=== PATIENT | male | born 1970 | race African-American/Black ===

== ENCOUNTER 2016-09-27 01:00 | Inpatient (IN) ==
[2016-09-27] MEDS ORDERED: MORPHINE 2 MG/1 ML SYRINGE IV STA (01:27)
[2016-09-27] MEDS ORDERED: ENOXAPARIN 100 MG/ML SYRINGE SUBCUT STA (01:27)
[2016-09-27] MEDS ORDERED: FUROSEMIDE 100 MG/10 ML VIAL IV STA (01:27)
[2016-09-27] MEDS ORDERED: FUROSEMIDE 40 MG/4 ML VIAL ONE (01:27)
[2016-09-27] MEDS ORDERED: SUCCINYLCHOLINE 200 MG/10 ML VIAL IV STA (01:30)
[2016-09-27] MEDS ORDERED: ETOMIDATE 20 MG/10 ML VIAL IV ONE ×2 (01:30→02:16)
--- NOTE | 2016-09-27 01:34 | Emergency Department Note ---
Jose L Devi Manpreet, am scribing for, and in the presence of, Ángel Graf MD 01:33. Homar Devi Robert M, MD, personally performed the services described in this documentation, ascribed by Antwan Domingo in my presence, and it is both accurate and complete . Arrival - Arrival Chief Complaint: Shortness of Breath Stated Complaint: SOB ED Nursing Triage Note: patient to triage via wc with c/o shortness of breath for 3 weeks. saw a telephone betting clerk and was given tramadol which he said has made him even more sob. Mode of Arrival: Stretcher Source: Patient - History of Present Illness HPI Narrative: Patient presents complaining of being short of breath. He states symptoms started approximately 3 weeks ago. Acutely tonight he got worse. The patient has been given Ultram which he says subjectively made him worse but he has had no itching, swelling, or other complaints. The patient was also given Lasix at the time he was given Ultram from a physician in [place] that is a "[facility]". The patient denies any chest pain. He has had no fever. He does have productive cough. He is very dyspneic and further history is difficult to obtain. Allergies/Adverse Reactions: Allergies Allergy/AdvReac Type Severity Reaction Status Date / Time tramadol AdvReac SHORTNESS Verified 09/27/16 01:07 OF BREATH Home Medications: Home Medications Medication Instructions Recorded Confirmed Type FLUoxetine [PROzac] 40 mg PO DAILY 09/27/16 09/27/16 History OLANZapine [Olanzapine] 20 mg PO DAILY 09/27/16 09/27/16 History amLODIPine [Norvasc] 10 mg PO DAILY 09/27/16 09/27/16 History Review of System - Review of System 12 point system: reviewed and no additional remarkable complaints except as stated - Review of System Constitutional: Absent: diaphoresis, fever Respiratory: Present: respiratory distress. Absent: cough Cardiovascular: Absent: chest pain, dyspnea on exertion Gastrointestinal: Absent: abdominal pain, nausea, vomiting, diarrhea Neurological: Absent: headache, weakness Medical,Surgical,& Family Hx - Medical History Medical History: noncontributory Cardio: History of: CHF Psychological: History of: Anxiety Disorders - Social History Smoking Status: Smoker, status unknown Frequency of Alcohol Use: Occasionally Type of Drug Use: Marijuana Exam Physical Examination: General: Patient is well-developed and well-nourished with severe distress noted. The patient is too dyspneic to speak and other than 1 or 2 word sentences. HEENT: The extraocular muscles are intact. Oropharynx is moist. There is no erythema or exudate. The tympanic membranes are shiny bilaterally. Neck: There is no adenopathy. Full range of motion is noted without pain. The trachea is midline. No JVD is present. Lungs: There is normal excursion of the chest with the lungs demonstrating rales and rhonchi bilaterally. Subcostal retractions are present. There is no point tenderness present. Heart: The heart has a regular rate and rhythm with no gallops or murmurs. The patient is tachycardic. Abdomen: The abdomen is nontender and nondistended with no rebound, guarding, or masses. Bowel sounds are normal. Back: The back demonstrates a normal appearance with no evidence of trauma. Genitourinary: Not examined. Extremities: The extremities demonstrate no clubbing, cyanosis, or edema. The visualized range of motion is normal. They appear atraumatic. Neuro: Cranial nerves II through XII are checked and intact. There is no focal motor or sensory deficit seen in the extremities. Skin: Skin is warm and slightly diaphoretic with no evidence of rash. Vital Signs: Vital Signs Temperature 98.3 F 09/27/16 01:01 Pulse Rate 120 H 09/27/16 01:59 Respiratory Rate 24 09/27/16 01:59 Blood Pressure 161/111 09/27/16 01:59 O2 Sat by Pulse Oximetry 72 L 09/27/16 01:01 Course - Reevaluation(s) Reevaluation #1: Note is made that the tube was too superficial and ET tube had to be repositioned with the use of a bougie. Postprocedural chest x-ray demonstrates satisfactory positioning of the tube. Bilateral parenchymal opacities are present which favored to represent pneumonia but could represent pulmonary edema. Time: 02:00 - Consultations Consultation #1: Dr. Filippo Vivas will evaluate and admit the patient. Time: 02:43 Procedures - Intubation Time out performed: Yes sedative: Etomidate Mg Given: 20 paralytic: Succinylcholine Mg Given: 100 Laryngoscope: fiber optic video scope ET Tube Size: 8 Tube Secured Depth (cm): 21 Tube Secured Location: teeth Tube Placement Confirmation: visualized tube passing through cords, equal breath sounds bilaterally, no breath sounds over epigastrium, confirmation by capnometry, confirmation detector color change Patient Tolerated Procedure: well Intubation Complications: none Results - Labs CBC & BMP: 09/27/16 01:22 09/27/16 01:22 Lab Results: I have reviewed the patients labs Labs: Lab Results WBC 25.4 T/CUMM (4-12) H 09/27/16 01:22 RBC 4.57 MC/CUMM (3.8-5.5) 09/27/16 01:22 Hgb 9.8 GM/DL (14.0-18.0) L 09/27/16 01:22 Hct 28.3 VOL% (42.0-52.0) L 09/27/16 01:22 MCV 61.9 FL (87-102) L 09/27/16 01:22 MCH 21 PG (27-34) L 09/27/16 01:22 MCHC 34.6 GM/DL (32-36) 09/27/16 01:22 RDW 19.1 % (9.3-17.3) H 09/27/16 01:22 Plt Count 153 T/CUMM (130-400) 09/27/16 01:22 Neut % (Auto) 77.1 % (38.7-73.9) H 09/27/16 01:22 Lymph % (Auto) 11.8 % (21.2-54.2) L 09/27/16 01:22 [place] % (Auto) 8.2 % (1.7-12.7) 09/27/16 01:22 Eos % (Auto) 0.6 % (0.00-10.9) 09/27/16 01:22 Baso % (Auto) 0.4 % (0.0-0.8) 09/27/16 01:22 Neut # (Auto) 19.6 10*3/uL (1.4-7.4) H 09/27/16 01:22 Lymph # (Auto) 3.0 10*3/uL (1.4-4.0) 09/27/16 01:22 Gaston # (Auto) 2.1 10*3/uL (0.11-0.8) H 09/27/16 01:22 Eos # (Auto) 0.1 10*3/uL (0.0-0.87) 09/27/16 01:22 Baso # (Auto) 0.1 10*3/uL (0.0-0.2) 09/27/16 01:22 Immature Gran % 1.9 % 09/27/16 01:22 Nucleated RBC % 1.4 /100WBC 09/27/16 01:22 Immature Gran # 0.48 # 09/27/16 01:22 Nucleated RBCs # 0.35 10*3/uL 09/27/16 01:22 INR 1.1 09/27/16 01:22 PT Patient/Control Mix 11.2 SECS 09/27/16 01:22 Sodium 132 MMOL/L (136-145) L 09/27/16 01:22 Potassium 3.4 MMOL/L (3.5-5.1) L 09/27/16 01:22 Chloride 97 MMOL/L (98-107) L 09/27/16 01:22 Carbon Dioxide 21 MMOL/L (21-32) 09/27/16 01:22 Anion Gap 17.4 MMOL/L (5.0-15.0) H 09/27/16 01:22 BUN 16 MG/DL (7-18) 09/27/16 01:22 Creatinine 1.30 MG/DL (0.70-1.30) 09/27/16 01:22 GFR Calculation 77 ML/MIN 09/27/16 01:22 BUN/Creatinine Ratio 12.00 RATIO (6.00-20.00) 09/27/16 01:22 Glucose 200 MG/DL (74-106) H 09/27/16 01:22 Calculated Osmolality 270.5 MOS/KG (273-304) L 09/27/16 01:22 Lactic Acid 3.4 MMOL/L (0.4-2.0) H 09/27/16 01:22 Calcium 8.0 MG/DL (8.5-10.1) L 09/27/16 01:22 Magnesium 1.7 MG/DL (1.8-2.4) L 09/27/16 01:22 Total Bilirubin 2.10 MG/DL (0.2-1.0) H 09/27/16 01:22 AST 29 U/L (0-37) 09/27/16 01:22 ALT 31 U/L (16-61) 09/27/16 01:22 Alkaline Phosphatase 108 U/L (45-117) 09/27/16 01:22 Troponin I 0.078 NG/ML (0.00-0.045) H 09/27/16 01:22 Total Protein 6.5 G/DL (6.4-8.3) 09/27/16 01:22 Albumin 3.3 G/DL (3.4-5.0) L 09/27/16 01:22 Globulin 3.2 G/DL (2.3-3.5) 09/27/16 01:22 Albumin/Globulin Ratio 1.0 RATIO (1.1-2.2) L 09/27/16 01:22 Urine Color Yellow (Yellow) 09/27/16 01:51 Urine Appearance Clear (Clear) 09/27/16 01:51 Urine pH 5.0 (4.5-8.0) 09/27/16 01:51 Ur Specific [place] 1.009 (1.001-1.035) 09/27/16 01:51 Urine Protein 100 MG/DL 09/27/16 01:51 Urine Glucose (UA) Negative mg/dL (Negative) 09/27/16 01:51 Urine Ketones Negative mg/dL (Negative) 09/27/16 01:51 Urine Blood Small mg/dL (Negative) 09/27/16 01:51 Urine Nitrate Negative (Negative) 09/27/16 01:51 Urine Bilirubin Negative mg/dL (Negative) 09/27/16 01:51 Urine Urobilinogen 2.0 EU/DL (0.2-1.0) H 09/27/16 01:51 Urine Leukocytes Negative Tulio/ul (Negative) 09/27/16 01:51 Urine RBC 1 /HPF (0-4) 09/27/16 01:51 Urine WBC <1 /HPF (0-6) 09/27/16 01:51 Ur Squamous Epith Cells Occasional /HPF (0-10) 09/27/16 01:51 Hyaline Casts 2 /LPF (0-3) 09/27/16 01:51 Urine Mucus Occasional /LPF (Occasional) 09/27/16 01:51 Ur Culture Indicated? Not indicated 09/27/16 01:51 ABG pH 7.159 (7.35-7.45) L* 09/27/16 02:03 ABG pCO2 61.0 MM HG (35-48) H 09/27/16 02:03 ABG pO2 53.9 MM HG (80-95) L 09/27/16 02:03 ABG HCO3 21.2 MMOL/L (20-26) 09/27/16 02:03 ABG Total CO2 23.1 MMOL/L (23-27) 09/27/16 02:03 ABG O2 Saturation 75.7 % (95-100) L 09/27/16 02:03 ABG Base Excess -7.7 MMOL/L (-2.5-2.5) L 09/27/16 02:03 FiO2 100.00 PERCENT (0-100) 09/27/16 02:03 Urine Opiates Screen Negative (Negative) 09/27/16 01:51 Ur Barbiturates Screen Negative (Negative) 09/27/16 01:51 Ur Phencyclidine Scrn Negative (Negative) 09/27/16 01:51 U Amphetamine/Methamph Negative (Negative) 09/27/16 01:51 U Benzodiazepines Scrn Negative (Negative) 09/27/16 01:51 U Cocaine Metab Screen Negative (Negative) 09/27/16 01:51 U Cannabinoids Screen Positive (Negative) H 09/27/16 01:51 - EKG EKG results: interpreted by SINDY, sinus rhythm (Tachycardic), normal ST/T Critical Care Time Critical Care Time: Yes Total Critical Care Time: 43 Disposition Clinical Impression: Community acquired pneumonia, Congestive heart failure Case discussed with: patient, patient's family Disposition: Still a Patient Condition: Critical Time of Disposition: 02:42
[2016-09-27] MEDS ORDERED: VECURONIUM 10 MG VIAL IV ONE ×2 (01:39→03:19)
[2016-09-27] MEDS ORDERED: PROPOFOL 1,000 MG/100 ML BOTTLE IV ONE (01:41)
[2016-09-27] MEDS ORDERED: ENOXAPARIN 100 MG/ML SYRINGE SUBCUT ONE (01:52)
[2016-09-27 01:55] LABS: Basophils # 0.1 10*3/uL (0.0-0.2); Basophils % 0.4 % (0.0-0.8); Eosinophils # 0.1 10*3/uL (0.0-0.87); Eosinophils % 0.6 % (0.00-10.9); Hematocrit 28.3 VOL% (42.0-52.0); Hemoglobin 9.8 GM/DL (14.0-18.0); Immature Granulocytes % 1.9 %; Immature Granulocytes Absolute 0.48 #; Lymphocytes % 11.8 % (21.2-54.2); Mean Corpuscular HGB Conc 34.6 GM/DL (32-36); Mean Corpuscular Hemoglobin 21 PG (27-34); Mean Corpuscular Volume 61.9 FL (87-102); Monocytes # 2.1 10*3/uL (0.11-0.8); Monocytes % 8.2 % (1.7-12.7); NRBC # 0.35 10*3/uL; Neutrophils # 19.6 10*3/uL (1.4-7.4); Neutrophils % 77.1 % (38.7-73.9); Platelet Count 153 T/CUMM (130-400); Red Blood Count 4.57 MC/CUMM (3.8-5.5); Red Cell Distribution Width 19.1 % (9.3-17.3); White Blood Count 25.4 T/CUMM (4-12)
[2016-09-27] MEDS: PROPOFOL 1,000 MG/100 ML BOTTLE IV SCH ×5 (01:56→19:27)
[2016-09-27 01:59] LABS: Albumin 3.3 G/DL (3.4-5.0); Bilirubin,Total 2.1 MG/DL (0.2-1.0); Magnesium 1.7 MG/DL (1.8-2.4); Osmolality,Calculated 270.5 MOS/KG (273-304); Potassium 3.4 MMOL/L (3.5-5.1); Total Protein 6.5 G/DL (6.4-8.3)
[2016-09-27 02:02] LABS: Troponin I Only 0.078 NG/ML (0.00-0.045)
[2016-09-27 02:05] LABS: INR 1.1; PT Patient Result 11.2 SECS
[2016-09-27 02:07] LABS: Apearance,Urine CLEAR (Clear); Bilirubin,Urine Negative (Negative); Blood, Urine Small mg/dL (Negative); Glucose,Urine (UA) Negative (Negative); Hyaline Casts,Urine 2 /LPF (0-3); Ketones,Urine Negative (Negative); Mucus,Urine Occasional /LPF (Occasional); Nitrite,Urine Negative (Negative); Protein,Urine 100 MG/DL; RBC,Urine 1 /HPF (0-4); Squamous Epithelial Cell,Urine Occasional /HPF (0-10); Urine Color Yellow (Yellow); Urine Specific Gravity 1.009 (1.001-1.035); WBC,Urine <1 /HPF (0-6)
[2016-09-27 02:09] LABS: Allen Test Positive; Pt O2 Delivery Device Ventilator
[2016-09-27 02:10] LABS: Barbiturates Screen,Urine Negative (Negative); Benzodiazepines Screen,Urine Negative (Negative); Cannabinoid Screen,Urine Positive (Negative); Opiate Screen,Urine Negative (Negative); Phencyclidine Screen,Urine Negative (Negative)
[2016-09-27 02:10] LABS: ABG Base Excess -7.7 MMOL/L (-2.5-2.5); ABG HCO3 21.2 MMOL/L (20-26); ABG Oxygen Saturation 75.7 % (95-100); ABG PO2 53.9 MM HG (80-95); ABG TCO2 23.1 MMOL/L (23-27)
[2016-09-27 02:13] LABS: ABG PH 7.159 (7.35-7.45)
[2016-09-27] MEDS ORDERED: SUCCINYLCHOLINE 200 MG/10 ML VIAL ONE (02:16)
[2016-09-27] MEDS ORDERED: cefTRIAXone 1,000 MG in SODIUM CHLORIDE 0.9% 100 ML IV STA (02:37)
[2016-09-27] MEDS ORDERED: SODIUM CHLORIDE 0.9% 100 ML IV ONE (02:38)
[2016-09-27] MEDS ORDERED: cefTRIAXone 1,000 MG VIAL ONE (02:38)
--- NOTE | 2016-09-27 02:40 | Hospitalist History & Physical ---
Assessment and Plan (1) Respiratory failure Status: Acute Current Visit: Yes (2) Pneumonia Status: Acute Current Visit: Yes (3) Leukocytosis Status: Acute Current Visit: Yes (4) Hemoglobin SC disease Status: Acute Current Visit: Yes (5) History of congestive heart failure Status: Acute Assessment and plan: Patient is normally a [facility] patient. Have limited records available in our system. Will obtain records from [facility]. BNP is pending. Patient received IV Lasix in the emergency room prior to him being intubated. Patient looks like a combination of pneumonia and congestive heart failure. BNP is ordered and we have already started IV antibiotics while in the emergency room. Blood pressure stable. Patient meets the criteria for severe sepsis. Repeat lactate in 6 hours. Current Visit: Yes (6) Severe sepsis Status: Acute Current Visit: Yes History of Present Illness Chief complaint: Shortness of breath History of present illness: Mr. 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 Patient reported the ER physician that his shortness of breath started approximately 3 weeks ago. Tonight it got acutely worse. He had been given Ultram by an outside physician and that made him feel worse according to the patient. He was also given some Lasix at the same time from a physician in [place] that he referred to as a mayer Dr. He denied any chest pain he had no fever but he been having a productive cough he. He was very dyspneic and there was no other further history to be obtained. He subsequently required intubation by the ER physician I was consulted to admit the patient after he was intubated. Home Medications Medication Instructions Recorded Confirmed Type FLUoxetine [PROzac] 40 mg PO DAILY 09/27/16 09/27/16 History OLANZapine [Olanzapine] 20 mg PO DAILY 09/27/16 09/27/16 History amLODIPine [Norvasc] 10 mg PO DAILY 09/27/16 09/27/16 History Allergies Allergy/AdvReac Type Severity Reaction Status Date / Time tramadol AdvReac SHORTNESS Verified 09/27/16 01:07 OF BREATH Medical,Surgical,& Family Hx - Medical History Cardio: History of: CHF Psychological: History of: Anxiety Disorders Hematology: History of: Sickle Cell Disease (Hemoglobin SC) - Surgical History Surgical History: noncontributory (Unable to obtain) - Family History Family History: noncontributory (Unable to obtain) - Social History Smoking Status: Smoker, status unknown Frequency of Alcohol Use: Occasionally Type of Drug Use: Marijuana ROS unobtainable: due to mental status Exam - Constitutional Vitals: Period Temp Pulse Resp BP Sys/Ramirez Pulse Ox Last 24 Hr 98.3 F-98.3 F 120-122 12-24 133-161/92-111 72 General appearance: normal weight - Head Head exam: Present: normal inspection - Eye Pupils: Present: AUGIE (Sluggish) - ENT ENT exam: Present: other (ET tube in place) - Neck Neck exam: Present: normal inspection - Respiratory Respiratory exam: Present: rales, rhonchi - Cardiovascular Cardiovascular exam: Present: tachycardia - GI/Abdominal GI/Abdominal exam: Present: normal bowel sounds - Extremities Exam Extremities exam: Present: normal inspection - Back Exam Back exam: Present: normal inspection Results - Labs CBC & BMP: 09/27/16 01:22 09/27/16 01:22
[2016-09-27] MEDS ORDERED: MORPHINE 2 MG/1 ML SYRINGE IV PRN (02:50)
[2016-09-27] MEDS ORDERED: ALBUTEROL 2.5 MG/3 ML NEB RESP TX PRN (02:50)
[2016-09-27] MEDS ORDERED: ONDANSETRON 4 MG/2 ML VIAL IV PRN (02:50)
[2016-09-27] MEDS ORDERED: GLUCAGON 1 MG VIAL IM PRN (02:50)
[2016-09-27] MEDS ORDERED: DEXTROSE 50% 25 GM/50 ML VIAL IV PRN (02:50)
[2016-09-27] MEDS ORDERED: MAGNESIUM SULF RIDER 4 GM in PREMIX 1 EACH IV PRN (03:04)
[2016-09-27 03:22] LABS: Lymphocytes 16 % (20-55); Nucleated Red Blood Cells 5 (0-5); Segmented Neutrophils 81 % (50-85); Total Cells Counted 100
[2016-09-27] MEDS ORDERED: VECURONIUM 10 MG VIAL IV STA (03:22)
[2016-09-27 03:23] LABS: Anisocytosis 1+; Hypochromasia 2+; Microcytosis 1+; Ovalocytes 1+; Platelet Estimate Adequate; Target Cells 2+
[2016-09-27] MEDS ORDERED: LABETALOL 20 MG/4 ML SYRINGE IV PRN (04:22)
--- NOTE | 2016-09-27 04:25 | EKG Report ---
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
[2016-09-27] MEDS: PANTOPRAZOLE 40 MG VIAL IV SCH (04:41)
[2016-09-27] MEDS ORDERED: SODIUM CHLOR 0.45% KCL 20 MEQ 20 MEQ/1,000 ML BAG IV SCH (05:00)
[2016-09-27] MEDS: AZITHROMYCIN INJ 500 MG in SODIUM CHLORIDE 0.9% 250 ML IV SCH (05:13)
[2016-09-27] MEDS: INSULIN REGULAR 100 UNIT/ML SUBCUT SCH ×3 (05:58→19:05)
[2016-09-27 07:12] LABS: Allen Test Positive; Pt O2 Delivery Device Ventilator
[2016-09-27 07:13] LABS: ABG Base Excess -8.3 MMOL/L (-2.5-2.5); ABG HCO3 17.7 MMOL/L (20-26); ABG Oxygen Saturation 97.2 % (95-100); ABG PCO2 36.4 MM HG (35-48); ABG PH 7.292 (7.35-7.45); ABG TCO2 16.4 MMOL/L (23-27)
--- NOTE | 2016-09-27 07:24 | XRay Report ---
History: Shortness of breath. History of CHF. Hemoglobin SC disease Date: 09/27/2016 Study: Chest x-ray AP portable Comparison exam: No previous chest x-ray available The endotracheal tube is well-positioned superior to the iwona. There is cardiomegaly. There is no obvious mediastinal mass. There is some scattered patchy and hazy pulmonary edema/infiltrate in both lungs bilaterally, more so in the perihilar regions. There is trace pleural effusion in the right minor fissure. There is some increased sclerosis of either humeral head suggesting potential underlying avascular necrosis. Impression: Satisfactory positioning of endotracheal tube. Bilateral airspace disease which may represent pneumonia or pulmonary edema from cardiac decompensation Cardiomegaly PROCEDURE INTERPRETED AT [facility] DEPARTMENT OF RADIOLOGY Final Report Signed by: Dr. Daylin Francis
--- NOTE | 2016-09-27 08:21 | Pulmonology Consult Note ---
Assessment and Plan (1) Congestive heart failure Status: Acute Assessment and plan: The patient presents with acute shortness of breath and his x-ray is consistent with heart failure. He is getting an echocardiogram at present. Current Visit: Yes (2) Hemoglobin SC disease Status: Acute Assessment and plan: Patient has a history of sickle cell disease and his hematocrit is 28. Current Visit: Yes (3) Pneumonia Status: Acute Assessment and plan: The patient is being covered for pneumonia although this may all be related to congestive heart failure. Current Visit: Yes (4) Respiratory failure Status: Acute Assessment and plan: The patient still has a significant A-a O2 gradient did come in with CO2 retention. Hopefully this will clear fairly quickly. We will continue ventilatory support. Current Visit: Yes History of Present Illness Chief complaint: Ventilator management History of present illness: Mr. Rodriguez is a 45 year old black male that apparently has a history of sickle cell disease (SC) and apparently has some component of heart failure in the past. It is unclear if he has ever had a high blood pressure. He apparently has an anxiety disorder and takes major tranquilizers. He came in with acute shortness of breath and his x-ray looks like pulmonary edema. He had to be intubated fairly quickly. He is comfortable on the ventilator at present. It is unclear if he is ever had any lung problems. He has stable vital signs at present. His drug screen was positive for marijuana. Home Medications Medication Instructions Recorded Confirmed Type FLUoxetine [PROzac] 40 mg PO DAILY 09/27/16 09/27/16 History OLANZapine [Olanzapine] 20 mg PO DAILY 09/27/16 09/27/16 History amLODIPine [Norvasc] 10 mg PO DAILY 09/27/16 09/27/16 History Allergies Allergy/AdvReac Type Severity Reaction Status Date / Time tramadol AdvReac SHORTNESS Verified 09/27/16 01:07 OF BREATH ROS unobtainable: due to endotracheal tube (He is unable to give any history at present.) Exam (Pulmonay) H&P - Constitutional Vitals: Period Temp Pulse Resp BP Sys/Ramirez Pulse Ox Last 24 Hr 96.3 F-98.3 F 87-125 12-24 93-161/66-111 72-99 General appearance: normal weight, no acute distress (Patient is sedated on the ventilator.) - Head Head exam: Present: normal inspection, normocephalic - Eye Eye exam: Present: EOMI. Absent: scleral icterus Pupils: Present: AUGIE - ENT ENT exam: Present: other (ET tube is in good position) - Neck Neck exam: Present: normal inspection. Absent: lymphadenopathy, thyromegaly - Respiratory Respiratory exam: Present: rhonchi, other (He has good breath sounds bilaterally with fair air movement. He has some minimal rhonchi now.) - Cardiovascular Cardiovascular exam: Present: regular rate and rhythm, systolic murmur (He does have a soft systolic murmur), tachycardia. Absent: gallop - GI/Abdominal GI/Abdominal exam: Present: normal bowel sounds, soft. Absent: distended, organomegaly, tenderness - Extremities Exam Extremities exam: Absent: calf tenderness, edema - Neurological Exam Neurological exam: Present: other (Patient is sedated on the ventilator at present.) - Skin Skin exam: Present: warm, dry Medical,Surgical,& Family Hx - Medical History Cardio: History of: CHF Psychological: History of: Anxiety Disorders Hematology: History of: Sickle Cell Disease (Hemoglobin SC) - Social History Smoking Status: Smoker, status unknown Frequency of Alcohol Use: Occasionally Type of Drug Use: Marijuana Results - Labs CBC & BMP: 09/27/16 01:22 09/27/16 01:22 Labs: His PO2 is 108 with a PCO2 of 36 and a pH of 7.29 on 100% oxygen. - Diagnostic Findings Procedure: Chest x-ray: image reviewed by me, report reviewed by me (Chest x- ray shows cardiomegaly and mild pulmonary edema)
[2016-09-27 08:24] LABS: Albumin 2.9 G/DL (3.4-5.0); Bilirubin,Total 1.4 MG/DL (0.2-1.0); Calcium 7.2 MG/DL (8.5-10.1); Osmolality,Calculated 270.7 MOS/KG (273-304); Potassium 4.8 MMOL/L (3.5-5.1); Total Protein 5.7 G/DL (6.4-8.3)
[2016-09-27] MEDS: ENOXAPARIN 40 MG/0.4 ML SYRINGE SUBCUT SCH (08:53)
[2016-09-27] MEDS: FUROSEMIDE 40 MG/4 ML VIAL IV SCH ×2 (08:53→16:04)
[2016-09-27 09:49] LABS: Basophils # 0.1 10*3/uL (0.0-0.2); Basophils % 0.3 % (0.0-0.8); Eosinophils # 0.1 10*3/uL (0.0-0.87); Eosinophils % 0.3 % (0.00-10.9); Hematocrit 25.2 VOL% (42.0-52.0); Immature Granulocytes % 4.5 %; Lymphocytes # 3.8 10*3/uL (1.4-4.0); Lymphocytes % 13.1 % (21.2-54.2); Mean Corpuscular HGB Conc 35.7 GM/DL (32-36); Mean Corpuscular Hemoglobin 22 PG (27-34); Mean Corpuscular Volume 61.8 FL (87-102); Monocytes # 2.7 10*3/uL (0.11-0.8); Monocytes % 9.3 % (1.7-12.7); NRBC # 0.61 10*3/uL; Neutrophils # 21.2 10*3/uL (1.4-7.4); Neutrophils % 72.5 % (38.7-73.9); Platelet Count 167 T/CUMM (130-400); Red Blood Count 4.08 MC/CUMM (3.8-5.5); Red Cell Distribution Width 19.1 % (9.3-17.3); White Blood Count 29.2 T/CUMM (4-12)
[2016-09-27 10:18] LABS: Band Neutrophils 1 % (0-10); Hypochromasia 1+; Lymphocytes 16 % (20-55); Microcytosis 2+; Nucleated Red Blood Cells 1 (0-5); Segmented Neutrophils 78 % (50-85); Target Cells Few; Total Cells Counted 100
[2016-09-27 10:19] LABS: Platelet Estimate Adequate; Polychromasia Slight; Tear Drop Cells Slight
--- NOTE | 2016-09-27 11:46 | ECHO Report ---
Gregory Rodriguez Exam Date: 09/27/2016 08:09 Referring Physician: Technologist: Johana Philip Age: 45 Ht (in): 64 Wt (lb): 150 Gender: M Exam Location: [facility] Echo Indications: Resp. failure, pneumonia, leukocytosis, Hx. CHF, severe sepsis, sob, cardiomyopathy BP: 100 / 73 HR: 92 Rhythm: Sinus Technical Quality: average IMPRESSIONS Left ventricular ejection fraction is estimated at 15%. Diastolic parameters are most consistent with grade 3 diasThere is flattening of the interventricular septum with both systole and diastole suggesting both pressure and volume overload of the right ventricle Tricuspid regurgitation velocities suggest a RVSP of 39 mmHg plus the right atrial pressure. tolic dysfunction or restrictive physiology. The right ventricular systolic pressures estimated to be 39/16+ the right atrial pressure added to both systolic and diastolic component Four-chamber cardiac enlargement MEASUREMENTS (Male / Female) Normal Values 2D ECHO LV Diastolic Diameter PLAX 6.3 cm 4.2 - 5.9 / 3.9 - 5.3 cm LV Systolic Diameter PLAX 5.2 cm LV Fractional Shortening PLAX 16.6 % IVS Diastolic Thickness 1.1 cm 0.6 - 1.0 / 0.6 - 0.9 cm LVPW Diastolic Thickness 1.1 cm 0.6 - 1.0 / 0.6 - 0.9 cm RV Internal Dim ED PLAX 4.7 cm Aortic Root Diameter 2.9 cm LA Systolic Diameter LX 5.5 cm 3.0 - 4.0 / 2.7 - 3.8 cm DOPPLER TR Peak Velocity 315.0 cm/s TR Peak Gradient 39.7 mmHg FINDINGS Left Ventricle Mildly increased left ventricular diastolic diameter. Mild concentric left ventricular hypertrophy. Left ventricular ejection fraction is estimated at 15%. Diastolic parameters are most consistent with grade 3 diastolic dysfunction or restrictive physiology. There is flattening of the interventricular septum with both systole and diastole suggesting both pressure and volume overload of the right ventricle Right Ventricle Moderately increased right ventricular size. Right Atrium Moderately increased right atrial size. Left Atrium Severely increased left atrial diameter. Mitral Valve The anterior leaflet of the mitral valve is thickened and demonstrates decreased excursion. There appears to be moderate to severe posterior jet of mitral regurgitation. There is no demonstrable mitral stenosis Aortic Valve Mild aortic valve sclerosis without stenosis. Tricuspid Valve Morphologically normal tricuspid valve. Moderate tricuspid valve regurgitation. Tricuspid regurgitation velocities suggest a RVSP of 39 mmHg plus the right atrial pressure. Pulmonic Valve Morphologically normal pulmonic valve. Mild pulmonary valve regurgitation with a end-diastolic velocity of 2 m/s corresponds with a PA diastolic pressure of 16 mmHg plus right atrial pressure. Pericardium No pericardial effusion. Aorta Normal size aortic root and proximal ascending aorta. Eugenie Oneill (Electronically Signed) Final Date: 27 September 2016 11:45
[2016-09-27] MEDS ORDERED: HYDROmorphone 2 MG/1 ML VIAL IV PRN (12:29)
--- NOTE | 2016-09-27 12:34 | Hospitalist Progress Note ---
Assessment and Plan (1) Acute combined systolic and diastolic congestive heart failure Status: Acute Assessment and plan: echo shows an ejection fraction of only 15%, with grade 3 diastolic dysfunction , needs AICD, cont lasix IV q 12 hours Current Visit: Yes (2) Respiratory failure Status: Acute Assessment and plan: intubated and sedated. Dr. Yost managing the vent Current Visit: Yes (3) Pneumonia Status: Acute Assessment and plan: cont azithromycin and rocephin to cover for pneumonia, blood cx pending, Hx of Sickle cell dont know WBC baseline, usually goes to [facility] Current Visit: Yes (4) Hemoglobin SC disease Status: Acute Assessment and plan: could be sickle cell crisis need to interview family Current Visit: Yes (5) Acute on chronic renal failure Status: Acute Assessment and plan: renal us. monitor bmp Current Visit: Yes Hospitalist: Subjective Interval history: No family around at this time. Patient intubated and sedated. Patient usually goes to [facility] and we do not have those records. We will obtain those. Dr. Yost is seen him today and will be managing the vent. Echocardiogram showed a EF of only 15%. Exam - Constitutional Vitals: Period Temp Pulse Resp BP Sys/Ramirez Pulse Ox Last 24 Hr 96.3 F-98.3 F 87-125 12-24 93-161/66-111 72-99 Exam: Heart Rate-[tachy] Lungs-[CTAB but diminished] GI-[+bs soft, NT] Ext-[no edema] Neuro intubated and sedated psych cannot assess due to sedation General [no acute distress] Results - Labs CBC & BMP: 09/27/16 07:22 09/27/16 07:22 Lab Results: I have reviewed the past 24 hour labs - Diagnostic Findings Procedure: Chest x-ray: report reviewed by me (chf ), Ultrasound: report reviewed by me (echo ef 15% with grade 3 diastolic dysfunction )
--- NOTE | 2016-09-27 12:41 | EKG Report ---
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
[2016-09-27] MEDS ORDERED: CARVEDILOL 3.125 MG TABLET PO SCH (13:00)
[2016-09-27] MEDS ORDERED: LORazepam 2 MG/1 ML VIAL IV PRN (13:52)
[2016-09-27] MEDS: cefTRIAXone 2,000 MG in SODIUM CHLORIDE 0.9% 100 ML IV SCH (14:00)
[2016-09-27] MEDS ORDERED: FOLIC ACID 5 MG/1 ML VIAL IV SCH (14:00)
--- NOTE | 2016-09-27 14:58 | Ultrasound Report ---
US renal Bilateral Indication: Acute renal failure. RENAL ULTRASOUND: Grayscale and color Doppler imaging the kidneys performed. Right kidney measures 103 x 38 x 49 mm. Left kidney measures 104 x 42 x 54 mm. No hydronephrosis, mass, cyst or calcification identified on either side. Color Doppler flow at both renal denise documented. Impression: Negative ultrasound of the kidneys. No change from 05/17/2013. PROCEDURE INTERPRETED AT [facility] DEPARTMENT OF RADIOLOGY Final Report Signed by: Filippo Juan M.D.
--- NOTE | 2016-09-27 14:59 | Cardiology Consult Note ---
<Rebekah Canales - Last Filed: 09/27/16 15:01> Assessment and Plan - Time spent with patient Time spent with patient: Greater than 30 minutes (1) Acute combined systolic and diastolic congestive heart failure Status: Acute Assessment and plan: SEE PLAN OF CARE LISTED BELOW. Current Visit: Yes (2) Acute on chronic renal failure Status: Acute Assessment and plan: SEE PLAN OF CARE LISTED BELOW. Current Visit: Yes (3) Hemoglobin SC disease Status: Chronic Assessment and plan: SEE PLAN OF CARE LISTED BELOW. Current Visit: Yes (4) Leukocytosis Status: Acute Assessment and plan: SEE PLAN OF CARE LISTED BELOW. Current Visit: Yes (5) Pneumonia Status: Acute Assessment and plan: SEE PLAN OF CARE LISTED BELOW. Current Visit: Yes (6) Respiratory failure Status: Acute Assessment and plan: SEE PLAN OF CARE LISTED BELOW. Current Visit: Yes (7) Elevated troponin Status: Acute Assessment and plan: SEE PLAN OF CARE LISTED BELOW. Current Visit: Yes (8) Abnormal EKG Status: Acute Assessment and plan: SEE PLAN OF CARE LISTED BELOW. Current Visit: Yes (9) Hypertension Status: Chronic Assessment and plan: SEE PLAN OF CARE LISTED BELOW. Current Visit: No (10) Drug abuse Status: Chronic Assessment and plan: SEE PLAN OF CARE LISTED BELOW. Current Visit: Yes (11) Alcoholism Status: Chronic Assessment and plan: SEE PLAN OF CARE LISTED BELOW. Current Visit: Yes (12) Elevated liver enzymes Status: Acute Assessment and plan: SEE PLAN OF CARE LISTED BELOW. Current Visit: Yes (13) Tobacco abuse Status: Chronic Assessment and plan: SEE PLAN OF CARE LISTED BELOW. Current Visit: Yes History of Present Illness - Data of Consult Patient: new to practice Consult date: 09/27/16 Requesting Physician: Shanta Martinez Primary care physician: Ector Figueroa - Consult Narrative Reason for consult: Ejection fraction of 15% History of present illness: Home Care Consultant: New to cardiology, has been seen at [facility] in the past. PCP: Dr. Ector Figueroa Patient is intubated and sedated in the CCU. Majority of information from this consult note has been obtained from nursing staff and patient's electronic medical record. No family is available. Unable to obtain review of systems. Mr. Rodriguez is a 45 year old male -[place] male patient who has not been seen by local cardiology in the past. Patient has cardiac risk factors significant for hypertension, current everyday smoker (tobacco and cannabis) and family history of premature coronary artery disease. Patient has a past medical history of congestive heart failure (most recent ejection fraction noted to be 15%), sickle cell anemia, anxiety and hypertension. According to patient's EMR, patient has been seen at [facility] recently with similar complaints. These records have been requested. Per nursing staff, family members have reported that he has never undergone heart catheterization. However, no family is available at this present time. These records will be reviewed when available. Apparently, patient is a current every day smoker. Drinks alcohol regularly. His family has admitted that he smokes marijuana regularly and has also done other drugs in his past. Patient presented to [facility] last night with complaints of shortness of breath. According to medical personnel, he was not complaining of any chest pain, heaviness or tightness. His x-ray revealed cardiomegaly and pulmonary edema versus pneumonia. Subsequently, he was intubated in the emergency department and transported to the CCU. BNP was mildly elevated at 450. Echocardiogram was also done this admission which revealed grade 3 diastolic dysfunction as well as an ejection fraction of 15%. Four-chamber cardiac enlargement was also noted. Drug screen was performed which was positive for cannabis. Patient was admitted under hospitalist's service and housed in the CCU. Cardiology has been consulted to further evaluate patient's cardiomyopathy. Patient was seen and examined in the CCU. He is currently sedated and ventilated. Unable to obtain review of systems. According to nursing staff, patient does have a history of congestive heart failure and has been seen at [facility] recently for similar complaints. Echocardiogram revealed an ejection fraction of 15% as well as grade 3 diastolic dysfunction. Troponin is mildly elevated and patient's EKG reveals ST and T-wave abnormality inferiorly and anteriolaterally. No prior EKG tracings available for comparison. This could possibly be related to patient's hypoxia as he was hypoxic when he arrived in the emergency department, requiring intubation. However, this could also very well be secondary to underlying coronary artery disease. At this point, it is uncertain whether patient has had prior heart catheterization in order to diagnose his cardiomyopathy ischemic versus nonischemic. Records have been requested from [facility]. However, these are currently not in the electronic medical record a. At this point, I will add baby aspirin and continue to cycle patient's troponin and EKGs. I will keep patient n.p.o. and await [facility] medical records. If has not recently undergone cardiac catheterization, he will certainly need cardiac catheterization once his comorbidities improve. ASSESSMENT/PLAN: 1. ACUTE CONGESTIVE HEART FAILURE, COMBINED SYSTOLIC AND DIASTOLIC DYSFUNCTION - According to nursing staff, patient does have a history of congestive heart failure and has been seen at [facility] recently for similar complaints. Echocardiogram revealed an ejection fraction of 15% as well as grade 3 diastolic dysfunction. Troponin is mildly elevated and patient's EKG reveals ST and T-wave abnormality inferiorly and anteriolaterally. No prior EKG tracings available for comparison. This could possibly be related to patient's hypoxia as he was hypoxic when he arrived in the emergency department , requiring intubation. However, this could also very well be secondary to underlying coronary artery disease. At this point, it is uncertain whether patient has had prior heart catheterization in order to diagnose his cardiomyopathy ischemic versus nonischemic. Records have been requested from [facility]. However, these are currently not in the electronic medical record a. At this point, I will add baby aspirin and continue to cycle patient's troponin and EKGs. I will keep patient n.p.o. and await [facility] medical records. If has not recently undergone cardiac catheterization, he will certainly need cardiac catheterization once his comorbidities improve. 2. ELEVATED TROPONIN - Patient's troponin is mildly elevated at 0.078 and 0.100. We will continue to cycle cardiac biomarkers and await patient's medical records from [facility]. Certainly, patient will need cardiac catheterization is he has not previously undergone this procedure at [facility]. Will keep patient n.p.o. and further discuss with Dr. Oneill. 3. ABNORMAL EKG - Patient's EKG reveals sinus tachycardia with ST and T-wave abnormality inferiorly and anteriolaterally. No prior EKG tracings available for comparison. This could be related to patient's hypoxia. It also could certainly be due to underlying coronary artery disease. At this time, we will continue to cycle cardiac biomarkers as well as EKGs until records from [facility] are available. If patient has not undergone heart catheterization at [facility], he will need invasive cardiac workup in order to define his coronary anatomy as he has an ejection fraction of 15%. 4. HYPERTENSION - Continue current plan of care. 5. SICKLE CELL ANEMIA - This could be a sickle cell crisis. H&H is noted to be 9 and 25. Defer management of this to attending. 6. ACUTE ON CHRONIC RENAL FAILURE - Renal US has been ordered, results pending. Monitor with daily BMP. 7. DRUG ABUSE - Patient's drug screen was positive for marijuana. This is most likely contributing to patient's cardiomyopathy. Will discuss with the patient the importance of cessation once he is extubated. 8. TOBACCO ABUSE - Will discuss the importance of smoking cessation when patient is expanded from the ventilator. 9. PNEUMONIA - Management per pulmonary. Continue IV antibiotics. 10. RESPIRATORY FAILURE - Management per pulmonary. 11. ELEVATED LIVER ENZYMES - Suspect this could be secondary to patient's underlying sickle cell. Will order hepatitis panel. 12. LEUKOCYTOSIS - Continue IV antibiotics. Defer management to attending. 13. ALCOHOLISM - Per nursing staff, patient drinks a daily. This could very well be contributing to patient's cardiomyopathy. Ativan has been ordered as needed per hospital medicine in order to prevent DTs. CC: Shanta Martinez MD - Home Medications and Allergies Home Medications: Home Medications Medication Instructions Recorded Confirmed Type FLUoxetine [PROzac] 40 mg PO DAILY 09/27/16 09/27/16 History OLANZapine [Olanzapine] 20 mg PO DAILY 09/27/16 09/27/16 History amLODIPine [Norvasc] 10 mg PO DAILY 09/27/16 09/27/16 History Allergies/Adverse Reactions: Allergies Allergy/AdvReac Type Severity Reaction Status Date / Time tramadol AdvReac SHORTNESS Verified 09/27/16 01:07 OF BREATH ROS unobtainable: due to endotracheal tube Medical,Surgical,& Family Hx - Medical History Cardio: History of: CHF, Hypertension Psychological: History of: Anxiety Disorders Hematology: History of: Sickle Cell Disease (Hemoglobin SC) - Family History Family History: Reports;: Family Heart Disease (Father at 46 yrs of age) - Social History Smoking Status: Current every day smoker Frequency of Alcohol Use: Occasionally Type of Drug Use: Marijuana Physical Examination Vital Signs Temp Pulse Resp BP Pulse Ox 98.3 F 122 H 20 133/92 72 L 09/27/16 01:01 09/27/16 01:01 09/27/16 01:01 09/27/16 01:01 09/27/16 01:01 Other: General: Sedated and ventilated. HEENT: PERRL, normocephalic, atraumatic. Neck: No JVD/HJR, no thyromegaly or lymphadenopathy noted. No carotid bruit appreciated Cardiac: Regular rate and rhythm. Tachycardia. No murmur rub or gallop. Lungs: Coarse ventilator lung sounds. Ventilated. Abdomen: Soft. Hypoactive bowel sounds. Nondistended. Extremities: No clubbing, cyanosis noted. No edema noted. Skin: No unusual lesions or rashes. No skin breakdown appreciated. Neuro: Unable to assess as patient is sedated and ventilated. Result/EKG - Labs CBC & BMP: 09/27/16 07:22 09/27/16 07:22 Lab Results: I have reviewed the past 24 hour labs Labs: Laboratory Results - last 24 hr 09/27/16 09/27/16 09/27/16 01:22 01:22 01:22 WBC 25.4 H RBC 4.57 Hgb 9.8 L Hct 28.3 L MCV 61.9 L MCH 21 L MCHC 34.6 RDW 19.1 H Plt Count 153 Neut % (Auto) 77.1 H Lymph % (Auto) 11.8 L Piatt % (Auto) 8.2 Eos % (Auto) 0.6 Baso % (Auto) 0.4 Neut # (Auto) 19.6 H Lymph # (Auto) 3.0 Piatt # (Auto) 2.1 H Eos # (Auto) 0.1 Baso # (Auto) 0.1 Total Counted 100 Immature Gran % 1.9 Nucleated RBC % 1.4 Immature Gran # 0.48 Segmented Neutrophils 81 Band Neutrophils Lymphocytes 16 L Monocytes 3 Nucleated RBCs 5 Nucleated RBCs # 0.35 Platelet Estimate Adequate Polychromasia Hypochromasia 2+ Anisocytosis 1+ Microcytosis 1+ Target Cells 2+ Tear Drop Cells Ovalocytes 1+ Morphology Comment INR 1.1 PT Patient/Control Mix 11.2 ABG pH ABG pCO2 ABG pO2 ABG HCO3 ABG Total CO2 ABG O2 Saturation ABG Base Excess FiO2 Sodium 132 L Potassium 3.4 L Chloride 97 L Carbon Dioxide 21 Anion Gap 17.4 H BUN 16 Creatinine 1.30 GFR Calculation 77 BUN/Creatinine Ratio 12.00 Glucose 200 H POC Glucose Calculated Osmolality 270.5 L Lactic Acid Calcium 8.0 L Magnesium 1.7 L Total Bilirubin 2.10 H AST 29 ALT 31 Alkaline Phosphatase 108 Troponin I 0.078 H B-Natriuretic Peptide Total Protein 6.5 Albumin 3.3 L Globulin 3.2 Albumin/Globulin Ratio 1.0 L Urine Color Urine Appearance Urine pH Ur Specific Holton Urine Protein Urine Glucose (UA) Urine Ketones Urine Blood Urine Nitrate Urine Bilirubin Urine Urobilinogen Urine Leukocytes Urine RBC Urine WBC Ur Squamous Epith Cells Hyaline Casts Urine Mucus Ur Culture Indicated? Urine Opiates Screen Ur Barbiturates Screen Ur Phencyclidine Scrn U Amphetamine/Methamph U Benzodiazepines Scrn U Cocaine Metab Screen U Cannabinoids Screen 09/27/16 09/27/16 09/27/16 01:22 01:22 01:51 WBC RBC Hgb Hct MCV MCH MCHC RDW Plt Count Neut % (Auto) Lymph % (Auto) Piatt % (Auto) Eos % (Auto) Baso % (Auto) Neut # (Auto) Lymph # (Auto) Piatt # (Auto) Eos # (Auto) Baso # (Auto) Total Counted Immature Gran % Nucleated RBC % Immature Gran # Segmented Neutrophils Band Neutrophils Lymphocytes Monocytes Nucleated RBCs Nucleated RBCs # Platelet Estimate Polychromasia Hypochromasia Anisocytosis Microcytosis Target Cells Tear Drop Cells Ovalocytes Morphology Comment INR PT Patient/Control Mix ABG pH ABG pCO2 ABG pO2 ABG HCO3 ABG Total CO2 ABG O2 Saturation ABG Base Excess FiO2 Sodium Potassium Chloride Carbon Dioxide Anion Gap BUN Creatinine GFR Calculation BUN/Creatinine Ratio Glucose POC Glucose Calculated Osmolality Lactic Acid 3.4 H Calcium Magnesium Total Bilirubin AST ALT Alkaline Phosphatase Troponin I B-Natriuretic Peptide 450 H Total Protein Albumin Globulin Albumin/Globulin Ratio Urine Color Yellow Urine Appearance Clear Urine pH 5.0 Ur Specific Holton 1.009 Urine Protein 100 Urine Glucose (UA) Negative Urine Ketones Negative Urine Blood Small Urine Nitrate Negative Urine Bilirubin Negative Urine Urobilinogen 2.0 H Urine Leukocytes Negative Urine RBC 1 Urine WBC <1 Ur Squamous Epith Cells Occasional Hyaline Casts 2 Urine Mucus Occasional Ur Culture Indicated? Not indicated Urine Opiates Screen Ur Barbiturates Screen Ur Phencyclidine Scrn U Amphetamine/Methamph U Benzodiazepines Scrn U Cocaine Metab Screen U Cannabinoids Screen 09/27/16 09/27/16 09/27/16 01:51 02:03 03:42 WBC RBC Hgb Hct MCV MCH MCHC RDW Plt Count Neut % (Auto) Lymph % (Auto) Piatt % (Auto) Eos % (Auto) Baso % (Auto) Neut # (Auto) Lymph # (Auto) Piatt # (Auto) Eos # (Auto) Baso # (Auto) Total Counted Immature Gran % Nucleated RBC % Immature Gran # Segmented Neutrophils Band Neutrophils Lymphocytes Monocytes Nucleated RBCs Nucleated RBCs # Platelet Estimate Polychromasia Hypochromasia Anisocytosis Microcytosis Target Cells Tear Drop Cells Ovalocytes Morphology Comment INR PT Patient/Control Mix ABG pH 7.159 L* ABG pCO2 61.0 H ABG pO2 53.9 L ABG HCO3 21.2 ABG Total CO2 23.1 ABG O2 Saturation 75.7 L ABG Base Excess -7.7 L FiO2 100.00 Sodium Potassium Chloride Carbon Dioxide Anion Gap BUN Creatinine GFR Calculation BUN/Creatinine Ratio Glucose POC Glucose 257 H Calculated Osmolality Lactic Acid Calcium Magnesium Total Bilirubin AST ALT Alkaline Phosphatase Troponin I B-Natriuretic Peptide Total Protein Albumin Globulin Albumin/Globulin Ratio Urine Color Urine Appearance Urine pH Ur Specific Hol[place] Urine Protein Urine Glucose (UA) Urine Ketones Urine Blood Urine Nitrate Urine Bilirubin Urine Urobilinogen Urine Leukocytes Urine RBC Urine WBC Ur Squamous Epith Cells Hyaline Casts Urine Mucus Ur Culture Indicated? Urine Opiates Screen Negative Ur Barbiturates Screen Negative Ur Phencyclidine Scrn Negative U Amphetamine/Methamph Negative U Benzodiazepines Scrn Negative U Cocaine Metab Screen Negative U Cannabinoids Screen Positive H 09/27/16 09/27/16 09/27/16 05:25 07:05 07:22 WBC 29.2 H RBC 4.08 Hgb 9.0 L Hct 25.2 L MCV 61.8 L MCH 22 L MCHC 35.7 RDW 19.1 H Plt Count 167 Neut % (Auto) 72.5 Lymph % (Auto) 13.1 L Piatt % (Auto) 9.3 Eos % (Auto) 0.3 Baso % (Auto) 0.3 Neut # (Auto) 21.2 H Lymph # (Auto) 3.8 Piatt # (Auto) 2.7 H Eos # (Auto) 0.1 Baso # (Auto) 0.1 Total Counted 100 Immature Gran % 4.5 Nucleated RBC % 2.1 Immature Gran # 1.30 Segmented Neutrophils 78 Band Neutrophils 1 Lymphocytes 16 L Monocytes 5 Nucleated RBCs 1 Nucleated RBCs # 0.61 Platelet Estimate Adequate Polychromasia Slight Hypochromasia 1+ Anisocytosis Microcytosis 2+ Target Cells Few Tear Drop Cells Slight Ovalocytes Morphology Comment INR PT Patient/Control Mix ABG pH 7.292 L ABG pCO2 36.4 ABG pO2 108.0 H ABG HCO3 17.7 L ABG Total CO2 16.4 L ABG O2 Saturation 97.2 ABG Base Excess -8.3 L FiO2 100.00 Sodium Potassium Chloride Carbon Dioxide Anion Gap BUN Creatinine GFR Calculation BUN/Creatinine Ratio Glucose POC Glucose Calculated Osmolality Lactic Acid 4.4 H Calcium Magnesium Total Bilirubin AST ALT Alkaline Phosphatase Troponin I B-Natriuretic Peptide Total Protein Albumin Globulin Albumin/Globulin Ratio Urine Color Urine Appearance Urine pH Ur Specific Holton Urine Protein Urine Glucose (UA) Urine Ketones Urine Blood Urine Nitrate Urine Bilirubin Urine Urobilinogen Urine Leukocytes Urine RBC Urine WBC Ur Squamous Epith Cells Hyaline Casts Urine Mucus Ur Culture Indicated? Urine Opiates Screen Ur Barbiturates Screen Ur Phencyclidine Scrn U Amphetamine/Methamph U Benzodiazepines Scrn U Cocaine Metab Screen U Cannabinoids Screen 09/27/16 09/27/16 09/27/16 07:22 07:22 11:23 WBC RBC Hgb Hct MCV MCH MCHC RDW Plt Count Neut % (Auto) Lymph % (Auto) Piatt % (Auto) Eos % (Auto) Baso % (Auto) Neut # (Auto) Lymph # (Auto) Piatt # (Auto) Eos # (Auto) Baso # (Auto) Total Counted Immature Gran % Nucleated RBC % Immature Gran # Segmented Neutrophils Band Neutrophils Lymphocytes Monocytes Nucleated RBCs Nucleated RBCs # Platelet Estimate Polychromasia Hypochromasia Anisocytosis Microcytosis Target Cells Tear Drop Cells Ovalocytes Morphology Comment INR PT Patient/Control Mix ABG pH ABG pCO2 ABG pO2 ABG HCO3 ABG Total CO2 ABG O2 Saturation ABG Base Excess FiO2 Sodium 131 L Potassium 4.8 Chloride 98 Carbon Dioxide 20 L Anion Gap 17.8 H BUN 20 H Creatinine 1.50 H GFR Calculation 70 BUN/Creatinine Ratio 13.00 Glucose 203 H POC Glucose 160 H Calculated Osmolality 270.7 L Lactic Acid Calcium 7.2 L Magnesium Total Bilirubin 1.40 H AST 500 H ALT 305 H Alkaline Phosphatase 110 Troponin I B-Natriuretic Peptide 357 H Total Protein 5.7 L Albumin 2.9 L Globulin 2.8 Albumin/Globulin Ratio 1.0 L Urine Color Urine Appearance Urine pH Ur Specific Hol[place] Urine Protein Urine Glucose (UA) Urine Ketones Urine Blood Urine Nitrate Urine Bilirubin Urine Urobilinogen Urine Leukocytes Urine RBC Urine WBC Ur Squamous Epith Cells Hyaline Casts Urine Mucus Ur Culture Indicated? Urine Opiates Screen Ur Barbiturates Screen Ur Phencyclidine Scrn U Amphetamine/Methamph U Benzodiazepines Scrn U Cocaine Metab Screen U Cannabinoids Screen 09/27/16 12:36 WBC RBC Hgb Hct MCV MCH MCHC RDW Plt Count Neut % (Auto) Lymph % (Auto) Piatt % (Auto) Eos % (Auto) Baso % (Auto) Neut # (Auto) Lymph # (Auto) Piatt # (Auto) Eos # (Auto) Baso # (Auto) Total Counted Immature Gran % Nucleated RBC % Immature Gran # Segmented Neutrophils Band Neutrophils Lymphocytes Monocytes Nucleated RBCs Nucleated RBCs # Platelet Estimate Polychromasia Hypochromasia Anisocytosis Microcytosis Target Cells Tear Drop Cells Ovalocytes Morphology Comment INR PT Patient/Control Mix ABG pH ABG pCO2 ABG pO2 ABG HCO3 ABG Total CO2 ABG O2 Saturation ABG Base Excess FiO2 Sodium Potassium Chloride Carbon Dioxide Anion Gap BUN Creatinine GFR Calculation BUN/Creatinine Ratio Glucose POC Glucose Calculated Osmolality Lactic Acid Calcium Magnesium Total Bilirubin AST ALT Alkaline Phosphatase Troponin I 0.100 H D B-Natriuretic Peptide Total Protein Albumin Globulin Albumin/Globulin Ratio Urine Color Urine Appearance Urine pH Ur Specific Hol[place] Urine Protein Urine Glucose (UA) Urine Ketones Urine Blood Urine Nitrate Urine Bilirubin Urine Urobilinogen Urine Leukocytes Urine RBC Urine WBC Ur Squamous Epith Cells Hyaline Casts Urine Mucus Ur Culture Indicated? Urine Opiates Screen Ur Barbiturates Screen Ur Phencyclidine Scrn U Amphetamine/Methamph U Benzodiazepines Scrn U Cocaine Metab Screen U Cannabinoids Screen <Eugenie Oneill - Last Filed: 09/27/16 16:04> Assessment and Plan - Time spent with patient Time spent with patient: Greater than 30 minutes (Examination interview discussion with consultants) (1) Respiratory failure Status: Acute Current Visit: Yes (2) Hemoglobin SC disease Status: Chronic Current Visit: Yes (3) Acute combined systolic and diastolic congestive heart failure Status: Acute Assessment and plan: The patient has combined systolic and diastolic heart failure. This most likely represents viral etiology or drug induced cardiomyopathy. It is unlikely to be coronary artery disease related although he has an extensive history of cocaine use and he also smokes. There is a lot unknown because of inability to get history I think he needs left and right heart catheterization. Better define his anatomy his hemodynamic status to direct therapy. Current Visit: Yes (4) Acute on chronic renal failure Status: Acute Current Visit: Yes (5) Drug abuse Status: Chronic Current Visit: Yes (6) Alcoholism Status: Chronic Current Visit: Yes (7) Elevated liver enzymes Status: Acute Current Visit: Yes (8) Tobacco abuse Status: Chronic Current Visit: Yes (9) Shock Status: Acute Assessment and plan: He is currently on pressors and is improved. Better define physiology in the lab. Current Visit: Yes History of Present Illness - Consult Narrative History of present illness: Mr. Rodriguez is a 45 year old male I saw and discussed with Ms. Canales. I asked discussed in detail at the bedside very quickly with Dr. Martinez. This gentleman just had a cardiac arrest and I responded shortly thereafter reviewed his EKG that shows deep flat ST depression in the lateral leads. He has a very severely depressed EF and presumptively newly diagnosed cardiomyopathy of uncertain etiology. He has a history of sickle cell disease he has renal insufficiency he has anemia he also has respiratory failure abnormal liver associated enzymes alcoholism and has a history of substance abuse. This is likely non-ischemic cardiomyopathy however given his severe hypotension in the setting I think we must know if there is anything that we can maximally benefit from left heart catheterization to define his hemodynamics he likely would also benefit from right heart cath I discussed with Dr. Baig and he is agreeable to proceed. I during the emergency situation placed an arterial line in the left femoral artery due to a nonpalpable radial pulses when he was in shock also placed a central venous line in the left femoral vein at the same time please see those notes. CC: Shanta Martinez MD Physical Examination Vital Signs Temp Pulse Resp BP Pulse Ox 98.3 F 122 H 20 133/92 72 L 09/27/16 01:01 09/27/16 01:01 09/27/16 01:01 09/27/16 01:01 09/27/16 01:01 Other: The thin weight age-appropriate appearing 45-year-old -[place] gentleman he has an S3 gallop his heart rates about 100 summation gallop PMI is laterally displaced. His central venous pressure is not elevated by exam or by access to his left femoral vein. He has coarse bilateral breath sounds are symmetric I do not hear rales he is on the ventilator and his upper airway noise he has no lower extremity edema. No auscultated murmur his abdominal exam is soft. He is cool and slightly clammy. Result/EKG - Labs CBC & BMP: 09/27/16 07:22 09/27/16 07:22 Labs: Laboratory Results - last 24 hr 09/27/16 09/27/16 09/27/16 01:22 01:22 01:22 WBC 25.4 H RBC 4.57 Hgb 9.8 L Hct 28.3 L MCV 61.9 L MCH 21 L MCHC 34.6 RDW 19.1 H Plt Count 153 Neut % (Auto) 77.1 H Lymph % (Auto) 11.8 L Piatt % (Auto) 8.2 Eos % (Auto) 0.6 Baso % (Auto) 0.4 Neut # (Auto) 19.6 H Lymph # (Auto) 3.0 Piatt # (Auto) 2.1 H Eos # (Auto) 0.1 Baso # (Auto) 0.1 Total Counted 100 Immature Gran % 1.9 Nucleated RBC % 1.4 Immature Gran # 0.48 Segmented Neutrophils 81 Band Neutrophils Lymphocytes 16 L Monocytes 3 Nucleated RBCs 5 Nucleated RBCs # 0.35 Platelet Estimate Adequate Polychromasia Hypochromasia 2+ Anisocytosis 1+ Microcytosis 1+ Target Cells 2+ Tear Drop Cells Ovalocytes 1+ Morphology Comment INR 1.1 PT Patient/Control Mix 11.2 ABG pH ABG pCO2 ABG pO2 ABG HCO3 ABG Total CO2 ABG O2 Saturation ABG Base Excess FiO2 Sodium 132 L Potassium 3.4 L Chloride 97 L Carbon Dioxide 21 Anion Gap 17.4 H BUN 16 Creatinine 1.30 GFR Calculation 77 BUN/Creatinine Ratio 12.00 Glucose 200 H POC Glucose Calculated Osmolality 270.5 L Lactic Acid Calcium 8.0 L Magnesium 1.7 L Total Bilirubin 2.10 H AST 29 ALT 31 Alkaline Phosphatase 108 Troponin I 0.078 H B-Natriuretic Peptide Total Protein 6.5 Albumin 3.3 L Globulin 3.2 Albumin/Globulin Ratio 1.0 L Urine Color Urine Appearance Urine pH Ur Specific Hol[place] Urine Protein Urine Glucose (UA) Urine Ketones Urine Blood Urine Nitrate Urine Bilirubin Urine Urobilinogen Urine Leukocytes Urine RBC Urine WBC Ur Squamous Epith Cells Hyaline Casts Urine Mucus Ur Culture Indicated? Urine Opiates Screen Ur Barbiturates Screen Ur Phencyclidine Scrn U Amphetamine/Methamph U Benzodiazepines Scrn U Cocaine Metab Screen U Cannabinoids Screen 09/27/16 09/27/16 09/27/16 01:22 01:22 01:51 WBC RBC Hgb Hct MCV MCH MCHC RDW Plt Count Neut % (Auto) Lymph % (Auto) Piatt % (Auto) Eos % (Auto) Baso % (Auto) Neut # (Auto) Lymph # (Auto) Piatt # (Auto) Eos # (Auto) Baso # (Auto) Total Counted Immature Gran % Nucleated RBC % Immature Gran # Segmented Neutrophils Band Neutrophils Lymphocytes Monocytes Nucleated RBCs Nucleated RBCs # Platelet Estimate Polychromasia Hypochromasia Anisocytosis Microcytosis Target Cells Tear Drop Cells Ovalocytes Morphology Comment INR PT Patient/Control Mix ABG pH ABG pCO2 ABG pO2 ABG HCO3 ABG Total CO2 ABG O2 Saturation ABG Base Excess FiO2 Sodium Potassium Chloride Carbon Dioxide Anion Gap BUN Creatinine GFR Calculation BUN/Creatinine Ratio Glucose POC Glucose Calculated Osmolality Lactic Acid 3.4 H Calcium Magnesium Total Bilirubin AST ALT Alkaline Phosphatase Troponin I B-Natriuretic Peptide 450 H Total Protein Albumin Globulin Albumin/Globulin Ratio Urine Color Yellow Urine Appearance Clear Urine pH 5.0 Ur Specific Holton 1.009 Urine Protein 100 Urine Glucose (UA) Negative Urine Ketones Negative Urine Blood Small Urine Nitrate Negative Urine Bilirubin Negative Urine Urobilinogen 2.0 H Urine Leukocytes Negative Urine RBC 1 Urine WBC <1 Ur Squamous Epith Cells Occasional Hyaline Casts 2 Urine Mucus Occasional Ur Culture Indicated? Not indicated Urine Opiates Screen Ur Barbiturates Screen Ur Phencyclidine Scrn U Amphetamine/Methamph U Benzodiazepines Scrn U Cocaine Metab Screen U Cannabinoids Screen 09/27/16 09/27/16 09/27/16 01:51 02:03 03:42 WBC RBC Hgb Hct MCV MCH MCHC RDW Plt Count Neut % (Auto) Lymph % (Auto) Piatt % (Auto) Eos % (Auto) Baso % (Auto) Neut # (Auto) Lymph # (Auto) Piatt # (Auto) Eos # (Auto) Baso # (Auto) Total Counted Immature Gran % Nucleated RBC % Immature Gran # Segmented Neutrophils Band Neutrophils Lymphocytes Monocytes Nucleated RBCs Nucleated RBCs # Platelet Estimate Polychromasia Hypochromasia Anisocytosis Microcytosis Target Cells Tear Drop Cells Ovalocytes Morphology Comment INR PT Patient/Control Mix ABG pH 7.159 L* ABG pCO2 61.0 H ABG pO2 53.9 L ABG HCO3 21.2 ABG Total CO2 23.1 ABG O2 Saturation 75.7 L ABG Base Excess -7.7 L FiO2 100.00 Sodium Potassium Chloride Carbon Dioxide Anion Gap BUN Creatinine GFR Calculation BUN/Creatinine Ratio Glucose POC Glucose 257 H Calculated Osmolality Lactic Acid Calcium Magnesium Total Bilirubin AST ALT Alkaline Phosphatase Troponin I B-Natriuretic Peptide Total Protein Albumin Globulin Albumin/Globulin Ratio Urine Color Urine Appearance Urine pH Ur Specific [place] Urine Protein Urine Glucose (UA) Urine Ketones Urine Blood Urine Nitrate Urine Bilirubin Urine Urobilinogen Urine Leukocytes Urine RBC Urine WBC Ur Squamous Epith Cells Hyaline Casts Urine Mucus Ur Culture Indicated? Urine Opiates Screen Negative Ur Barbiturates Screen Negative Ur Phencyclidine Scrn Negative U Amphetamine/Methamph Negative U Benzodiazepines Scrn Negative U Cocaine Metab Screen Negative U Cannabinoids Screen Positive H 09/27/16 09/27/16 09/27/16 05:25 07:05 07:22 WBC 29.2 H RBC 4.08 Hgb 9.0 L Hct 25.2 L MCV 61.8 L MCH 22 L MCHC 35.7 RDW 19.1 H Plt Count 167 Neut % (Auto) 72.5 Lymph % (Auto) 13.1 L Piatt % (Auto) 9.3 Eos % (Auto) 0.3 Baso % (Auto) 0.3 Neut # (Auto) 21.2 H Lymph # (Auto) 3.8 Piatt # (Auto) 2.7 H Eos # (Auto) 0.1 Baso # (Auto) 0.1 Total Counted 100 Immature Gran % 4.5 Nucleated RBC % 2.1 Immature Gran # 1.30 Segmented Neutrophils 78 Band Neutrophils 1 Lymphocytes 16 L Monocytes 5 Nucleated RBCs 1 Nucleated RBCs # 0.61 Platelet Estimate Adequate Polychromasia Slight Hypochromasia 1+ Anisocytosis Microcytosis 2+ Target Cells Few Tear Drop Cells Slight Ovalocytes Morphology Comment INR PT Patient/Control Mix ABG pH 7.292 L ABG pCO2 36.4 ABG pO2 108.0 H ABG HCO3 17.7 L ABG Total CO2 16.4 L ABG O2 Saturation 97.2 ABG Base Excess -8.3 L FiO2 100.00 Sodium Potassium Chloride Carbon Dioxide Anion Gap BUN Creatinine GFR Calculation BUN/Creatinine Ratio Glucose POC Glucose Calculated Osmolality Lactic Acid 4.4 H Calcium Magnesium Total Bilirubin AST ALT Alkaline Phosphatase Troponin I B-Natriuretic Peptide Total Protein Albumin Globulin Albumin/Globulin Ratio Urine Color Urine Appearance Urine pH Ur Specific [place] Urine Protein Urine Glucose (UA) Urine Ketones Urine Blood Urine Nitrate Urine Bilirubin Urine Urobilinogen Urine Leukocytes Urine RBC Urine WBC Ur Squamous Epith Cells Hyaline Casts Urine Mucus Ur Culture Indicated? Urine Opiates Screen Ur Barbiturates Screen Ur Phencyclidine Scrn U Amphetamine/Methamph U Benzodiazepines Scrn U Cocaine Metab Screen U Cannabinoids Screen 09/27/16 09/27/16 09/27/16 07:22 07:22 11:23 WBC RBC Hgb Hct MCV MCH MCHC RDW Plt Count Neut % (Auto) Lymph % (Auto) Piatt % (Auto) Eos % (Auto) Baso % (Auto) Neut # (Auto) Lymph # (Auto) Piatt # (Auto) Eos # (Auto) Baso # (Auto) Total Counted Immature Gran % Nucleated RBC % Immature Gran # Segmented Neutrophils Band Neutrophils Lymphocytes Monocytes Nucleated RBCs Nucleated RBCs # Platelet Estimate Polychromasia Hypochromasia Anisocytosis Microcytosis Target Cells Tear Drop Cells Ovalocytes Morphology Comment INR PT Patient/Control Mix ABG pH ABG pCO2 ABG pO2 ABG HCO3 ABG Total CO2 ABG O2 Saturation ABG Base Excess FiO2 Sodium 131 L Potassium 4.8 Chloride 98 Carbon Dioxide 20 L Anion Gap 17.8 H BUN 20 H Creatinine 1.50 H GFR Calculation 70 BUN/Creatinine Ratio 13.00 Glucose 203 H POC Glucose 160 H Calculated Osmolality 270.7 L Lactic Acid Calcium 7.2 L Magnesium Total Bilirubin 1.40 H AST 500 H ALT 305 H Alkaline Phosphatase 110 Troponin I B-Natriuretic Peptide 357 H Total Protein 5.7 L Albumin 2.9 L Globulin 2.8 Albumin/Globulin Ratio 1.0 L Urine Color Urine Appearance Urine pH Ur Specific [place] Urine Protein Urine Glucose (UA) Urine Ketones Urine Blood Urine Nitrate Urine Bilirubin Urine Urobilinogen Urine Leukocytes Urine RBC Urine WBC Ur Squamous Epith Cells Hyaline Casts Urine Mucus Ur Culture Indicated? Urine Opiates Screen Ur Barbiturates Screen Ur Phencyclidine Scrn U Amphetamine/Methamph U Benzodiazepines Scrn U Cocaine Metab Screen U Cannabinoids Screen 09/27/16 09/27/16 12:36 14:51 WBC RBC Hgb Hct MCV MCH MCHC RDW Plt Count Neut % (Auto) Lymph % (Auto) Piatt % (Auto) Eos % (Auto) Baso % (Auto) Neut # (Auto) Lymph # (Auto) Piatt # (Auto) Eos # (Auto) Baso # (Auto) Total Counted Immature Gran % Nucleated RBC % Immature Gran # Segmented Neutrophils Band Neutrophils Lymphocytes Monocytes Nucleated RBCs Nucleated RBCs # Platelet Estimate Polychromasia Hypochromasia Anisocytosis Microcytosis Target Cells Tear Drop Cells Ovalocytes Morphology Comment INR PT Patient/Control Mix ABG pH ABG pCO2 ABG pO2 ABG HCO3 ABG Total CO2 ABG O2 Saturation ABG Base Excess FiO2 Sodium Potassium Chloride Carbon Dioxide Anion Gap BUN Creatinine GFR Calculation BUN/Creatinine Ratio Glucose POC Glucose 201 H Calculated Osmolality Lactic Acid Calcium Magnesium Total Bilirubin AST ALT Alkaline Phosphatase Troponin I 0.100 H D B-Natriuretic Peptide Total Protein Albumin Globulin Albumin/Globulin Ratio Urine Color Urine Appearance Urine pH Ur Specific [place] Urine Protein Urine Glucose (UA) Urine Ketones Urine Blood Urine Nitrate Urine Bilirubin Urine Urobilinogen Urine Leukocytes Urine RBC Urine WBC Ur Squamous Epith Cells Hyaline Casts Urine Mucus Ur Culture Indicated? Urine Opiates Screen Ur Barbiturates Screen Ur Phencyclidine Scrn U Amphetamine/Methamph U Benzodiazepines Scrn U Cocaine Metab Screen U Cannabinoids Screen - EKG EKG results: interpreted by me (Normal sinus rhythm with LVH and deep flat ST depression V3 through V6)
[2016-09-27] MEDS ORDERED: SODIUM CHLORIDE 0.9% 500 ML IV ONE (15:00)
[2016-09-27] MEDS ORDERED: NOREPINEPHRINE 4 MG/4 ML VIAL IV ONE (15:01)
[2016-09-27] MEDS: NOREPINEPHRINE 8 MG in SODIUM CHLORIDE 0.9% 242 ML IV SCH (15:07)
--- NOTE | 2016-09-27 15:15 | EKG Report ---
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
[2016-09-27] MEDS ORDERED: HEPARIN/NACL 0.9% 2 UNITS/ML 500 ML IV ONE (15:26)
--- NOTE | 2016-09-27 15:35 | XRay Report ---
XR chest 1V portable Indication: Intubated. Chest one view: Comparison 1354 hours shows stable endotracheal tube. NG tube is now present extending off lower edge of the image. The fibular pads are now present. Cardiomegaly and patchy areas of alveolar consolidation in both lungs appear relatively stable. However, right lung base is obscured at this point. Impression: Lines and tubes as described. Increasing obscuration right lung base. PROCEDURE INTERPRETED AT [facility] DEPARTMENT OF RADIOLOGY Final Report Signed by: Filippo Juan M.D.
[2016-09-27] MEDS ORDERED: LIDOCAINE 1% 20 ML VIAL ONE (15:46)
[2016-09-27] MEDS ORDERED: HEPARIN/NACL 0.9% 2 UNITS/ML 1,000 ML IV ONE (15:46)
[2016-09-27 16:00] LABS: Troponin I Only 0.105 NG/ML (0.00-0.045)
[2016-09-27] MEDS: THIAMINE 200 MG/2 ML VIAL IV SCH (16:03)
[2016-09-27] MEDS: FOLIC ACID INJ 1 MG in SYRINGE 1 EACH IV SCH (16:03)
[2016-09-27] MEDS ORDERED: MAGNESIUM SULF RIDER 2 GM in PREMIX 1 EACH IV PRN (16:05)
[2016-09-27] MEDS ORDERED: POTASSIUM CHLORIDE RIDER 10 MEQ in PREMIX 1 EACH IV PRN (16:05)
--- NOTE | 2016-09-27 16:05 | History and Physical Update ---
Sedation H&P Update - History and Physical H&P was reviewed, the patient examined and there: are no changes in the patients condition since last H&P was completed. - Dictation Physical: refer to scanned H&P - Physical Exam Mental Status: alert and oriented Heart: regular rate and rhythm (summation gallop) Lung: clear to auscultation Abdomen: within normal limits Vitals: within normal limits - Sedation Plan for Sedation: moderate Patient Consent: Procedure disscussed with patient and patinet has consented., Risks and benefits were discussed with patient,including infection,, bleeding, injury to surrounding structures, seizure, temporary nerve, Patient understands and accepts potential risks/benefits and agrees to, proceed. ASA Class: IV Airway Assessment: Class I: Soft palate, uvula, fauces, pillars visible (unknown , patient is intubated.)
[2016-09-27 16:06] LABS: Calcium 7.1 MG/DL (8.5-10.1); Magnesium 2.1 MG/DL (1.8-2.4); Osmolality,Calculated 275.2 MOS/KG (273-304)
[2016-09-27 16:12] LABS: Potassium 6.7 MMOL/L (3.5-5.1)
--- NOTE | 2016-09-27 16:45 | Event Note ---
Post code in the shock situation with limited IV access Dr. Martinez asked for an arterial line and central venous line. The patient's left femoral area was prepped. Utilizing modified Seldinger technique access was obtained to the left femoral artery and 035 J-wire was advanced through the left central aorta small skin incision was made in arterial line was placed. Is connected to pressure. This time we move more medially and utilizing Seldinger technique obtained access to the left femoral vein 035 J-wire was advanced through the needle small skin incision was made and a triple-lumen catheter was advanced over the wire and the wire was removed all 3 ports aspirated and flushed. There is no apparent complication the patient was unresponsive and no local sedation was used at the time. Both catheters were sewn in place there was beautiful waveform in the arterial line and all of the triple lumen was flushed and aspirated cleanly.
[2016-09-27 16:50] LABS: Hepatitis A Ab IgM Quant 0.06 Index; Hepatitis A Ab IgM Result Negative (Negative); Hepatitis B Core IgM Quant 0.09 Index; Hepatitis B Core IgM Result Negative (Negative); Hepatitis B Surface Ag Quant < 0.10 Index; Hepatitis B Surface Ag Result Negative (Negative); Hepatitis C Virus Ab Quant < 0.02 Index; Hepatitis C Virus Ab Result Negative (Negative)
[2016-09-27 16:51] LABS: HIV Antigen/Antibody Result Nonreactive (Nonreactive)
[2016-09-27] MEDS ORDERED: DEXTROSE 50% 25 GM/50 ML VIAL IV ONE (17:08)
[2016-09-27] MEDS ORDERED: INSULIN REGULAR 100 UNIT/ML IV ONE (17:08)
[2016-09-27] MEDS ORDERED: SODIUM POLYSTYRENE SULFATE 15 GM/60 ML BOTTLE PO ONE (17:10)
[2016-09-27] MEDS ORDERED: CALCIUM GLUCONATE 1,000 MG/10 ML VIAL IV ONE (17:18)
[2016-09-27] MEDS ORDERED: INSULIN REGULAR 100 UNIT/ML ONE (17:20)
[2016-09-27] MEDS ORDERED: DILTIAZEM 50 MG/10 ML VIAL IV ONE (17:23)
[2016-09-27] MEDS ORDERED: CALCIUM GLUCONATE 2,000 MG in SODIUM CHLORIDE 0.9% 100 ML IV ONE (17:30)
--- NOTE | 2016-09-27 17:41 | Cardiac Catheterization ---
Date of Procedure:: 09/27/16 Procedure: CLINICAL SUMMARY: PROCEDURES PERFORMED: 1. Right femoral percutaneous arteriotomy 2. Left heart catheterization. 3. Resting hemodynamics. 4. Left ventriculography. 5. Coronary arteriography. 6. Right femoral arteriogram. 7. Angio-Seal closure of the right femoral artery. DESCRIPTION OF PROCEDURE: After obtaining informed consent, the patient was brought to the cardiac catheterization lab where the right groin was prepped and draped in the usual sterile manner. Using IV sedation, local anesthesia, and Modified Seldinger technique, a needle was placed in the right femoral artery and a sheath was positioned without difficulty. A left coronary catheter was advanced over a guidewire under fluoroscopic control to the ascending aorta where angiograms of the left coronary artery were undertaken in multiple views. We attempted to perform angiography of the right coronary artery with a JR4 catheter and subsequently an AR-1 catheter. Ultimately because of a high anterior position we had to use an AL-1 catheter to engage this vessel. After adequate angiograms, this catheter was removed and a pigtail ventriculographic catheter was advanced over a guidewire under fluoroscopic control to the aortic valve and left ventricular pressures were measured. After adequate pressures were measured, this catheter was used to perform left ventriculography in the MATTHEW projection. This catheter was then withdrawn under hemodynamic monitoring and removed from the patient. A right femoral arteriogram was performed showing adequate sheath placement for closure device deployment. The sheath was then removed and an Angio-Seal device was used to obtain hemostasis. The patient was transferred back to the room having suffered no immediate complications. We then performed right heart catheterization with thermodilution and Pat cardiac output. Also of note, during the case, the patient was confirmed to have elevated potassium and was treated with intravenous D50 and insulin. He also received an amp of calcium gluconate. He also had a transient run of a supraventricular tachycardia which may have been an atrial tachycardia or atrial flutter with a ventricular rate of around 140 bpm. This was treated with 20 mg of IV diltiazem with conversion back to sinus rhythm. HEMODYNAMICS: See the accompanying data sheet. PA pressures were approximately 55 mmHg systolic. Mean wedge pressure was approximately 30 mmHg. LVEDP was approximately 31 mmHg. Cardiac output by thermodilution averaged approximately 2.73 L/min. Cardiac output by Pat was approximately 3.14 L/min. Oxygen saturation run showed PA sat 35, RV sat of approximately 34, and RA sat of 32. CORONARY ARTERIOGRAPHY: LEFT MAIN: The left main coronary artery is a large caliber vessel, which bifurcates into the left anterior descending and left circumflex coronary arteries. The left main coronary artery has no significant obstructive disease. LEFT CIRCUMFLEX: The left circumflex coronary artery is a large-caliber vessel which gives off a large obtuse marginal branch. The circumflex coronary artery territories are angiographically free of significant obstructive disease. LEFT ANTERIOR DESCENDING: The left anterior descending artery is large caliber vessel which gives off a moderate-sized diagonal branch. The left anterior descending and its tributaries are angiographically free of significant obstructive disease. 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 This vessel gives off the posterior descending artery and a posterolateral system. This vessel was angiographically free of significant obstructive disease. LEFT VENTRICULOGRAPHY: Severe dilated cardiomyopathy with left ventricular ejection fraction estimated at 15% with severe global hypokinesis. PERIPHERAL ARTERIOGRAPHY: Right femoral arteriogram shows a normal right iliofemoral artery with adequate sheath placement for closure device deployment. IMPRESSIONS: 1. Normal coronary arteries. 2. Dilated nonischemic cardiomyopathy. 3. Elevated LVEDP and pulmonary capillary wedge pressure as described above. 4. Transient PSVT which resolved after IV diltiazem. PLAN: The patient remains critically ill will be transferred back to the CCU for postintervention monitoring and management. He has a severe nonischemic cardiomyopathy as described above. He also had a transient arrhythmia that is now resolved. In addition, he was noted to have hyperkalemia and treatment for this has been initiated as well. Anesthesia: other (Pt came to the cathlab intubated and sedated from previous arrest) Surgeon / Physician: Juanito Baig Estimated blood loss: minimal Condition: critical Disposition: ICU/CCU - Medications / Follow-up
[2016-09-28] MEDS: PROPOFOL 1,000 MG/100 ML BOTTLE IV SCH ×6 (00:10→22:47)
[2016-09-28] MEDS: INSULIN REGULAR 100 UNIT/ML SUBCUT SCH ×4 (00:10→18:44)
[2016-09-28 00:53] LABS: Troponin I Only 0.123 NG/ML (0.00-0.045)
[2016-09-28 00:54] LABS: Calcium 7.1 MG/DL (8.5-10.1); Osmolality,Calculated 275.5 MOS/KG (273-304); Potassium 5.8 MMOL/L (3.5-5.1)
[2016-09-28] MEDS: NOREPINEPHRINE 8 MG in SODIUM CHLORIDE 0.9% 242 ML IV SCH (02:25)
[2016-09-28] MEDS: PANTOPRAZOLE 40 MG VIAL IV SCH (04:35)
[2016-09-28] MEDS: AZITHROMYCIN INJ 500 MG in SODIUM CHLORIDE 0.9% 250 ML IV SCH (04:36)
[2016-09-28 05:08] LABS: Basophils % 0.2 % (0.0-0.8); Eosinophils % 0.1 % (0.00-10.9); Hematocrit 22.1 VOL% (42.0-52.0); Hemoglobin 8.1 GM/DL (14.0-18.0); Immature Granulocytes % 4.8 %; Immature Granulocytes Absolute 0.92 #; Lymphocytes % 10.6 % (21.2-54.2); Mean Corpuscular HGB Conc 36.7 GM/DL (32-36); Mean Corpuscular Hemoglobin 22 PG (27-34); Mean Corpuscular Volume 60.9 FL (87-102); Monocytes # 1.6 10*3/uL (0.11-0.8); Monocytes % 8.3 % (1.7-12.7); NRBC # 2.46 10*3/uL; Neutrophils # 14.5 10*3/uL (1.4-7.4); Red Blood Count 3.63 MC/CUMM (3.8-5.5); Red Cell Distribution Width 19.2 % (9.3-17.3)
[2016-09-28 05:13] LABS: Platelet Count 106 T/CUMM (130-400)
[2016-09-28 05:28] LABS: Band Neutrophils 4 % (0-10); Hypochromasia 2+; Lymphocytes 14 % (20-55); Nucleated Red Blood Cells 9 (0-5); Segmented Neutrophils 79 % (50-85); Total Cells Counted 100
[2016-09-28 05:29] LABS: Anisocytosis 1+; Microcytosis 1+; Polychromasia Few; Target Cells 1+
[2016-09-28 05:30] LABS: Platelet Estimate Decreased
[2016-09-28 05:43] LABS: Magnesium 2.1 MG/DL (1.8-2.4); Potassium 4.2 MMOL/L (3.5-5.1)
[2016-09-28 06:08] LABS: Phosphorous 7.3 MG/DL (2.5-4.9); Prealbumin 9.1 MG/DL (20-40)
[2016-09-28 06:10] LABS: Troponin I Only 0.126 NG/ML (0.00-0.045)
[2016-09-28 06:36] LABS: ABG Base Excess -9.5 MMOL/L (-2.5-2.5); ABG HCO3 14.3 MMOL/L (20-26); ABG Oxygen Saturation 98.6 % (95-100); ABG PCO2 23.9 MM HG (35-48); ABG PH 7.394 (7.35-7.45); ABG PO2 391.2 MM HG (80-95)
--- NOTE | 2016-09-28 07:21 | XRay Report ---
History: Patient on ventilator Date: 09/28/2016 Study: Chest x-ray AP portable Comparison exam: 09/27/2016 The endotracheal and nasogastric tubes remain in satisfactory position. There is stable cardiomegaly. The pulmonary vasculature is upper normal. There is continued patchy and hazy edema/infiltrate in the perihilar regions and lung bases. Overall this is slightly improved. There is probable mild bilateral pleural effusion. Osseous structures are similar. Impression: Continued bilateral pulmonary infiltrate/edema, with minimal interval improvement. No gross worsening PROCEDURE INTERPRETED AT [facility] DEPARTMENT OF RADIOLOGY Final Report Signed by: Dr. Daylin Francis
--- NOTE | 2016-09-28 07:59 | Pulmonology Progress Note ---
Pulmonary - PN: Subj Interval history: The patient is a 45-year-old black man that has SC disease. He came in with respiratory distress and acute pulmonary edema. He had to be intubated and has been on the ventilator. He was taken to the [facility] had a cardiac catheterization. His ejection fraction of 15% but normal coronaries. He is a little more stable on the ventilator now. His blood pressure is better and his oxygenation has improved. He is reasonably comfortable on the ventilator at present. Exam (Progress Note) - Constitutional Vitals: Period Temp Pulse Resp BP Sys/Ramirez Pulse Ox Last 24 Hr 97.0 F-98.6 F 63-108 16-27 77-120/35-93 98-100 Exam: General appearance: normal weight, no acute distress (Patient is sedated on the ventilator. His blood pressure is much more stable.) - Head Head exam: Present: normal inspection, normocephalic - Eye Eye exam: Present: EOMI. Absent: scleral icterus Pupils: Present: AUGIE - ENT ENT exam: Present: other (ET tube is in good position) - Neck Neck exam: Present: normal inspection. Absent: lymphadenopathy, thyromegaly - Respiratory Respiratory exam: Present: He has good breath sounds bilaterally and is moving air fairly well with very minimal rhonchi. - Cardiovascular Cardiovascular exam: Present: regular rate and rhythm, systolic murmur (He does have a soft systolic murmur), tachycardia. Absent: gallop - GI/Abdominal GI/Abdominal exam: Present: normal bowel sounds, soft. Absent: distended, organomegaly, tenderness - Extremities Exam Extremities exam: Absent: calf tenderness, edema - Neurological Exam Neurological exam: Present: other (Patient is sedated on the ventilator at present.) - Skin Skin exam: Present: warm, dry Results - Labs CBC & BMP: 09/28/16 05:04 09/28/16 05:04 Labs: His PO2 is 391 with a PCO2 of 23 and a pH of 7.39 - Diagnostic Findings Procedure: Chest x-ray: image reviewed by me, report reviewed by me (Chest x- ray shows cardiomegaly and mild bilateral infiltrates.) Assessment and Plan (1) Congestive heart failure Status: Acute Assessment and plan: The patient presents with acute shortness of breath and his x-ray is consistent with heart failure. He has a severe cardiomyopathy with ejection fraction of 15 %. His oxygenation has improved and his chest x-ray is a little better. Current Visit: Yes (2) Hemoglobin SC disease Status: Chronic Assessment and plan: Patient has a history of sickle cell disease and his hematocrit is now down to 22. He will probably require transfusions. Current Visit: Yes (3) Pneumonia Status: Acute Assessment and plan: The patient is being covered for pneumonia although this may all be related to congestive heart failure. There is no definite consolidation at present. Current Visit: Yes (4) Respiratory failure Status: Acute Assessment and plan: The patient still has a significant A-a O2 gradient did come in with CO2 retention. His oxygenation has improved and his chest x-ray is better. He will continue ventilatory support. Current Visit: Yes
--- NOTE | 2016-09-28 08:38 | EKG Report ---
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
[2016-09-28] MEDS ORDERED: FUROSEMIDE 40 MG/4 ML VIAL ONE ×2 (09:23→09:45)
[2016-09-28] MEDS: ENOXAPARIN 40 MG/0.4 ML SYRINGE SUBCUT SCH (09:29)
[2016-09-28] MEDS: FOLIC ACID INJ 1 MG in SYRINGE 1 EACH IV SCH (09:32)
[2016-09-28] MEDS: ASPIRIN EC 81 MG TABLET PO SCH (09:41)
[2016-09-28] MEDS: THIAMINE 200 MG/2 ML VIAL IV SCH (09:52)
[2016-09-28] MEDS ORDERED: FUROSEMIDE 40 MG/4 ML VIAL IV SCH (10:00)
--- NOTE | 2016-09-28 10:06 | Cardiology Progress Note ---
<Rebekah Canales - Last Filed: 09/28/16 08:50> Assessment and Plan (1) Acute combined systolic and diastolic congestive heart failure Status: Acute Assessment and plan: SEE PLAN OF CARE LISTED BELOW. Current Visit: Yes (2) Acute on chronic renal failure Status: Acute Assessment and plan: SEE PLAN OF CARE LISTED BELOW. Current Visit: Yes (3) Hemoglobin SC disease Status: Chronic Assessment and plan: SEE PLAN OF CARE LISTED BELOW. Current Visit: Yes (4) Leukocytosis Status: Acute Assessment and plan: SEE PLAN OF CARE LISTED BELOW. Current Visit: Yes (5) Pneumonia Status: Acute Assessment and plan: SEE PLAN OF CARE LISTED BELOW. Current Visit: Yes (6) Respiratory failure Status: Acute Assessment and plan: SEE PLAN OF CARE LISTED BELOW. Current Visit: Yes (7) Elevated troponin Status: Acute Assessment and plan: SEE PLAN OF CARE LISTED BELOW. Current Visit: Yes (8) Abnormal EKG Status: Acute Assessment and plan: SEE PLAN OF CARE LISTED BELOW. Current Visit: Yes (9) Hypertension Status: Chronic Assessment and plan: SEE PLAN OF CARE LISTED BELOW. Current Visit: No (10) Drug abuse Status: Chronic Assessment and plan: SEE PLAN OF CARE LISTED BELOW. Current Visit: Yes (11) Alcoholism Status: Chronic Assessment and plan: SEE PLAN OF CARE LISTED BELOW. Current Visit: Yes (12) Elevated liver enzymes Status: Acute Assessment and plan: SEE PLAN OF CARE LISTED BELOW. Current Visit: Yes (13) Tobacco abuse Status: Chronic Assessment and plan: SEE PLAN OF CARE LISTED BELOW. 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 PCP: Dr. Ector Figueroa SUMMARY - Mr. Rodriguez is a 45 year old male -[place] male patient who has not been seen by local cardiology in the past. Patient has cardiac risk factors significant for hypertension, current everyday smoker (tobacco and marijuana) and family history of premature coronary artery disease. Patient has a past medical history of congestive heart failure (most recent ejection fraction noted to be 15%), sickle cell anemia, anxiety and hypertension. September 27 patient had a cardiac arrest. EKG revealed deep flat ST depression in the lateral leads and subsequently, patient underwent cardiac catheterization in order to definitively define his coronary anatomy and to rule out underlying obstructive coronary artery disease. This was performed per Dr. Juanito Baig with the following impressions noted: IMPRESSIONS: 1. Normal coronary arteries. 2. Dilated nonischemic cardiomyopathy. 3. Elevated LVEDP and pulmonary capillary wedge pressure as described above. 4. Transient PSVT which resolved after IV diltiazem. September UPDATE - Post cardiac catheterization patient was transferred back to the CCU in stable condition. This morning, he remains sedated and ventilated. Right groin is soft without bleeding, hematoma and bruit. Distal pulses present. Per nursing staff, he has been titrated off of Levophed early this morning. Blood pressures are stable this morning per arterial line. Hyperkalemia has now resolved, potassium this morning is noted to be 4.2. H&H is trending down at 8.1 and 22.1. Patient does have a history of sickle cell anemia. Defer management of this to attending. ekg monitor tech has been reviewed and patient has had no further arrhythmias overnight. We will continue to follow along. I will discuss further with Dr. Oneill and await his additional recommendations. ASSESSMENT/PLAN: 1. ACUTE CONGESTIVE HEART FAILURE, COMBINED SYSTOLIC AND DIASTOLIC DYSFUNCTION - Echocardiogram this admission revealed ejection fraction of 15% and grade 3 diastolic dysfunction. After negative heart catheterization yesterday this was deemed drug-induced cardiomyopathy. At this point, I will avoid ANGEL inhibitor and ARB due to fear of worsening renal function. Continue IV Lasix. Once blood pressure will allow, recommend initiation of beta-shekhar. Hesitant to add Aldactone as patient did have significant hyperkalemia yesterday. Will further discuss with Dr. Oneill and await his additional recommendations. 2. ELEVATED TROPONIN - ACS was definitively ruled out yesterday per heart catheterization. 3. HYPERTENSION - Continue current plan of care. Recommend initiation of beta shekhar when his blood pressure will allow. Avoiding ANGEL inhibitor and ARB due to fear of worsening renal function. 4. SICKLE CELL ANEMIA - This could be a sickle cell crisis. H&H is noted to be 8 and 22. Defer management of this to attending. 5. ACUTE ON CHRONIC RENAL FAILURE - Monitor with daily BMP. Management per attending. Consider renal consult. 6. DRUG ABUSE - Patient's drug screen was positive for marijuana. This is most likely contributing to patient's cardiomyopathy. Will discuss with the patient the importance of cessation once he is extubated. 7. TOBACCO ABUSE - Will discuss the importance of smoking cessation when patient is expanded from the ventilator. 8. PNEUMONIA - Management per pulmonary. Continue IV antibiotics. 9. RESPIRATORY FAILURE - Management per pulmonary. 10. ELEVATED LIVER ENZYMES - Most likely secondary to hypoperfusion as patient was severely hypertensive yesterday. Hepatitis panel yesterday was negative. Defer further management of this to attending. 11. LEUKOCYTOSIS - Continue IV antibiotics. Defer management to attending. 12. ALCOHOLISM - Per nursing staff, patient drinks a daily. This could very well be contributing to patient's cardiomyopathy. Ativan has been ordered as needed per hospital medicine in order to prevent DTs. Exam (Progress Note) - Constitutional Vitals: Period Temp Pulse Resp BP Sys/Ramirez Pulse Ox Last 24 Hr 97.0 F-98.6 F 63-108 16-27 77-120/35-93 99-100 Exam: General: Sedated and ventilated. HEENT: PERRL, normocephalic, atraumatic. NG tube noted. Neck: No JVD/HJR, no thyromegaly or lymphadenopathy noted. No carotid bruit appreciated Cardiac: Regular rate and rhythm. No murmur rub or gallop. Lungs: Lungs are clear throughout. Ventilated. Abdomen: Soft. Hypoactive bowel sounds. Nondistended. Extremities: No clubbing, cyanosis noted. No edema noted. Skin: No unusual lesions or rashes. No skin breakdown appreciated. Neuro: Unable to assess as patient is sedated and ventilated. Result/EKG - Labs CBC & BMP: 09/28/16 05:04 09/28/16 05:04 Labs: Laboratory Results - last 24 hr 09/27/16 09/27/16 09/27/16 07:22 11:23 12:36 WBC 29.2 H RBC 4.08 Hgb 9.0 L Hct 25.2 L MCV 61.8 L MCH 22 L MCHC 35.7 RDW 19.1 H Plt Count 167 Neut % (Auto) 72.5 Lymph % (Auto) 13.1 L [place] % (Auto) 9.3 Eos % (Auto) 0.3 Baso % (Auto) 0.3 Neut # (Auto) 21.2 H Lymph # (Auto) 3.8 [place] # (Auto) 2.7 H Eos # (Auto) 0.1 Baso # (Auto) 0.1 Total Counted 100 Immature Gran % 4.5 Nucleated RBC % 2.1 Immature Gran # 1.30 Segmented Neutrophils 78 Band Neutrophils 1 Lymphocytes 16 L Monocytes 5 Nucleated RBCs 1 Nucleated RBCs # 0.61 Platelet Estimate Adequate Polychromasia Slight Hypochromasia 1+ Anisocytosis Microcytosis 2+ Target Cells Few Tear Drop Cells Slight Morphology Comment ABG pH ABG pCO2 ABG pO2 ABG HCO3 ABG Total CO2 ABG O2 Saturation ABG Base Excess Sodium Potassium Chloride Carbon Dioxide Anion Gap BUN Creatinine GFR Calculation BUN/Creatinine Ratio Glucose POC Glucose 160 H Calculated Osmolality Calcium Phosphorus Magnesium Total Creatine Kinase CK-MB (CK-2) Troponin I 0.100 H D Prealbumin Hepatitis A IgM Ab Hep Bs Antigen Hep B Core IgM Ab Hepatitis C Antibody HIV 1&2 Antigen & Ab 09/27/16 09/27/16 09/27/16 14:51 15:26 15:26 WBC RBC Hgb Hct MCV MCH MCHC RDW Plt Count Neut % (Auto) Lymph % (Auto) [place] % (Auto) Eos % (Auto) Baso % (Auto) Neut # (Auto) Lymph # (Auto) [place] # (Auto) Eos # (Auto) Baso # (Auto) Total Counted Immature Gran % Nucleated RBC % Immature Gran # Segmented Neutrophils Band Neutrophils Lymphocytes Monocytes Nucleated RBCs Nucleated RBCs # Platelet Estimate Polychromasia Hypochromasia Anisocytosis Microcytosis Target Cells Tear Drop Cells Morphology Comment ABG pH ABG pCO2 ABG pO2 ABG HCO3 ABG Total CO2 ABG O2 Saturation ABG Base Excess Sodium Potassium Chloride Carbon Dioxide Anion Gap BUN Creatinine GFR Calculation BUN/Creatinine Ratio Glucose POC Glucose 201 H Calculated Osmolality Calcium Phosphorus Magnesium Total Creatine Kinase 122 CK-MB (CK-2) 1.5 Troponin I 0.105 H Prealbumin Hepatitis A IgM Ab Negative Hep Bs Antigen Negative Hep B Core IgM Ab Negative Hepatitis C Antibody Negative HIV 1&2 Antigen & Ab 09/27/16 09/27/16 09/27/16 15:26 15:36 16:21 WBC RBC Hgb Hct MCV MCH MCHC RDW Plt Count Neut % (Auto) Lymph % (Auto) [place] % (Auto) Eos % (Auto) Baso % (Auto) Neut # (Auto) Lymph # (Auto) [place] # (Auto) Eos # (Auto) Baso # (Auto) Total Counted Immature Gran % Nucleated RBC % Immature Gran # Segmented Neutrophils Band Neutrophils Lymphocytes Monocytes Nucleated RBCs Nucleated RBCs # Platelet Estimate Polychromasia Hypochromasia Anisocytosis Microcytosis Target Cells Tear Drop Cells Morphology Comment ABG pH ABG pCO2 ABG pO2 ABG HCO3 ABG Total CO2 ABG O2 Saturation ABG Base Excess Sodium 134 L Potassium 6.7 H* D 6.9 H* Chloride 103 Carbon Dioxide 12 L Anion Gap 25.7 H BUN 26 H Creatinine 2.10 H GFR Calculation 47 BUN/Creatinine Ratio 12.00 Glucose 160 H POC Glucose Calculated Osmolality 275.2 Calcium 7.1 L Phosphorus Magnesium 2.1 Total Creatine Kinase CK-MB (CK-2) Troponin I Prealbumin Hepatitis A IgM Ab Hep Bs Antigen Hep B Core IgM Ab Hepatitis C Antibody HIV 1&2 Antigen & Ab Nonreactive 09/27/16 09/27/16 09/27/16 18:31 19:30 20:15 WBC RBC Hgb Hct MCV MCH MCHC RDW Plt Count Neut % (Auto) Lymph % (Auto) [place] % (Auto) Eos % (Auto) Baso % (Auto) Neut # (Auto) Lymph # (Auto) [place] # (Auto) Eos # (Auto) Baso # (Auto) Total Counted Immature Gran % Nucleated RBC % Immature Gran # Segmented Neutrophils Band Neutrophils Lymphocytes Monocytes Nucleated RBCs Nucleated RBCs # Platelet Estimate Polychromasia Hypochromasia Anisocytosis Microcytosis Target Cells Tear Drop Cells Morphology Comment ABG pH ABG pCO2 ABG pO2 ABG HCO3 ABG Total CO2 ABG O2 Saturation ABG Base Excess Sodium Potassium Chloride Carbon Dioxide Anion Gap BUN Creatinine GFR Calculation BUN/Creatinine Ratio Glucose POC Glucose 213 H 139 H Calculated Osmolality Calcium Phosphorus Magnesium Total Creatine Kinase CK-MB (CK-2) Troponin I 0.116 H Prealbumin Hepatitis A IgM Ab Hep Bs Antigen Hep B Core IgM Ab Hepatitis C Antibody HIV 1&2 Antigen & Ab 09/27/16 09/27/16 09/28/16 23:55 23:55 00:02 WBC RBC Hgb Hct MCV MCH MCHC RDW Plt Count Neut % (Auto) Lymph % (Auto) [place] % (Auto) Eos % (Auto) Baso % (Auto) Neut # (Auto) Lymph # (Auto) [place] # (Auto) Eos # (Auto) Baso # (Auto) Total Counted Immature Gran % Nucleated RBC % Immature Gran # Segmented Neutrophils Band Neutrophils Lymphocytes Monocytes Nucleated RBCs Nucleated RBCs # Platelet Estimate Polychromasia Hypochromasia Anisocytosis Microcytosis Target Cells Tear Drop Cells Morphology Comment ABG pH ABG pCO2 ABG pO2 ABG HCO3 ABG Total CO2 ABG O2 Saturation ABG Base Excess Sodium 132 L Potassium 5.8 H Chloride 99 Carbon Dioxide 18 L Anion Gap 20.8 H BUN 36 H D Creatinine 2.70 H GFR Calculation 34 BUN/Creatinine Ratio 13.00 Glucose 174 H POC Glucose 107 H Calculated Osmolality 275.5 Calcium 7.1 L Phosphorus Magnesium Total Creatine Kinase 184 D CK-MB (CK-2) 1.2 Troponin I 0.123 H Prealbumin Hepatitis A IgM Ab Hep Bs Antigen Hep B Core IgM Ab Hepatitis C Antibody HIV 1&2 Antigen & Ab 09/28/16 09/28/16 09/28/16 05:04 05:04 05:04 WBC 19.0 H D RBC 3.63 L Hgb 8.1 L Hct 22.1 L MCV 60.9 L MCH 22 L MCHC 36.7 H RDW 19.2 H Plt Count 106 L D Neut % (Auto) 76.0 H Lymph % (Auto) 10.6 L [place] % (Auto) 8.3 Eos % (Auto) 0.1 Baso % (Auto) 0.2 Neut # (Auto) 14.5 H Lymph # (Auto) 2.0 [place] # (Auto) 1.6 H Eos # (Auto) 0.0 Baso # (Auto) 0.0 Total Counted 100 Immature Gran % 4.8 Nucleated RBC % 12.9 Immature Gran # 0.92 Segmented Neutrophils 79 Band Neutrophils 4 Lymphocytes 14 L Monocytes 3 Nucleated RBCs 9 H Nucleated RBCs # 2.46 Platelet Estimate Decreased Polychromasia Few Hypochromasia 2+ Anisocytosis 1+ Microcytosis 1+ Target Cells 1+ Tear Drop Cells Morphology Comment ABG pH ABG pCO2 ABG pO2 ABG HCO3 ABG Total CO2 ABG O2 Saturation ABG Base Excess Sodium 136 Potassium 4.2 Chloride 101 Carbon Dioxide 18 L Anion Gap 21.2 H BUN 38 H Creatinine 2.60 H GFR Calculation 36 BUN/Creatinine Ratio 14.00 Glucose 241 H POC Glucose Calculated Osmolality 288.0 Calcium 7.0 L Phosphorus 7.3 H Magnesium 2.1 Total Creatine Kinase CK-MB (CK-2) Troponin I Prealbumin 9.1 L Hepatitis A IgM Ab Hep Bs Antigen Hep B Core IgM Ab Hepatitis C Antibody HIV 1&2 Antigen & Ab 09/28/16 09/28/16 09/28/16 05:04 06:02 06:36 WBC RBC Hgb Hct MCV MCH MCHC RDW Plt Count Neut % (Auto) Lymph % (Auto) [place] % (Auto) Eos % (Auto) Baso % (Auto) Neut # (Auto) Lymph # (Auto) [place] # (Auto) Eos # (Auto) Baso # (Auto) Total Counted Immature Gran % Nucleated RBC % Immature Gran # Segmented Neutrophils Band Neutrophils Lymphocytes Monocytes Nucleated RBCs Nucleated RBCs # Platelet Estimate Polychromasia Hypochromasia Anisocytosis Microcytosis Target Cells Tear Drop Cells Morphology Comment ABG pH 7.394 ABG pCO2 23.9 L ABG pO2 391.2 H ABG HCO3 14.3 L ABG Total CO2 15.0 L ABG O2 Saturation 98.6 ABG Base Excess -9.5 L Sodium Potassium Chloride Carbon Dioxide Anion Gap BUN Creatinine GFR Calculation BUN/Creatinine Ratio Glucose POC Glucose 241 H Calculated Osmolality Calcium Phosphorus Magnesium Total Creatine Kinase 184 CK-MB (CK-2) 1.6 Troponin I 0.126 H Prealbumin Hepatitis A IgM Ab Hep Bs Antigen Hep B Core IgM Ab Hepatitis C Antibody HIV 1&2 Antigen & Ab <Eugenie Oneill - Last Filed: 09/28/16 10:51> Assessment and Plan - Time spent with patient Time spent with patient: Less than 30 minutes (1) Respiratory failure Status: Acute Current Visit: Yes (2) Hemoglobin SC disease Status: Chronic Current Visit: Yes (3) Acute combined systolic and diastolic congestive heart failure Status: Acute Assessment and plan: as above in HPI Current Visit: Yes (4) Acute on chronic renal failure Status: Acute Current Visit: Yes (5) Drug abuse Status: Chronic Current Visit: Yes (6) Alcoholism Status: Chronic Current Visit: Yes (7) Elevated liver enzymes Status: Acute Assessment and plan: some component of passive congestion Current Visit: Yes (8) Tobacco abuse Status: Chronic Current Visit: Yes (9) Shock Status: Resolved Current Visit: Yes Cardiology - PN: Subj Interval history: Hypotension has resolved. No coronary artery disease. NICM. Add Imdur, beta shekhar and hydralazine in the place of ANGEL/ARB. Continue diruesis and monitor renal failure. All other as above. Exam (Progress Note) - Constitutional Vitals: Period Temp Pulse Resp BP Sys/Ramirez Pulse Ox Last 24 Hr 97.0 F-98.6 F 63-108 16-27 77-120/35-93 99-100 Exam: S3 with laterally displaced. Lungs clear on the vent. Result/EKG - Labs CBC & BMP: 09/28/16 05:04 09/28/16 05:04 Labs: Laboratory Results - last 24 hr 09/27/16 09/27/16 09/27/16 11:23 12:36 14:51 WBC RBC Hgb Hct MCV MCH MCHC RDW Plt Count Neut % (Auto) Lymph % (Auto) [place] % (Auto) Eos % (Auto) Baso % (Auto) Neut # (Auto) Lymph # (Auto) [place] # (Auto) Eos # (Auto) Baso # (Auto) Total Counted Immature Gran % Nucleated RBC % Immature Gran # Segmented Neutrophils Band Neutrophils Lymphocytes Monocytes Nucleated RBCs Nucleated RBCs # Platelet Estimate Polychromasia Hypochromasia Anisocytosis Microcytosis Target Cells Morphology Comment ABG pH ABG pCO2 ABG pO2 ABG HCO3 ABG Total CO2 ABG O2 Saturation ABG Base Excess Sodium Potassium Chloride Carbon Dioxide Anion Gap BUN Creatinine GFR Calculation BUN/Creatinine Ratio Glucose POC Glucose 160 H 201 H Calculated Osmolality Calcium Phosphorus Magnesium Total Creatine Kinase CK-MB (CK-2) Troponin I 0.100 H D Prealbumin Hepatitis A IgM Ab Hep Bs Antigen Hep B Core IgM Ab Hepatitis C Antibody HIV 1&2 Antigen & Ab 09/27/16 09/27/16 09/27/16 15:26 15:26 15:26 WBC RBC Hgb Hct MCV MCH MCHC RDW Plt Count Neut % (Auto) Lymph % (Auto) [place] % (Auto) Eos % (Auto) Baso % (Auto) Neut # (Auto) Lymph # (Auto) [place] # (Auto) Eos # (Auto) Baso # (Auto) Total Counted Immature Gran % Nucleated RBC % Immature Gran # Segmented Neutrophils Band Neutrophils Lymphocytes Monocytes Nucleated RBCs Nucleated RBCs # Platelet Estimate Polychromasia Hypochromasia Anisocytosis Microcytosis Target Cells Morphology Comment ABG pH ABG pCO2 ABG pO2 ABG HCO3 ABG Total CO2 ABG O2 Saturation ABG Base Excess Sodium 134 L Potassium 6.7 H* D Chloride 103 Carbon Dioxide 12 L Anion Gap 25.7 H BUN 26 H Creatinine 2.10 H GFR Calculation 47 BUN/Creatinine Ratio 12.00 Glucose 160 H POC Glucose Calculated Osmolality 275.2 Calcium 7.1 L Phosphorus Magnesium 2.1 Total Creatine Kinase 122 CK-MB (CK-2) 1.5 Troponin I 0.105 H Prealbumin Hepatitis A IgM Ab Negative Hep Bs Antigen Negative Hep B Core IgM Ab Negative Hepatitis C Antibody Negative HIV 1&2 Antigen & Ab 09/27/16 09/27/16 09/27/16 15:36 16:21 18:31 WBC RBC Hgb Hct MCV MCH MCHC RDW Plt Count Neut % (Auto) Lymph % (Auto) [place] % (Auto) Eos % (Auto) Baso % (Auto) Neut # (Auto) Lymph # (Auto) [place] # (Auto) Eos # (Auto) Baso # (Auto) Total Counted Immature Gran % Nucleated RBC % Immature Gran # Segmented Neutrophils Band Neutrophils Lymphocytes Monocytes Nucleated RBCs Nucleated RBCs # Platelet Estimate Polychromasia Hypochromasia Anisocytosis Microcytosis Target Cells Morphology Comment ABG pH ABG pCO2 ABG pO2 ABG HCO3 ABG Total CO2 ABG O2 Saturation ABG Base Excess Sodium Potassium 6.9 H* Chloride Carbon Dioxide Anion Gap BUN Creatinine GFR Calculation BUN/Creatinine Ratio Glucose POC Glucose 213 H Calculated Osmolality Calcium Phosphorus Magnesium Total Creatine Kinase CK-MB (CK-2) Troponin I Prealbumin Hepatitis A IgM Ab Hep Bs Antigen Hep B Core IgM Ab Hepatitis C Antibody HIV 1&2 Antigen & Ab Nonreactive 09/27/16 09/27/16 09/27/16 19:30 20:15 23:55 WBC RBC Hgb Hct MCV MCH MCHC RDW Plt Count Neut % (Auto) Lymph % (Auto) [place] % (Auto) Eos % (Auto) Baso % (Auto) Neut # (Auto) Lymph # (Auto) [place] # (Auto) Eos # (Auto) Baso # (Auto) Total Counted Immature Gran % Nucleated RBC % Immature Gran # Segmented Neutrophils Band Neutrophils Lymphocytes Monocytes Nucleated RBCs Nucleated RBCs # Platelet Estimate Polychromasia Hypochromasia Anisocytosis Microcytosis Target Cells Morphology Comment ABG pH ABG pCO2 ABG pO2 ABG HCO3 ABG Total CO2 ABG O2 Saturation ABG Base Excess Sodium Potassium Chloride Carbon Dioxide Anion Gap BUN Creatinine GFR Calculation BUN/Creatinine Ratio Glucose POC Glucose 139 H Calculated Osmolality Calcium Phosphorus Magnesium Total Creatine Kinase 184 D CK-MB (CK-2) 1.2 Troponin I 0.116 H 0.123 H Prealbumin Hepatitis A IgM Ab Hep Bs Antigen Hep B Core IgM Ab Hepatitis C Antibody HIV 1&2 Antigen & Ab 09/27/16 09/28/16 09/28/16 23:55 00:02 05:04 WBC 19.0 H D RBC 3.63 L Hgb 8.1 L Hct 22.1 L MCV 60.9 L MCH 22 L MCHC 36.7 H RDW 19.2 H Plt Count 106 L D Neut % (Auto) 76.0 H Lymph % (Auto) 10.6 L [place] % (Auto) 8.3 Eos % (Auto) 0.1 Baso % (Auto) 0.2 Neut # (Auto) 14.5 H Lymph # (Auto) 2.0 [place] # (Auto) 1.6 H Eos # (Auto) 0.0 Baso # (Auto) 0.0 Total Counted 100 Immature Gran % 4.8 Nucleated RBC % 12.9 Immature Gran # 0.92 Segmented Neutrophils 79 Band Neutrophils 4 Lymphocytes 14 L Monocytes 3 Nucleated RBCs 9 H Nucleated RBCs # 2.46 Platelet Estimate Decreased Polychromasia Few Hypochromasia 2+ Anisocytosis 1+ Microcytosis 1+ Target Cells 1+ Morphology Comment ABG pH ABG pCO2 ABG pO2 ABG HCO3 ABG Total CO2 ABG O2 Saturation ABG Base Excess Sodium 132 L Potassium 5.8 H Chloride 99 Carbon Dioxide 18 L Anion Gap 20.8 H BUN 36 H D Creatinine 2.70 H GFR Calculation 34 BUN/Creatinine Ratio 13.00 Glucose 174 H POC Glucose 107 H Calculated Osmolality 275.5 Calcium 7.1 L Phosphorus Magnesium Total Creatine Kinase CK-MB (CK-2) Troponin I Prealbumin Hepatitis A IgM Ab Hep Bs Antigen Hep B Core IgM Ab Hepatitis C Antibody HIV 1&2 Antigen & Ab 09/28/16 09/28/16 09/28/16 05:04 05:04 05:04 WBC RBC Hgb Hct MCV MCH MCHC RDW Plt Count Neut % (Auto) Lymph % (Auto) [place] % (Auto) Eos % (Auto) Baso % (Auto) Neut # (Auto) Lymph # (Auto) [place] # (Auto) Eos # (Auto) Baso # (Auto) Total Counted Immature Gran % Nucleated RBC % Immature Gran # Segmented Neutrophils Band Neutrophils Lymphocytes Monocytes Nucleated RBCs Nucleated RBCs # Platelet Estimate Polychromasia Hypochromasia Anisocytosis Microcytosis Target Cells Morphology Comment ABG pH ABG pCO2 ABG pO2 ABG HCO3 ABG Total CO2 ABG O2 Saturation ABG Base Excess Sodium 136 Potassium 4.2 Chloride 101 Carbon Dioxide 18 L Anion Gap 21.2 H BUN 38 H Creatinine 2.60 H GFR Calculation 36 BUN/Creatinine Ratio 14.00 Glucose 241 H POC Glucose Calculated Osmolality 288.0 Calcium 7.0 L Phosphorus 7.3 H Magnesium 2.1 Total Creatine Kinase 184 CK-MB (CK-2) 1.6 Troponin I 0.126 H Prealbumin 9.1 L Hepatitis A IgM Ab Hep Bs Antigen Hep B Core IgM Ab Hepatitis C Antibody HIV 1&2 Antigen & Ab 09/28/16 09/28/16 06:02 06:36 WBC RBC Hgb Hct MCV MCH MCHC RDW Plt Count Neut % (Auto) Lymph % (Auto) [place] % (Auto) Eos % (Auto) Baso % (Auto) Neut # (Auto) Lymph # (Auto) [place] # (Auto) Eos # (Auto) Baso # (Auto) Total Counted Immature Gran % Nucleated RBC % Immature Gran # Segmented Neutrophils Band Neutrophils Lymphocytes Monocytes Nucleated RBCs Nucleated RBCs # Platelet Estimate Polychromasia Hypochromasia Anisocytosis Microcytosis Target Cells Morphology Comment ABG pH 7.394 ABG pCO2 23.9 L ABG pO2 391.2 H ABG HCO3 14.3 L ABG Total CO2 15.0 L ABG O2 Saturation 98.6 ABG Base Excess -9.5 L Sodium Potassium Chloride Carbon Dioxide Anion Gap BUN Creatinine GFR Calculation BUN/Creatinine Ratio Glucose POC Glucose 241 H Calculated Osmolality Calcium Phosphorus Magnesium Total Creatine Kinase CK-MB (CK-2) Troponin I Prealbumin Hepatitis A IgM Ab Hep Bs Antigen Hep B Core IgM Ab Hepatitis C Antibody HIV 1&2 Antigen & Ab
[2016-09-28 10:28] LABS: ABG Base Excess -7.7 MMOL/L (-2.5-2.5); ABG HCO3 18.1 MMOL/L (20-26); ABG Oxygen Saturation 98.6 % (95-100); ABG PCO2 26.9 MM HG (35-48); ABG TCO2 15.2 MMOL/L (23-27)
[2016-09-28] MEDS: ISOSORBIDE MONONITRATE 30 MG TABLET PO SCH (11:13)
[2016-09-28] MEDS: hydrALAZINE 25 MG TABLET PO SCH ×2 (11:13→21:32)
--- NOTE | 2016-09-28 13:48 | Hospitalist Progress Note ---
Assessment and Plan (1) Acute combined systolic and diastolic congestive heart failure Status: Acute Assessment and plan: Continue IV Lasix 40 mg IV every 12 Current Visit: Yes (2) Respiratory failure Status: Acute Assessment and plan: intubated and sedated. Dr. Yost managing the vent Current Visit: Yes (3) Pneumonia Status: Acute Assessment and plan: cont azithromycin and rocephin to cover for pneumonia, blood cx 1/2 gram positive cocci, Hx of Sickle cell dont know WBC improving. Current Visit: Yes (4) Hemoglobin SC disease Status: Chronic Assessment and plan: Dilaudid as needed for sickle cell crisis. prn dilaudid Current Visit: Yes (5) Acute on chronic renal failure Status: Acute Assessment and plan: Creatinine is rising but urine output is better today. His potassium is returned to normal at 4.2 Current Visit: Yes (6) Hypertension Status: Acute Assessment and plan: Hypotension has resolved, off pressors, Coreg started, hydralazine started Current Visit: Yes (7) Cardiogenic shock Status: Acute Assessment and plan: Resolved. Status post cardiac cath showed dilated cardiomyopathy with normal coronaries. EF confirmed a 15% Current Visit: Yes (8) Dilated cardiomyopathy Status: Acute Assessment and plan: Confirmed by cardiac cath. Current Visit: Yes Hospitalist: Subjective Interval history: Patient remains on pressors today. His potassium is improved with intervention. Patient's FiO2 requirement has gone up overnight. I have discussed his case with Dr. Yost. Patient has worsening heart failure due to fluids given during code yesterday. Urine output has decreased overnight. Patient on tube feedings. White count better today on current antibiotic regimen. Blood sugars are high and will be started on Lantus today. Exam - Constitutional Vitals: Period Temp Pulse Resp BP Sys/Ramirez Pulse Ox Last 24 Hr 97.0 F-99.9 F 63-113 16-38 77-158/35-96 98-100 Exam: Heart Rate-[tachy] Lungs-[CTAB but diminished] GI-[+bs soft, NT] Ext-[no edema] Neuro not following commands, continued agitation psych cannot assess due to sedation General [no acute distress] Results - Labs CBC & BMP: 09/28/16 05:04 09/28/16 05:04 Lab Results: I have reviewed the past 24 hour labs Labs: 1 of 2 blood cultures gram-positive cocci - Diagnostic Findings Procedure: Chest x-ray: report reviewed by me (Pulmonary edema, )
[2016-09-28] MEDS ORDERED: HYDROmorphone 2 MG/1 ML VIAL IV PRN (13:56)
[2016-09-28] MEDS: cefTRIAXone 2,000 MG in SODIUM CHLORIDE 0.9% 100 ML IV SCH (14:15)
[2016-09-28] MEDS: INSULIN GLARGINE 100 UNIT/ML SUBCUT SCH (14:46)
[2016-09-28] MEDS: FUROSEMIDE 40 MG/4 ML VIAL IV SCH (14:52)
[2016-09-28] MEDS: CARVEDILOL 3.125 MG TABLET PO SCH ×2 (14:55→21:31)
--- NOTE | 2016-09-28 15:23 | XRay Report ---
XR KUB Indication: "Missing tooth" Abdomen one view: NG tube and left groin central line are present. Surgical clips are present in the right upper quadrant and left lateral upper quadrant. No radiopaque tube is identified. No small bowel dilatation. Stool and gas is shown in the rectum. Impression: No tooth identified. PROCEDURE INTERPRETED AT [facility] DEPARTMENT OF RADIOLOGY Final Report Signed by: Filippo Juan M.D.
--- NOTE | 2016-09-28 15:24 | XRay Report ---
XR chest 1V portable Indication: "Missing tooth" Chest one view: Endotracheal tube and NG tube are in the field of view. Heart size is enlarged. Focal infiltrate medial right base is similar to the earlier study. No radiopaque or calcified structures are present as suggested tubes in the soft tissues. Impression: Unable to locate the missing tooth. PROCEDURE INTERPRETED AT [facility] DEPARTMENT OF RADIOLOGY Final Report Signed by: Filippo Juan M.D.
[2016-09-28] MEDS ORDERED: CARVEDILOL 3.125 MG TABLET PO SCH (21:00)
[2016-09-29] MEDS: INSULIN REGULAR 100 UNIT/ML SUBCUT SCH ×4 (00:17→18:00)
[2016-09-29] MEDS: FUROSEMIDE 40 MG/4 ML VIAL IV SCH (01:29)
[2016-09-29] MEDS: PROPOFOL 1,000 MG/100 ML BOTTLE IV SCH ×4 (02:57→20:29)
[2016-09-29] MEDS: PANTOPRAZOLE 40 MG VIAL IV SCH (04:12)
[2016-09-29] MEDS: AZITHROMYCIN INJ 500 MG in SODIUM CHLORIDE 0.9% 250 ML IV SCH (04:12)
[2016-09-29 06:46] LABS: Hematocrit 22.8 VOL% (42.0-52.0); Hemoglobin 8.5 GM/DL (14.0-18.0); Red Blood Count 3.81 MC/CUMM (3.8-5.5); White Blood Count 21.8 T/CUMM (4-12)
[2016-09-29 06:47] LABS: Basophils # 0.1 10*3/uL (0.0-0.2); Basophils % 0.3 % (0.0-0.8); Eosinophils % 0.2 % (0.00-10.9); Immature Granulocytes % 7.9 %; Immature Granulocytes Absolute 1.73 #; Lymphocytes # 1.6 10*3/uL (1.4-4.0); Lymphocytes % 7.2 % (21.2-54.2); Mean Corpuscular HGB Conc 37.3 GM/DL (32-36); Mean Corpuscular Hemoglobin 22 PG (27-34); Mean Corpuscular Volume 59.8 FL (87-102); Monocytes % 4.7 % (1.7-12.7); NRBC # 6.68 10*3/uL; Neutrophils # 17.4 10*3/uL (1.4-7.4); Neutrophils % 79.7 % (38.7-73.9); Platelet Count 118 T/CUMM (130-400)
[2016-09-29 07:05] LABS: Band Neutrophils 3 % (0-10); Lymphocytes 4 % (20-55); Nucleated Red Blood Cells 78 (0-5); Segmented Neutrophils 92 % (50-85); Total Cells Counted 100
[2016-09-29 07:06] LABS: Hypochromasia 1+; Ovalocytes Slight; Platelet Estimate Decreased; Polychromasia Slight; Target Cells 1+
[2016-09-29 07:07] LABS: Microcytosis 1+
[2016-09-29 07:22] LABS: Calcium 6.6 MG/DL (8.5-10.1); Magnesium 2.4 MG/DL (1.8-2.4); Osmolality,Calculated 304.4 MOS/KG (273-304); Potassium 3.3 MMOL/L (3.5-5.1)
--- NOTE | 2016-09-29 07:59 | Cardiology Progress Note ---
<Rebekah Canales - Last Filed: 09/29/16 07:53> Assessment and Plan (1) Acute combined systolic and diastolic congestive heart failure Status: Acute Assessment and plan: SEE PLAN OF CARE LISTED BELOW. Current Visit: Yes (2) Acute on chronic renal failure Status: Acute Assessment and plan: SEE PLAN OF CARE LISTED BELOW. Current Visit: Yes (3) Hemoglobin SC disease Status: Chronic Assessment and plan: SEE PLAN OF CARE LISTED BELOW. Current Visit: Yes (4) Leukocytosis Status: Acute Assessment and plan: SEE PLAN OF CARE LISTED BELOW. Current Visit: Yes (5) Pneumonia Status: Acute Assessment and plan: SEE PLAN OF CARE LISTED BELOW. Current Visit: Yes (6) Respiratory failure Status: Acute Assessment and plan: SEE PLAN OF CARE LISTED BELOW. Current Visit: Yes (7) Elevated troponin Status: Acute Assessment and plan: SEE PLAN OF CARE LISTED BELOW. Current Visit: Yes (8) Abnormal EKG Status: Acute Assessment and plan: SEE PLAN OF CARE LISTED BELOW. Current Visit: Yes (9) Hypertension Status: Chronic Assessment and plan: SEE PLAN OF CARE LISTED BELOW. Current Visit: No (10) Drug abuse Status: Chronic Assessment and plan: SEE PLAN OF CARE LISTED BELOW. Current Visit: Yes (11) Alcoholism Status: Chronic Assessment and plan: SEE PLAN OF CARE LISTED BELOW. Current Visit: Yes (12) Elevated liver enzymes Status: Acute Assessment and plan: SEE PLAN OF CARE LISTED BELOW. Current Visit: Yes (13) Tobacco abuse Status: Chronic Assessment and plan: SEE PLAN OF CARE LISTED BELOW. Current Visit: Yes (14) Shock Status: Acute Current Visit: Yes Cardiology - PN: Subj Interval history: [place]: New to cardiology, has been seen at [facility] in the past. PCP: Dr. Ector Figueroa SUMMARY - Mr. Rodriguez is a 45 year old male -[place] male patient who has not been seen by local cardiology in the past. Patient has cardiac risk factors significant for hypertension, current everyday smoker (tobacco and marijuana) and family history of premature coronary artery disease. Patient has a past medical history of congestive heart failure (most recent ejection fraction noted to be 15%), sickle cell anemia, anxiety and hypertension. September 27 patient had a cardiac arrest. EKG revealed deep flat ST depression in the lateral leads and subsequently, patient underwent cardiac catheterization in order to definitively define his coronary anatomy and to rule out underlying obstructive coronary artery disease. This was performed per Dr. Juantio Baig with the following impressions noted: IMPRESSIONS: 1. Normal coronary arteries. 2. Dilated nonischemic cardiomyopathy. 3. Elevated LVEDP and pulmonary capillary wedge pressure as described above. 4. Transient PSVT which resolved after IV diltiazem. SEPTEMBER 29 - Patient remains sedated and ventilated in the CCU. He has done reasonably well overnight and is without any new complications. He remains hemodynamically stable, no longer requiring vasopressors. Right groin is soft without bleeding, hematoma and bruit. Distal pulses present. Per nursing staff, he awakens appropriately and follows commands when sedation is held. H&H this morning remains low at 8.5 and 22.8.. Patient does have a history of sickle cell anemia. Defer management of this to attending. environmental monitoring technician has been reviewed and patient has had no further arrhythmias overnight. We will continue to follow along. I will discuss further with Dr. Oneill and await his additional recommendations. ASSESSMENT/PLAN: 1. ACUTE CONGESTIVE HEART FAILURE, COMBINED SYSTOLIC AND DIASTOLIC DYSFUNCTION - Echocardiogram this admission revealed ejection fraction of 15% and grade 3 diastolic dysfunction. After negative heart catheterization yesterday this was deemed drug-induced cardiomyopathy. At this point, I will avoid ANGEL inhibitor and ARB due to fear of worsening renal function. Creatinine is today 4.2. Continue IV Lasix. Monitor creatinine closely with daily BMP. Once blood pressure will allow, recommend initiation of beta-shekhar. Hesitant to add Aldactone as patient did have significant hyperkalemia upon admission. Will further discuss with Dr. Oneill and await his additional recommendations. 2. ELEVATED TROPONIN - ACS was definitively ruled out per heart catheterization. 3. HYPERTENSION - Continue current plan of care. Recommend initiation of beta shekhar when his blood pressure will allow. Avoiding ANGEL inhibitor and ARB due to fear of worsening renal function. 4. SICKLE CELL ANEMIA - This could be a sickle cell crisis. H&H is noted to be 8 and 22. Defer management of this to attending. 5. ACUTE ON CHRONIC RENAL FAILURE - Monitor with daily BMP. Management per attending. Consider renal consult. 6. DRUG ABUSE - Patient's drug screen was positive for marijuana. This is most likely contributing to patient's cardiomyopathy. Will discuss with the patient the importance of cessation once he is extubated. 7. TOBACCO ABUSE - Will discuss the importance of smoking cessation when patient is extubated from the ventilator. 8. PNEUMONIA - Management per pulmonary. Continue IV antibiotics. 9. RESPIRATORY FAILURE - Management per pulmonary. 10. ELEVATED LIVER ENZYMES - Most likely secondary to hypoperfusion as patient was severely hypertensive earlier this week. Hepatitis panel was negative. Defer further management of this to attending. 11. LEUKOCYTOSIS - Continue IV antibiotics. Defer management to attending. 12. ALCOHOLISM - Per nursing staff, patient drinks a daily. This most likely is contributing to patient's cardiomyopathy. Ativan has been ordered as needed per hospital medicine in order to prevent DTs. Exam (Progress Note) - Constitutional Vitals: Period Temp Pulse Resp BP Sys/Ramirez Pulse Ox Last 24 Hr 97.5 F-99.2 F 92-113 18-38 99-158/41-96 98-100 Exam: General: Sedated and ventilated. HEENT: PERRL, normocephalic, atraumatic. NG tube noted. Neck: No JVD/HJR, no thyromegaly or lymphadenopathy noted. No carotid bruit appreciated Cardiac: Regular rate and rhythm. No murmur rub or gallop. Lungs: Lungs are clear throughout. Ventilated. Abdomen: Soft. Hypoactive bowel sounds. Nondistended. Extremities: No clubbing, cyanosis noted. No edema noted. Skin: No unusual lesions or rashes. No skin breakdown appreciated. Neuro: Unable to assess as patient is sedated and ventilated. Result/EKG - Labs CBC & BMP: 09/29/16 06:25 09/29/16 06:25 Lab Results: I have reviewed the past 24 hour labs Labs: Laboratory Results - last 24 hr 09/28/16 09/28/16 09/28/16 10:10 11:13 14:50 WBC RBC Hgb Hct MCV MCH MCHC RDW Plt Count Neut % (Auto) Lymph % (Auto) [place] % (Auto) Eos % (Auto) Baso % (Auto) Neut # (Auto) Lymph # (Auto) [place] # (Auto) Eos # (Auto) Baso # (Auto) Total Counted Immature Gran % Nucleated RBC % Immature Gran # Segmented Neutrophils Band Neutrophils Lymphocytes Monocytes Nucleated RBCs Nucleated RBCs # Platelet Estimate Polychromasia Hypochromasia Microcytosis Target Cells Ovalocytes Morphology Comment ABG pH 7.390 ABG pCO2 26.9 L ABG pO2 126.0 H ABG HCO3 18.1 L ABG Total CO2 15.2 L ABG O2 Saturation 98.6 ABG Base Excess -7.7 L Sodium Potassium Chloride Carbon Dioxide Anion Gap BUN Creatinine GFR Calculation BUN/Creatinine Ratio Glucose POC Glucose 235 H 235 H Calculated Osmolality Calcium Magnesium 09/28/16 09/28/16 09/29/16 17:46 23:57 05:13 WBC RBC Hgb Hct MCV MCH MCHC RDW Plt Count Neut % (Auto) Lymph % (Auto) [place] % (Auto) Eos % (Auto) Baso % (Auto) Neut # (Auto) Lymph # (Auto) [place] # (Auto) Eos # (Auto) Baso # (Auto) Total Counted Immature Gran % Nucleated RBC % Immature Gran # Segmented Neutrophils Band Neutrophils Lymphocytes Monocytes Nucleated RBCs Nucleated RBCs # Platelet Estimate Polychromasia Hypochromasia Microcytosis Target Cells Ovalocytes Morphology Comment ABG pH ABG pCO2 ABG pO2 ABG HCO3 ABG Total CO2 ABG O2 Saturation ABG Base Excess Sodium Potassium Chloride Carbon Dioxide Anion Gap BUN Creatinine GFR Calculation BUN/Creatinine Ratio Glucose POC Glucose 224 H 212 H 207 H Calculated Osmolality Calcium Magnesium 09/29/16 09/29/16 06:25 06:25 WBC 21.8 H RBC 3.81 Hgb 8.5 L Hct 22.8 L MCV 59.8 L MCH 22 L MCHC 37.3 H RDW 20.0 H Plt Count 118 L Neut % (Auto) 79.7 H Lymph % (Auto) 7.2 L [place] % (Auto) 4.7 Eos % (Auto) 0.2 Baso % (Auto) 0.3 Neut # (Auto) 17.4 H Lymph # (Auto) 1.6 [place] # (Auto) 1.0 H Eos # (Auto) 0.0 Baso # (Auto) 0.1 Total Counted 100 Immature Gran % 7.9 Nucleated RBC % 30.6 Immature Gran # 1.73 Segmented Neutrophils 92 H Band Neutrophils 3 Lymphocytes 4 L Monocytes 1 L Nucleated RBCs 78 H Nucleated RBCs # 6.68 Platelet Estimate Decreased Polychromasia Slight Hypochromasia 1+ Microcytosis 1+ Target Cells 1+ Ovalocytes Slight Morphology Comment ABG pH ABG pCO2 ABG pO2 ABG HCO3 ABG Total CO2 ABG O2 Saturation ABG Base Excess Sodium 140 Potassium 3.3 L Chloride 102 Carbon Dioxide 23 Anion Gap 18.3 H BUN 68 H Creatinine 4.20 H GFR Calculation 20 BUN/Creatinine Ratio 16.00 Glucose 200 H POC Glucose Calculated Osmolality 304.4 H Calcium 6.6 L Magnesium 2.4 <Eugenie Oneill - Last Filed: 09/29/16 09:09> Assessment and Plan (1) Respiratory failure Status: Acute Current Visit: Yes (2) Hemoglobin SC disease Status: Chronic Current Visit: Yes (3) Acute combined systolic and diastolic congestive heart failure Status: Acute Assessment and plan: As per HPI continue hydralazine nitrates and beta-shekhar. His volume status appears to be dramatically improved. Current Visit: Yes (4) Acute on chronic renal failure Status: Acute Current Visit: Yes (5) Drug abuse Status: Chronic Current Visit: Yes (6) Alcoholism Status: Chronic Current Visit: Yes (7) Elevated liver enzymes Status: Acute Current Visit: Yes (8) Tobacco abuse Status: Chronic Current Visit: Yes (9) Shock Status: Resolved Current Visit: Yes Cardiology - PN: Subj Interval history: The patient looks better from a standpoint of hemodynamics. His chest x-ray is also improved. He has a significant increase in his BUN and creatinine and also his BUN and creatinine ratio. I think this is a combination of his period of hypotension confounded by contrast and diuresis. I feel that we should hold his diuresis for now. He is diuresed significantly his chest x-ray has improved. I will recommend that we hold the Lasix for now. His potassium is slightly low but I think given his renal insufficiency would not be too aggressive at replating and especially in the face of stopping his Lasix. Exam (Progress Note) - Constitutional Vitals: Period Temp Pulse Resp BP Sys/Ramirez Pulse Ox Last 24 Hr 97.5 F-99.2 F 92-113 18-27 99-158/41-96 98-100 Exam: He has an S3 gallop. His PMI is laterally displaced. His lungs are clear on the ventilator. Has no lower extremity edema. Result/EKG - Labs CBC & BMP: 09/29/16 06:25 09/29/16 06:25 Labs: Laboratory Results - last 24 hr 09/28/16 09/28/16 09/28/16 10:10 11:13 14:50 WBC RBC Hgb Hct MCV MCH MCHC RDW Plt Count Neut % (Auto) Lymph % (Auto) [place] % (Auto) Eos % (Auto) Baso % (Auto) Neut # (Auto) Lymph # (Auto) [place] # (Auto) Eos # (Auto) Baso # (Auto) Total Counted Immature Gran % Nucleated RBC % Immature Gran # Segmented Neutrophils Band Neutrophils Lymphocytes Monocytes Nucleated RBCs Nucleated RBCs # Platelet Estimate Polychromasia Hypochromasia Microcytosis Target Cells Ovalocytes Morphology Comment ABG pH 7.390 ABG pCO2 26.9 L ABG pO2 126.0 H ABG HCO3 18.1 L ABG Total CO2 15.2 L ABG O2 Saturation 98.6 ABG Base Excess -7.7 L Sodium Potassium Chloride Carbon Dioxide Anion Gap BUN Creatinine GFR Calculation BUN/Creatinine Ratio Glucose POC Glucose 235 H 235 H Calculated Osmolality Calcium Magnesium 09/28/16 09/28/16 09/29/16 17:46 23:57 05:13 WBC RBC Hgb Hct MCV MCH MCHC RDW Plt Count Neut % (Auto) Lymph % (Auto) [place] % (Auto) Eos % (Auto) Baso % (Auto) Neut # (Auto) Lymph # (Auto) [place] # (Auto) Eos # (Auto) Baso # (Auto) Total Counted Immature Gran % Nucleated RBC % Immature Gran # Segmented Neutrophils Band Neutrophils Lymphocytes Monocytes Nucleated RBCs Nucleated RBCs # Platelet Estimate Polychromasia Hypochromasia Microcytosis Target Cells Ovalocytes Morphology Comment ABG pH ABG pCO2 ABG pO2 ABG HCO3 ABG Total CO2 ABG O2 Saturation ABG Base Excess Sodium Potassium Chloride Carbon Dioxide Anion Gap BUN Creatinine GFR Calculation BUN/Creatinine Ratio Glucose POC Glucose 224 H 212 H 207 H Calculated Osmolality Calcium Magnesium 09/29/16 09/29/16 06:25 06:25 WBC 21.8 H RBC 3.81 Hgb 8.5 L Hct 22.8 L MCV 59.8 L MCH 22 L MCHC 37.3 H RDW 20.0 H Plt Count 118 L Neut % (Auto) 79.7 H Lymph % (Auto) 7.2 L [place] % (Auto) 4.7 Eos % (Auto) 0.2 Baso % (Auto) 0.3 Neut # (Auto) 17.4 H Lymph # (Auto) 1.6 [place] # (Auto) 1.0 H Eos # (Auto) 0.0 Baso # (Auto) 0.1 Total Counted 100 Immature Gran % 7.9 Nucleated RBC % 30.6 Immature Gran # 1.73 Segmented Neutrophils 92 H Band Neutrophils 3 Lymphocytes 4 L Monocytes 1 L Nucleated RBCs 78 H Nucleated RBCs # 6.68 Platelet Estimate Decreased Polychromasia Slight Hypochromasia 1+ Microcytosis 1+ Target Cells 1+ Ovalocytes Slight Morphology Comment ABG pH ABG pCO2 ABG pO2 ABG HCO3 ABG Total CO2 ABG O2 Saturation ABG Base Excess Sodium 140 Potassium 3.3 L Chloride 102 Carbon Dioxide 23 Anion Gap 18.3 H BUN 68 H Creatinine 4.20 H GFR Calculation 20 BUN/Creatinine Ratio 16.00 Glucose 200 H POC Glucose Calculated Osmolality 304.4 H Calcium 6.6 L Magnesium 2.4
--- NOTE | 2016-09-29 08:08 | Pulmonology Progress Note ---
Pulmonary - PN: Subj Interval history: The patient is a 45-year-old black man that has SC disease. He came in with respiratory distress and acute pulmonary edema. He had to be intubated and has been on the ventilator. He was taken to the [facility] had a cardiac catheterization. His ejection fraction of 15% but normal coronaries. He is a little more stable on the ventilator now. His blood pressure is better and his oxygenation has improved. He has been responding some when off sedation. He has had a fairly stable night. He has diuresed fairly well. His O2 saturations are 100%. Exam (Progress Note) - Constitutional Vitals: Period Temp Pulse Resp BP Sys/Ramirez Pulse Ox Last 24 Hr 97.5 F-99.2 F 92-113 18-38 99-158/41-96 98-100 Exam: General appearance: normal weight, no acute distress (Patient is sedated on the ventilator. His blood pressure is much more stable.) - Head Head exam: Present: normal inspection, normocephalic - Eye Eye exam: Present: EOMI. Absent: scleral icterus Pupils: Present: AUGIE - ENT ENT exam: Present: other (ET tube is in good position) - Neck Neck exam: Present: normal inspection. Absent: lymphadenopathy, thyromegaly - Respiratory Respiratory exam: Present: He has good breath sounds bilaterally and his lungs sound much clearer. - Cardiovascular Cardiovascular exam: Present: regular rate and rhythm, systolic murmur (He does have a soft systolic murmur), tachycardia. Absent: gallop - GI/Abdominal GI/Abdominal exam: Present: normal bowel sounds, soft. Absent: distended, organomegaly, tenderness - Extremities Exam Extremities exam: Absent: calf tenderness, edema - Neurological Exam Neurological exam: Present: other (Patient is sedated on the ventilator at present.) - Skin Skin exam: Present: warm, dry Results - Labs CBC & BMP: 09/29/16 06:25 09/29/16 06:25 - Diagnostic Findings Procedure: Chest x-ray: image reviewed by me, report reviewed by me (Chest x- ray shows cardiomegaly but his lung singh are clearer.) Assessment and Plan (1) Congestive heart failure Status: Acute Assessment and plan: The patient presents with acute shortness of breath and his x-ray is consistent with heart failure. He has a severe cardiomyopathy with ejection fraction of 15 %. His oxygenation has improved and his chest x-ray is a little better. He does seem to be diuresing fairly well. Current Visit: Yes (2) Hemoglobin SC disease Status: Chronic Assessment and plan: Patient has a history of sickle cell disease and his hematocrit is now down to 22. His hematocrit is stable today. Current Visit: Yes (3) Pneumonia Status: Acute Assessment and plan: The patient is being covered for pneumonia although this may all be related to congestive heart failure. There is no definite consolidation at present. His chest x-ray is improving. Current Visit: Yes (4) Respiratory failure Status: Acute Assessment and plan: The patient is stable and his chest x-ray is better. Will lower his FiO2 and start weaning. Current Visit: Yes
[2016-09-29] MEDS: ISOSORBIDE MONONITRATE 30 MG TABLET PO SCH (08:58)
[2016-09-29] MEDS: ASPIRIN EC 81 MG TABLET PO SCH (08:58)
[2016-09-29] MEDS: CARVEDILOL 3.125 MG TABLET PO SCH ×2 (08:58→19:59)
[2016-09-29] MEDS: hydrALAZINE 25 MG TABLET PO SCH ×2 (08:58→19:59)
[2016-09-29] MEDS: FOLIC ACID INJ 1 MG in SYRINGE 1 EACH IV SCH (09:01)
[2016-09-29] MEDS: THIAMINE 200 MG/2 ML VIAL IV SCH (09:04)
[2016-09-29] MEDS: INSULIN GLARGINE 100 UNIT/ML SUBCUT SCH (09:07)
[2016-09-29] MEDS: ENOXAPARIN 30 MG/0.3 ML SYRINGE SUBCUT SCH (09:08)
--- NOTE | 2016-09-29 09:11 | XRay Report ---
History: Patient on ventilator Date: 09/29/2016 Study: Chest x-ray AP portable Comparison exam: September 28, 2016 The endotracheal and nasogastric tubes are in satisfactory position. There is cardiomegaly. The pulmonary vasculature is slightly prominent. There is patchy and hazy edema/infiltrate in the mid to lower lungs, mildly worsened. 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 Impression: Mildly worsened bilateral pulmonary edema/infiltrate compared to the previous study PROCEDURE INTERPRETED AT [facility] DEPARTMENT OF RADIOLOGY Final Report Signed by: Dr. Daylin Francis
[2016-09-29 11:07] LABS: ABG Base Excess 0.3 MMOL/L (-2.5-2.5); ABG HCO3 24.7 MMOL/L (20-26); ABG PCO2 31.4 MM HG (35-48); ABG PH 7.479 (7.35-7.45); ABG TCO2 21.7 MMOL/L (23-27)
--- NOTE | 2016-09-29 11:40 | Hospitalist Progress Note ---
Assessment and Plan (1) Acute combined systolic and diastolic congestive heart failure Status: Acute Assessment and plan: Continue IV Lasix 40 mg IV daily, avoid angel or arb due to worsening cr Current Visit: Yes (2) Respiratory failure Status: Acute Assessment and plan: intubated and sedated. Dr. Yost managing the vent Current Visit: Yes (3) Pneumonia Status: Acute Assessment and plan: change to zosyn as he is at risk for hospital acquired pneumonia Current Visit: Yes (4) Acute on chronic renal failure Status: Acute Assessment and plan: Creatinine is rising most likely due to ATN s/p code when he was hypotensive Current Visit: Yes (5) Hypertension Status: Acute Assessment and plan: cont coreg, hydralazine and isosorbide mononitrate Current Visit: Yes (6) Cardiogenic shock Status: Acute Assessment and plan: Resolved. Status post cardiac cath showed dilated cardiomyopathy with normal coronaries. EF confirmed a 15% Current Visit: Yes (7) Dilated cardiomyopathy Status: Acute Assessment and plan: Confirmed by cardiac cath. Avoid ANGEL and arb due to worsening cr Current Visit: Yes (8) Sickle cell crisis Status: Acute Assessment and plan: prn dilaudid Current Visit: Yes (9) Altered mental status Status: Acute Assessment and plan: Patient had a hypotensive event. Patient does wake but is really not following commands well. I will obtain an EEG today and consult Dr. Turner Current Visit: Yes Hospitalist: Subjective Interval history: We will start stage I weaning trials today. Patient looks good. Patient's blood pressure remains controlled. No pressors. He is actually tolerating blood pressure medicines. Exam - Constitutional Vitals: Period Temp Pulse Resp BP Sys/Ramirez Pulse Ox Last 24 Hr 97 F-99.1 F 92-113 15-26 99-158/41-82 98-100 Exam: Heart Rate-[RRR] Lungs-[CTAB GI-[+bs soft, NT] Ext-[no edema] Neuro sedated and intubated psych cannot assess due to sedation General [no acute distress] Results - Labs CBC & BMP: 09/29/16 06:25 09/29/16 06:25 Lab Results: I have reviewed the past 24 hour labs Labs: 1/2 blood cultures gram positive cocci. - Diagnostic Findings Procedure: Chest x-ray: report reviewed by me (Worsening pulmonary edema), KUB x -ray: report reviewed by me (No tooth identified)
[2016-09-29] MEDS ORDERED: POTASSIUM CHLORIDE 20 MEQ TABLET PO ONE (12:00)
[2016-09-29] MEDS ORDERED: FUROSEMIDE 40 MG/4 ML VIAL IV ONE (12:00)
[2016-09-29] MEDS: PIPERACILLIN/TAZOBACTAM 3,375 MG in SODIUM CHLORIDE 0.9% 100 ML IV SCH (12:33)
[2016-09-29] MEDS ORDERED: INSULIN GLARGINE 100 UNIT/ML SUBCUT ONE (14:00)
--- NOTE | 2016-09-29 14:24 | Neurology Consult Note ---
History of Present Illness History of present illness: Mr. 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 Patient reported the ER physician that his shortness of breath started approximately 3 weeks ago. While in the hospital he was coded and was intubated. No seizure-like activity reported. He has been in the hospital for last 3 days and when we turned the Diprivan off, he would open his eyes but is not following any commands. EEG has been ordered. Home Medications Medication Instructions Recorded Confirmed Type FLUoxetine [PROzac] 40 mg PO DAILY 09/27/16 09/27/16 History OLANZapine [Olanzapine] 20 mg PO DAILY 09/27/16 09/27/16 History amLODIPine [Norvasc] 10 mg PO DAILY 09/27/16 09/27/16 History Allergies Allergy/AdvReac Type Severity Reaction Status Date / Time tramadol AdvReac SHORTNESS Verified 09/27/16 01:07 OF BREATH ROS unobtainable: due to endotracheal tube Medical,Surgical,& Family Hx - Medical History Cardio: History of: CHF, Hypertension Psychological: History of: Anxiety Disorders Hematology: History of: Sickle Cell Disease (Hemoglobin SC) - Family History Family History: Reports;: Family Heart Disease (Father at 46 yrs of age) - Social History Smoking Status: Current every day smoker Frequency of Alcohol Use: Occasionally Type of Drug Use: Marijuana Exam - Constitutional Vitals: Period Temp Pulse Resp BP Sys/Ramirez Pulse Ox Last 24 Hr 97 F-99.1 F 92-104 15-26 99-144/41-82 98-100 Exam: GENERAL: Patient is in no acute distress. NECK: Neck is supple. There is no JVD. No carotid bruits present. No thyroid masses. CVS: First and second heart sounds are normal. There is no S3 present. Regular rate and rhythm. RESPIRATORY: Lungs are clear to auscultation without any rales or rhonchi. ABDOMEN: Soft and non-tender. Bowel sounds are present. There is no hepatosplenomegaly. EXT: There is no palpable edema. Peripheral pulses are present. Skin: No rashes Central Nervous system: General: Sedated on vent Speech: None Comprehension: None Facial expressions: Normal Cranial Nerves: Pupils are small but reactive. He does have questionable left gaze preference. Doll's head I moves are positive Motor: Bulk and Tone is normal. Strength cannot be assessed Sensory: Cannot be assessed Reflexes: 1+ and symmetrical Cerebellar function: Cannot be assessed Toes: Equivocal Gait: Cannot be assessed Results - Labs CBC & BMP: 09/29/16 06:25 09/29/16 06:25 Assessment and Plan (1) Altered mental status Status: Acute Assessment and plan: Differential would include anoxic/hypoxic encephalopathy versus stroke versus seizures. Agree with EEG CT head without contrast Continue current supportive management Thank you for the consult Current Visit: Yes
[2016-09-29] MEDS ORDERED: MORPHINE 2 MG/1 ML SYRINGE ONE (15:17)
[2016-09-29] MEDS ORDERED: MORPHINE 2 MG/1 ML SYRINGE IV ONE (15:19)
--- NOTE | 2016-09-29 16:57 | CT Report ---
CT head/brain wo con Indication: Altered mental status. CT BRAIN WITHOUT CONTRAST DLP: 1073 mGy*cm. One or more of the following dose reduction techniques was used: Automated exposure control, adjustment of the mA and/or kV according the patient size, or use of iterative reconstruction techniques. Comparison: None. Date of admission: 09/27/2016. Technique: Axial noncontrast CT images of the brain were obtained. Findings: No acute hemorrhage, mass or mass effect. There are some scattered areas of subcortical white matter hypodensity in both convexities, but johnson-white junction and structures of the basal ganglia are otherwise well-maintained. No volume loss. No bone lesions. Visualized sinuses and mastoid air cells are clear. Impression: Subtle subcortical areas of patchy white matter hypodensity both convexities. Although likely chronic small vessel ischemic change, other entities including demyelinating disorder cannot be excluded. Consider MRI. PROCEDURE INTERPRETED AT [facility] DEPARTMENT OF RADIOLOGY Final Report Signed by: Filippo Juan M.D.
[2016-09-30] MEDS: INSULIN REGULAR 100 UNIT/ML SUBCUT SCH ×5 (00:02→23:44)
[2016-09-30] MEDS: PIPERACILLIN/TAZOBACTAM 3,375 MG in SODIUM CHLORIDE 0.9% 100 ML IV SCH ×2 (00:03→12:45)
[2016-09-30] MEDS: PROPOFOL 1,000 MG/100 ML BOTTLE IV SCH ×4 (02:13→19:30)
[2016-09-30] MEDS: PANTOPRAZOLE 40 MG VIAL IV SCH (05:29)
--- NOTE | 2016-09-30 08:02 | Cardiology Progress Note ---
Assessment and Plan (1) Respiratory failure Status: Acute Current Visit: Yes Qualifiers: Chronicity: acute (2) Hemoglobin SC disease Status: Chronic Current Visit: Yes (3) Acute combined systolic and diastolic congestive heart failure Status: Acute Assessment and plan: As per HPI continue hydralazine nitrates and beta-shekhar. His volume status appears to be dramatically improved. Await creatinine from today. Despite increased creatinine he was still negative almost 500 cc yesterday. Diuretics were decreased hopefully his creatinine is improved. Current Visit: Yes (4) Acute on chronic renal failure Status: Acute Current Visit: Yes (5) Drug abuse Status: Chronic Current Visit: Yes (6) Alcoholism Status: Chronic Current Visit: Yes (7) Elevated liver enzymes Status: Acute Assessment and plan: some component of passive congestion Current Visit: Yes (8) Tobacco abuse Status: Chronic Current Visit: Yes Cardiology - PN: Subj Interval history: Patient's hemodynamics have improved. His labs are pending this morning I do not have his labs back. Dr. Turner's note was reviewed and appreciated. The CT scan report was reviewed as well. The patient gives no meaningful response to me. He remains on mechanical ventilation. His emergent lines in the left femoral artery and vein access remain and consider removing those and replacing it fur dry cleaner hand are more ideal sites. Exam (Progress Note) - Constitutional Vitals: Period Temp Pulse Resp BP Sys/Ramirez Pulse Ox Last 24 Hr 97.0 F-98.8 F 84-110 14-99 90-131/30-60 98-100 General appearance: normal weight - Respiratory Respiratory exam: Present: clear to auscultation bilaterally (On the ventilator only upper airway or tracheal noise) - Cardiovascular Cardiovascular exam: Present: regular rate and rhythm (PMI is laterally displaced. I hear an S4 I do not hear an S3) - GI/Abdominal GI/Abdominal exam: Present: normal bowel sounds - Neurological Exam Neurological exam: Present: other (Unresponsive) - Skin Skin exam: Present: normal color, warm Result/EKG - Labs CBC & BMP: 09/29/16 06:25 09/29/16 06:25 Labs: Laboratory Results - last 24 hr 09/29/16 09/29/16 09/29/16 08:30 11:43 17:30 ABG pH 7.479 H ABG pCO2 31.4 L ABG pO2 196.0 H ABG HCO3 24.7 ABG Total CO2 21.7 L ABG O2 Saturation 100.0 ABG Base Excess 0.3 POC Glucose 169 H 237 H 09/29/16 09/30/16 23:35 05:21 ABG pH ABG pCO2 ABG pO2 ABG HCO3 ABG Total CO2 ABG O2 Saturation ABG Base Excess POC Glucose 248 H 250 H
--- NOTE | 2016-09-30 08:20 | Pulmonology Progress Note ---
Pulmonary - PN: Subj Interval history: The patient is a 45-year-old black man that has SC disease. He came in with respiratory distress and acute pulmonary edema. He had to be intubated and has been on the ventilator. He was taken to the heart brine room laborer had a cardiac catheterization. His ejection fraction of 15% but normal coronaries. He is a little more stable on the ventilator now. His blood pressure is better and his oxygenation has improved. He had very good diuresis yesterday and had over 4 L out. His oxygenation has improved. He is sedated now but apparently responds okay. He will continue with weaning trials. Exam (Progress Note) - Constitutional Vitals: Period Temp Pulse Resp BP Sys/Ramirez Pulse Ox Last 24 Hr 97.0 F-98.8 F 84-110 14-99 90-131/30-60 98-100 Exam: General appearance: normal weight, no acute distress (Patient is sedated at present but his blood pressure and heart rate are better.) - Head Head exam: Present: normal inspection, normocephalic - Eye Eye exam: Present: EOMI. Absent: scleral icterus Pupils: Present: AUGIE - ENT ENT exam: Present: other (ET tube is in good position) - Neck Neck exam: Present: normal inspection. Absent: lymphadenopathy, thyromegaly - Respiratory Respiratory exam: Present: He has good breath sounds bilaterally and his lungs sound much clearer. - Cardiovascular Cardiovascular exam: Present: regular rate and rhythm, systolic murmur (He does have a soft systolic murmur), tachycardia. Absent: gallop - GI/Abdominal GI/Abdominal exam: Present: normal bowel sounds, soft. Absent: distended, organomegaly, tenderness - Extremities Exam Extremities exam: Absent: calf tenderness, edema - Neurological Exam Neurological exam: Present: other (Patient is sedated on the ventilator at present.) - Skin Skin exam: Present: warm, dry Results - Labs CBC & BMP: 09/29/16 06:25 09/29/16 06:25 Labs: His PO2 yesterday was 196. Assessment and Plan (1) Congestive heart failure Status: Acute Assessment and plan: The patient presents with acute shortness of breath and his x-ray is consistent with heart failure. He has a severe cardiomyopathy with ejection fraction of 15 %. His oxygenation has improved and his chest x-ray is a little better. He did diurese very well yesterday. He is doing some CPAP and seems to be doing a little better. Current Visit: Yes (2) Hemoglobin SC disease Status: Chronic Assessment and plan: Patient has a history of sickle cell disease and his hematocrit is now down to 22. His hematocrit is stable today. Current Visit: Yes (3) Pneumonia Status: Acute Assessment and plan: The patient is being covered for pneumonia although this may all be related to congestive heart failure. There is no definite consolidation at present. His chest x-ray is improving. He does have staph hemolyticus in his blood strain. He is getting antibiotics. Current Visit: Yes (4) Respiratory failure Status: Acute Assessment and plan: The patient is stable and will continue with CPAP trials. Current Visit: Yes Qualifiers: Chronicity: acute
[2016-09-30 08:37] LABS: Basophils % 0.3 % (0.0-0.8); Eosinophils # 0.1 10*3/uL (0.0-0.87); Eosinophils % 0.5 % (0.00-10.9); Hematocrit 23.3 VOL% (42.0-52.0); Hemoglobin 8.5 GM/DL (14.0-18.0); Immature Granulocytes % 5.4 %; Immature Granulocytes Absolute 0.81 #; Lymphocytes # 1.2 10*3/uL (1.4-4.0); Mean Corpuscular HGB Conc 36.5 GM/DL (32-36); Mean Corpuscular Hemoglobin 22 PG (27-34); Mean Corpuscular Volume 59.6 FL (87-102); Monocytes # 0.9 10*3/uL (0.11-0.8); Monocytes % 5.8 % (1.7-12.7); NRBC # 0.93 10*3/uL; Red Blood Count 3.91 MC/CUMM (3.8-5.5)
[2016-09-30 08:40] LABS: Platelet Count 93 T/CUMM (130-400)
[2016-09-30] MEDS ORDERED: FUROSEMIDE 40 MG/4 ML VIAL IV SCH (09:00)
[2016-09-30 09:09] LABS: Calcium 7.8 MG/DL (8.5-10.1); Potassium 3.7 MMOL/L (3.5-5.1)
[2016-09-30 09:11] LABS: Band Neutrophils 3 % (0-10); Hypochromasia 2+; Lymphocytes 11 % (20-55); Microcytosis 1+; Nucleated Red Blood Cells 6 (0-5); Segmented Neutrophils 82 % (50-85); Total Cells Counted 100
[2016-09-30 09:12] LABS: Platelet Estimate Decreased; Polychromasia Few; Target Cells 1+; Tear Drop Cells Few
[2016-09-30] MEDS: THIAMINE 200 MG/2 ML VIAL IV SCH (09:23)
[2016-09-30] MEDS: INSULIN GLARGINE 100 UNIT/ML SUBCUT SCH (09:24)
[2016-09-30] MEDS: ASPIRIN EC 81 MG TABLET PO SCH (09:25)
[2016-09-30] MEDS: ENOXAPARIN 30 MG/0.3 ML SYRINGE SUBCUT SCH (09:25)
[2016-09-30] MEDS: hydrALAZINE 25 MG TABLET PO SCH ×2 (09:25→20:25)
[2016-09-30] MEDS: ISOSORBIDE MONONITRATE 30 MG TABLET PO SCH (09:26)
[2016-09-30] MEDS: FOLIC ACID INJ 1 MG in SYRINGE 1 EACH IV SCH (09:28)
[2016-09-30] MEDS: CARVEDILOL 3.125 MG TABLET PO SCH ×2 (09:31→20:25)
--- NOTE | 2016-09-30 10:55 | XRay Report ---
XR chest 1V portable Indication: Ventilator patient Comparison: 29 September 2016 Findings: The heart and mediastinum are stable in size and configuration. The lines and tubes are unchanged in position. The pulmonary vascularity is improved. No lung infiltrates, effusions, pneumothorax or other abnormality is demonstrated. Impression: Improved pulmonary vascularity. No other significant changes. PROCEDURE INTERPRETED AT [facility] DEPARTMENT OF RADIOLOGY Final Report Signed by: Dr. Ino Jackson
--- NOTE | 2016-09-30 11:22 | Hospitalist Progress Note ---
Assessment and Plan (1) Acute combined systolic and diastolic congestive heart failure Status: Acute Assessment and plan: Hold lasix due to worsening renal function, cont coreg and hydralazine Current Visit: Yes (2) Respiratory failure Status: Acute Assessment and plan: intubated and sedated. Cont attempts to wean off vent. Current Visit: Yes Qualifiers: Chronicity: acute (3) Pneumonia Status: Acute Assessment and plan: WBC improving on zosyn Current Visit: Yes (4) Acute on chronic renal failure Status: Acute Assessment and plan: due to ATN, stop lasix Current Visit: Yes (5) Hypertension Status: Acute Assessment and plan: controlled cont coreg, hydralazine and isosorbide mononitrate Current Visit: Yes (6) Cardiogenic shock Status: Acute Assessment and plan: Resolved. Status post cardiac cath showed dilated cardiomyopathy with normal coronaries. EF confirmed a 15% Current Visit: Yes (7) Dilated cardiomyopathy Status: Acute Assessment and plan: Confirmed by cardiac cath. Avoid ANGEL and arb due to worsening cr Current Visit: Yes (8) Sickle cell crisis Status: Acute Assessment and plan: deangelon tee, mother reports a history of crisis Current Visit: Yes (9) Altered mental status Status: Acute Assessment and plan: EEG done but reading pending, Dr. Turner may have anoxic encephalopathy vs seizures, no evidence of stroke on Head ct Current Visit: Yes Hospitalist: Subjective Interval history: Patient less agitated today on the vent. Continue attempts to wean. Patient only has Medicaid and that is not accepted over at [facility]. Patient will need extensive rehab. He still minimally responsive when you lighten sedation. Dr. Turner saw him yesterday. EEG was done but reading is pending. Dr. Turner felt that patient may have anoxic/hypoxic encephalopathy versus stroke versus seizures. Exam - Constitutional Vitals: Period Temp Pulse Resp BP Sys/Ramirez Pulse Ox Last 24 Hr 97.6 F-98.8 F 88-112 14-99 94-131/30-60 98-100 Exam: Heart Rate-[RRR] Lungs-[CTAB GI-[+bs soft, NT] Ext-[no edema] Neuro sedated and intubated psych cannot assess due to sedation General [no acute distress] Results - Labs CBC & BMP: 09/30/16 08:27 06/23/17 08:27 Lab Results: I have reviewed the past 24 hour labs - Diagnostic Findings Procedure: Chest x-ray: report reviewed by me (Improving pulmonary edema), CT: report reviewed by me (Head subtle subcortical areas of patchy white matter hypodensity likely small vessel disease.)
--- NOTE | 2016-09-30 14:18 | Neurology Progress Note ---
Neurology - PN : Subjective Interval history: Patient seems to be doing about the same. He has significant spontaneous movement in all 4 extremities but not waking up much. EEG shows generalized slowing but no seizure activity. CT report noted. It shows diffuse bilateral white matter changes. Exam (Progress Note) - Constitutional Vitals: Period Temp Pulse Resp BP Sys/Ramirez Pulse Ox Last 24 Hr 97.6 F-98.8 F 88-112 14-24 94-131/30-60 98-100 Exam: GENERAL: Patient is in no acute distress. NECK: Neck is supple. There is no JVD. No carotid bruits present. No thyroid masses. CVS: First and second heart sounds are normal. There is no S3 present. Regular rate and rhythm. RESPIRATORY: Lungs are clear to auscultation without any rales or rhonchi. ABDOMEN: Soft and non-tender. Bowel sounds are present. There is no hepatosplenomegaly. EXT: There is no palpable edema. Peripheral pulses are present. Skin: No rashes Central Nervous system: General: Sedated on vent Speech: None Comprehension: None Facial expressions: Normal Cranial Nerves: Pupils are small but reactive. He does have questionable left gaze preference. Doll's head I moves are positive Motor: Bulk and Tone is normal. Strength cannot be assessed Sensory: Cannot be assessed Reflexes: 1+ and symmetrical Cerebellar function: Cannot be assessed Toes: Equivocal Gait: Cannot be assessed Results - Labs CBC & BMP: 09/30/16 08:27 09/30/16 08:27 Assessment and Plan (1) Altered mental status Status: Acute Assessment and plan: Differential would include anoxic/hypoxic encephalopathy versus stroke versus seizures. Continue current supportive management We will start Kejgra IV precautionary. Current Visit: Yes
[2016-09-30] MEDS ORDERED: HEPARIN/NACL 0.9% 2 UNITS/ML 500 ML IV ONE (14:24)
--- NOTE | 2016-09-30 19:17 | Electroencephalogram ---
HISTORY: A 45-year-old male with a history of questionable seizures. INTRODUCTION: A digital EEG was performed using the standard 10-20 system of electrode placement wit h one-channel of EKG monitoring. Photic stimulation is performed. DESCRIPTION OF RECORD: The background is somewhat disorganized consist of 6 to 7 hertz moderate ampl itude bilaterally symmetrical rhythm. Photic stimulation does not elicit driving response. This rec ord is heavily contaminated with muscle and movement artifact. There are no focal, sharp wave, spike and wave activity seen. Heart rate 78 beats per minute. IMPRESSION: ABNORMAL EEG DUE TO GENERALIZED SLOWING. CLINICAL CORRELATION: This record is supportive of [id number] encephalopathy which could be secondary to postictal state, post-hypoxic state, metabolic disorder, diffuse SERVICE DIRECTOR insult or increased intracranial pressure. No epileptiform/seizure activity seen. Clinical correlation is suggested.
[2016-09-30] MEDS ORDERED: INSULIN GLARGINE 100 UNIT/ML SUBCUT SCH (21:00)
[2016-10-01] MEDS: PROPOFOL 1,000 MG/100 ML BOTTLE IV SCH ×5 (00:28→21:50)
[2016-10-01] MEDS: PIPERACILLIN/TAZOBACTAM 3,375 MG in SODIUM CHLORIDE 0.9% 100 ML IV SCH ×2 (00:28→12:10)
[2016-10-01 05:13] LABS: ABG Base Excess 2.8 MMOL/L (-2.5-2.5); ABG HCO3 26.9 MMOL/L (20-26); ABG PCO2 28.7 MM HG (35-48); ABG PH 7.547 (7.35-7.45); ABG TCO2 23.1 MMOL/L (23-27)
[2016-10-01 05:17] LABS: Basophils % 0.4 % (0.0-0.8); Eosinophils # 0.1 10*3/uL (0.0-0.87); Eosinophils % 1.2 % (0.00-10.9); Hematocrit 23.5 VOL% (42.0-52.0); Hemoglobin 8.7 GM/DL (14.0-18.0); Immature Granulocytes Absolute 0.56 #; Lymphocytes # 1.7 10*3/uL (1.4-4.0); Lymphocytes % 15.1 % (21.2-54.2); Mean Corpuscular Hemoglobin 22 PG (27-34); Mean Corpuscular Volume 59.9 FL (87-102); Monocytes # 0.9 10*3/uL (0.11-0.8); NRBC # 0.38 10*3/uL; Neutrophils # 7.9 10*3/uL (1.4-7.4); Neutrophils % 70.3 % (38.7-73.9); Red Blood Count 3.92 MC/CUMM (3.8-5.5); Red Cell Distribution Width 20.1 % (9.3-17.3); White Blood Count 11.2 T/CUMM (4-12)
[2016-10-01 05:18] LABS: Platelet Count 87 T/CUMM (130-400)
[2016-10-01] MEDS: PANTOPRAZOLE 40 MG VIAL IV SCH (05:18)
[2016-10-01 05:50] LABS: Calcium 7.5 MG/DL (8.5-10.1); Magnesium 2.6 MG/DL (1.8-2.4); Osmolality,Calculated 331.4 MOS/KG (273-304); Potassium 3.6 MMOL/L (3.5-5.1)
[2016-10-01 05:56] LABS: Band Neutrophils 4 % (0-10); Eosinophils 3 % (0-10); Hypochromasia 1+; Lymphocytes 6 % (20-55); Nucleated Red Blood Cells 2 (0-5); Platelet Estimate Decreased; Segmented Neutrophils 81 % (50-85); Total Cells Counted 100
[2016-10-01 05:57] LABS: Giant Platelets Few; Polychromasia Slight; Target Cells Few
[2016-10-01] MEDS: INSULIN REGULAR 100 UNIT/ML SUBCUT SCH ×3 (06:10→18:27)
--- NOTE | 2016-10-01 06:42 | Cardiology Progress Note ---
Assessment and Plan (1) Respiratory failure Status: Acute Current Visit: Yes Qualifiers: Chronicity: acute (2) Acute combined systolic and diastolic congestive heart failure Status: Acute Assessment and plan: As per HPI continue hydralazine nitrates and beta-shekhar. His volume status appears to be dramatically improved. Await creatinine from today. Despite increased creatinine he was still negative almost 500 cc yesterday. Diuretics were decreased hopefully his creatinine is improved. Current Visit: Yes (3) Acute on chronic renal failure Status: Acute Current Visit: Yes (4) Drug abuse Status: Chronic Current Visit: Yes (5) Alcoholism Status: Chronic Current Visit: Yes (6) Elevated liver enzymes Status: Acute Assessment and plan: some component of passive congestion Current Visit: Yes (7) Tobacco abuse Status: Chronic Current Visit: Yes (8) Encephalopathy Status: Acute Assessment and plan: Neurology seen the patient this could be metabolic or structural. EEG showed diffuse slowing yesterday Current Visit: Yes Cardiology - PN: Subj Interval history: The patient continues to improve hemodynamically. Yesterday when I saw him he was having hiccoughs they have continued throughout the day and night. The etiology of this is unclear will consider peridiaphragmatic pathology. Hemodynamically he is doing well not on pressors. His heart rate is in the 90s in sinus rhythm. He continues to have the urgently or emergently placed left femoral arterial and venous access that will need to be changed in the next 48 hours to a glass cleaner site. From a cardiovascular standpoint he appears to be stable. According to the eyes and nose he has been very negative every day for the last 4 days however his weight has not changed significantly. His renal function without much change creatinines basically the same potassium is okay. Exam (Progress Note) - Constitutional Vitals: Period Temp Pulse Resp BP Sys/Ramirez Pulse Ox Last 24 Hr 97.6 F-99.7 F 90-112 14-27 94-125/39-84 98-100 General appearance: normal weight - Head Head exam: Present: normal inspection - Respiratory Respiratory exam: Present: rhonchi - Cardiovascular Cardiovascular exam: Present: regular rate and rhythm (PMI is laterally displaced I do not hear a gallop but he has a significant amount of tracheal noise.) - GI/Abdominal GI/Abdominal exam: Present: normal bowel sounds - Neurological Exam Neurological exam: Present: other (The patient is sedated at this time the nurses report when sedation is discontinued he is not controllable and agitated. ) - Skin Skin exam: Present: normal color, warm, dry, other (The arterial and venous access sites in the left femoral area look good there are clean there is no purulence. Is not erythematous) Result/EKG - Labs CBC & BMP: 10/01/16 04:55 10/01/16 04:55 Labs: Laboratory Results - last 24 hr 09/30/16 09/30/16 09/30/16 07:04 08:27 08:27 WBC 15.0 H D RBC 3.91 Hgb 8.5 L Hct 23.3 L MCV 59.6 L MCH 22 L MCHC 36.5 H RDW 20.0 H Plt Count 93 L D Neut % (Auto) 80.0 H Lymph % (Auto) 8.0 L [place] % (Auto) 5.8 Eos % (Auto) 0.5 Baso % (Auto) 0.3 Neut # (Auto) 12.0 H Lymph # (Auto) 1.2 L [place] # (Auto) 0.9 H Eos # (Auto) 0.1 Baso # (Auto) 0.0 Total Counted 100 Immature Gran % 5.4 Nucleated RBC % 6.2 Immature Gran # 0.81 Segmented Neutrophils 82 Band Neutrophils 3 Lymphocytes 11 L Monocytes 4 Eosinophils Nucleated RBCs 6 H Nucleated RBCs # 0.93 Platelet Estimate Decreased Giant Platelets Polychromasia Few Hypochromasia 2+ Microcytosis 1+ Target Cells 1+ Tear Drop Cells Few Morphology Comment ABG pH ABG pCO2 ABG pO2 ABG HCO3 ABG Total CO2 ABG O2 Saturation ABG Base Excess Sodium 143 Potassium 3.7 Chloride 105 Carbon Dioxide 29 Anion Gap 12.7 BUN 84 H Creatinine 4.70 H GFR Calculation 18 BUN/Creatinine Ratio 17.00 Glucose 237 H POC Glucose 271 H Calculated Osmolality 318.0 H Calcium 7.8 L Magnesium 09/30/16 09/30/16 10/01/16 11:51 18:01 04:55 WBC RBC Hgb Hct MCV MCH MCHC RDW Plt Count Neut % (Auto) Lymph % (Auto) [place] % (Auto) Eos % (Auto) Baso % (Auto) Neut # (Auto) Lymph # (Auto) [place] # (Auto) Eos # (Auto) Baso # (Auto) Total Counted Immature Gran % Nucleated RBC % Immature Gran # Segmented Neutrophils Band Neutrophils Lymphocytes Monocytes Eosinophils Nucleated RBCs Nucleated RBCs # Platelet Estimate Giant Platelets Polychromasia Hypochromasia Microcytosis Target Cells Tear Drop Cells Morphology Comment ABG pH 7.547 H ABG pCO2 28.7 L ABG pO2 243.0 H ABG HCO3 26.9 H ABG Total CO2 23.1 ABG O2 Saturation 100.0 ABG Base Excess 2.8 H Sodium Potassium Chloride Carbon Dioxide Anion Gap BUN Creatinine GFR Calculation BUN/Creatinine Ratio Glucose POC Glucose 271 H 317 H Calculated Osmolality Calcium Magnesium 10/01/16 10/01/16 04:55 04:55 WBC 11.2 RBC 3.92 Hgb 8.7 L Hct 23.5 L MCV 59.9 L MCH 22 L MCHC 37.0 H RDW 20.1 H Plt Count 87 L Neut % (Auto) 70.3 Lymph % (Auto) 15.1 L [place] % (Auto) 8.0 Eos % (Auto) 1.2 Baso % (Auto) 0.4 Neut # (Auto) 7.9 H Lymph # (Auto) 1.7 [place] # (Auto) 0.9 H Eos # (Auto) 0.1 Baso # (Auto) 0.0 Total Counted 100 Immature Gran % 5.0 Nucleated RBC % 3.4 Immature Gran # 0.56 Segmented Neutrophils 81 Band Neutrophils 4 Lymphocytes 6 L Monocytes 6 Eosinophils 3 Nucleated RBCs 2 Nucleated RBCs # 0.38 Platelet Estimate Decreased Giant Platelets Few Polychromasia Slight Hypochromasia 1+ Microcytosis Target Cells Few Tear Drop Cells Morphology Comment ABG pH ABG pCO2 ABG pO2 ABG HCO3 ABG Total CO2 ABG O2 Saturation ABG Base Excess Sodium 147 H Potassium 3.6 Chloride 109 H Carbon Dioxide 26 Anion Gap 15.6 H BUN 99 H D Creatinine 4.80 H GFR Calculation 17 BUN/Creatinine Ratio 20.00 Glucose 260 H POC Glucose Calculated Osmolality 331.4 H Calcium 7.5 L Magnesium 2.6 H
--- NOTE | 2016-10-01 08:19 | Pulmonology Progress Note ---
Pulmonary - PN: Subj Interval history: The patient is a 45-year-old black man that has SC disease. He came in with respiratory distress and acute pulmonary edema. He had to be intubated and has been on the ventilator. 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 His ejection fraction of 15% but normal coronaries. He is a little more stable on the ventilator now. His blood pressure is better and his oxygenation has improved. His chest x-ray looks better. He has not been responding very well although he moves his extremities. He does have a very abnormal breathing pattern. Some of this is attributed to hiccups. his oxygenation has been okay. Exam (Progress Note) - Constitutional Vitals: Period Temp Pulse Resp BP Sys/Ramirez Pulse Ox Last 24 Hr 98.6 F-99.7 F 90-101 14-27 94-125/39-84 98-100 Exam: General appearance: normal weight, no acute distress (Patient is not alert but is otherwise stable on the ventilator. ) - Head Head exam: Present: normal inspection, normocephalic - Eye Eye exam: Present: EOMI. Absent: scleral icterus Pupils: Present: AUGIE - ENT ENT exam: Present: other (ET tube is in good position) - Neck Neck exam: Present: normal inspection. Absent: lymphadenopathy, thyromegaly - Respiratory Respiratory exam: Present: He has good breath sounds bilaterally and his lungs sound much clearer. His lungs sound better overall. - Cardiovascular Cardiovascular exam: Present: regular rate and rhythm, systolic murmur (He does have a soft systolic murmur), tachycardia. Absent: gallop - GI/Abdominal GI/Abdominal exam: Present: normal bowel sounds, soft. Absent: distended, organomegaly, tenderness - Extremities Exam Extremities exam: Absent: calf tenderness, edema - Neurological Exam Neurological exam: Present: other (Patient is sedated on the ventilator at present.) - Skin Skin exam: Present: warm, dry Results - Labs CBC & BMP: 10/01/16 04:55 10/01/16 04:55 Labs: His PO2 is 243 with a PCO2 of 28 and a pH of 7.54 - Diagnostic Findings Procedure: Chest x-ray: image reviewed by me, report reviewed by me (Chest x- ray looks much clearer.) Assessment and Plan (1) Congestive heart failure Status: Acute Assessment and plan: The patient presents with acute shortness of breath and his x-ray is consistent with heart failure. He has a severe cardiomyopathy with ejection fraction of 15 %. His chest x-ray is clear now and his oxygenation is much better. Current Visit: Yes (2) Hemoglobin SC disease Status: Chronic Assessment and plan: Patient has a history of sickle cell disease and his hematocrit is 23.5 today. Current Visit: Yes (3) Pneumonia Status: Acute Assessment and plan: The patient is being covered for pneumonia although this may all be related to congestive heart failure. His chest x-ray is clear now I see no signs of pneumonia. Current Visit: Yes (4) Respiratory failure Status: Acute Assessment and plan: The patient is stable and will continue with CPAP trials. I will adjust his ventilator. Current Visit: Yes Qualifiers: Chronicity: acute
[2016-10-01] MEDS: THIAMINE 200 MG/2 ML VIAL IV SCH (09:41)
[2016-10-01] MEDS: CARVEDILOL 3.125 MG TABLET PO SCH ×2 (09:42→22:16)
[2016-10-01] MEDS: hydrALAZINE 25 MG TABLET PO SCH (09:43)
[2016-10-01] MEDS: ASPIRIN EC 81 MG TABLET PO SCH (09:43)
[2016-10-01] MEDS: ENOXAPARIN 30 MG/0.3 ML SYRINGE SUBCUT SCH (09:43)
[2016-10-01] MEDS: ISOSORBIDE MONONITRATE 30 MG TABLET PO SCH (09:43)
[2016-10-01] MEDS: INSULIN GLARGINE 100 UNIT/ML SUBCUT SCH ×2 (10:05→22:15)
[2016-10-01] MEDS: FOLIC ACID INJ 1 MG in SYRINGE 1 EACH IV SCH (10:09)
--- NOTE | 2016-10-01 10:13 | XRay Report ---
Portable chest Date: 10/01/2016 Clinical history: Ventilator Comparison: 09/30/2016 Technique: Portable AP sitting chest Findings: The heart is borderline in size with stable supportive devices. Decreased parenchymal findings in the lungs with stable mediastinum and osseous structures. Impression: Improved pulmonary edema/pneumonitis with reduced atelectasis. The supportive devices remain in satisfactory position. PROCEDURE INTERPRETED AT [facility] DEPARTMENT OF RADIOLOGY Final Report Signed by: Dr. Nalini Samuels
[2016-10-01] MEDS: chlorproMAZINE 25 MG/1 ML AMP IM PRN (11:43)
--- NOTE | 2016-10-01 14:11 | Hospitalist Progress Note ---
Assessment and Plan (1) Acute combined systolic and diastolic congestive heart failure Status: Acute Assessment and plan: Hold lasix due to worsening renal function and elevated sodium, cont coreg, isosorbide monionitrate but will hold hydralazine due to low blood pressure Current Visit: Yes (2) Respiratory failure Status: Acute Assessment and plan: intubated and sedated. Cont attempts to wean off vent. Current Visit: Yes Qualifiers: Chronicity: acute (3) Pneumonia Status: Acute Assessment and plan: WBC improving cont zosyn Current Visit: Yes (4) Acute on chronic renal failure Status: Acute Assessment and plan: due to ATN, Good urine output. want to avoid anymore hypotensive events Current Visit: Yes (5) Hypertension Status: Acute Assessment and plan: blood pressure running alittle low Current Visit: Yes (6) Cardiogenic shock Status: Acute Assessment and plan: Resolved. Status post cardiac cath showed dilated cardiomyopathy with normal coronaries. EF confirmed a 15% Current Visit: Yes (7) Dilated cardiomyopathy Status: Acute Assessment and plan: Confirmed by cardiac cath. Avoid ANGEL and arb due to worsening cr Current Visit: Yes (8) Sickle cell crisis Status: Acute Assessment and plan: prn dilkarolineid, mother reports a history of crisis Current Visit: Yes (9) Altered mental status Status: Acute Assessment and plan: EEG done but reading pending, Dr. Turner treating for prop with keppra, no improvement in mental state Current Visit: Yes Hospitalist: Subjective Interval history: Updated the family for about 20 minutes yesterday including mom and aunts and several cousins. Today updated mom in the room and they were praying for his recovery. I am concerned that neurologically he seems worse every day. His pupils are now pinpoint and do not react to light. He is on Keppra to prevent possible seizures but I have seen no improvement in his neurological status. He does not respond to pain. We will have to make a decision regarding tracheostomy soon. Exam - Constitutional Vitals: Period Temp Pulse Resp BP Sys/Ramirez Pulse Ox Last 24 Hr 98.6 F-99.7 F 90-101 16-31 90-125/39-84 98-100 Exam: Heart Rate-[tachy] Lungs-[CTAB, but having hiccups GI-[+bs soft, NT] Ext-[no edema] Neuro pupils pinpoint, no purposeful actions, no response to pain psych cannot assess due neurological response General [no acute distress] Results - Labs CBC & BMP: 10/01/16 04:55 10/01/16 04:55 Lab Results: I have reviewed the past 24 hour labs - Diagnostic Findings Procedure: Chest x-ray: report reviewed by me (pneumonitis and pul edema )
[2016-10-01] MEDS: ACETAMINOPHEN 325 MG/10.15 ML UDCUP PO PRN (17:52)
[2016-10-02] MEDS: INSULIN REGULAR 100 UNIT/ML SUBCUT SCH ×4 (00:17→18:30)
[2016-10-02] MEDS: PIPERACILLIN/TAZOBACTAM 3,375 MG in SODIUM CHLORIDE 0.9% 100 ML IV SCH (00:55)
[2016-10-02] MEDS: PROPOFOL 1,000 MG/100 ML BOTTLE IV SCH ×3 (02:51→15:45)
[2016-10-02] MEDS: PANTOPRAZOLE 40 MG VIAL IV SCH (05:02)
[2016-10-02 05:24] LABS: Basophils % 0.3 % (0.0-0.8); Eosinophils # 0.3 10*3/uL (0.0-0.87); Eosinophils % 2.6 % (0.00-10.9); Hematocrit 23.6 VOL% (42.0-52.0); Hemoglobin 8.1 GM/DL (14.0-18.0); Immature Granulocytes % 3.8 %; Immature Granulocytes Absolute 0.36 #; Mean Corpuscular HGB Conc 34.3 GM/DL (32-36); Mean Corpuscular Hemoglobin 21 PG (27-34); Mean Corpuscular Volume 61.9 FL (87-102); Monocytes # 1.3 10*3/uL (0.11-0.8); Monocytes % 13.7 % (1.7-12.7); NRBC # 0.21 10*3/uL; Neutrophils # 5.5 10*3/uL (1.4-7.4); Neutrophils % 58.6 % (38.7-73.9); Red Blood Count 3.81 MC/CUMM (3.8-5.5); Red Cell Distribution Width 20.6 % (9.3-17.3); White Blood Count 9.4 T/CUMM (4-12)
[2016-10-02 05:34] LABS: Platelet Count 26 T/CUMM (130-400)
[2016-10-02 05:49] LABS: Band Neutrophils 3 % (0-10); Eosinophils 3 % (0-10); Hypochromasia 1+; Lymphocytes 19 % (20-55); Nucleated Red Blood Cells 2 (0-5); Ovalocytes Slight; Platelet Estimate Decreased; Polychromasia Slight; Segmented Neutrophils 70 % (50-85); Target Cells Few; Total Cells Counted 100
[2016-10-02 06:07] LABS: Calcium 7.6 MG/DL (8.5-10.1); Magnesium 3.1 MG/DL (1.8-2.4); Osmolality,Calculated 342.6 MOS/KG (273-304); Potassium 4.5 MMOL/L (3.5-5.1)
[2016-10-02] MEDS: FAMOTIDINE 20 MG/2 ML VIAL IV SCH ×2 (06:49→18:29)
--- NOTE | 2016-10-02 07:31 | Pulmonology Progress Note ---
Pulmonary - PN: Subj Interval history: The patient is a 45-year-old black man that has SC disease. He came in with respiratory distress and acute pulmonary edema. He had to be intubated and has been on the ventilator. 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 His ejection fraction of 15% but normal coronaries. He is a little more stable on the ventilator now. His blood pressure is better and his oxygenation has improved. His chest x-ray looks better. He has not been responding very well although he moves his extremities. He had a fairly good day yesterday and his hiccups seem to be better. He did do CPAP fairly well for a while. He had a low-grade fever of 100.6 and he is on antibiotics. His chest x-ray looks better overall. He has grown out staph in blood cultures. Overall he looks a little better today. Exam (Progress Note) - Constitutional Vitals: Period Temp Pulse Resp BP Sys/Ramirez Pulse Ox Last 24 Hr 98.2 F-101.5 F 92-113 14-31 90-127/45-62 98-100 Exam: General appearance: normal weight, no acute distress (Patient is not alert but is otherwise stable on the ventilator. He does move his extremities.) - Head Head exam: Present: normal inspection, normocephalic - Eye Eye exam: Present: EOMI. Absent: scleral icterus Pupils: Present: AUGIE - ENT ENT exam: Present: other (ET tube is in good position) - Neck Neck exam: Present: normal inspection. Absent: lymphadenopathy, thyromegaly - Respiratory Respiratory exam: Present: He has good breath sounds bilaterally and his lungs sound much clearer. His lungs sound better overall. - Cardiovascular Cardiovascular exam: Present: regular rate and rhythm, systolic murmur (He does have a soft systolic murmur), tachycardia. Absent: gallop - GI/Abdominal GI/Abdominal exam: Present: normal bowel sounds, soft. He does not have any hiccups now. Absent: distended, organomegaly, tenderness - Extremities Exam Extremities exam: Absent: calf tenderness, edema - Neurological Exam Neurological exam: Present: other (Patient is sedated on the ventilator at present. He will move his extremities off sedation but is not following commands very well.) - Skin Skin exam: Present: warm, dry Results - Labs CBC & BMP: 10/02/16 05:17 10/02/16 05:17 - Diagnostic Findings Procedure: Chest x-ray: image reviewed by me, report reviewed by me (Chest x- ray shows cardiomegaly with very minimal left lower lobe infiltrate. CHF looks better overall.) Assessment and Plan (1) Congestive heart failure Status: Acute Assessment and plan: The patient presents with acute shortness of breath and his x-ray is consistent with heart failure. He has a severe cardiomyopathy with ejection fraction of 15 %. His chest x-ray is clear now and his oxygenation is much better. He does not appear to be better with less heart failure. Current Visit: Yes (2) Hemoglobin SC disease Status: Chronic Assessment and plan: Patient has a history of sickle cell disease and his hematocrit is 23.6 today. His hematocrit has been relatively stable. Current Visit: Yes (3) Pneumonia Status: Acute Assessment and plan: The patient is being covered for pneumonia although this may all be related to congestive heart failure. He did have a low-grade fever but he does not show any signs of significant consolidation. Current Visit: Yes (4) Respiratory failure Status: Acute Assessment and plan: The patient is stable and will continue with CPAP trials. He did do CPAP trials fairly well yesterday. Current Visit: Yes Qualifiers: Chronicity: acute (5) Acute on chronic renal failure Status: Acute Assessment and plan: The patient's creatinine is up to 4.8 and fairly stable. Current Visit: Yes
[2016-10-02 09:20] LABS: Basophils % 0.3 % (0.0-0.8); Eosinophils # 0.2 10*3/uL (0.0-0.87); Eosinophils % 2.3 % (0.00-10.9); Hematocrit 22.1 VOL% (42.0-52.0); Hemoglobin 7.6 GM/DL (14.0-18.0); Immature Granulocytes % 3.9 %; Immature Granulocytes Absolute 0.35 #; Lymphocytes # 1.9 10*3/uL (1.4-4.0); Lymphocytes % 20.7 % (21.2-54.2); Mean Corpuscular HGB Conc 34.4 GM/DL (32-36); Mean Corpuscular Hemoglobin 21 PG (27-34); Mean Corpuscular Volume 62.3 FL (87-102); Monocytes # 1.2 10*3/uL (0.11-0.8); NRBC # 0.18 10*3/uL; Neutrophils # 5.4 10*3/uL (1.4-7.4); Neutrophils % 59.8 % (38.7-73.9); Red Blood Count 3.55 MC/CUMM (3.8-5.5); Red Cell Distribution Width 20.1 % (9.3-17.3)
[2016-10-02 09:22] LABS: Platelet Count 34 T/CUMM (130-400)
[2016-10-02 09:28] LABS: INR 1.3; Partial Thromboplastin Time 34.2 SECS (0-40)
--- NOTE | 2016-10-02 09:30 | XRay Report ---
Portable chest Date: 10/02/2016 Clinical history: Ventilator Comparison: 10/01/2016 Technique: Portable AP sitting chest Findings: The heart is minimally enlarged with stable supportive devices. Minimally progressive parenchymal findings especially in the lower lung zones with stable mediastinum and osseous structures. Impression: Minimally progressive pulmonary edema/pneumonitis especially in the lower lung zones. The supportive devices remain in satisfactory position. PROCEDURE INTERPRETED AT [facility] DEPARTMENT OF RADIOLOGY Final Report Signed by: Dr. Nalini Samuels
[2016-10-02] MEDS ORDERED: SODIUM CHLORIDE 0.9% 250 ML IV PRN (09:43)
[2016-10-02 09:46] LABS: Eosinophils 4 % (0-10); Lymphocytes 19 % (20-55); Segmented Neutrophils 62 % (50-85); Total Cells Counted 100
[2016-10-02 09:47] LABS: Hypochromasia 1+; Platelet Estimate Decreased; Polychromasia Slight; Target Cells Few
--- NOTE | 2016-10-02 09:47 | Hospitalist Progress Note ---
Assessment and Plan (1) Acute combined systolic and diastolic congestive heart failure Status: Acute Assessment and plan: hold lasix due to worsening renal fxn Current Visit: Yes (2) Respiratory failure Status: Acute Assessment and plan: intubated and sedated. Will need trach, unable to wean off due to mental status Current Visit: Yes Qualifiers: Chronicity: acute (3) Pneumonia Status: Acute Assessment and plan: zosyn stopped due to thrombocytopenia, started renal adjusted levaquin Current Visit: Yes (4) Acute on chronic renal failure Status: Acute Assessment and plan: due to ATN, cont to hold lasix and gentle hydration Current Visit: Yes (5) Hypertension Status: Acute Assessment and plan: controlled with coreg and isosorbide mononitrate Current Visit: Yes (6) Cardiogenic shock Status: Acute Assessment and plan: Resolved. Status post cardiac cath showed dilated cardiomyopathy with normal coronaries. EF confirmed a 15% Current Visit: Yes (7) Dilated cardiomyopathy Status: Acute Assessment and plan: Confirmed by cardiac cath. Avoid ANGEL and arb due to worsening cr Current Visit: Yes (8) Sickle cell crisis Status: Acute Assessment and plan: prn dilaudid, mother reports a history of crisis Current Visit: Yes (9) Hyponatremia Status: Acute Assessment and plan: increase free water thru tube feeds to 50 ml/hr, start 1/2 ns Current Visit: Yes (10) Anemia Status: Acute Assessment and plan: 2 units of PRBC, cont scd Current Visit: Yes (11) Thrombocytopenia Status: Acute Assessment and plan: Dr. Aceves consulted, may be due to heparin, zosyn, PPI, DIC and TTP. Most likely due to illness, HIT ordered. Current Visit: Yes (12) Anoxic encephalopathy Status: Acute Assessment and plan: cont linette, Dr. Turner following, appreciate input. Current Visit: Yes (13) Elevated liver enzymes Status: Acute Assessment and plan: cmp in am Current Visit: Yes (14) Diabetes Status: Acute Assessment and plan: hgb A1c, change tube feeding to glycerna Current Visit: Yes Hospitalist: Subjective Interval history: Off lasix for 3 days, neurologically does withdraw to pain per nursing Exam - Constitutional Vitals: Period Temp Pulse Resp BP Sys/Ramirez Pulse Ox Last 24 Hr 98.2 F-101.5 F 92-113 14-25 90-127/45-62 98-100 Exam: Heart Rate-[tachy] Lungs-[CTAB GI-[+bs soft, NT] Ext-[no edema] Neuro pupils pinpoint but are minimal reactive today, no purposeful actions, does respond to pain psych cannot assess due neurological response General [no acute distress] Results - Labs CBC & BMP: 10/02/16 09:00 10/02/16 05:17 Lab Results: I have reviewed the past 24 hour labs Labs: blood cultures 1/2 staph haemolyticus - Diagnostic Findings Procedure: Chest x-ray: report reviewed by me (pul edema )
[2016-10-02] MEDS: THIAMINE 200 MG/2 ML VIAL IV SCH (09:53)
[2016-10-02] MEDS: FOLIC ACID INJ 1 MG in SYRINGE 1 EACH IV SCH (09:53)
[2016-10-02] MEDS: INSULIN GLARGINE 100 UNIT/ML SUBCUT SCH ×2 (09:53→21:37)
[2016-10-02] MEDS: ASPIRIN EC 81 MG TABLET PO SCH (09:53)
[2016-10-02] MEDS: CARVEDILOL 3.125 MG TABLET PO SCH ×2 (09:53→21:38)
[2016-10-02] MEDS: ISOSORBIDE MONONITRATE 30 MG TABLET PO SCH (09:53)
[2016-10-02] MEDS ORDERED: ALBUTEROL/IPRATROPIUM 3 ML NEB RESP TX SCH (10:30)
--- NOTE | 2016-10-02 10:31 | Oncology Progress Note ---
Oncology Subjective PN Interval history: Consult for thrombocytopenia. This patient was recently admitted with dyspnea and evidence of congestive heart failure. He had not been followed closely by medical personnel prior to that point. He has a significant microcytic anemia with a ferritin level ordered. He has been on Zosyn which has been discontinued today along with a low rate heparin infusion to maintain arterial line patency. This has also been discontinued. Heparin platelet antibody was ordered today. He has worsening renal dysfunction which appears to be acute on chronic. There is also some concern for worsening mental status. He did undergo a CODE BLUE early in his hospital course and required epinephrine and was likely in PEA or at least extremely hypotensive for some period of time. The platelets have decreased to 32,000 today. I have reordered blood cultures which showed one set positive for staph hemolyticus dated 09/27/2016. On physical examination he is intubated and sedated. He has no significant peripheral edema. His heart rhythm is regular at this time. Oxygenation is appropriate on the ventilator. Recommendations are to continue supportive measures. He will likely require red blood cell transfusion. Haptoglobin and LDH are pending at this time the TTP is felt unlikely. His prognosis appears exceedingly poor at this time. Exam - Constitutional Vitals: Period Temp Pulse Resp BP Sys/Ramirez Pulse Ox Last 24 Hr 98.2 F-101.5 F 92-113 14-25 90-127/45-62 98-100 Results - Labs CBC & BMP: 10/02/16 09:00 10/02/16 05:17
[2016-10-02 10:59] LABS: Albumin 2.5 G/DL (3.4-5.0); Bilirubin,Direct 1.8 MG/DL (0.0-0.20); Bilirubin,Indirect 0.8 MG/DL (0.0-1.0); Bilirubin,Total 2.6 MG/DL (0.2-1.0); Total Protein 5.3 G/DL (6.4-8.3)
[2016-10-02] MEDS: LEVOFLOXACIN INJ 500 MG in PREMIX 1 EACH IV SCH (11:06)
[2016-10-02] MEDS: SODIUM CHLORIDE 0.45% 1,000 ML IV SCH (11:06)
[2016-10-02 21:56] LABS: Hematocrit 29.5 VOL% (42.0-52.0)
[2016-10-02] MEDS: ALBUTEROL/IPRATROPIUM 3 ML NEB RESP TX SCH (23:16)
[2016-10-03] MEDS: PROPOFOL 1,000 MG/100 ML BOTTLE IV SCH ×3 (01:28→19:10)
[2016-10-03 05:23] LABS: Basophils # 0.1 10*3/uL (0.0-0.2); Basophils % 0.4 % (0.0-0.8); Eosinophils # 0.1 10*3/uL (0.0-0.87); Eosinophils % 0.7 % (0.00-10.9); Hemoglobin 10.5 GM/DL (14.0-18.0); Immature Granulocytes % 1.8 %; Lymphocytes # 1.5 10*3/uL (1.4-4.0); Lymphocytes % 12.9 % (21.2-54.2); Mean Corpuscular HGB Conc 33.9 GM/DL (32-36); Mean Corpuscular Hemoglobin 23 PG (27-34); Mean Corpuscular Volume 67.5 FL (87-102); Monocytes # 1.5 10*3/uL (0.11-0.8); Monocytes % 12.8 % (1.7-12.7); NRBC # 0.16 10*3/uL; Neutrophils # 8.1 10*3/uL (1.4-7.4); Neutrophils % 71.4 % (38.7-73.9); Red Blood Count 4.59 MC/CUMM (3.8-5.5); White Blood Count 11.3 T/CUMM (4-12)
[2016-10-03 05:33] LABS: Platelet Count 43 T/CUMM (130-400)
[2016-10-03 06:11] LABS: Albumin 2.2 G/DL (3.4-5.0); Osmolality,Calculated 345.9 MOS/KG (273-304); Potassium 4.9 MMOL/L (3.5-5.1); Total Protein 5.2 G/DL (6.4-8.3)
[2016-10-03 06:14] LABS: Band Neutrophils 3 % (0-10); Lymphocytes 14 % (20-55); Segmented Neutrophils 74 % (50-85); Total Cells Counted 100
[2016-10-03 06:15] LABS: Hypochromasia 1+; Microcytosis 1+; Polychromasia Slight; Target Cells 1+
[2016-10-03 06:17] LABS: Ovalocytes Slight; Platelet Estimate Decreased
[2016-10-03] MEDS: INSULIN REGULAR 100 UNIT/ML SUBCUT SCH ×4 (06:25→18:56)
[2016-10-03] MEDS: FAMOTIDINE 20 MG/2 ML VIAL IV SCH ×2 (06:26→18:56)
[2016-10-03 06:27] LABS: Magnesium 2.8 MG/DL (1.8-2.4); Phosphorous 5.8 MG/DL (2.5-4.9); Prealbumin 9.1 MG/DL (20-40)
[2016-10-03] MEDS: SODIUM CHLORIDE 0.45% 1,000 ML IV SCH (07:32)
--- NOTE | 2016-10-03 07:43 | Cardiology Progress Note ---
Cardiology - PN: Subj Interval history: Cardiology note 45-year-old man with respiratory failure and cardiomyopathy. Does not respond to commands. IV sedation off since last night Blood pressure 114/70 Telemetry shows sinus in the 90s O2 sat 99 on 40% FiO2 Decreased breath sounds Regular rhythm no gallop or murmur No leg edema Lab data White count 11.3 hemoglobin 10.5 hematocrit 31.0 platelet count 43,000 Sodium 158 potassium 4.9 chloride 120 CO2 28 BUN 97 creatinine 4.70 Glucose 233 magnesium 2.8 AST down to 330 ALT down to 1653 Impression Respiratory failure Acute on chronic renal failure Alcoholism Increase LFTs Acute combined systolic and diastolic heart failure Thrombocytopenia Nonischemic cardiomyopathy. Ejection fraction 15% with widely patent coronaries PA pressure 55 cardiac cath September 27, 2016 Plan CPAP trials Labs in a.m. Exam (Progress Note) - Constitutional Vitals: Period Temp Pulse Resp BP Sys/Ramirez Pulse Ox Last 24 Hr 97.8 F-99.2 F 86-97 14-29 86-120/46-74 94-100 Result/EKG - Labs CBC & BMP: 10/03/16 04:36 10/03/16 04:36 Labs: Laboratory Results - last 24 hr 10/02/16 10/02/16 10/02/16 05:17 09:00 09:00 WBC RBC Hgb Hct MCV MCH MCHC RDW Plt Count Neut % (Auto) Lymph % (Auto) Braxton % (Auto) Eos % (Auto) Baso % (Auto) Neut # (Auto) Lymph # (Auto) Braxton # (Auto) Eos # (Auto) Baso # (Auto) Total Counted Immature Gran % Nucleated RBC % Immature Gran # Segmented Neutrophils Band Neutrophils Lymphocytes Monocytes Eosinophils Nucleated RBCs # Platelet Estimate Polychromasia Hypochromasia Microcytosis Target Cells Ovalocytes Absolute Retic Percent Retic Retic Hgb Equivalent Haptoglobin INR 1.3 PT Patient/Control Mix 14.0 D Fibrinogen D-Dimer, Quantitative 20.8 Circ Anticoag PTT 34.2 Sodium Potassium Chloride Carbon Dioxide Anion Gap BUN Creatinine GFR Calculation BUN/Creatinine Ratio Glucose POC Glucose Hemoglobin A1c Calculated Osmolality Calcium Phosphorus Magnesium Ferritin Total Bilirubin Direct Bilirubin Indirect Bilirubin AST ALT Alkaline Phosphatase Lactate Dehydrogenase Total Protein Albumin Globulin Albumin/Globulin Ratio Prealbumin Blood Type O POSITIVE Antibody Screen Negative Crossmatch See Detail 10/02/16 10/02/16 10/02/16 09:00 09:00 09:00 WBC 9.0 RBC 3.55 L Hgb 7.6 L Hct 22.1 L MCV 62.3 L MCH 21 L MCHC 34.4 RDW 20.1 H Plt Count 34 L* D Neut % (Auto) 59.8 Lymph % (Auto) 20.7 L Braxton % (Auto) 13.0 H Eos % (Auto) 2.3 Baso % (Auto) 0.3 Neut # (Auto) 5.4 Lymph # (Auto) 1.9 Braxton # (Auto) 1.2 H Eos # (Auto) 0.2 Baso # (Auto) 0.0 Total Counted 100 Immature Gran % 3.9 Nucleated RBC % 2.0 Immature Gran # 0.35 Segmented Neutrophils 62 Band Neutrophils Lymphocytes 19 L Monocytes 15 Eosinophils 4 Nucleated RBCs # 0.18 Platelet Estimate Decreased Polychromasia Slight Hypochromasia 1+ Microcytosis Target Cells Few Ovalocytes Absolute Retic Percent Retic Retic Hgb Equivalent Haptoglobin INR PT Patient/Control Mix Fibrinogen 489 H D-Dimer, Quantitative Circ Anticoag PTT Sodium Potassium Chloride Carbon Dioxide Anion Gap BUN Creatinine GFR Calculation BUN/Creatinine Ratio Glucose POC Glucose Hemoglobin A1c 5.9 Calculated Osmolality Calcium Phosphorus Magnesium Ferritin Total Bilirubin Direct Bilirubin Indirect Bilirubin AST ALT Alkaline Phosphatase Lactate Dehydrogenase Total Protein Albumin Globulin Albumin/Globulin Ratio Prealbumin Blood Type Antibody Screen Crossmatch 10/02/16 10/02/16 10/02/16 09:00 10:32 10:32 WBC RBC Hgb Hct MCV MCH MCHC RDW Plt Count Neut % (Auto) Lymph % (Auto) Braxton % (Auto) Eos % (Auto) Baso % (Auto) Neut # (Auto) Lymph # (Auto) Braxton # (Auto) Eos # (Auto) Baso # (Auto) Total Counted Immature Gran % Nucleated RBC % Immature Gran # Segmented Neutrophils Band Neutrophils Lymphocytes Monocytes Eosinophils Nucleated RBCs # Platelet Estimate Polychromasia Hypochromasia Microcytosis Target Cells Ovalocytes Absolute Retic 0.1 Percent Retic 3.1 H Retic Hgb Equivalent 20.6 L Haptoglobin INR PT Patient/Control Mix Fibrinogen D-Dimer, Quantitative Circ Anticoag PTT Sodium Potassium Chloride Carbon Dioxide Anion Gap BUN Creatinine GFR Calculation BUN/Creatinine Ratio Glucose POC Glucose Hemoglobin A1c Calculated Osmolality Calcium Phosphorus Magnesium Ferritin 4781.5 H Total Bilirubin 2.60 H Direct Bilirubin 1.80 H Indirect Bilirubin 0.8 AST 560 H ALT 2486 H Alkaline Phosphatase 445 H Lactate Dehydrogenase Total Protein 5.3 L Albumin 2.5 L Globulin Albumin/Globulin Ratio Prealbumin Blood Type Antibody Screen Crossmatch 10/02/16 10/02/16 10/02/16 11:46 18:09 21:35 WBC RBC Hgb 10.0 L D Hct 29.5 L MCV MCH MCHC RDW Plt Count Neut % (Auto) Lymph % (Auto) Braxton % (Auto) Eos % (Auto) Baso % (Auto) Neut # (Auto) Lymph # (Auto) Braxton # (Auto) Eos # (Auto) Baso # (Auto) Total Counted Immature Gran % Nucleated RBC % Immature Gran # Segmented Neutrophils Band Neutrophils Lymphocytes Monocytes Eosinophils Nucleated RBCs # Platelet Estimate Polychromasia Hypochromasia Microcytosis Target Cells Ovalocytes Absolute Retic Percent Retic Retic Hgb Equivalent Haptoglobin INR PT Patient/Control Mix Fibrinogen D-Dimer, Quantitative Circ Anticoag PTT Sodium Potassium Chloride Carbon Dioxide Anion Gap BUN Creatinine GFR Calculation BUN/Creatinine Ratio Glucose POC Glucose 282 H 157 H Hemoglobin A1c Calculated Osmolality Calcium Phosphorus Magnesium Ferritin Total Bilirubin Direct Bilirubin Indirect Bilirubin AST ALT Alkaline Phosphatase Lactate Dehydrogenase Total Protein Albumin Globulin Albumin/Globulin Ratio Prealbumin Blood Type Antibody Screen Crossmatch 10/02/16 10/02/16 10/02/16 23:55 Unknown Unknown WBC RBC Hgb Hct MCV MCH MCHC RDW Plt Count Neut % (Auto) Lymph % (Auto) Braxton % (Auto) Eos % (Auto) Baso % (Auto) Neut # (Auto) Lymph # (Auto) Braxton # (Auto) Eos # (Auto) Baso # (Auto) Total Counted Immature Gran % Nucleated RBC % Immature Gran # Segmented Neutrophils Band Neutrophils Lymphocytes Monocytes Eosinophils Nucleated RBCs # Platelet Estimate Polychromasia Hypochromasia Microcytosis Target Cells Ovalocytes Absolute Retic Percent Retic Retic Hgb Equivalent Haptoglobin < 8.0 L INR PT Patient/Control Mix Fibrinogen D-Dimer, Quantitative Circ Anticoag PTT Sodium Potassium Chloride Carbon Dioxide Anion Gap BUN Creatinine GFR Calculation BUN/Creatinine Ratio Glucose POC Glucose 187 H Hemoglobin A1c Calculated Osmolality Calcium Phosphorus Magnesium Ferritin Total Bilirubin Direct Bilirubin Indirect Bilirubin AST ALT Alkaline Phosphatase Lactate Dehydrogenase 1459 H Total Protein Albumin Globulin Albumin/Globulin Ratio Prealbumin Blood Type Antibody Screen Crossmatch 10/02/16 10/03/16 10/03/16 Unknown 04:36 04:36 WBC 11.3 RBC 4.59 D Hgb 10.5 L Hct 31.0 L MCV 67.5 L MCH 23 L MCHC 33.9 RDW 25.0 H Plt Count 43 L D Neut % (Auto) 71.4 Lymph % (Auto) 12.9 L Braxton % (Auto) 12.8 H Eos % (Auto) 0.7 Baso % (Auto) 0.4 Neut # (Auto) 8.1 H Lymph # (Auto) 1.5 Braxton # (Auto) 1.5 H Eos # (Auto) 0.1 Baso # (Auto) 0.1 Total Counted 100 Immature Gran % 1.8 Nucleated RBC % 1.4 Immature Gran # 0.20 Segmented Neutrophils 74 Band Neutrophils 3 Lymphocytes 14 L Monocytes 9 Eosinophils Nucleated RBCs # 0.16 Platelet Estimate Decreased Polychromasia Slight Hypochromasia 1+ Microcytosis 1+ Target Cells 1+ Ovalocytes Slight Absolute Retic Percent Retic Retic Hgb Equivalent Haptoglobin INR PT Patient/Control Mix Fibrinogen D-Dimer, Quantitative Circ Anticoag PTT Sodium Potassium Chloride Carbon Dioxide Anion Gap BUN Creatinine GFR Calculation BUN/Creatinine Ratio Glucose POC Glucose Hemoglobin A1c Calculated Osmolality Calcium Phosphorus 5.8 H Magnesium 2.8 H Ferritin Total Bilirubin Direct Bilirubin Indirect Bilirubin AST ALT Alkaline Phosphatase Lactate Dehydrogenase Total Protein Albumin Globulin Albumin/Globulin Ratio Prealbumin 9.1 L Blood Type O POSITIVE Antibody Screen Crossmatch 10/03/16 10/03/16 04:36 06:15 WBC RBC Hgb Hct MCV MCH MCHC RDW Plt Count Neut % (Auto) Lymph % (Auto) Braxton % (Auto) Eos % (Auto) Baso % (Auto) Neut # (Auto) Lymph # (Auto) Braxton # (Auto) Eos # (Auto) Baso # (Auto) Total Counted Immature Gran % Nucleated RBC % Immature Gran # Segmented Neutrophils Band Neutrophils Lymphocytes Monocytes Eosinophils Nucleated RBCs # Platelet Estimate Polychromasia Hypochromasia Microcytosis Target Cells Ovalocytes Absolute Retic Percent Retic Retic Hgb Equivalent Haptoglobin INR PT Patient/Control Mix Fibrinogen D-Dimer, Quantitative Circ Anticoag PTT Sodium 158 H Potassium 4.9 Chloride 120 H Carbon Dioxide 28 Anion Gap 14.9 BUN 97 H Creatinine 4.70 H GFR Calculation 17 BUN/Creatinine Ratio 20.00 Glucose 176 H POC Glucose 233 H Hemoglobin A1c Calculated Osmolality 345.9 H Calcium 8.0 L Phosphorus Magnesium Ferritin Total Bilirubin 2.00 H Direct Bilirubin Indirect Bilirubin AST 330 H ALT 1653 H Alkaline Phosphatase 373 H Lactate Dehydrogenase Total Protein 5.2 L Albumin 2.2 L Globulin 3.0 Albumin/Globulin Ratio 0.7 L Prealbumin Blood Type Antibody Screen Crossmatch
[2016-10-03] MEDS: ALBUTEROL/IPRATROPIUM 3 ML NEB RESP TX SCH ×2 (08:04→14:06)
--- NOTE | 2016-10-03 08:27 | Pulmonology Progress Note ---
Pulmonary - PN: Subj Interval history: The patient is a 45-year-old black man that has SC disease. He came in with respiratory distress and acute pulmonary edema. He had to be intubated and has been on the ventilator. [facility] had a cardiac catheterization. His ejection fraction of 15% but normal coronaries. He is a little more stable on the ventilator now. His blood pressure is better and his oxygenation has improved. The patient's hiccups are better and he has been doing CPAP a little better. He still gets agitated when he wakes up and does not follow commands very well. He does have significant renal insufficiency but his anemia is better. Exam (Progress Note) - Constitutional Vitals: Period Temp Pulse Resp BP Sys/Ramirez Pulse Ox Last 24 Hr 97.8 F-99.2 F 86-96 14-29 86-120/46-74 94-100 Exam: General appearance: normal weight, no acute distress (Patient is not alert but is otherwise stable on the ventilator. He does move his extremities. He gets agitated when the sedation is turned off.) - Head Head exam: Present: normal inspection, normocephalic - Eye Eye exam: Present: EOMI. Absent: scleral icterus Pupils: Present: AUGIE - ENT ENT exam: Present: other (ET tube is in good position) - Neck Neck exam: Present: normal inspection. Absent: lymphadenopathy, thyromegaly - Respiratory Respiratory exam: Present: He has good breath sounds bilaterally and his lungs sound much clearer. His lungs sound better overall. - Cardiovascular Cardiovascular exam: Present: regular rate and rhythm, systolic murmur (He does have a soft systolic murmur), tachycardia. Absent: gallop - GI/Abdominal GI/Abdominal exam: Present: normal bowel sounds, soft. He does not have any hiccups now. Absent: distended, organomegaly, tenderness - Extremities Exam Extremities exam: Absent: calf tenderness, edema, there are no signs of phlebitis. - Neurological Exam Neurological exam: Present: other (Patient is sedated on the ventilator at present. He will move his extremities off sedation but is not following commands very well.) - Skin Skin exam: Present: warm, dry Results - Labs CBC & BMP: 10/03/16 04:36 10/03/16 04:36 Assessment and Plan (1) Congestive heart failure Status: Acute Assessment and plan: The patient presents with acute shortness of breath and his x-ray is consistent with heart failure. He has a severe cardiomyopathy with ejection fraction of 15 %. His chest x-ray is clear now and his oxygenation is much better. His CHF is much improved. Current Visit: Yes (2) Hemoglobin SC disease Status: Chronic Assessment and plan: Patient has a history of sickle cell disease and his hematocrit is 31 today after receiving some blood. Current Visit: Yes (3) Pneumonia Status: Acute Assessment and plan: The patient is being covered for pneumonia although this may all be related to congestive heart failure. He did have a low-grade fever but he does not show any signs of significant consolidation. Repeat blood cultures have been negative. Current Visit: Yes (4) Respiratory failure Status: Acute Assessment and plan: The patient is stable and will continue with CPAP trials. He did do CPAP trials fairly well yesterday. Will try to let him wake up today and continue CPAP trials. Will check a chest x-ray tomorrow and hopefully can extubate tomorrow if he is doing well. Current Visit: Yes Qualifiers: Chronicity: acute (5) Acute on chronic renal failure Status: Acute Assessment and plan: The patient's creatinine is up to 4.7 and fairly stable. Current Visit: Yes
--- NOTE | 2016-10-03 08:52 | Oncology Progress Note ---
Oncology Subjective PN Interval history: Platelets improved to 44,000 today after medication discontinuation. Stable appearing and tolerating CPAP trials. Chart was reviewed yesterday as patient unable to give a history. Hemoglobin SC is noted with patient apparently being followed at [facility] previously. Elevated ferritin with microcytosis also support additional diagnosis of thalassemia. Hematocrit is stable to improved today. His haptoglobin and reticulocyte count are explained by his sickle disease. Continue supportive care with no new orders today. He is receiving folic acid daily. Exam - Constitutional Vitals: Period Temp Pulse Resp BP Sys/Ramirez Pulse Ox Last 24 Hr 97.8 F-99.2 F 86-96 14-29 86-120/46-74 94-100 Results - Labs CBC & BMP: 10/03/16 04:36 10/03/16 04:36
[2016-10-03] MEDS: CARVEDILOL 3.125 MG TABLET PO SCH ×2 (09:15→21:07)
[2016-10-03] MEDS: ISOSORBIDE MONONITRATE 30 MG TABLET PO SCH (09:15)
[2016-10-03] MEDS: INSULIN GLARGINE 100 UNIT/ML SUBCUT SCH ×2 (09:16→21:07)
[2016-10-03] MEDS: THIAMINE 200 MG/2 ML VIAL IV SCH (09:17)
[2016-10-03] MEDS: FOLIC ACID INJ 1 MG in SYRINGE 1 EACH IV SCH (09:25)
--- NOTE | 2016-10-03 09:45 | Hospitalist Progress Note ---
Assessment and Plan (1) Hypernatremia Status: Acute Assessment and plan: 1)hypernatremia- start free water 200 cc every 4 hours. recheck in am. 2)resp failure- CPAP trials underway. Discuss need for trach with pulmonary so I can get an idea of whether they are expecting him to need one. 3)nutrition- tube feeds. 4)pneumonia- on levaquin 5)acute systolic and diastolic CHF- holding lasix because of worsening renal failure. sats good. 6)JORDAN on CKD- due to ATN- monitor. creatinine is 4.7 where its been for 4 days. was 1.3 on admission. If no improvement tomorrow, will consult nephrology. increasing hydration with increased free water today. 7)sickle cell disease, anemia, thrombocytopenia- improving. Dr Aceves following. Off heparin, SCDs. Dilaudid prn, has had sicle crisis in past per his mother. 8)anemia- transfused. 9)anoxic encephalopathy- this is affecting his ability to wean from vent. 10)shock liver- continue to monitor- coming down. 11)DM- on glucerna, SSI. Current Visit: Yes (2) Respiratory failure Status: Acute Current Visit: Yes Qualifiers: Chronicity: acute (3) Pneumonia Status: Acute Current Visit: Yes (4) Hemoglobin SC disease Status: Chronic Current Visit: Yes (5) Severe sepsis Status: Acute Current Visit: Yes (6) Community acquired pneumonia Status: Acute Current Visit: Yes (7) Acute combined systolic and diastolic congestive heart failure Status: Acute Current Visit: Yes (8) Acute on chronic renal failure Status: Acute Current Visit: Yes (9) Anoxic encephalopathy Status: Acute Current Visit: Yes (10) Elevated liver enzymes Status: Acute Current Visit: Yes (11) Diabetes Status: Acute Current Visit: Yes Hospitalist: Subjective Interval history: Mr Rodriguez is stable on the vent. He has done CPAP. His nurse reports that there was discussion of trach recently. Sodium increased today. TOlerating tube feeds. Withdraws to pain and moves when sedation decreased but does not attend or follow commands. Exam - Constitutional Vitals: Period Temp Pulse Resp BP Sys/Ramirez Pulse Ox Last 24 Hr 97.8 F-99.2 F 86-96 14-29 86-120/46-74 94-100 General appearance: normal weight, no acute distress (sedated) - Eye Eye exam: Present: EOMI. Absent: scleral icterus Pupils: Present: AUGIE - Respiratory Respiratory exam: Present: clear to auscultation bilaterally - Cardiovascular Cardiovascular exam: Present: regular rate and rhythm - GI/Abdominal GI/Abdominal exam: Present: normal bowel sounds, soft. Absent: tenderness - Extremities Exam Extremities exam: Present: edema - Neurological Exam Neurological exam: Present: altered, other (moves all 4 extremities but not purposefully) - Skin Skin exam: Present: warm, dry Results - Labs CBC & BMP: 10/03/16 04:36 10/03/16 04:36 Lab Results: I have reviewed the past 24 hour labs
--- NOTE | 2016-10-03 16:02 | Neurology Progress Note ---
Neurology - PN : Subjective Interval history: Patient continued to remain same. Unchanged neurologically. He moves spontaneously however not feeling any commands. I suspect strong element of hypoxic encephalopathy. Tolerating CPAP well. Exam (Progress Note) - Constitutional Vitals: Period Temp Pulse Resp BP Sys/Ramirez Pulse Ox Last 24 Hr 97.3 F-99.2 F 86-97 14-27 94-120/51-74 94-100 Exam: GENERAL: Patient is in no acute distress. NECK: Neck is supple. There is no JVD. No carotid bruits present. No thyroid masses. CVS: First and second heart sounds are normal. There is no S3 present. Regular rate and rhythm. RESPIRATORY: Lungs are clear to auscultation without any rales or rhonchi. ABDOMEN: Soft and non-tender. Bowel sounds are present. There is no hepatosplenomegaly. EXT: There is no palpable edema. Peripheral pulses are present. Skin: No rashes Central Nervous system: General: On vent Speech: None Comprehension: None Facial expressions: Normal Cranial Nerves: Pupils are small but reactive. He does have questionable left gaze preference. Doll's head I moves are positive Motor: Bulk and Tone is normal. Strength cannot be assessed Sensory: Cannot be assessed Reflexes: 1+ and symmetrical Cerebellar function: Cannot be assessed Toes: Equivocal Gait: Cannot be assessed Results - Labs CBC & BMP: 10/03/16 04:36 10/03/16 04:36 Assessment and Plan (1) Altered mental status Status: Acute Assessment and plan: Likely due to anoxic/hypoxic encephalopathy Continue current supportive management Continue IV Keppra precautionary Current Visit: Yes
[2016-10-04] MEDS: ALBUTEROL/IPRATROPIUM 3 ML NEB RESP TX SCH ×4 (00:13→23:52)
[2016-10-04] MEDS: INSULIN REGULAR 100 UNIT/ML SUBCUT SCH ×4 (01:02→18:16)
[2016-10-04] MEDS: PROPOFOL 1,000 MG/100 ML BOTTLE IV SCH ×4 (01:05→18:06)
[2016-10-04 04:55] LABS: Basophils % 0.2 % (0.0-0.8); Eosinophils # 0.1 10*3/uL (0.0-0.87); Eosinophils % 0.8 % (0.00-10.9); Hemoglobin 10.1 GM/DL (14.0-18.0); Immature Granulocytes % 2.6 %; Immature Granulocytes Absolute 0.26 #; Lymphocytes # 1.7 10*3/uL (1.4-4.0); Lymphocytes % 16.8 % (21.2-54.2); Mean Corpuscular HGB Conc 33.7 GM/DL (32-36); Mean Corpuscular Hemoglobin 23 PG (27-34); Mean Corpuscular Volume 67.1 FL (87-102); Monocytes % 9.8 % (1.7-12.7); NRBC # 0.08 10*3/uL; Neutrophils # 7.1 10*3/uL (1.4-7.4); Neutrophils % 69.8 % (38.7-73.9); Red Blood Count 4.47 MC/CUMM (3.8-5.5); Red Cell Distribution Width 25.2 % (9.3-17.3); White Blood Count 10.2 T/CUMM (4-12)
[2016-10-04 04:58] LABS: Platelet Count 33 T/CUMM (130-400)
[2016-10-04 05:29] LABS: Band Neutrophils 1 % (0-10); Eosinophils 4 % (0-10); Lymphocytes 12 % (20-55); Macrocytosis Slight; Platelet Estimate Decreased; Segmented Neutrophils 78 % (50-85); Total Cells Counted 100
[2016-10-04 05:30] LABS: Hypochromasia Slight; Ovalocytes Slight; Polychromasia Slight; Target Cells Few
[2016-10-04 05:42] LABS: Albumin 2.1 G/DL (3.4-5.0); Bilirubin,Total 1.7 MG/DL (0.2-1.0); Calcium 7.8 MG/DL (8.5-10.1); Magnesium 3.3 MG/DL (1.8-2.4); Osmolality,Calculated 343.4 MOS/KG (273-304); Potassium 5.1 MMOL/L (3.5-5.1); Total Protein 5.5 G/DL (6.4-8.3)
[2016-10-04] MEDS: FAMOTIDINE 20 MG/2 ML VIAL IV SCH ×2 (06:23→18:08)
--- NOTE | 2016-10-04 06:59 | XRay Report ---
Exam: XR chest 1V portable Date: 10/04/2016 4:00 AM Indication: Follow-up ventilator respiratory failure Comparison: 10/02/2016 Technical: AP portable Findings: Endotracheal tube is at the level of mid clavicle. Nasogastric traverses esophagus into the stomach. Cardiomegaly is present. Alveolar infiltrate and tiny effusion in the right base. Minimal sclerosis of the humeral head bilaterally Impression: 1. Cardiomegaly 2. Alveolar infiltrate in the right base and tiny effusion 2. Stable position of life-support tubing PROCEDURE INTERPRETED AT [facility] DEPARTMENT OF RADIOLOGY Final Report Signed by: Dr. Jon Narayan
--- NOTE | 2016-10-04 07:14 | Cardiology Progress Note ---
Cardiology - PN: Subj Interval history: Cardiology note 45-year-old man admitted with respiratory failure and CHF. Patient does not follow commands. O2 sat 97 on 40% FiO2 He completed 8 hours of CPAP yesterday Telemetry shows sinus rhythm in the 90s without ectopy Blood pressure 118/66 Regular rhythm no murmur Decreased breath sounds few basilar crackles on the right side Abdomen soft benign Trace ankle edema Lab data today Hemoglobin 10.1 hematocrit 30.0 white count 10.2 Platelet count 33,000 Sodium 154 potassium 5.1 chloride 121 CO2 25 BUN 45 creatinine 4.40 glucose 209 Impression Nonischemic cardiomyopathy EF 15% and patent coronaries PA pressure 55 by cardiac cath September 27, 2016 Acute systolic/diastolic heart failure Alcoholism Thrombocytopenia Microcytic anemia MCV 67 hemoglobin 10.1 Respiratory failure Prolonged altered mental status Acute on chronic renal failure creatinine 4.40 Plan CPAP trials Tube feeding Exam (Progress Note) - Constitutional Vitals: Period Temp Pulse Resp BP Sys/Ramirez Pulse Ox Last 24 Hr 97.3 F-98.9 F 90-102 15-35 105-123/61-79 92-100 Result/EKG - Labs CBC & BMP: 10/04/16 04:35 10/04/16 04:35 Labs: Laboratory Results - last 24 hr 10/02/16 10/03/16 10/03/16 09:00 11:17 17:50 WBC RBC Hgb Hct MCV MCH MCHC RDW Plt Count Neut % (Auto) Lymph % (Auto) Ross % (Auto) Eos % (Auto) Baso % (Auto) Neut # (Auto) Lymph # (Auto) Ross # (Auto) Eos # (Auto) Baso # (Auto) Total Counted Immature Gran % Nucleated RBC % Immature Gran # Segmented Neutrophils Band Neutrophils Lymphocytes Monocytes Eosinophils Nucleated RBCs # Platelet Estimate Polychromasia Hypochromasia Macrocytosis Target Cells Ovalocytes Morphology Comment Peripheral Blood Smear Not Reportable Peripher Smr Path Cons Sodium Potassium Chloride Carbon Dioxide Anion Gap BUN Creatinine GFR Calculation BUN/Creatinine Ratio Glucose POC Glucose 230 H 158 H Calculated Osmolality Calcium Magnesium Total Bilirubin AST ALT Alkaline Phosphatase Total Protein Albumin Globulin Albumin/Globulin Ratio 10/04/16 10/04/16 04:35 04:35 WBC 10.2 RBC 4.47 Hgb 10.1 L Hct 30.0 L MCV 67.1 L MCH 23 L MCHC 33.7 RDW 25.2 H Plt Count 33 L* D Neut % (Auto) 69.8 Lymph % (Auto) 16.8 L Ross % (Auto) 9.8 Eos % (Auto) 0.8 Baso % (Auto) 0.2 Neut # (Auto) 7.1 Lymph # (Auto) 1.7 Ross # (Auto) 1.0 H Eos # (Auto) 0.1 Baso # (Auto) 0.0 Total Counted 100 Immature Gran % 2.6 Nucleated RBC % 0.8 Immature Gran # 0.26 Segmented Neutrophils 78 Band Neutrophils 1 Lymphocytes 12 L Monocytes 5 Eosinophils 4 Nucleated RBCs # 0.08 Platelet Estimate Decreased Polychromasia Slight Hypochromasia Slight Macrocytosis Slight Target Cells Few Ovalocytes Slight Morphology Comment Peripheral Blood Smear Peripher Smr Path Cons Sodium 154 H Potassium 5.1 Chloride 121 H Carbon Dioxide 25 Anion Gap 13.1 BUN 105 H Creatinine 4.40 H GFR Calculation 19 BUN/Creatinine Ratio 23.00 H Glucose 209 H POC Glucose Calculated Osmolality 343.4 H Calcium 7.8 L Magnesium 3.3 H Total Bilirubin 1.70 H AST 286 H ALT 1172 H Alkaline Phosphatase 339 H Total Protein 5.5 L Albumin 2.1 L Globulin 3.4 Albumin/Globulin Ratio 0.6 L
--- NOTE | 2016-10-04 07:48 | Pulmonology Progress Note ---
Pulmonary - PN: Subj Interval history: The patient is a 45-year-old black man that has SC disease. He came in with respiratory distress and acute pulmonary edema. He had to be intubated and has been on the ventilator. [facility] had a cardiac catheterization. His ejection fraction of 15% but normal coronaries. He is a little more stable on the ventilator now. His blood pressure is better and his oxygenation has improved. The patient's hiccups are better and he has been doing CPAP a little better. He still does not follow commands and gets agitated when he wakes up. He has been doing CPAP comfortably and his oxygenation is okay. His chest x-ray shows mild increase in infiltrates in the bases. His urine output has been doing well and his creatinine is down to 4.4 Exam (Progress Note) - Constitutional Vitals: Period Temp Pulse Resp BP Sys/Ramirez Pulse Ox Last 24 Hr 97.3 F-98.9 F 90-102 15-35 105-123/61-79 92-100 Exam: General appearance: normal weight, no acute distress (Patient is not alert but is otherwise stable on the ventilator. He does move his extremities. He gets agitated when the sedation is turned off.) - Head Head exam: Present: normal inspection, normocephalic - Eye Eye exam: Present: EOMI. Absent: scleral icterus Pupils: Present: AUGIE - ENT ENT exam: Present: other (ET tube is in good position) - Neck Neck exam: Present: normal inspection. Absent: lymphadenopathy, thyromegaly - Respiratory Respiratory exam: Present: He has good breath sounds bilaterally and his lungs still sound reasonably clear. - Cardiovascular Cardiovascular exam: Present: regular rate and rhythm, systolic murmur (He does have a soft systolic murmur), tachycardia. Absent: gallop - GI/Abdominal GI/Abdominal exam: Present: normal bowel sounds, soft. He does not have any hiccups now. Absent: distended, organomegaly, tenderness - Extremities Exam Extremities exam: Absent: calf tenderness, edema, there are no signs of phlebitis. - Neurological Exam Neurological exam: Present: other (Patient is sedated on the ventilator at present. He will move his extremities off sedation but is not following commands very well.) - Skin Skin exam: Present: warm, dry Results - Labs CBC & BMP: 10/04/16 04:35 10/04/16 04:35 - Diagnostic Findings Procedure: Chest x-ray: image reviewed by me, report reviewed by me (Chest x- ray shows mild bibasilar infiltrates.) Assessment and Plan (1) Congestive heart failure Status: Acute Assessment and plan: The patient presents with acute shortness of breath and his x-ray is consistent with heart failure. He has a severe cardiomyopathy with ejection fraction of 15 %. He has diuresed fairly well and his heart failure does appear better. Current Visit: Yes (2) Hemoglobin SC disease Status: Chronic Assessment and plan: Patient has a history of sickle cell disease and his hematocrit is 30 today after receiving some blood. Current Visit: Yes (3) Pneumonia Status: Acute Assessment and plan: The patient is being covered for pneumonia and his repeat cultures have been negative. He does have some very mild bibasilar atelectasis now. Will continue CPAP trials and see if his mental status will improve. Current Visit: Yes (4) Respiratory failure Status: Acute Assessment and plan: The patient is stable and will continue with CPAP trials. He did do CPAP trials fairly well yesterday. Will try to let him wake up today and continue CPAP trials. Hopefully he can come off the ventilator soon but he needs to be a little more alert. Current Visit: Yes Qualifiers: Chronicity: acute (5) Acute on chronic renal failure Status: Acute Assessment and plan: The patient's creatinine is down to 4.4 now. Current Visit: Yes
--- NOTE | 2016-10-04 08:57 | Oncology Progress Note ---
Oncology Subjective PN Interval history: No significant changes over the last 24 hours. His platelets have dipped to 33. Case was discussed with daysalfonzo RN at bedside. No evidence of bleeding is noted. He is tolerating his feeds. He does not apparently respond to painful stimuli. Hematocrit remains stable. Plan to monitor platelets only at this time and transfused for levels less than 20 or evidence of bleeding. Exam - Constitutional Vitals: Period Temp Pulse Resp BP Sys/Ramirez Pulse Ox Last 24 Hr 97.3 F-98.9 F 90-102 14-35 105-123/61-79 92-100 Results - Labs CBC & BMP: 10/04/16 04:35 10/04/16 04:35
[2016-10-04] MEDS: CARVEDILOL 3.125 MG TABLET PO SCH ×2 (09:39→21:33)
[2016-10-04] MEDS: ISOSORBIDE MONONITRATE 30 MG TABLET PO SCH (09:39)
[2016-10-04] MEDS: INSULIN GLARGINE 100 UNIT/ML SUBCUT SCH ×2 (09:39→21:33)
[2016-10-04] MEDS: THIAMINE 200 MG/2 ML VIAL IV SCH (09:44)
[2016-10-04] MEDS: FOLIC ACID INJ 1 MG in SYRINGE 1 EACH IV SCH (09:44)
[2016-10-04] MEDS: LEVOFLOXACIN INJ 500 MG in PREMIX 1 EACH IV SCH (09:45)
--- NOTE | 2016-10-04 10:52 | Hospitalist Progress Note ---
Assessment and Plan (1) Hypernatremia Status: Acute Assessment and plan: 1)hypernatremia- sodium coming downwith increased free water- continue and recheck in am. 2)reps failure- doing CPAP. Dr Yost hopes to extubate per review of his note. No mention there of trach. 3)nutrition- tube feeds 4)pneumonia- on levaquin 5)acute systolic CHF- EF 15%- nonizchemic probably form alcohol 6)JORDAN on CKD- creatinine down to 4.4 so perhaps it has peaked and will begin recovery phase now. Baseline is 1.3. 7)sickle cell disease, anemia, thrombocytopenia- platelets 30,000. transfuse for active bleeding or level under 20. 8)anoxic encephalopathy- this is result of his code and cause of his difficulty extubating. 9)shock liver- conitnues to improve. 10)DM- on glucerna, SSI 11)I talked with his family yesterday at length about their understanding of his prognosis and answered their questions. His father at 40 form heart failure. They understand he may not make neuro improvements. Current Visit: Yes (2) Respiratory failure Status: Acute Current Visit: Yes Qualifiers: Chronicity: acute (3) Pneumonia Status: Acute Current Visit: Yes (4) Hemoglobin SC disease Status: Chronic Current Visit: Yes (5) Severe sepsis Status: Acute Current Visit: Yes (6) Community acquired pneumonia Status: Acute Current Visit: Yes (7) Acute combined systolic and diastolic congestive heart failure Status: Acute Current Visit: Yes (8) Acute on chronic renal failure Status: Acute Current Visit: Yes (9) Anoxic encephalopathy Status: Acute Current Visit: Yes (10) Elevated liver enzymes Status: Acute Current Visit: Yes (11) Diabetes Status: Acute Current Visit: Yes Hospitalist: Subjective Interval history: Mr Rodriguez is unchanged on the vent. no events overnight. Exam - Constitutional Vitals: Period Temp Pulse Resp BP Sys/Ramirez Pulse Ox Last 24 Hr 97.3 F-98.9 F 90-102 14-35 98-123/61-80 92-100 General appearance: normal weight, no acute distress - Eye Eye exam: Present: EOMI Pupils: Present: AUGIE - Respiratory Respiratory exam: Present: clear to auscultation bilaterally - Cardiovascular Cardiovascular exam: Present: regular rate and rhythm - GI/Abdominal GI/Abdominal exam: Present: normal bowel sounds, soft - Extremities Exam Extremities exam: Absent: edema Results - Labs CBC & BMP: 10/04/16 04:35 10/04/16 04:35 Lab Results: I have reviewed the past 24 hour labs
[2016-10-04 19:10] LABS: HIT Interpretation Negative (Negative)
[2016-10-05] MEDS: INSULIN REGULAR 100 UNIT/ML SUBCUT SCH ×4 (00:11→17:50)
[2016-10-05 04:40] LABS: Basophils % 0.3 % (0.0-0.8); Eosinophils # 0.1 10*3/uL (0.0-0.87); Eosinophils % 1.1 % (0.00-10.9); Hematocrit 29.7 VOL% (42.0-52.0); Immature Granulocytes % 2.2 %; Immature Granulocytes Absolute 0.23 #; Lymphocytes # 1.7 10*3/uL (1.4-4.0); Mean Corpuscular HGB Conc 33.7 GM/DL (32-36); Mean Corpuscular Hemoglobin 23 PG (27-34); Monocytes # 1.2 10*3/uL (0.11-0.8); Monocytes % 10.9 % (1.7-12.7); NRBC # 0.13 10*3/uL; Neutrophils # 7.4 10*3/uL (1.4-7.4); Neutrophils % 69.5 % (38.7-73.9); Platelet Count 52 T/CUMM (130-400); Red Blood Count 4.37 MC/CUMM (3.8-5.5); Red Cell Distribution Width 25.7 % (9.3-17.3); White Blood Count 10.7 T/CUMM (4-12)
[2016-10-05 04:47] LABS: Albumin 1.9 G/DL (3.4-5.0); Bilirubin,Total 2.4 MG/DL (0.2-1.0); Calcium 8.3 MG/DL (8.5-10.1); Magnesium 3.2 MG/DL (1.8-2.4); Osmolality,Calculated 340.3 MOS/KG (273-304); Potassium 4.8 MMOL/L (3.5-5.1); Total Protein 5.5 G/DL (6.4-8.3)
[2016-10-05] MEDS: PROPOFOL 1,000 MG/100 ML BOTTLE IV SCH (04:50)
[2016-10-05] MEDS: FAMOTIDINE 20 MG/2 ML VIAL IV SCH ×2 (05:53→17:51)
[2016-10-05 06:25] LABS: Band Neutrophils 3 % (0-10); Eosinophils 3 % (0-10); Lymphocytes 13 % (20-55); Nucleated Red Blood Cells 2 (0-5); Segmented Neutrophils 74 % (50-85); Total Cells Counted 100
[2016-10-05 06:26] LABS: Anisocytosis 2+; Hypochromasia 2+; Microcytosis 2+; Target Cells 1+
[2016-10-05 06:27] LABS: Platelet Estimate Decreased; Polychromasia Slight
[2016-10-05] MEDS: ALBUTEROL/IPRATROPIUM 3 ML NEB RESP TX SCH ×3 (07:04→23:25)
--- NOTE | 2016-10-05 07:24 | Cardiology Progress Note ---
Cardiology - PN: Subj Interval history: Cardiology note 45-year-old man admitted with retrograde failure and CHF. Patient patient does not follow commands and gets agitated when up to prevent. Telemetry shows sinus rhythm in the 90s Patient completed 12 hours of CPAP yesterday Blood pressure 110/75 O2 sat 97 on 40% FiO2 Regular rhythm no gallop Decreased breath sounds fairly clear Abdomen soft Trace leg edema No bleeding Lab data today White count 10.7 hemoglobin 10.0 hematocrit 29.7 Platelet count 52,000 Sodium 155 potassium 4.8 chloride 122 CO2 24 BUN 93 creatinine 4.20 Impression Nonischemic cardia myopathy EF 15% and patent coronaries PA pressure 55 by cardiac cath September 27, 2016 Acute systolic/diastolic heart failure Alcoholism Thrombocytopenia Microcytic anemia Respiratory failure Prolonged altered mental status probable hypoxic encephalopathy Acute on chronic renal failure creatinine 4.20 today Plan CPAP trials Tube feedings Coreg 3.125 mg twice daily Exam (Progress Note) - Constitutional Vitals: Period Temp Pulse Resp BP Sys/Ramirez Pulse Ox Last 24 Hr 98.5 F-100.1 F 92-109 14-104 86-144/59-86 95-100 Result/EKG - Labs CBC & BMP: 10/05/16 03:36 10/05/16 03:36 Labs: Laboratory Results - last 24 hr 10/02/16 10/04/16 10/04/16 06:51 11:27 17:57 WBC RBC Hgb Hct MCV MCH MCHC RDW Plt Count Neut % (Auto) Lymph % (Auto) Steele % (Auto) Eos % (Auto) Baso % (Auto) Neut # (Auto) Lymph # (Auto) Steele # (Auto) Eos # (Auto) Baso # (Auto) Total Counted Immature Gran % Nucleated RBC % Immature Gran # Segmented Neutrophils Band Neutrophils Lymphocytes Monocytes Eosinophils Nucleated RBCs Nucleated RBCs # Platelet Estimate Polychromasia Hypochromasia Anisocytosis Microcytosis Target Cells Sodium Potassium Chloride Carbon Dioxide Anion Gap BUN Creatinine GFR Calculation BUN/Creatinine Ratio Glucose POC Glucose 222 H 210 H Calculated Osmolality Calcium Magnesium Total Bilirubin AST ALT Alkaline Phosphatase Total Protein Albumin Globulin Albumin/Globulin Ratio Hep-Induced Plt Ab Nora < 0.075 Heparin-PF4 Ab Interp Negative Heparin-PF4 Ab Comment See comments 10/04/16 10/05/16 10/05/16 23:32 03:36 03:36 WBC 10.7 RBC 4.37 Hgb 10.0 L Hct 29.7 L MCV 68.0 L MCH 23 L MCHC 33.7 RDW 25.7 H Plt Count 52 L D Neut % (Auto) 69.5 Lymph % (Auto) 16.0 L Steele % (Auto) 10.9 Eos % (Auto) 1.1 Baso % (Auto) 0.3 Neut # (Auto) 7.4 Lymph # (Auto) 1.7 Steele # (Auto) 1.2 H Eos # (Auto) 0.1 Baso # (Auto) 0.0 Total Counted 100 Immature Gran % 2.2 Nucleated RBC % 1.2 Immature Gran # 0.23 Segmented Neutrophils 74 Band Neutrophils 3 Lymphocytes 13 L Monocytes 7 Eosinophils 3 Nucleated RBCs 2 Nucleated RBCs # 0.13 Platelet Estimate Decreased Polychromasia Slight Hypochromasia 2+ Anisocytosis 2+ Microcytosis 2+ Target Cells 1+ Sodium 155 H Potassium 4.8 Chloride 122 H Carbon Dioxide 24 Anion Gap 13.8 BUN 93 H D Creatinine 4.20 H GFR Calculation 20 BUN/Creatinine Ratio 22.00 H Glucose 188 H POC Glucose 196 H Calculated Osmolality 340.3 H Calcium 8.3 L Magnesium 3.2 H Total Bilirubin 2.40 H AST 257 H ALT 807 H Alkaline Phosphatase 299 H Total Protein 5.5 L Albumin 1.9 L Globulin 3.6 H Albumin/Globulin Ratio 0.5 L Hep-Induced Plt Ab Nora Heparin-PF4 Ab Interp Heparin-PF4 Ab Comment 10/05/16 05:44 WBC RBC Hgb Hct MCV MCH MCHC RDW Plt Count Neut % (Auto) Lymph % (Auto) Steele % (Auto) Eos % (Auto) Baso % (Auto) Neut # (Auto) Lymph # (Auto) Steele # (Auto) Eos # (Auto) Baso # (Auto) Total Counted Immature Gran % Nucleated RBC % Immature Gran # Segmented Neutrophils Band Neutrophils Lymphocytes Monocytes Eosinophils Nucleated RBCs Nucleated RBCs # Platelet Estimate Polychromasia Hypochromasia Anisocytosis Microcytosis Target Cells Sodium Potassium Chloride Carbon Dioxide Anion Gap BUN Creatinine GFR Calculation BUN/Creatinine Ratio Glucose POC Glucose 208 H Calculated Osmolality Calcium Magnesium Total Bilirubin AST ALT Alkaline Phosphatase Total Protein Albumin Globulin Albumin/Globulin Ratio Hep-Induced Plt Ab Nora Heparin-PF4 Ab Interp Heparin-PF4 Ab Comment
--- NOTE | 2016-10-05 08:18 | Pulmonology Progress Note ---
Pulmonary - PN: Subj Interval history: The patient is a 45-year-old black man that has SC disease. He came in with respiratory distress and acute pulmonary edema. He had to be intubated and has been on the ventilator. He was taken to the heart laboratory chemical assistant had a cardiac catheterization. His ejection fraction of 15% but normal coronaries. He is a little more stable on the ventilator now. His blood pressure is better and his oxygenation has improved. The patient's hiccups are better and he has been doing CPAP a little better. He still does not follow commands and gets agitated when he wakes up. He does have a fairly significant encephalopathy. He did do CPAP fairly well but gets agitated at times. His chest x-ray still shows mild bibasilar changes. Exam (Progress Note) - Constitutional Vitals: Period Temp Pulse Resp BP Sys/Ramirez Pulse Ox Last 24 Hr 98.5 F-100.1 F 92-109 14-104 86-144/59-86 95-100 Exam: General appearance: normal weight, no acute distress (Patient is not alert but is otherwise stable on the ventilator. He does move his extremities. He gets agitated when the sedation is turned off.) - Head Head exam: Present: normal inspection, normocephalic - Eye Eye exam: Present: EOMI. Absent: scleral icterus Pupils: Present: AUGIE - ENT ENT exam: Present: other (ET tube is in good position) - Neck Neck exam: Present: normal inspection. Absent: lymphadenopathy, thyromegaly - Respiratory Respiratory exam: Present: He has good breath sounds bilaterally and his lungs still sound reasonably clear. He has some crackles toward the bases. - Cardiovascular Cardiovascular exam: Present: regular rate and rhythm, systolic murmur (He does have a soft systolic murmur), tachycardia. Absent: gallop - GI/Abdominal GI/Abdominal exam: Present: normal bowel sounds, soft. He does not have any hiccups now. Absent: distended, organomegaly, tenderness - Extremities Exam Extremities exam: Absent: calf tenderness, edema, there are no signs of phlebitis. - Neurological Exam Neurological exam: Present: other (Patient is sedated on the ventilator at present. He will move his extremities off sedation but is not following commands very well.) - Skin Skin exam: Present: warm, dry Results - Labs CBC & BMP: 10/05/16 03:36 10/05/16 03:36 Assessment and Plan (1) Congestive heart failure Status: Acute Assessment and plan: The patient presents with acute shortness of breath and his x-ray is consistent with heart failure. He has a severe cardiomyopathy with ejection fraction of 15 %. He has diuresed fairly well and his heart failure does appear better. His oxygenation has been reasonable. Current Visit: Yes (2) Hemoglobin SC disease Status: Chronic Assessment and plan: Patient has a history of sickle cell disease and his hematocrit is 29.7 today after receiving some blood. Current Visit: Yes (3) Pneumonia Status: Acute Assessment and plan: The patient is being covered for pneumonia and his repeat cultures have been negative. He does have some very mild bibasilar atelectasis now. We will change his ventilator a little bit and see if he will do better. Will continue with weaning trials. Current Visit: Yes (4) Respiratory failure Status: Acute Assessment and plan: The patient is stable and will continue with CPAP trials. He fatigues last night on CPAP. He does have some mild atelectasis and will adjust his ventilator. He may need a bronchoscope. We will continue weaning. Current Visit: Yes Qualifiers: Chronicity: acute (5) Acute on chronic renal failure Status: Acute Assessment and plan: The patient's creatinine is down to 4.2 now. Current Visit: Yes
[2016-10-05] MEDS: FOLIC ACID INJ 1 MG in SYRINGE 1 EACH IV SCH ×2 (09:45→09:47)
[2016-10-05] MEDS: THIAMINE 200 MG/2 ML VIAL IV SCH (09:46)
[2016-10-05] MEDS: ISOSORBIDE MONONITRATE 30 MG TABLET PO SCH (09:48)
[2016-10-05] MEDS: CARVEDILOL 3.125 MG TABLET PO SCH ×2 (09:48→20:20)
[2016-10-05] MEDS: INSULIN GLARGINE 100 UNIT/ML SUBCUT SCH ×2 (09:48→20:21)
[2016-10-05] MEDS: LORazepam 2 MG/1 ML VIAL IV PRN ×2 (11:23→20:59)
--- NOTE | 2016-10-05 11:43 | Hospitalist Progress Note ---
Assessment and Plan (1) Hypernatremia Status: Acute Assessment and plan: 1)hypernatremia- increase free water to a total of 150/hr and recheck sodium at 4pm after 8 hours. It went up this morning. His UOP is brisk and he may be developing diabetes insipidus. 2)reps failure- doing CPAP. discussed with Dr Yost as above. 3)nutrition- tube feeds 4)pneumonia- on levaquin, likely stop soon. 5)acute systolic CHF- EF 15%- nonischemic probably form alcohol 6)JORDAN on CKD- creatinine down to 4.2, in recovery phase. Baseline is 1.3. 7)sickle cell disease, anemia, thrombocytopenia- platelets 30,000. transfuse for active bleeding or level under 20. 8)anoxic encephalopathy- this is result of his code and cause of his difficulty extubating. 9)shock liver- nearly resolved 10)DM- on glucerna, SSI 11)Full code. Family understand he may not make neuro improvements. Current Visit: Yes (2) Respiratory failure Status: Acute Current Visit: Yes Qualifiers: Chronicity: acute (3) Pneumonia Status: Acute Current Visit: Yes (4) Hemoglobin SC disease Status: Chronic Current Visit: Yes (5) Severe sepsis Status: Acute Current Visit: Yes (6) Community acquired pneumonia Status: Acute Current Visit: Yes (7) Acute combined systolic and diastolic congestive heart failure Status: Acute Current Visit: Yes (8) Acute on chronic renal failure Status: Acute Current Visit: Yes (9) Anoxic encephalopathy Status: Acute Current Visit: Yes (10) Elevated liver enzymes Status: Acute Current Visit: Yes (11) Diabetes Status: Acute Current Visit: Yes Hospitalist: Subjective Interval history: Mr Rodriguez is doing about the same. I called Dr Yost to talk about the likelihood of extubation v trach first and out plan is to stop diprivan and use ativan and morphine for sedation. He thinks if we can keep him more alert he may be able to extubate in a couple of days. Otherwise he will need a trach. Exam - Constitutional Vitals: Period Temp Pulse Resp BP Sys/Ramirez Pulse Ox Last 24 Hr 98.2 F-100.1 F 93-109 14-104 86-144/59-86 95-100 General appearance: normal weight, no acute distress (sedated) - Eye Eye exam: Present: EOMI. Absent: scleral icterus - Respiratory Respiratory exam: Present: clear to auscultation bilaterally - Cardiovascular Cardiovascular exam: Present: regular rate and rhythm - GI/Abdominal GI/Abdominal exam: Present: normal bowel sounds, soft. Absent: tenderness - Extremities Exam Extremities exam: Absent: edema Results - Labs CBC & BMP: 10/05/16 03:36 10/05/16 03:36
[2016-10-05] MEDS: MORPHINE 2 MG/1 ML SYRINGE IV PRN (12:45)
[2016-10-05 17:01] LABS: Osmolality,Calculated 344.2 MOS/KG (273-304); Potassium 4.9 MMOL/L (3.5-5.1)
[2016-10-06] MEDS: INSULIN REGULAR 100 UNIT/ML SUBCUT SCH ×4 (02:22→18:06)
[2016-10-06 04:56] LABS: Basophils % 0.4 % (0.0-0.8); Eosinophils # 0.1 10*3/uL (0.0-0.87); Eosinophils % 0.7 % (0.00-10.9); Hematocrit 29.1 VOL% (42.0-52.0); Hemoglobin 9.2 GM/DL (14.0-18.0); Immature Granulocytes % 1.9 %; Lymphocytes # 2.2 10*3/uL (1.4-4.0); Lymphocytes % 20.6 % (21.2-54.2); Mean Corpuscular HGB Conc 31.6 GM/DL (32-36); Mean Corpuscular Hemoglobin 22 PG (27-34); Mean Corpuscular Volume 69.1 FL (87-102); Monocytes # 1.2 10*3/uL (0.11-0.8); Neutrophils # 6.9 10*3/uL (1.4-7.4); Neutrophils % 65.4 % (38.7-73.9); Platelet Count 87 T/CUMM (130-400); Red Blood Count 4.21 MC/CUMM (3.8-5.5); Red Cell Distribution Width 25.2 % (9.3-17.3); White Blood Count 10.6 T/CUMM (4-12)
[2016-10-06 05:25] LABS: Band Neutrophils 5 % (0-10); Eosinophils 1 % (0-10); Lymphocytes 25 % (20-55); Myelocytes 2 %; Nucleated Red Blood Cells 1 (0-5); Segmented Neutrophils 64 % (50-85); Total Cells Counted 100
[2016-10-06 05:26] LABS: Anisocytosis 1+; Calcium 7.3 MG/DL (8.5-10.1); Hypochromasia 1+; Osmolality,Calculated 343.4 MOS/KG (273-304); Platelet Estimate Decreased; Potassium 4.7 MMOL/L (3.5-5.1); Target Cells 1+
[2016-10-06 05:29] LABS: Prealbumin 7.4 MG/DL (20-40)
[2016-10-06] MEDS: FAMOTIDINE 20 MG/2 ML VIAL IV SCH ×2 (06:11→18:06)
--- NOTE | 2016-10-06 06:49 | Cardiology Progress Note ---
Cardiology - PN: Subj Interval history: Cardiology note 45-year-old man admitted with respiratory failure and CHF. Did not do well on CPAP yesterday. Diprovan is off. Does not follow commands. Telemetry shows sinus rhythm in the high 90s. O2 sat 97 on 40% FiO2. Blood pressure 102/66. Regular rhythm no gallop Decreased breath sounds few rhonchi in the bases Abdomen soft benign Trace leg edema Lab data today White count 10.6 hemoglobin 9.2 hematocrit 29.1 platelet count 87,000 Sodium 154 potassium 4.7 chloride 122 CO2 22 BUN 102 creatinine 4.30 glucose 230 Impression nonischemic Cardiomyopathy EF 15% with patent coronaries PA pressure 55 by cardiac cath September 27, 2016 Acute systolic/diastolic heart failure Alcoholism Thrombocytopenia Microcytic anemia Sickle cell Respiratory failure Prolonged altered mental status probable hypoxic encephalopathy Acute on chronic renal failure. Creatinine today 4.30 Plan Tube feedings CPAP trials Coreg twice daily Labs in a.m. Exam (Progress Note) - Constitutional Vitals: Period Temp Pulse Resp BP Sys/Ramirez Pulse Ox Last 24 Hr 95.5 F-100.3 F 98-114 10-36 100-115/64-81 91-99 Result/EKG - Labs CBC & BMP: 10/06/16 04:19 10/06/16 04:19 Labs: Laboratory Results - last 24 hr 10/04/16 10/05/16 10/05/16 23:32 05:44 16:33 WBC RBC Hgb Hct MCV MCH MCHC RDW Plt Count Neut % (Auto) Lymph % (Auto) [place] % (Auto) Eos % (Auto) Baso % (Auto) Neut # (Auto) Lymph # (Auto) [place] # (Auto) Eos # (Auto) Baso # (Auto) Total Counted Immature Gran % Nucleated RBC % Immature Gran # Segmented Neutrophils Band Neutrophils Lymphocytes Monocytes Eosinophils Myelocytes Nucleated RBCs Nucleated RBCs # Platelet Estimate Hypochromasia Anisocytosis Target Cells Sodium 156 H Potassium 4.9 Chloride 123 H Carbon Dioxide 23 Anion Gap 14.9 BUN 98 H Creatinine 4.40 H GFR Calculation 19 BUN/Creatinine Ratio 22.00 H Glucose 190 H POC Glucose 196 H 208 H Calculated Osmolality 344.2 H Calcium 8.0 L Phosphorus Magnesium Prealbumin 10/06/16 10/06/16 10/06/16 04:19 04:19 04:19 WBC 10.6 RBC 4.21 Hgb 9.2 L Hct 29.1 L MCV 69.1 L MCH 22 L MCHC 31.6 L RDW 25.2 H Plt Count 87 L D Neut % (Auto) 65.4 Lymph % (Auto) 20.6 L [place] % (Auto) 11.0 Eos % (Auto) 0.7 Baso % (Auto) 0.4 Neut # (Auto) 6.9 Lymph # (Auto) 2.2 [place] # (Auto) 1.2 H Eos # (Auto) 0.1 Baso # (Auto) 0.0 Total Counted 100 Immature Gran % 1.9 Nucleated RBC % 0.9 Immature Gran # 0.20 Segmented Neutrophils 64 Band Neutrophils 5 Lymphocytes 25 Monocytes 3 Eosinophils 1 Myelocytes 2 Nucleated RBCs 1 Nucleated RBCs # 0.10 Platelet Estimate Decreased Hypochromasia 1+ Anisocytosis 1+ Target Cells 1+ Sodium 154 H Potassium 4.7 Chloride 122 H Carbon Dioxide 22 Anion Gap 14.7 BUN 102 H Creatinine 4.30 H GFR Calculation 19 BUN/Creatinine Ratio 23.00 H Glucose 230 H POC Glucose Calculated Osmolality 343.4 H Calcium 7.3 L Phosphorus 4.0 Magnesium 3.0 H Prealbumin 7.4 L
[2016-10-06] MEDS: ALBUTEROL/IPRATROPIUM 3 ML NEB RESP TX SCH ×4 (07:23→23:20)
--- NOTE | 2016-10-06 07:32 | XRay Report ---
Exam: XR chest 1V portable Date: 10/06/2016 4:00 AM Indication: Follow-up ventilator respiratory failure Comparison: None Technical: AP portable Findings: Tracheostomy tube and endotracheal tube external cardiac leads are present. Patchy infiltrate present in the right base slightly improved when compared to the previous exam. No obvious pneumothorax. Impression: 1. Stable appearance of the life support tubes 2. Patchy interstitial infiltrate the right base slightly improved compared to previous examination 3. Mild cardiac enlargement PROCEDURE INTERPRETED AT [facility] DEPARTMENT OF RADIOLOGY Final Report Signed by: Dr. Jon Narayan
--- NOTE | 2016-10-06 07:53 | Pulmonology Progress Note ---
Pulmonary - PN: Subj Interval history: The patient is a 45-year-old black man that has SC disease. He came in with respiratory distress and acute pulmonary edema. He had to be intubated and has been on the ventilator. He was taken to the heart catholic priest had a cardiac catheterization. His ejection fraction of 15% but normal coronaries. He is a little more stable on the ventilator now. His blood pressure is better and his oxygenation has improved. The patient has been on the ventilator for a little while and is still not waking up very well. We tried him on IMV and he did not tolerate that very well. He fatigues on CPAP trials. His chest x-ray does look better. He still has a significant encephalopathy. He probably will be better off with a trach. Exam (Progress Note) - Constitutional Vitals: Period Temp Pulse Resp BP Sys/Ramirez Pulse Ox Last 24 Hr 95.5 F-100.3 F 83-114 10-36 100-115/64-81 91-99 Exam: General appearance: normal weight, no acute distress (Patient is not alert but is otherwise stable on the ventilator. He does move his extremities. He gets agitated when the sedation is turned off.) - Head Head exam: Present: normal inspection, normocephalic - Eye Eye exam: Present: EOMI. Absent: scleral icterus Pupils: Present: AUGIE - ENT ENT exam: Present: other (ET tube is in good position) - Neck Neck exam: Present: normal inspection. Absent: lymphadenopathy, thyromegaly - Respiratory Respiratory exam: Present: He has good breath sounds bilaterally and his lungs still sound reasonably clear. He is moving air well without any wheezing. - Cardiovascular Cardiovascular exam: Present: regular rate and rhythm, systolic murmur (He does have a soft systolic murmur), tachycardia. Absent: gallop - GI/Abdominal GI/Abdominal exam: Present: normal bowel sounds, soft. He does not have any hiccups now. Absent: distended, organomegaly, tenderness - Extremities Exam Extremities exam: Absent: calf tenderness, edema, there are no signs of phlebitis. - Neurological Exam Neurological exam: Present: other (Patient is sedated on the ventilator at present. He will move his extremities off sedation but is not following commands very well.) - Skin Skin exam: Present: warm, dry Results - Labs CBC & BMP: 10/06/16 04:19 10/06/16 04:19 - Diagnostic Findings Procedure: Chest x-ray: image reviewed by me, report reviewed by me (Chest x- ray is better with less infiltrates in the bases.) Assessment and Plan (1) Congestive heart failure Status: Acute Assessment and plan: The patient presents with acute shortness of breath and his x-ray is consistent with heart failure. He has a severe cardiomyopathy with ejection fraction of 15 %. He has diuresed fairly well and his heart failure does appear better. His oxygenation has been reasonable. He still is not waking up very well and has not been doing weaning trials very well. Current Visit: Yes (2) Hemoglobin SC disease Status: Chronic Assessment and plan: Patient has a history of sickle cell disease and his hematocrit is 29.1 today. Current Visit: Yes (3) Pneumonia Status: Acute Assessment and plan: The patient is being covered for pneumonia and his repeat cultures have been negative. His chest x-ray looks better today. His cultures are still negative lately. Overall he has no signs of definite infection. Current Visit: Yes (4) Respiratory failure Status: Acute Assessment and plan: The patient is stable but he did not tolerate IMV very well. He has not been very alert and he gets agitated on CPAP. He probably will need a tracheostomy tube. Current Visit: Yes Qualifiers: Chronicity: acute (5) Acute on chronic renal failure Status: Acute Assessment and plan: The patient's creatinine is down to 4.3 now. Current Visit: Yes
[2016-10-06] MEDS: INSULIN GLARGINE 100 UNIT/ML SUBCUT SCH ×2 (09:00→21:10)
[2016-10-06] MEDS: THIAMINE 200 MG/2 ML VIAL IV SCH (09:00)
[2016-10-06] MEDS: CARVEDILOL 3.125 MG TABLET PO SCH ×2 (09:01→21:10)
[2016-10-06] MEDS: ISOSORBIDE MONONITRATE 30 MG TABLET PO SCH (09:01)
--- NOTE | 2016-10-06 09:21 | Neurology Progress Note ---
Neurology - PN : Subjective Interval history: Mr. Rodriguez seems to be doing about the same. No changes reported. Is still unresponsive but would move spontaneously extremities. Not waking up. Not following any commands. No purposeful movements Exam (Progress Note) - Constitutional Vitals: Period Temp Pulse Resp BP Sys/Ramirez Pulse Ox Last 24 Hr 95.5 F-100.3 F 83-114 10-36 100-115/64-81 91-98 Exam: GENERAL: Patient is in no acute distress. NECK: Neck is supple. There is no JVD. No carotid bruits present. No thyroid masses. CVS: First and second heart sounds are normal. There is no S3 present. Regular rate and rhythm. RESPIRATORY: Lungs are clear to auscultation without any rales or rhonchi. ABDOMEN: Soft and non-tender. Bowel sounds are present. There is no hepatosplenomegaly. EXT: There is no palpable edema. Peripheral pulses are present. Skin: No rashes Central Nervous system: General: On vent Speech: None Comprehension: None Facial expressions: Normal Cranial Nerves: Pupils are small but reactive. He does have questionable left gaze preference. Doll's head I moves are positive Motor: Bulk and Tone is normal. Strength cannot be assessed Sensory: Cannot be assessed Reflexes: 1+ and symmetrical Cerebellar function: Cannot be assessed Toes: Equivocal Gait: Cannot be assessed Results - Labs CBC & BMP: 10/06/16 04:19 10/06/16 04:19 Assessment and Plan (1) Altered mental status Status: Acute Assessment and plan: Likely due to anoxic/hypoxic encephalopathy Continue current supportive management Continue IV Keppra precautionary Agree with trach and PEG followed by LTAC placement Sign off please call as needed Current Visit: Yes
[2016-10-06] MEDS: FOLIC ACID INJ 1 MG in SYRINGE 1 EACH IV SCH (10:09)
[2016-10-06] MEDS: LEVOFLOXACIN INJ 500 MG in PREMIX 1 EACH IV SCH (10:43)
--- NOTE | 2016-10-06 11:26 | Hospitalist Progress Note ---
Assessment and Plan (1) Hypernatremia Status: Acute Assessment and plan: 1)hypernatremia- improving, continue free water in tube feeds at 150/hr. 2)reps failure- will get trach as it appears he will require prolonged wean. 3)nutrition- tube feeds 4)pneumonia- resolved. stop levaquin. BCx from earlier in course was contaminant 5)acute systolic CHF- EF 15%- nonischemic probably form alcohol 6)JORDAN on CKD- creatinine down to 4.2, in recovery phase. Baseline is 1.3. 7)sickle cell disease, anemia, thrombocytopenia- platelets 30,000. transfuse for active bleeding or level under 20. 8)anoxic encephalopathy- this is result of his code and cause of his difficulty extubating. 9)shock liver- resolved 10)DM- on glucerna, SSI 11)Full code. Family understand he may not make neuro improvements. Current Visit: Yes (2) Respiratory failure Status: Acute Current Visit: Yes Qualifiers: Chronicity: acute (3) Pneumonia Status: Acute Current Visit: Yes (4) Hemoglobin SC disease Status: Chronic Current Visit: Yes (5) Severe sepsis Status: Acute Current Visit: Yes (6) Community acquired pneumonia Status: Acute Current Visit: Yes (7) Acute combined systolic and diastolic congestive heart failure Status: Acute Current Visit: Yes (8) Acute on chronic renal failure Status: Acute Current Visit: Yes (9) Anoxic encephalopathy Status: Acute Current Visit: Yes (10) Elevated liver enzymes Status: Acute Current Visit: Yes (11) Diabetes Status: Acute Current Visit: Yes Hospitalist: Subjective Interval history: Mr Rodriguez is stable on vent. His sodium is down to 154 this morning after increasing the free water. Plans being made now for trach and PEG after he did not do well with CPAP yesterday. Exam - Constitutional Vitals: Period Temp Pulse Resp BP Sys/Ramirez Pulse Ox Last 24 Hr 95.5 F-100.3 F 83-114 10-36 100-115/64-81 91-98 General appearance: normal weight, no acute distress - Head Head exam: Present: normocephalic, atraumatic - Eye Eye exam: Present: EOMI. Absent: scleral icterus - Respiratory Respiratory exam: Present: clear to auscultation bilaterally - Cardiovascular Cardiovascular exam: Present: regular rate and rhythm - GI/Abdominal GI/Abdominal exam: Present: normal bowel sounds, soft. Absent: tenderness - Extremities Exam Extremities exam: Absent: edema - Neurological Exam Neurological exam: Present: other (off Diprivan, intermittent morphine rarely, unresponsive except to deep pain.) Results - Labs CBC & BMP: 10/06/16 04:19 10/06/16 04:19 Lab Results: I have reviewed the past 24 hour labs
--- NOTE | 2016-10-06 12:49 | Consultation ---
Assessment and Plan - Time spent with patient Time spent with patient: Less than 30 minutes (1) Ventilator dependent Status: Acute Assessment and plan: I recommend tracheostomy tube placement to be performed tomorrow in the OR will place this on the schedule we will hold his anticoagulant and tube feeds. Thank you very much for this consultation I will follow this patient intermittently throughout his stay. Current Visit: Yes (2) Respiratory failure Status: Acute Current Visit: Yes Qualifiers: Chronicity: acute (3) Congestive heart failure Status: Acute Current Visit: Yes (4) Sickle cell crisis Status: Acute Current Visit: Yes (5) Thrombocytopenia Status: Acute Current Visit: Yes History of Present Illness - Data of Consult Patient: new to practice Consult date: 10/06/16 Requesting Physician: Garret Yost - Consult Narrative Reason for consult: Tracheostomy History of present illness: Mr. Rodriguez is a 45 year old male with ventilator dependent respiratory failure for greater than 10 days that has been worsening and has failed to wean on multiple attempts. During his stay he is a worsening of condition and has a ejection fraction of apparently 15% with congestive heart failure. With his failure to progress off the ventilator and failure to quickly progress from his multiple medical comorbidities we are looking at a prolonged intubation and ENT is consulted for tracheostomy tube placement. CC: Lanie Marcus MD - Home Medications and Allergies Home Medications: Home Medications Medication Instructions Recorded Confirmed Type FLUoxetine [PROzac] 40 mg PO DAILY 09/27/16 09/27/16 History OLANZapine [Olanzapine] 20 mg PO DAILY 09/27/16 09/27/16 History amLODIPine [Norvasc] 10 mg PO DAILY 09/27/16 09/27/16 History Allergies/Adverse Reactions: Allergies Allergy/AdvReac Type Severity Reaction Status Date / Time tramadol AdvReac SHORTNESS Verified 09/27/16 01:07 OF BREATH ROS unobtainable: due to endotracheal tube Medical,Surgical,& Family Hx - Medical History Cardio: History of: CHF, Hypertension Psychological: History of: Anxiety Disorders Hematology: History of: Sickle Cell Disease (Hemoglobin SC) - Family History Family History: Reports;: Family Heart Disease (Father at 46 yrs of age) - Social History Smoking Status: Current every day smoker Frequency of Alcohol Use: Occasionally Type of Drug Use: Marijuana Exam - Constitutional Vitals: Period Temp Pulse Resp BP Sys/Ramirez Pulse Ox Last 24 Hr 95.5 F-100.3 F 83-112 10-27 100-115/64-81 93-98 General appearance: normal weight, other (Currently intubated and sedated) - Head Head exam: Present: normal inspection, normocephalic - Eye Eye exam: Present: other (Unable to assess because he is intubated and sedated) - ENT ENT exam: Present: normal exam, normal external ear exam, normal oropharynx, other (Suboptimal exam secondary to nasogastric endotracheal tube placement obscuring view no gross lesions or masses) - Neck Neck exam: Present: normal inspection (Midline trachea no grossly high riding or midline vasculature) - Respiratory Respiratory exam: Present: other (Intubated and sedated on the ventilator) - GI/Abdominal GI/Abdominal exam: Present: soft - Extremities Exam Extremities exam: Present: normal inspection - Neurological Exam Neurological exam: Present: other (Unable to assess because his sedated on the ventilator) - Psychiatric Psychiatric exam: Present: other (Unable to assess because he sedated on the ventilator) - Skin Skin exam: Present: normal color, warm Results - Labs CBC & BMP: 10/06/16 04:19 10/06/16 04:19 Lab Results: I have reviewed the past 24 hour labs (His platelets have been lower and this is about as high as they have been throughout his stay so we will not necessarily wait for this to resolve.)
[2016-10-06] MEDS: LORazepam 2 MG/1 ML VIAL IV PRN (19:32)
[2016-10-06] MEDS: ACETAMINOPHEN 325 MG/10.15 ML UDCUP PO PRN (21:07)
[2016-10-07] MEDS ORDERED: IBUPROFEN 100 MG/5 ML UDCUP PO ONE (00:10)
[2016-10-07] MEDS: INSULIN REGULAR 100 UNIT/ML SUBCUT SCH ×4 (00:26→17:42)
[2016-10-07] MEDS: SODIUM CHLORIDE 0.45% 1,000 ML IV SCH ×3 (00:29→20:28)
[2016-10-07 01:17] LABS: Basophils % 0.3 % (0.0-0.8); Eosinophils # 0.1 10*3/uL (0.0-0.87); Eosinophils % 0.4 % (0.00-10.9); Hematocrit 32.5 VOL% (42.0-52.0); Hemoglobin 10.6 GM/DL (14.0-18.0); Immature Granulocytes % 1.2 %; Immature Granulocytes Absolute 0.15 #; Lymphocytes # 2.6 10*3/uL (1.4-4.0); Lymphocytes % 20.1 % (21.2-54.2); Mean Corpuscular HGB Conc 32.6 GM/DL (32-36); Mean Corpuscular Hemoglobin 22 PG (27-34); Mean Corpuscular Volume 68.6 FL (87-102); Monocytes # 1.5 10*3/uL (0.11-0.8); Monocytes % 11.9 % (1.7-12.7); NRBC # 0.11 10*3/uL; Neutrophils # 8.6 10*3/uL (1.4-7.4); Neutrophils % 66.1 % (38.7-73.9); Red Blood Count 4.74 MC/CUMM (3.8-5.5); Red Cell Distribution Width 25.4 % (9.3-17.3); White Blood Count 12.9 T/CUMM (4-12)
[2016-10-07 01:20] LABS: Platelet Count 120 T/CUMM (130-400)
[2016-10-07 01:24] LABS: Apearance,Urine Slightly Hazy (Clear); Bilirubin,Urine Negative (Negative); Blood, Urine Large mg/dL (Negative); Glucose,Urine (UA) Negative (Negative); Ketones,Urine Negative (Negative); Mucus,Urine Occasional /LPF (Occasional); Nitrite,Urine Negative (Negative); Protein,Urine 30 MG/DL; RBC,Urine 2 /HPF (0-4); Urine Color Yellow (Yellow); Urine Specific Gravity 1.012 (1.001-1.035); WBC,Urine <1 /HPF (0-6)
[2016-10-07 01:47] LABS: Calcium 7.8 MG/DL (8.5-10.1); Magnesium 2.9 MG/DL (1.8-2.4); Osmolality,Calculated 337.9 MOS/KG (273-304); Potassium 4.8 MMOL/L (3.5-5.1)
[2016-10-07 02:00] LABS: Band Neutrophils 2 % (0-10); Lymphocytes 22 % (20-55); Metamyelocytes 1 %; Total Cells Counted 100
[2016-10-07 02:04] LABS: Platelet Estimate Adequate; Target Cells 2+
[2016-10-07 02:06] LABS: Anisocytosis 1+; Microcytosis 1+; Spherocytes Few
[2016-10-07 02:08] LABS: Segmented Neutrophils 70 % (50-85)
--- NOTE | 2016-10-07 06:20 | XRay Report ---
Exam: XR chest 1V portable Date: 10/07/2016 4:00 AM Indication: Follow-up ventilator respiratory failure Comparison: 10/06/2016 Findings:: Endotracheal tube at the level aortic knob just below the mid clavicle. Nasogastric tube is in the stomach. Patchy infiltrate in the right infrahilar region persists. Mild cardiomegaly. No pneumothorax. External cardiac leads are present. Impression: 1. Stable appearance of life support tubing 2. Persistent right basilar infrahilar infiltrate 3. Mild cardiomegaly PROCEDURE INTERPRETED AT [facility] DEPARTMENT OF RADIOLOGY Final Report Signed by: Dr. Jon Narayan
[2016-10-07] MEDS: FAMOTIDINE 20 MG/2 ML VIAL IV SCH (06:27)
--- NOTE | 2016-10-07 07:09 | Cardiology Progress Note ---
Cardiology - PN: Subj Interval history: Cardiology note 45-year-old man admitted with respiratory failure and CHF. Remains unresponsive. On no sedation. Telemetry shows sinus rhythm in the 80s. O2 sat 96% on 40% FiO2. Blood pressure 109/64. Regular rhythm no murmur Decreased breath sounds but fairly clear Abdomen soft benign Trace leg edema Lab data White count 12.9 hemoglobin 10.6 hematocrit 32.5 platelet count 120,000 Sodium 151 potassium 4.8 chloride 119 CO2 21 BUN 99 creatinine 4.30 Glucose 241 magnesium 2.7 Impression Nonischemic cardiomyopathy EF 15% with patent coronaries and PA pressure 55 by cardiac cath September 27, 2016 Acute systolic/diastolic heart failure Alcoholism Thrombocytopenia Microcytic anemia Sickle cell prolonged respiratory failure Acute on chronic renal failure, creatinine today 4.30 Prolonged altered mental status probable hypoxic encephalopathy Plan Tracheostomy today IV Keppra Tube feedings Coreg twice daily Exam (Progress Note) - Constitutional Vitals: Period Temp Pulse Resp BP Sys/Ramirez Pulse Ox Last 24 Hr 99.0 F-104.3 F 89-121 13-109 91-118/56-86 89-98 Result/EKG - Labs CBC & BMP: 10/07/16 00:50 10/07/16 00:50 Labs: Laboratory Results - last 24 hr 10/05/16 10/05/16 10/06/16 11:04 20:16 02:20 WBC RBC Hgb Hct MCV MCH MCHC RDW Plt Count Neut % (Auto) Lymph % (Auto) Charles % (Auto) Eos % (Auto) Baso % (Auto) Neut # (Auto) Lymph # (Auto) Charles # (Auto) Eos # (Auto) Baso # (Auto) Total Counted Immature Gran % Nucleated RBC % Immature Gran # Segmented Neutrophils Band Neutrophils Lymphocytes Monocytes Metamyelocytes Nucleated RBCs # Platelet Estimate Anisocytosis Microcytosis Spherocytes Target Cells Sodium Potassium Chloride Carbon Dioxide Anion Gap BUN Creatinine GFR Calculation BUN/Creatinine Ratio Glucose POC Glucose 150 H 184 H 253 H Calculated Osmolality Calcium Magnesium Urine Color Urine Appearance Urine pH Ur Specific Ames Urine Protein Urine Glucose (UA) Urine Ketones Urine Blood Urine Nitrate Urine Bilirubin Urine Urobilinogen Urine Leukocytes Urine RBC Urine WBC Urine Mucus Ur Culture Indicated? 10/06/16 10/06/16 10/06/16 05:43 11:13 12:37 WBC RBC Hgb Hct MCV MCH MCHC RDW Plt Count Neut % (Auto) Lymph % (Auto) Charles % (Auto) Eos % (Auto) Baso % (Auto) Neut # (Auto) Lymph # (Auto) Charles # (Auto) Eos # (Auto) Baso # (Auto) Total Counted Immature Gran % Nucleated RBC % Immature Gran # Segmented Neutrophils Band Neutrophils Lymphocytes Monocytes Metamyelocytes Nucleated RBCs # Platelet Estimate Anisocytosis Microcytosis Spherocytes Target Cells Sodium Potassium Chloride Carbon Dioxide Anion Gap BUN Creatinine GFR Calculation BUN/Creatinine Ratio Glucose POC Glucose 247 H 219 H 227 H Calculated Osmolality Calcium Magnesium Urine Color Urine Appearance Urine pH Ur Specific Ames Urine Protein Urine Glucose (UA) Urine Ketones Urine Blood Urine Nitrate Urine Bilirubin Urine Urobilinogen Urine Leukocytes Urine RBC Urine WBC Urine Mucus Ur Culture Indicated? 10/06/16 10/06/16 10/07/16 17:55 20:32 00:19 WBC RBC Hgb Hct MCV MCH MCHC RDW Plt Count Neut % (Auto) Lymph % (Auto) Charles % (Auto) Eos % (Auto) Baso % (Auto) Neut # (Auto) Lymph # (Auto) Charles # (Auto) Eos # (Auto) Baso # (Auto) Total Counted Immature Gran % Nucleated RBC % Immature Gran # Segmented Neutrophils Band Neutrophils Lymphocytes Monocytes Metamyelocytes Nucleated RBCs # Platelet Estimate Anisocytosis Microcytosis Spherocytes Target Cells Sodium Potassium Chloride Carbon Dioxide Anion Gap BUN Creatinine GFR Calculation BUN/Creatinine Ratio Glucose POC Glucose 233 H 246 H 249 H Calculated Osmolality Calcium Magnesium Urine Color Urine Appearance Urine pH Ur Specific Ames Urine Protein Urine Glucose (UA) Urine Ketones Urine Blood Urine Nitrate Urine Bilirubin Urine Urobilinogen Urine Leukocytes Urine RBC Urine WBC Urine Mucus Ur Culture Indicated? 10/07/16 10/07/16 10/07/16 00:50 00:50 01:17 WBC 12.9 H RBC 4.74 Hgb 10.6 L Hct 32.5 L MCV 68.6 L MCH 22 L MCHC 32.6 RDW 25.4 H Plt Count 120 L D Neut % (Auto) 66.1 Lymph % (Auto) 20.1 L Charles % (Auto) 11.9 Eos % (Auto) 0.4 Baso % (Auto) 0.3 Neut # (Auto) 8.6 H Lymph # (Auto) 2.6 Charles # (Auto) 1.5 H Eos # (Auto) 0.1 Baso # (Auto) 0.0 Total Counted 100 Immature Gran % 1.2 Nucleated RBC % 0.9 Immature Gran # 0.15 Segmented Neutrophils 70 Band Neutrophils 2 Lymphocytes 22 Monocytes 5 Metamyelocytes 1 Nucleated RBCs # 0.11 Platelet Estimate Adequate Anisocytosis 1+ Microcytosis 1+ Spherocytes Few Target Cells 2+ Sodium 151 H Potassium 4.8 Chloride 119 H Carbon Dioxide 21 Anion Gap 15.8 H BUN 99 H Creatinine 4.30 H GFR Calculation 19 BUN/Creatinine Ratio 23.00 H Glucose 241 H POC Glucose Calculated Osmolality 337.9 H Calcium 7.8 L Magnesium 2.9 H Urine Color Yellow Urine Appearance Slightly hazy Urine pH 5.0 Ur Specific Ames 1.012 Urine Protein 30 Urine Glucose (UA) Negative Urine Ketones Negative Urine Blood Large Urine Nitrate Negative Urine Bilirubin Negative Urine Urobilinogen 4.0 H Urine Leukocytes Negative Urine RBC 2 Urine WBC <1 Urine Mucus Occasional Ur Culture Indicated? Ordered separately 10/07/16 06:20 WBC RBC Hgb Hct MCV MCH MCHC RDW Plt Count Neut % (Auto) Lymph % (Auto) Charles % (Auto) Eos % (Auto) Baso % (Auto) Neut # (Auto) Lymph # (Auto) Charles # (Auto) Eos # (Auto) Baso # (Auto) Total Counted Immature Gran % Nucleated RBC % Immature Gran # Segmented Neutrophils Band Neutrophils Lymphocytes Monocytes Metamyelocytes Nucleated RBCs # Platelet Estimate Anisocytosis Microcytosis Spherocytes Target Cells Sodium Potassium Chloride Carbon Dioxide Anion Gap BUN Creatinine GFR Calculation BUN/Creatinine Ratio Glucose POC Glucose 212 H Calculated Osmolality Calcium Magnesium Urine Color Urine Appearance Urine pH Ur Specific Ames Urine Protein Urine Glucose (UA) Urine Ketones Urine Blood Urine Nitrate Urine Bilirubin Urine Urobilinogen Urine Leukocytes Urine RBC Urine WBC Urine Mucus Ur Culture Indicated?
[2016-10-07] MEDS: ALBUTEROL/IPRATROPIUM 3 ML NEB RESP TX SCH ×3 (07:55→23:32)
--- NOTE | 2016-10-07 08:32 | Pulmonology Progress Note ---
Pulmonary - PN: Subj Interval history: The patient is a 45-year-old black man that has SC disease. He came in with respiratory distress and acute pulmonary edema. He had to be intubated and has been on the ventilator. He was taken to the heart lab pack chemist had a cardiac catheterization. His ejection fraction of 15% but normal coronaries. He is a little more stable on the ventilator now. His blood pressure is better and his oxygenation has improved. The patient has been on the ventilator for a little while and is still not waking up very well. He continues to have a hypoxic encephalopathy and is still basically unresponsive. He is not able to do CPAP at all really. He will get a tracheostomy tube today. Exam (Progress Note) - Constitutional Vitals: Period Temp Pulse Resp BP Sys/Ramirez Pulse Ox Last 24 Hr 99.3 F-104.3 F 86-121 13-109 78-118/52-86 93-100 Exam: General appearance: normal weight, no acute distress (Patient is not alert but is otherwise stable on the ventilator. He is not doing CPAP very well.) - Head Head exam: Present: normal inspection, normocephalic - Eye Eye exam: Present: EOMI. Absent: scleral icterus Pupils: Present: AUGIE - ENT ENT exam: Present: other (ET tube is in good position) - Neck Neck exam: Present: normal inspection. Absent: lymphadenopathy, thyromegaly - Respiratory Respiratory exam: Present: He has good breath sounds bilaterally and his lungs still sound reasonably clear. He is moving air well without any wheezing. - Cardiovascular Cardiovascular exam: Present: regular rate and rhythm, systolic murmur (He does have a soft systolic murmur), tachycardia. Absent: gallop - GI/Abdominal GI/Abdominal exam: Present: normal bowel sounds, soft. He does not have any hiccups now. Absent: distended, organomegaly, tenderness - Extremities Exam Extremities exam: Absent: calf tenderness, edema, there are no signs of phlebitis. - Neurological Exam Neurological exam: Present: other (Patient is poorly responsive off of sedation. ) - Skin Skin exam: Present: warm, dry Results - Labs CBC & BMP: 10/07/16 00:50 10/07/16 00:50 - Diagnostic Findings Procedure: Chest x-ray: image reviewed by me, report reviewed by me (Chest x- ray shows cardiomegaly but the lung singh are now clear.) Assessment and Plan (1) Congestive heart failure Status: Acute Assessment and plan: The patient presents with acute shortness of breath and his x-ray is consistent with heart failure. He has a severe cardiomyopathy with ejection fraction of 15 %. He has diuresed fairly well and his heart failure does appear better. His oxygenation has been reasonable. He still is not waking up very well and has not been doing weaning trials very well. At present his congestive heart failure has resolved. Current Visit: Yes (2) Hemoglobin SC disease Status: Chronic Assessment and plan: Patient has a history of sickle cell disease and his hematocrit is 32.5 today. Current Visit: Yes (3) Pneumonia Status: Acute Assessment and plan: The patient is being covered for pneumonia and his repeat cultures have been negative. His chest x-ray looks better today. His cultures are still negative lately. Overall he has no signs of definite infection. Current Visit: Yes (4) Respiratory failure Status: Acute Assessment and plan: The patient is stable but he did not tolerate IMV very well. He has not been very alert and he gets agitated on CPAP. He will go for a tracheostomy tube today. Current Visit: Yes Qualifiers: Chronicity: acute (5) Acute on chronic renal failure Status: Acute Assessment and plan: The patient's creatinine is down to 4.3 now. Current Visit: Yes (6) Encephalopathy Status: Acute Assessment and plan: The patient is not waking up very well and looks like he probably has had a hypoxic encephalopathy. Current Visit: Yes
[2016-10-07] MEDS ORDERED: MICROFIBRILLAR COLLAGEN POWDER 1 GM CAN TOP ONE ×2 (10:14→10:50)
[2016-10-07] MEDS ORDERED: LIDOCAINE 1%/EPI INJ 20 ML VIAL ONE (10:15)
[2016-10-07] MEDS ORDERED: THROMBIN TOPICAL (RECOMBINANT) 5,000 UNIT VIAL TOP ONE ×2 (10:15→10:50)
--- NOTE | 2016-10-07 10:20 | Hospitalist Progress Note ---
Assessment and Plan (1) Hypernatremia Status: Acute Assessment and plan: 1)hypernatremia- improving, continue free water in tube feeds at 150/hr. 2)reps failure- will get trach today as he will have a prolonged wean from vent. 3)nutrition- tube feeds 4)pneumonia- resolved. stop levaquin. BCx from earlier in course was contaminant 5)acute systolic CHF- EF 15%- nonischemic probably form alcohol 6)JORDAN on CKD- creatinine down to 4.2, in recovery phase. Baseline is 1.3. 7)sickle cell disease, anemia, thrombocytopenia- platelets recovering, now 120, 000. H&H .5 8)anoxic encephalopathy- this is result of his code and cause of his difficulty extubating. 9)shock liver- resolved 10)DM- on glucerna, SSI 11)Full code. Family understand he is unlikely to make neuro improvements. Current Visit: Yes (2) Respiratory failure Status: Acute Current Visit: Yes Qualifiers: Chronicity: acute (3) Pneumonia Status: Acute Current Visit: Yes (4) Hemoglobin SC disease Status: Chronic Current Visit: Yes (5) Severe sepsis Status: Acute Current Visit: Yes (6) Community acquired pneumonia Status: Acute Current Visit: Yes (7) Acute combined systolic and diastolic congestive heart failure Status: Acute Current Visit: Yes (8) Acute on chronic renal failure Status: Acute Current Visit: Yes (9) Anoxic encephalopathy Status: Acute Current Visit: Yes (10) Elevated liver enzymes Status: Acute Current Visit: Yes (11) Diabetes Status: Acute Current Visit: Yes Hospitalist: Subjective Interval history: No events overnight. For tracheostomy tube today. Needs PEG too. Exam - Constitutional Vitals: Period Temp Pulse Resp BP Sys/Ramirez Pulse Ox Last 24 Hr 99.3 F-104.3 F 86-121 11-109 78-118/52-86 93-100 General appearance: normal weight, no acute distress (unresponsive on vent, intermittent morphine) - Eye Eye exam: Present: EOMI. Absent: scleral icterus - Respiratory Respiratory exam: Present: clear to auscultation bilaterally - Cardiovascular Cardiovascular exam: Present: regular rate and rhythm - GI/Abdominal GI/Abdominal exam: Present: normal bowel sounds, soft. Absent: tenderness - Extremities Exam Extremities exam: Absent: edema Results - Labs CBC & BMP: 10/07/16 00:50 06/30/17 00:50 Lab Results: I have reviewed the past 24 hour labs
[2016-10-07] MEDS ORDERED: VECURONIUM 10 MG VIAL IV ONE (11:02)
[2016-10-07] MEDS ORDERED: MIDAZOLAM 2 MG/2 ML VIAL ONE (12:18)
[2016-10-07] MEDS ORDERED: SEVOFLURANE 1 UNIT/15 MINUTE INH ONE (12:18)
--- NOTE | 2016-10-07 14:37 | Operative Note ---
Date of procedure: 10/07/16 Procedure: PRE-DIAGNOSES: Dependence on respirator/ventilator, Ventilator status Respiratory failure, Chronic; with hypoxia POST-DIAGNOSES: Dependence on respirator/ventilator, Ventilator status Respiratory failure, Chronic; with hypoxia PROCEDURES: Tracheostomy Type: Planned Sterile Technique(s): Large Sterile Drape; Gloves; Cap; Gown; Small Drape; Mask/Eye Shield Prep: Chlorhexidine Securing Method: Suture FINDINGS: Midline trach in normal anatomical position TECHNIQUE: After appropriate informed consent was signed and placed on the chart patient was taken back to the operative theater where timeout was performed to verify the correct patient with correct procedure. Patient was transferred to the operative table where anesthesia performed general anesthesia with endotracheal tube that was already in place from transfer unit. Patient was sterilely prepped and draped. The patient's trachea was palpated and a midline planned incision was drawn out and infiltrated with a total of 5 mL of 1% lidocaine with 1:100,000 epinephrine. Bovie cautery on a setting of 20 spray was used to cut and coagulate midline in a vertical direction in the preplanned incision through the subcutaneous fat and dissecting the strap muscles in the midline. The incision was then held open with [employer] retractors and digital palpation was used to confirm the trachea. A cricoid hook was placed and used to hold the trachea midline while the intersection between the second and third tracheal rings were prepared for incision. A 15 blade scalpel was used to incise the between the second and third tracheal rings. A tracheal dilator was used to dilate the trachea. The patient's endotracheal tube was slowly removed under direct visualization and a #8 cuffed Shiley tracheostomy tube with an inner cannula was placed under direct visualization. The tracheostomy tube was sutured in place with 4 quadrant 2-0 nylon sutures in a simple interrupted fashion. A drain sponge was placed around the trach tube. FloSeal was injected into the tracheostomy site to provide any additional hemostasis. The trach was then held in place with a trach tie. An endoscope was used to visualize the trachea through the tracheostomy. This confirmed good placement of the trach with the iwona approximately 1-2 cm inferior to the end of the trach. The trach did not blind end in to the tracheal sidewall there were no lesions lacerations and no evidence of active hemorrhage. All instrumentation was removed and the patient was then transferred back to. Anesthesia: BARBARAA Surgeon / Physician: Anupam Garcia Estimated blood loss: minimal Specimens: none sent Condition: stable Disposition: PACU Results - Labs CBC & BMP: 10/07/16 00:50 10/07/16 00:50 Discharge Plan - Discharge Medications No Action amLODIPine [Norvasc] 10 mg PO DAILY FLUoxetine [PROzac] 40 mg PO DAILY OLANZapine [Olanzapine] 20 mg PO DAILY - Follow Up or Referral - Forms/Instructions
[2016-10-07] MEDS: CARVEDILOL 3.125 MG TABLET PO SCH ×2 (17:37→21:47)
[2016-10-07] MEDS: FOLIC ACID INJ 1 MG in SYRINGE 1 EACH IV SCH (17:38)
[2016-10-07] MEDS: ISOSORBIDE MONONITRATE 30 MG TABLET PO SCH (17:38)
[2016-10-07] MEDS: INSULIN GLARGINE 100 UNIT/ML SUBCUT SCH ×2 (17:38→21:58)
[2016-10-07] MEDS: THIAMINE 200 MG/2 ML VIAL IV SCH (17:39)
[2016-10-08] MEDS: INSULIN REGULAR 100 UNIT/ML SUBCUT SCH ×4 (00:31→19:06)
[2016-10-08 03:56] LABS: Basophils % 0.1 % (0.0-0.8); Eosinophils # 0.1 10*3/uL (0.0-0.87); Eosinophils % 1.2 % (0.00-10.9); Hematocrit 24.9 VOL% (42.0-52.0); Immature Granulocytes % 0.9 %; Lymphocytes # 1.5 10*3/uL (1.4-4.0); Lymphocytes % 13.1 % (21.2-54.2); Mean Corpuscular HGB Conc 32.5 GM/DL (32-36); Mean Corpuscular Hemoglobin 22 PG (27-34); Mean Corpuscular Volume 67.8 FL (87-102); Monocytes # 0.9 10*3/uL (0.11-0.8); Monocytes % 8.2 % (1.7-12.7); NRBC # 0.05 10*3/uL; Neutrophils # 8.7 10*3/uL (1.4-7.4); Neutrophils % 76.5 % (38.7-73.9); Platelet Count 121 T/CUMM (130-400); Red Blood Count 3.67 MC/CUMM (3.8-5.5); Red Cell Distribution Width 25.6 % (9.3-17.3); White Blood Count 11.4 T/CUMM (4-12)
[2016-10-08 03:57] LABS: ABG Base Excess -3.8 MMOL/L (-2.5-2.5); ABG HCO3 21.2 MMOL/L (20-26); ABG Oxygen Saturation 99.1 % (95-100); ABG PCO2 29.7 MM HG (35-48); ABG PH 7.431 (7.35-7.45); ABG TCO2 18.4 MMOL/L (23-27); Allen Test Positive; Pt O2 Delivery Device Ventilator
[2016-10-08 03:58] LABS: Hemoglobin 8.1 GM/DL (14.0-18.0)
[2016-10-08 04:29] LABS: Calcium 7.7 MG/DL (8.5-10.1); Magnesium 2.8 MG/DL (1.8-2.4); Osmolality,Calculated 336.6 MOS/KG (273-304); Potassium 4.3 MMOL/L (3.5-5.1)
[2016-10-08] MEDS: SODIUM CHLORIDE 0.45% 1,000 ML IV SCH ×2 (04:39→18:18)
--- NOTE | 2016-10-08 06:41 | Cardiology Progress Note ---
Cardiology - PN: Subj Interval history: Cardiology note 45-year-old man admitted with respiratory failure and CHF. Day 1 status post tracheostomy. Patient remains unresponsive. Telemetry shows sinus rhythm in the 80s. O2 sat 100 on 40% FiO2. Blood pressure 100/60 Trach site looks good no oozing Regular rhythm no gallop or murmur Decreased breath sounds few rhonchi in the left base Abdomen benign Trace leg edema Lab data today White count 11.4 hemoglobin 8.1 hematocrit 24.9 Sodium 153 potassium 4.3 chloride 121 CO2 24 BUN 91 creatinine down to 3.20 Magnesium 2.8 glucose 233 Impression Nonischemic cardiomyopathy EF 15% with patent coronaries and PA pressure 55 by cardiac cath September 27, 2016 Acute systolic/diastolic heart failure Alcoholism Thrombocytopenia Microcytic anemia Sickle cell Prolonged respiratory failure Acute on chronic renal failure. Creatinine today down to 3.20 Hypoxic encephalopathy Plan Begin CPAP trials today Tube feedings Coreg 3.125 g twice daily Exam (Progress Note) - Constitutional Vitals: Period Temp Pulse Resp BP Sys/Ramirez Pulse Ox Last 24 Hr 97.2 F-98.9 F 77-92 11-20 80-103/48-78 97-100 Result/EKG - Labs CBC & BMP: 10/08/16 03:50 10/08/16 03:50 Labs: Laboratory Results - last 24 hr 10/05/16 10/07/16 10/07/16 17:35 12:16 17:41 WBC RBC Hgb Hct MCV MCH MCHC RDW Plt Count Neut % (Auto) Lymph % (Auto) Eaton % (Auto) Eos % (Auto) Baso % (Auto) Neut # (Auto) Lymph # (Auto) [place]aton # (Auto) Eos # (Auto) Baso # (Auto) Immature Gran % Nucleated RBC % Immature Gran # Nucleated RBCs # ABG pH ABG pCO2 ABG pO2 ABG HCO3 ABG Total CO2 ABG O2 Saturation ABG Base Excess FiO2 Sodium Potassium Chloride Carbon Dioxide Anion Gap BUN Creatinine GFR Calculation BUN/Creatinine Ratio Glucose POC Glucose 209 H 157 H 157 H Calculated Osmolality Calcium Magnesium 10/08/16 10/08/16 10/08/16 00:14 03:45 03:50 WBC 11.4 RBC 3.67 L D Hgb 8.1 L D Hct 24.9 L MCV 67.8 L MCH 22 L MCHC 32.5 RDW 25.6 H Plt Count 121 L Neut % (Auto) 76.5 H Lymph % (Auto) 13.1 L Eaton % (Auto) 8.2 Eos % (Auto) 1.2 Baso % (Auto) 0.1 Neut # (Auto) 8.7 H Lymph # (Auto) 1.5 Eaton # (Auto) 0.9 H Eos # (Auto) 0.1 Baso # (Auto) 0.0 Immature Gran % 0.9 Nucleated RBC % 0.4 Immature Gran # 0.10 Nucleated RBCs # 0.05 ABG pH 7.431 ABG pCO2 29.7 L ABG pO2 144.0 H ABG HCO3 21.2 ABG Total CO2 18.4 L ABG O2 Saturation 99.1 ABG Base Excess -3.8 L FiO2 40.00 Sodium Potassium Chloride Carbon Dioxide Anion Gap BUN Creatinine GFR Calculation BUN/Creatinine Ratio Glucose POC Glucose 243 H Calculated Osmolality Calcium Magnesium 10/08/16 10/08/16 03:50 06:22 WBC RBC Hgb Hct MCV MCH MCHC RDW Plt Count Neut % (Auto) Lymph % (Auto) Eaton % (Auto) Eos % (Auto) Baso % (Auto) Neut # (Auto) Lymph # (Auto) [place] # (Auto) Eos # (Auto) Baso # (Auto) Immature Gran % Nucleated RBC % Immature Gran # Nucleated RBCs # ABG pH ABG pCO2 ABG pO2 ABG HCO3 ABG Total CO2 ABG O2 Saturation ABG Base Excess FiO2 Sodium 153 H Potassium 4.3 Chloride 121 H Carbon Dioxide 24 Anion Gap 12.3 BUN 91 H Creatinine 3.20 H GFR Calculation 27 BUN/Creatinine Ratio 28.00 H Glucose 208 H POC Glucose 233 H Calculated Osmolality 336.6 H Calcium 7.7 L Magnesium 2.8 H
[2016-10-08] MEDS: FAMOTIDINE 20 MG/2 ML VIAL IV SCH (06:52)
[2016-10-08] MEDS: ALBUTEROL/IPRATROPIUM 3 ML NEB RESP TX SCH ×3 (07:37→23:20)
--- NOTE | 2016-10-08 08:42 | XRay Report ---
History: Respiratory failure on ventilator Date: 10/08/2016 Study: Chest x-ray AP portable Comparison exam: 10/07/2016 There has been interval endotracheal tube removal and tracheostomy tube placement with satisfactory result. The nasogastric tube is satisfactory in position. There is continued mild cardiomegaly. The mediastinal contour is unchanged. The pulmonary vasculature is not engorged. There is patchy and hazy infiltrate in the right lower lung as before, the same or slightly increased. Shallow respiration with mild bibasilar atelectasis. There is no pneumothorax. There is no pleural effusion. Osseous structures are similar. Impression: Continued right basilar pneumonia, the same or slightly increased. Interval tracheostomy tube placement PROCEDURE INTERPRETED AT [facility] DEPARTMENT OF RADIOLOGY Final Report Signed by: Dr. Daylin Francis
--- NOTE | 2016-10-08 09:06 | Pulmonology Progress Note ---
Pulmonary - PN: Subj Interval history: This is a 45-year-old black male with sickle cell disease. He has a severe cardiomyopathy. He did not have a cardiac arrest or respiratory arrest but he had severe respiratory distress and was placed on mechanical ventilation. He also had pulmonary edema. This patient is not waking up and is suspect that he may have had a hypoxic brain injury. His lungs have cleared up well and he has done better in that regards. He had a trach placed on 10/07/2016. Today we will resume his weaning protocol. Chest x-ray cardiomegaly. Small infiltrate in the medial posterior segment of the right lower lung. Small amount of fluid in each costovertebral angle. Trach appears to be in place Blood cultures from 09/27/2016 grew Staphylococcus hemolyticus ABGs on FiO2 of 40% shows a pH of 7.43, PCO2 of 30, PO2 of 144 and a bicarb of 21.2. Lab. H&H is dropped 8.1/24.9. White count 11,400. Platelets are 121,000. Sodium is 153. Potassium is 4.3. Creatinine is dropped from 4.3-3.2 with a BUN of 91. Physical exam. Vital signs. See below Neurologic. This patient does not wake up. I did not detect any significant movement of his extremities. Chest clear Heart lateral PMI Abdomen. Rare bowel sounds. No distention. Extremities. No obvious evidence of deep venous thrombophlebitis. The remainder the physical exam is none contributory and appears to be negative Plan. 1. Weaning protocol 2. Physical therapy protocol 3. Follow-up ABGs chest x-ray and lab Exam (Progress Note) - Constitutional Vitals: Period Temp Pulse Resp BP Sys/Ramirez Pulse Ox Last 24 Hr 97.4 F-98.9 F 77-92 - 80-103/48-78 97-100 Results - Labs CBC & BMP: 10/08/16 03:50 10/08/16 03:50
--- NOTE | 2016-10-08 12:04 | Hospitalist Progress Note ---
Assessment and Plan (1) Hypernatremia Status: Acute Assessment and plan: 1)hypernatremia- up again. half normal saline was started last night. Stop half normal saline, increase free water to 200/hr per PEG and begin D5W at 75. recheck BMP. 2)reps failure- trach in place. 3)nutrition- tube feeds 4)pneumonia- resolved. BCx from earlier in course was contaminant 5)acute systolic CHF- EF 15%- nonischemic probably form alcohol 6)JORDAN on CKD- creatinine down to 3.2, in recovery phase. Baseline is 1.3. 7)sickle cell disease, anemia, thrombocytopenia- platelets recovering, now 120, 000. H&H .5 8)anoxic encephalopathy- this is result of his code and cause of his difficulty extubating. 9)shock liver- resolved 10)DM- on glucerna, SSI 11)Full code. Family understand he is unlikely to make neuro improvements but remain hopeful. refer to chronic vent unit at [place]. Current Visit: Yes (2) Respiratory failure Status: Acute Current Visit: Yes Qualifiers: Chronicity: acute (3) Pneumonia Status: Acute Current Visit: Yes (4) Hemoglobin SC disease Status: Chronic Current Visit: Yes (5) Severe sepsis Status: Acute Current Visit: Yes (6) Community acquired pneumonia Status: Acute Current Visit: Yes (7) Acute combined systolic and diastolic congestive heart failure Status: Acute Current Visit: Yes (8) Acute on chronic renal failure Status: Acute Current Visit: Yes (9) Anoxic encephalopathy Status: Acute Current Visit: Yes (10) Elevated liver enzymes Status: Acute Current Visit: Yes (11) Diabetes Status: Acute Current Visit: Yes Hospitalist: Subjective Interval history: Mr Rodriguez is stable after trach yesterday. I have talked to his mother and sister again today and they remain hopeful that he will make meaningful neuro recovery though his other doctor's and I feel this is very unlikely. He is tolerating tube feeds and will need a PEG tube. Exam - Constitutional Vitals: Period Temp Pulse Resp BP Sys/Ramirez Pulse Ox Last 24 Hr 97.4 F-98.9 F 77-92 11-20 80-103/48-78 98-100 General appearance: no acute distress (trach in place. ), under weight - Head Head exam: Present: normocephalic, atraumatic - Eye Eye exam: Present: EOMI. Absent: scleral icterus - Respiratory Respiratory exam: Present: clear to auscultation bilaterally - Cardiovascular Cardiovascular exam: Present: regular rate and rhythm - GI/Abdominal GI/Abdominal exam: Present: normal bowel sounds, soft. Absent: tenderness - Extremities Exam Extremities exam: Absent: edema Results - Labs CBC & BMP: 10/08/16 03:50 10/08/16 03:50 Lab Results: I have reviewed the past 24 hour labs
--- NOTE | 2016-10-08 12:50 | Gastrointestinal Consult Note ---
Assessment and Plan (1) Anoxic encephalopathy Status: Acute Assessment and plan: With inability to eat. PEG tube requested for nutritional support. Continue nasogastric tube feedings for now. Would plan PEG tube placement early next week if stable. Current Visit: Yes History of Present Illness Chief complaint: Inability to eat, nutritional support History of present illness: Mr. 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 Patient also had acute renal failure and shock liver related to this which have improved. He has respiratory failure on the ventilator and is unable to eat. He is currently being fed by nasogastric tube feedings and tolerating this. I am asked to see him regarding PEG tube placement. He is unresponsive and unable to answer any questions. No family is present currently. Home Medications Medication Instructions Recorded Confirmed Type FLUoxetine [PROzac] 40 mg PO DAILY 09/27/16 09/27/16 History OLANZapine [Olanzapine] 20 mg PO DAILY 09/27/16 09/27/16 History amLODIPine [Norvasc] 10 mg PO DAILY 09/27/16 09/27/16 History Allergies Allergy/AdvReac Type Severity Reaction Status Date / Time tramadol AdvReac SHORTNESS Verified 09/27/16 01:07 OF BREATH Medical,Surgical,& Family Hx - Medical History Cardio: History of: CHF, Hypertension Psychological: History of: Anxiety Disorders Hematology: History of: Sickle Cell Disease (Hemoglobin SC) - Family History Family History: Reports;: Family Heart Disease (Father at 46 yrs of age) - Social History Smoking Status: Current every day smoker Frequency of Alcohol Use: Occasionally Type of Drug Use: Marijuana ROS unobtainable: due to endotracheal tube, due to mental status Exam - Constitutional Vitals: Period Temp Pulse Resp BP Sys/Ramirez Pulse Ox Last 24 Hr 98.3 F-98.9 F 77-92 12-20 80-98/48-66 98-100 General appearance: normal weight, no acute distress (Opens eyes to verbal and physical stimuli but not responsive) - Head Head exam: Present: normocephalic, atraumatic - Eye Eye exam: Absent: scleral icterus - Respiratory Respiratory exam: Present: clear to auscultation bilaterally. Absent: wheezes - Cardiovascular Cardiovascular exam: Present: regular rate and rhythm. Absent: gallop, rubs - GI/Abdominal GI/Abdominal exam: Present: normal bowel sounds, soft. Absent: distended, tenderness - Extremities Exam Extremities exam: Absent: calf tenderness, edema - Neurological Exam Neurological exam: Present: altered (Unresponsive) - Skin Skin exam: Present: warm, dry Results - Labs CBC & BMP: 10/08/16 03:50 10/08/16 03:50 Lab Results: I have reviewed the past 24 hour labs
[2016-10-08] MEDS: DEXTROSE 5% 1,000 ML IV SCH (14:00)
[2016-10-08 15:55] LABS: Calcium 7.7 MG/DL (8.5-10.1); Osmolality,Calculated 332.7 MOS/KG (273-304); Potassium 4.3 MMOL/L (3.5-5.1)
[2016-10-08] MEDS: CARVEDILOL 3.125 MG TABLET PO SCH ×2 (18:14→21:15)
[2016-10-08] MEDS: ISOSORBIDE MONONITRATE 30 MG TABLET PO SCH (18:14)
[2016-10-08] MEDS: INSULIN GLARGINE 100 UNIT/ML SUBCUT SCH ×2 (18:15→21:14)
[2016-10-08] MEDS: FOLIC ACID INJ 1 MG in SYRINGE 1 EACH IV SCH (19:05)
[2016-10-08] MEDS: THIAMINE 200 MG/2 ML VIAL IV SCH (19:06)
[2016-10-08] MEDS ORDERED: METOCLOPRAMIDE 10 MG/2 ML VIAL IV PRN (20:47)
[2016-10-08] MEDS: chlorproMAZINE 25 MG/1 ML AMP IM PRN (23:09)
[2016-10-09] MEDS: INSULIN REGULAR 100 UNIT/ML SUBCUT SCH ×4 (00:58→20:04)
[2016-10-09 04:15] LABS: Basophils % 0.1 % (0.0-0.8); Eosinophils # 0.2 10*3/uL (0.0-0.87); Eosinophils % 1.6 % (0.00-10.9); Hematocrit 22.1 VOL% (42.0-52.0); Hemoglobin 7.1 GM/DL (14.0-18.0); Immature Granulocytes % 1.5 %; Immature Granulocytes Absolute 0.16 #; Lymphocytes # 1.7 10*3/uL (1.4-4.0); Lymphocytes % 15.7 % (21.2-54.2); Mean Corpuscular HGB Conc 32.1 GM/DL (32-36); Mean Corpuscular Hemoglobin 22 PG (27-34); Mean Corpuscular Volume 67.2 FL (87-102); Monocytes # 0.9 10*3/uL (0.11-0.8); Monocytes % 8.6 % (1.7-12.7); NRBC # 0.05 10*3/uL; Neutrophils # 7.7 10*3/uL (1.4-7.4); Neutrophils % 72.5 % (38.7-73.9); Platelet Count 138 T/CUMM (130-400); Red Blood Count 3.29 MC/CUMM (3.8-5.5); Red Cell Distribution Width 25.1 % (9.3-17.3); White Blood Count 10.6 T/CUMM (4-12)
[2016-10-09 04:23] LABS: ABG Base Excess -2.6 MMOL/L (-2.5-2.5); ABG HCO3 22.2 MMOL/L (20-26); ABG Oxygen Saturation 99.6 % (95-100); ABG TCO2 19.1 MMOL/L (23-27); Allen Test Positive; Pt O2 Delivery Device Ventilator
[2016-10-09 04:50] LABS: Osmolality,Calculated 317.6 MOS/KG (273-304); Potassium 3.9 MMOL/L (3.5-5.1)
[2016-10-09] MEDS: FAMOTIDINE 20 MG/2 ML VIAL IV SCH (06:08)
[2016-10-09 06:38] LABS: Band Neutrophils 3 % (0-10); Eosinophils 3 % (0-10); Hypochromasia 1+; Lymphocytes 15 % (20-55); Platelet Estimate Normal; Segmented Neutrophils 71 % (50-85); Target Cells 1+; Total Cells Counted 100
[2016-10-09 06:39] LABS: Microcytosis Slight; Ovalocytes Slight
[2016-10-09] MEDS: DEXTROSE 5% 1,000 ML IV SCH ×3 (07:18→17:35)
--- NOTE | 2016-10-09 07:26 | Cardiology Progress Note ---
Cardiology - PN: Subj Interval history: Cardiology note 45-year-old man admitted with respiratory failure and CHF. Date 2 status post tracheostomy. Patient does have spontaneous movements, but remains unresponsive to commands. 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 Creatinine today down to 2.60 Hypoxic encephalopathy Anemia H&H down to 7.1-22.1 respectively Plan Transfuse 2 units packed cells with 40 mg IV Lasix between units CPAP trials Coreg 3.125 mg twice daily Tube feedings Exam (Progress Note) - Constitutional Vitals: Period Temp Pulse Resp BP Sys/Ramirez Pulse Ox Last 24 Hr 97.2 F-100.5 F 85-110 13-32 86-110/53-70 89-100 Result/EKG - Labs CBC & BMP: 10/09/16 04:00 10/09/16 04:00 Labs: Laboratory Results - last 24 hr 10/08/16 10/08/16 10/08/16 11:37 14:53 17:30 WBC RBC Hgb Hct MCV MCH MCHC RDW Plt Count Neut % (Auto) Lymph % (Auto) Jackson % (Auto) Eos % (Auto) Baso % (Auto) Neut # (Auto) Lymph # (Auto) Jackson # (Auto) Eos # (Auto) Baso # (Auto) Total Counted Immature Gran % Nucleated RBC % Immature Gran # Segmented Neutrophils Band Neutrophils Lymphocytes Monocytes Eosinophils Nucleated RBCs # Platelet Estimate Hypochromasia Microcytosis Target Cells Ovalocytes Morphology Comment ABG pH ABG pCO2 ABG pO2 ABG HCO3 ABG Total CO2 ABG O2 Saturation ABG Base Excess FiO2 Sodium 152 H Potassium 4.3 Chloride 122 H Carbon Dioxide 21 Anion Gap 13.3 BUN 86 H Creatinine 2.90 H GFR Calculation 30 BUN/Creatinine Ratio 29.00 H Glucose 207 H POC Glucose 195 H 232 H Calculated Osmolality 332.7 H Calcium 7.7 L 10/09/16 10/09/16 10/09/16 00:10 04:00 04:00 WBC 10.6 RBC 3.29 L Hgb 7.1 L Hct 22.1 L MCV 67.2 L MCH 22 L MCHC 32.1 RDW 25.1 H Plt Count 138 Neut % (Auto) 72.5 Lymph % (Auto) 15.7 L Jackson % (Auto) 8.6 Eos % (Auto) 1.6 Baso % (Auto) 0.1 Neut # (Auto) 7.7 H Lymph # (Auto) 1.7 Jackson # (Auto) 0.9 H Eos # (Auto) 0.2 Baso # (Auto) 0.0 Total Counted 100 Immature Gran % 1.5 Nucleated RBC % 0.5 Immature Gran # 0.16 Segmented Neutrophils 71 Band Neutrophils 3 Lymphocytes 15 L Monocytes 8 Eosinophils 3 Nucleated RBCs # 0.05 Platelet Estimate Normal Hypochromasia 1+ Microcytosis Slight Target Cells 1+ Ovalocytes Slight Morphology Comment ABG pH ABG pCO2 ABG pO2 ABG HCO3 ABG Total CO2 ABG O2 Saturation ABG Base Excess FiO2 Sodium 146 H Potassium 3.9 Chloride 115 H Carbon Dioxide 23 Anion Gap 11.9 BUN 71 H D Creatinine 2.60 H GFR Calculation 35 BUN/Creatinine Ratio 27.00 H Glucose 231 H POC Glucose 242 H Calculated Osmolality 317.6 H Calcium 8.0 L 10/09/16 10/09/16 04:00 05:50 WBC RBC Hgb Hct MCV MCH MCHC RDW Plt Count Neut % (Auto) Lymph % (Auto) Jackson % (Auto) Eos % (Auto) Baso % (Auto) Neut # (Auto) Lymph # (Auto) Jackson # (Auto) Eos # (Auto) Baso # (Auto) Total Counted Immature Gran % Nucleated RBC % Immature Gran # Segmented Neutrophils Band Neutrophils Lymphocytes Monocytes Eosinophils Nucleated RBCs # Platelet Estimate Hypochromasia Microcytosis Target Cells Ovalocytes Morphology Comment ABG pH 7.470 H ABG pCO2 28.0 L ABG pO2 214.0 H ABG HCO3 22.2 ABG Total CO2 19.1 L ABG O2 Saturation 99.6 ABG Base Excess -2.6 L FiO2 40.00 Sodium Potassium Chloride Carbon Dioxide Anion Gap BUN Creatinine GFR Calculation BUN/Creatinine Ratio Glucose POC Glucose 241 H Calculated Osmolality Calcium
[2016-10-09] MEDS: ALBUTEROL/IPRATROPIUM 3 ML NEB RESP TX SCH ×3 (07:29→23:51)
--- NOTE | 2016-10-09 08:11 | Hospitalist Progress Note ---
Assessment and Plan - Time spent with patient Time spent with patient: Less than 30 minutes (1. Prolonged respiratory failure : s/p trach placement; on ventilator; appreciate help by pulmonary 2. severe NICM with EF: 15% (s/p cath: 09/27/16: patent coronaries): being followed by cardiology; appreciate help. 3. Anoxic brain injury: on keppra for seizure prophalaxis. 4. Anemia: worsening; noted plan for transfusion today. F/u h/h. 5. Thrombocytopenia: resolved; monitor 6. Hypernatremia: improving; was 152 , now 146. On free water and dextrose infusion. 7. Hyperglycemia: likely from tube feedings and dextrose infusion. May need to increase lantus; if continues to be elevated, make adjustments in insulin regimen. 8. ETOH abuse: on thiamine/folic acid 9. Acute on CKD: creatinine improving;continue to monitor. 10. Nutrition: on TFs via NGT. Noted plan for PEG placement early next week. 11. Hiccups: likely 2nd to brain injury; controlled on thorazine. 12. DVT and GI prophalaxis; watch platelets while on pepcid.) Hospitalist: Subjective Interval history: Overnight, there were no issues. Spoke to nursing staff. Hiccups are controlled with thorazine. Family is not present. Exam - Constitutional Vitals: Period Temp Pulse Resp BP Sys/Ramirez Pulse Ox Last 24 Hr 97.6 F-100.5 F 85-110 13-32 86-110/53-70 89-100 General appearance: no acute distress (open eyes but does not respond to commands; trach in place; on vent: AC Fio2: 40%, PEEP: 5,rate: 10, Tv: 700), cachectic - Head Head exam: Present: normal inspection, normocephalic (open eyes but does not respond to commands) - Eye Pupils: Present: AUGIE - ENT ENT exam: Present: normal exam (NGT in place) - Respiratory Respiratory exam: Present: rhonchi (mild coarse breath sounds, good air movement ) - Cardiovascular Cardiovascular exam: Present: regular rate and rhythm - GI/Abdominal GI/Abdominal exam: Present: normal bowel sounds, soft - Extremities Exam Extremities exam: Present: edema (no edema) Results - Labs CBC & BMP: 10/09/16 04:00 10/09/16 04:00
[2016-10-09] MEDS: CARVEDILOL 3.125 MG TABLET PO SCH ×2 (09:09→21:53)
[2016-10-09] MEDS: INSULIN GLARGINE 100 UNIT/ML SUBCUT SCH ×2 (09:09→21:53)
[2016-10-09] MEDS: FOLIC ACID INJ 1 MG in SYRINGE 1 EACH IV SCH (09:09)
[2016-10-09] MEDS: THIAMINE 200 MG/2 ML VIAL IV SCH (09:10)
[2016-10-09] MEDS: ISOSORBIDE MONONITRATE 30 MG TABLET PO SCH (09:10)
[2016-10-09] MEDS: CLINDAMYCIN INJ 300 MG in PREMIX 1 EACH IV SCH ×3 (09:27→21:58)
[2016-10-09] MEDS: MEROPENEM 500 MG in SODIUM CHLORIDE 0.9% 100 ML IV SCH ×2 (09:28→17:37)
--- NOTE | 2016-10-09 09:46 | XRay Report ---
History: Shortness of breath Date: 10/09/2016 Study: Chest x-ray AP portable Comparison exam: 10/08/2016 The supporting tubes are unchanged. There is continued cardiomegaly. The mediastinal contours are stable. There is patchy and hazy infiltrate/atelectasis/edema in the lung bases as before, grossly similar. There is no increasing pleural effusion. Osseous structures are similar. Impression: No gross change from the previous study PROCEDURE INTERPRETED AT [facility] DEPARTMENT OF RADIOLOGY Final Report Signed by: Dr. Daylin Francis
--- NOTE | 2016-10-09 12:41 | Pulmonology Progress Note ---
Pulmonary - PN: Subj Interval history: This is a 45-year-old black male with sickle cell disease. He has a severe cardiomyopathy. He did not have a cardiac arrest or respiratory arrest but he had severe respiratory distress and was placed on mechanical ventilation. He also had pulmonary edema. This patient is not waking up and is suspect that he may have had a hypoxic brain injury. His lungs have cleared up well and he has done better in that regards. He had a trach placed on 10/07/2016. Today we will resume his weaning protocol. Chest x-ray cardiomegaly. Small infiltrate in the medial posterior segment of the right lower lung. Small amount of fluid in each costovertebral angle. Trach appears to be in place Blood cultures from 09/27/2016 grew Staphylococcus hemolyticus ABGs on FiO2 of 40% shows a pH of 7.43, PCO2 of 30, PO2 of 144 and a bicarb of 21.2. Lab. H&H is dropped 8.1/24.9. White count 11,400. Platelets are 121,000. Sodium is 153. Potassium is 4.3. Creatinine is dropped from 4.3-3.2 with a BUN of 91. 10/09/2016. Today's chest x-ray shows cardiomegaly top normal to slightly enlarged pulmonary arteries. Mediastinum is normal trach is in place. There is some increased interstitial markings at the right base and the left perihilar area. Patient did 3-1/2 hours of CPAP. This was terminated because of hiccups. Patient will open his eyes but does not seem to know what is going on and can cooperate. His blood cultures are growing a gram-positive cocci which not is not been identified. The patient on meropenem. Today I added Cleocin. H&H is dropped 7.1/22.1. White count is 10,600. ABGs on FiO2 40% showed pH 7.47. PCO2 28.0. PO2 of 214 and a bicarb of 22.2 electrolytes are normal. Creatinine is 2.60 with a BUN of 17. Glucoses are under fair control. Physical exam. Vital signs. See below Neurologic. This patient does not wake up. I did not detect any significant movement of his extremities. Chest clear Heart lateral PMI Abdomen. Rare bowel sounds. No distention. Extremities. No obvious evidence of deep venous thrombophlebitis. The remainder the physical exam is none contributory and appears to be negative Plan. 10/08/2006 1. Weaning protocol 2. Physical therapy protocol 3. Follow-up ABGs chest x-ray and lab 10/09/2069 1. Continue present regimen. This includes various protocols including weaning protocol and physical therapy protocol 2. See my note above. 3. There are number of dragon areas. Please keep this in mind when reviewing this note Exam (Progress Note) - Constitutional Vitals: Period Temp Pulse Resp BP Sys/Ramirez Pulse Ox Last 24 Hr 98.9 F-100.5 F 83-110 10-32 89-110/60-70 96-100 Results - Labs CBC & BMP: 10/09/16 04:00 10/09/16 04:00
[2016-10-09] MEDS: MORPHINE 2 MG/1 ML SYRINGE IV PRN (13:20)
--- NOTE | 2016-10-09 15:16 | Gastrointestinal Progress Note ---
Assessment and Plan (1) Anoxic encephalopathy Status: Acute Assessment and plan: With inability to eat. PEG tube requested for nutritional support. Continue nasogastric tube feedings for now. Would plan PEG tube placement early next week if stable. 10/09 patient stable, tolerating nasogastric tube feedings. Plan EGD with PEG tube placement on Monday. 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 Current Visit: Yes Gastroenterology - PN: Subj Interval history: No subjective change. Remains on ventilator and appears to be in no acute distress. Tolerating tube feedings. Has been afebrile. Hemoglobin has fallen to 7.1 from previously 10 a couple of days ago but with no gross GI bleeding noted. Exam (Progress Note) - Constitutional Vitals: Period Temp Pulse Resp BP Sys/Ramirez Pulse Ox Last 24 Hr 98.0 F-100.5 F 83-110 10-30 89-110/60-70 96-100 General appearance: no acute distress - Head Head exam: Present: normocephalic, atraumatic - Eye Eye exam: Absent: scleral icterus - Respiratory Respiratory exam: Present: clear to auscultation bilaterally - Cardiovascular Cardiovascular exam: Present: regular rate and rhythm. Absent: gallop, rubs - GI/Abdominal GI/Abdominal exam: Present: normal bowel sounds, soft. Absent: distended, tenderness Results - Labs CBC & BMP: 10/09/16 04:00 10/09/16 04:00 Lab Results: I have reviewed the past 24 hour labs
[2016-10-09] MEDS ORDERED: FUROSEMIDE 40 MG/4 ML VIAL ONE (19:58)
[2016-10-09] MEDS ORDERED: FUROSEMIDE 40 MG/4 ML VIAL IV ONE (20:08)
[2016-10-10] MEDS: DEXTROSE 5% 1,000 ML IV SCH ×3 (00:30→20:50)
[2016-10-10] MEDS: INSULIN REGULAR 100 UNIT/ML SUBCUT SCH ×5 (00:40→23:59)
[2016-10-10] MEDS: MORPHINE 2 MG/1 ML SYRINGE IV PRN (00:59)
[2016-10-10] MEDS: MEROPENEM 500 MG in SODIUM CHLORIDE 0.9% 100 ML IV SCH ×3 (02:57→18:32)
[2016-10-10] MEDS: CLINDAMYCIN INJ 300 MG in PREMIX 1 EACH IV SCH ×4 (03:35→21:58)
[2016-10-10 04:18] LABS: Allen Test Positive; Pt O2 Delivery Device Ventilator
[2016-10-10 04:19] LABS: ABG Base Excess -0.3 MMOL/L (-2.5-2.5); ABG HCO3 24.2 MMOL/L (20-26); ABG Oxygen Saturation 99.1 % (95-100); ABG PH 7.435 (7.35-7.45); ABG TCO2 21.5 MMOL/L (23-27)
[2016-10-10 04:37] LABS: Basophils % 0.1 % (0.0-0.8); Eosinophils # 0.2 10*3/uL (0.0-0.87); Eosinophils % 2.2 % (0.00-10.9); Hematocrit 28.3 VOL% (42.0-52.0); Immature Granulocytes % 1.3 %; Immature Granulocytes Absolute 0.14 #; Lymphocytes # 1.2 10*3/uL (1.4-4.0); Lymphocytes % 10.7 % (21.2-54.2); Mean Corpuscular HGB Conc 33.2 GM/DL (32-36); Mean Corpuscular Hemoglobin 23 PG (27-34); Monocytes # 1.2 10*3/uL (0.11-0.8); NRBC # 0.04 10*3/uL; Neutrophils # 8.3 10*3/uL (1.4-7.4); Neutrophils % 74.7 % (38.7-73.9); Platelet Count 136 T/CUMM (130-400); Red Cell Distribution Width 24.1 % (9.3-17.3)
[2016-10-10 04:47] LABS: Hemoglobin 9.4 GM/DL (14.0-18.0); Red Blood Count 4.16 MC/CUMM (3.8-5.5)
[2016-10-10 04:59] LABS: Calcium 8.1 MG/DL (8.5-10.1); Magnesium 1.8 MG/DL (1.8-2.4); Osmolality,Calculated 303.1 MOS/KG (273-304); Potassium 3.7 MMOL/L (3.5-5.1)
[2016-10-10 05:11] LABS: Phosphorous 3.9 MG/DL (2.5-4.9); Prealbumin 5.5 MG/DL (20-40)
[2016-10-10 05:33] LABS: Band Neutrophils 4 % (0-10); Metamyelocytes 2 %; Total Cells Counted 100
[2016-10-10 05:34] LABS: Eosinophils 3 % (0-10); Hypochromasia 2+; Lymphocytes 9 % (20-55); Platelet Estimate Decreased; Segmented Neutrophils 76 % (50-85); Target Cells 2+
[2016-10-10] MEDS: FAMOTIDINE 20 MG/2 ML VIAL IV SCH (05:39)
--- NOTE | 2016-10-10 07:14 | Pulmonology Progress Note ---
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 Also has a severe cardiomyopathy. He was intubated for respiratory distress. May have some hypoxic brain injury. He opens his eyes and apparently closes his eyes to answer questions. Difficult to tell about that. He is not moving either arm or leg. Has been doing okay with weaning trials. Not clear if he can defend his airway as yet. He does have a tracheostomy. Tolerating prolonged CPAP. Exam (Progress Note) - Constitutional Vitals: Period Temp Pulse Resp BP Sys/Ramirez Pulse Ox Last 24 Hr 97.4 F-100.2 F 71-104 10-34 88-153/54-82 97-100 Exam: Patient will open eyes and follow with his eyes. Closes his eyes and answer to questions. Not moving any of his 4 limbs. Vital signs normal. Pupils reactive. Throat clear. Neck supple tracheostomy in place. Chest reveals a few rhonchi bilaterally. Heart normal rate rhythm no murmurs. Abdomen soft nontender no masses. Extremities no clubbing cyanosis. He does have some edema. Results - Labs CBC & BMP: 10/10/16 04:20 10/10/16 04:15 Lab Results: I have reviewed the past 24 hour labs - Diagnostic Findings Procedure: Chest x-ray: image reviewed by me (Patchy basilar infiltrates. Cardiomegaly. Tracheostomy in good location. Little change from yesterday.) Assessment and Plan (1) Cardiomyopathy Status: Acute Assessment and plan: Has ejection fraction 15%. Congestive heart failure appears to be fairly well controlled at least by chest x-ray. May be a little wet. Current Visit: Yes (2) Respiratory failure Status: Acute Assessment and plan: Tolerating CPAP. Progress as tolerated. He has a tracheostomy. Current Visit: Yes Qualifiers: Chronicity: acute (3) Hemoglobin SC disease Status: Chronic Assessment and plan: Requiring transfusions from time to time. Hematocrit 28 today after transfusion yesterday Current Visit: Yes (4) Congestive heart failure Status: Acute Assessment and plan: This is fairly well controlled with current medications. Current Visit: Yes (5) Anoxic encephalopathy Status: Acute Assessment and plan: Patient will follow with eyes and close eyes on command. Has functional quadriplegia. 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 Current Visit: Yes
[2016-10-10] MEDS: ALBUTEROL/IPRATROPIUM 3 ML NEB RESP TX SCH ×2 (07:17→15:10)
--- NOTE | 2016-10-10 07:35 | Anesthesia Post-Op ---
Anesthesia Post OP - Post Ansesthetic Evaluation Patient seen in post op: Yes Resp: within normal limits (trach, vent, cpap trials) CV: within normal limits Mental: within normal limits Temp: within normal limits [id number]: within normal limits Nausea and Vomiting: within normal limits Pain: within normal limits
--- NOTE | 2016-10-10 07:35 | XRay Report ---
XR chest 1V portable Indication: Shortness of breath Comparison: Chest x-ray 10/09/2016 Technique: Portable AP chest was performed. Findings: The heart is stable in size. Multiple tubes and medical support devices appear stable. Pulmonary vasculature demonstrates no specific abnormality. Hilar structures demonstrate fairly symmetric appearance. The lungs demonstrate no significant interval change. Bones and soft tissues demonstrate no evidence of acute pathology. Impression: 1. No adverse interval change in the chest. 10/10/2016 7:31 AM PROCEDURE INTERPRETED AT [facility] DEPARTMENT OF RADIOLOGY Final Report Signed by: Dr. Soy Graf
--- NOTE | 2016-10-10 08:30 | Cardiology Progress Note ---
Assessment and Plan (1) Acute combined systolic and diastolic congestive heart failure Status: Acute Assessment and plan: SEE PLAN OF CARE LISTED BELOW. Current Visit: Yes (2) Acute on chronic renal failure Status: Acute Assessment and plan: SEE PLAN OF CARE LISTED BELOW. Current Visit: Yes (3) Hemoglobin SC disease Status: Chronic Assessment and plan: SEE PLAN OF CARE LISTED BELOW. Current Visit: Yes (4) Leukocytosis Status: Resolved Assessment and plan: SEE PLAN OF CARE LISTED BELOW. Current Visit: Yes (5) Respiratory failure Status: Acute Assessment and plan: SEE PLAN OF CARE LISTED BELOW. Current Visit: Yes Qualifiers: Chronicity: acute (6) Elevated troponin Status: Resolved Assessment and plan: SEE PLAN OF CARE LISTED BELOW. Current Visit: Yes (7) Abnormal EKG Status: Resolved Assessment and plan: SEE PLAN OF CARE LISTED BELOW. Current Visit: Yes (8) Hypertension Status: Chronic Assessment and plan: SEE PLAN OF CARE LISTED BELOW. Current Visit: No (9) Drug abuse Status: Chronic Assessment and plan: SEE PLAN OF CARE LISTED BELOW. Current Visit: Yes (10) Alcoholism Status: Chronic Assessment and plan: SEE PLAN OF CARE LISTED BELOW. Current Visit: Yes (11) Elevated liver enzymes Status: Acute Assessment and plan: SEE PLAN OF CARE LISTED BELOW. Current Visit: Yes (12) Tobacco abuse Status: Chronic Assessment and plan: SEE PLAN OF CARE LISTED BELOW. Current Visit: Yes (13) Shock Status: Resolved Current Visit: Yes (14) Anoxic encephalopathy Status: Acute Assessment and plan: SEE PLAN OF CARE LISTED BELOW Current Visit: Yes Cardiology - PN: Subj Interval history: [employer]: New to cardiology, has been seen at [place] in the past. PCP: Dr. Ector Figueroa SUMMARY - Mr. Rodriguez is a 45 year old male -[place] male patient who has not been seen by local cardiology in the past. Patient has cardiac risk factors significant for hypertension, current everyday smoker (tobacco and marijuana) and family history of premature coronary artery disease. Patient has a past medical history of congestive heart failure (most recent ejection fraction noted to be 15%), sickle cell anemia, anxiety and hypertension. September 27 patient had a cardiac arrest. EKG revealed deep flat ST depression in the lateral leads and subsequently, patient underwent cardiac catheterization in order to definitively define his coronary anatomy and to rule out underlying obstructive coronary artery disease. This was performed per Dr. Juanito Baig with the following impressions noted: IMPRESSIONS: 1. Normal coronary arteries. 2. Dilated nonischemic cardiomyopathy. 3. Elevated LVEDP and pulmonary capillary wedge pressure as described above. 4. Transient PSVT which resolved after IV diltiazem. OCTOBER 10, 2016 UPDATE - patient was seen and examined in the ICU. Currently ventilated per tracheostomy. Patient is status post tracheostomy, postop day # 3 today. Patient may have some hypoxic brain injury. Unable to move upper or lower extremities. Tolerating CPAP trials fair. Tolerating tube feedings well. Due to anoxic encephalopathy gastroenterology plans for EGD with PEG tube placement on Monday. Patient received 2 units of packed red blood cells yesterday for hematocrit of 22.1 and 10.6. H&H this morning improved to 9.4 and 28.3. Creatinine improved today to 2.0 from 2.6 yesterday. Vital signs are stable. Labs been reviewed. Patient is currently normal sinus rhythm with heart rates in the 70s without any overt arrhythmias or ectopy noted. I will discuss with Dr. Bell and await his additional recommendations. ASSESSMENT/PLAN: 1. ACUTE CONGESTIVE HEART FAILURE, COMBINED SYSTOLIC AND DIASTOLIC DYSFUNCTION - Improving. Currently under well control with current medication regimen. Echocardiogram this admission revealed ejection fraction of 15% and grade 3 diastolic dysfunction. After negative heart catheterization this was deemed drug-induced cardiomyopathy. Continue beta-shekhar. Avoiding ANGEL inhibitor and ARB due to fear of worsening renal function. Creatinine is today 2.0. Will consider adding Aldactone if needed. Will monitor electrolytes closely if this medication is initiated as patient did have significant hyperkalemia upon admission. Daily weights and strict I's and O's. Will further discuss with Dr. Bell and await his additional recommendations. 2. ELEVATED TROPONIN - Resolved. ACS was definitively ruled out per heart catheterization. 3. NONISCHEMIC CARDIOMYOPATHY - Ejection fraction 15%. Continue beta- shekhar. Avoiding ANGEL inhibitor and ARB due to fear of worsening renal function. As above. 4. HYPERTENSION - Continue current plan of care. Avoiding ANGEL inhibitor and ARB due to fear of worsening renal function. 5. SICKLE CELL ANEMIA - Defer management of this to attending. 6. ACUTE ON CHRONIC RENAL FAILURE - Monitor with daily BMP. Creatinine improved today to 2.0. Management per attending. 7. DRUG ABUSE - Patient's drug screen was positive for marijuana upon admission. This is most likely contributing to patient's severe cardiomyopathy. 8. TOBACCO ABUSE - Continue current plan of care. Will discuss the merits of smoking cessation when able. 9. ALCOHOLISM - Continue current plan of care. No signs of withdrawal noted. 10. RESPIRATORY FAILURE - Management per pulmonary. Status post tracheostomy. Continue CPAP trials as tolerated. 11. HYPOXIC ENCEPHALOPATHY - Management per attending. Exam (Progress Note) - Constitutional Vitals: Period Temp Pulse Resp BP Sys/Ramirez Pulse Ox Last 24 Hr 97.4 F-100.2 F 71-104 10-34 88-153/54-82 97-100 Exam: General: Critically ill, ventilator per tracheostomy. HEENT: Pupils reactive to light. Tracheostomy in place. Mucous membranes moist. No jaundice noted. Neck: No JVD/HJR, no thyromegaly or lymphadenopathy noted. Cardiac: Regular rate and rhythm. No murmur rub or gallop. Lungs: Rhonchi bilaterally. Ventilated. Abdomen: Soft, bowel sounds hypoactive. Extremities: No clubbing or cyanosis noted. Trace edema. Upper extremity pulses 2+. Lower extremity pulses 2+. Capillary refill less than 3 seconds. Neuro: Patient is awake, will open eyes and follow with his eyes. We will close his eyes to command. Unable to move all 4 extremities. Result/EKG - Labs CBC & BMP: 10/10/16 04:20 10/10/16 04:15 Lab Results: I have reviewed the past 24 hour labs Labs: Laboratory Results - last 24 hr 10/09/16 10/09/16 10/10/16 11:10 12:27 00:36 WBC RBC Hgb Hct MCV MCH MCHC RDW Plt Count Neut % (Auto) Lymph % (Auto) Beaver % (Auto) Eos % (Auto) Baso % (Auto) Neut # (Auto) Lymph # (Auto) Beaver # (Auto) Eos # (Auto) Baso # (Auto) Total Counted Immature Gran % Nucleated RBC % Immature Gran # Segmented Neutrophils Band Neutrophils Lymphocytes Monocytes Eosinophils Metamyelocytes Nucleated RBCs # Platelet Estimate Hypochromasia Target Cells ABG pH ABG pCO2 ABG pO2 ABG HCO3 ABG Total CO2 ABG O2 Saturation ABG Base Excess FiO2 Sodium Potassium Chloride Carbon Dioxide Anion Gap BUN Creatinine GFR Calculation BUN/Creatinine Ratio Glucose POC Glucose 252 H 276 H Calculated Osmolality Calcium Phosphorus Magnesium Prealbumin Blood Type O POSITIVE Antibody Screen Negative Crossmatch See Detail 10/10/16 10/10/16 10/10/16 04:08 04:15 04:15 WBC RBC Hgb Hct MCV MCH MCHC RDW Plt Count Neut % (Auto) Lymph % (Auto) Beaver % (Auto) Eos % (Auto) Baso % (Auto) Neut # (Auto) Lymph # (Auto) Beaver # (Auto) Eos # (Auto) Baso # (Auto) Total Counted Immature Gran % Nucleated RBC % Immature Gran # Segmented Neutrophils Band Neutrophils Lymphocytes Monocytes Eosinophils Metamyelocytes Nucleated RBCs # Platelet Estimate Hypochromasia Target Cells ABG pH 7.435 ABG pCO2 35.0 ABG pO2 172.0 H ABG HCO3 24.2 ABG Total CO2 21.5 L ABG O2 Saturation 99.1 ABG Base Excess -0.3 FiO2 60.00 Sodium 142 Potassium 3.7 Chloride 107 Carbon Dioxide 27 Anion Gap 11.7 BUN 54 H Creatinine 2.00 H GFR Calculation 49 BUN/Creatinine Ratio 27.00 H Glucose 210 H POC Glucose Calculated Osmolality 303.1 Calcium 8.1 L Phosphorus 3.9 Magnesium 1.8 Prealbumin 5.5 L Blood Type Antibody Screen Crossmatch 10/10/16 04:20 WBC 11.0 RBC 4.16 D Hgb 9.4 L D Hct 28.3 L MCV 68.0 L MCH 23 L MCHC 33.2 RDW 24.1 H Plt Count 136 Neut % (Auto) 74.7 H Lymph % (Auto) 10.7 L Beaver % (Auto) 11.0 Eos % (Auto) 2.2 Baso % (Auto) 0.1 Neut # (Auto) 8.3 H Lymph # (Auto) 1.2 L Beaver # (Auto) 1.2 H Eos # (Auto) 0.2 Baso # (Auto) 0.0 Total Counted 100 Immature Gran % 1.3 Nucleated RBC % 0.4 Immature Gran # 0.14 Segmented Neutrophils 76 Band Neutrophils 4 Lymphocytes 9 L Monocytes 6 Eosinophils 3 Metamyelocytes 2 Nucleated RBCs # 0.04 Platelet Estimate Decreased Hypochromasia 2+ Target Cells 2+ ABG pH ABG pCO2 ABG pO2 ABG HCO3 ABG Total CO2 ABG O2 Saturation ABG Base Excess FiO2 Sodium Potassium Chloride Carbon Dioxide Anion Gap BUN Creatinine GFR Calculation BUN/Creatinine Ratio Glucose POC Glucose Calculated Osmolality Calcium Phosphorus Magnesium Prealbumin Blood Type Antibody Screen Crossmatch
[2016-10-10] MEDS: ISOSORBIDE MONONITRATE 30 MG TABLET PO SCH (09:03)
[2016-10-10] MEDS: THIAMINE 200 MG/2 ML VIAL IV SCH (09:03)
[2016-10-10] MEDS: INSULIN GLARGINE 100 UNIT/ML SUBCUT SCH ×2 (09:04→21:59)
[2016-10-10] MEDS: CARVEDILOL 3.125 MG TABLET PO SCH ×2 (09:04→20:54)
[2016-10-10] MEDS: FOLIC ACID INJ 1 MG in SYRINGE 1 EACH IV SCH (09:04)
--- NOTE | 2016-10-10 10:14 | Hospitalist Progress Note ---
Assessment and Plan (1) Acute combined systolic and diastolic congestive heart failure Status: Acute Assessment and plan: Echo noted EF of 15%. Cardiology following. We will follow their recommendations. Current Visit: Yes (2) Acute on chronic renal failure Status: Acute Assessment and plan: Pt's bun/creatinine is 54/2 today. These values are noted to be decreased from 7 /2. Continue with daily labs Current Visit: Yes (3) Anemia Status: Acute Assessment and plan: Pt. received 2 units of PRBCs for h&h of 22.1 and 10.6. Pt.'s levels have improved to 9.4 and 28.3 today. Current Visit: Yes (4) Diabetes Status: Acute Assessment and plan: Pt. on SSI. Current Visit: Yes (5) Anoxic encephalopathy Status: Acute Current Visit: Yes (6) Hypernatremia Status: Acute Assessment and plan: Pt's Na is stable today. Will resume free water to 100/hr today. Continue to monitor BMP. Current Visit: Yes Hospitalist: Subjective Interval history: Mr. Rodriguez was seen and examined this am in the ICU. Resting in bed. Trach, NG tube, and wright noted. Pt is awake but nonverbal and not fully oriented. Pt. was noted to have squeezed Dr. Marcus's hand. He also moved leg after stimulation. Otherwise no other movement of extremities noted. No family present at bedside. Pt is tolerating feedings well. Labs and chart reviewed. Multiple services following. We will continue to monitor patient's progress. Exam - Constitutional Vitals: Period Temp Pulse Resp BP Sys/Ramirez Pulse Ox Last 24 Hr 97.4 F-100.2 F 71-104 10-34 88-153/54-82 98-100 General appearance: normal weight, no acute distress - Head Head exam: Present: normal inspection, normocephalic - Eye Eye exam: Present: EOMI. Absent: scleral icterus Pupils: Present: AUGIE. Absent: fixed - ENT ENT exam: Present: other (NG tube in place) - Respiratory Respiratory exam: Present: other (coarse) - Cardiovascular Cardiovascular exam: Present: regular rate and rhythm - GI/Abdominal GI/Abdominal exam: Present: normal bowel sounds, soft - Extremities Exam Extremities exam: Absent: edema - Neurological Exam Neurological exam: Present: alert, other. Absent: oriented X3 - Psychiatric Psychiatric exam: Present: other (unable to assess) - Skin Skin exam: Present: normal color, warm, dry Results - Labs CBC & BMP: 10/10/16 04:20 10/10/16 04:15 Lab Results: I have reviewed the past 24 hour labs
[2016-10-10] MEDS: LORazepam 2 MG/1 ML VIAL IV PRN (22:23)
[2016-10-11] MEDS: ALBUTEROL/IPRATROPIUM 3 ML NEB RESP TX SCH ×4 (00:23→23:25)
[2016-10-11] MEDS: MEROPENEM 500 MG in SODIUM CHLORIDE 0.9% 100 ML IV SCH ×3 (02:20→18:08)
[2016-10-11] MEDS: CLINDAMYCIN INJ 300 MG in PREMIX 1 EACH IV SCH ×4 (03:30→20:07)
[2016-10-11 03:38] LABS: ABG Base Excess 1.3 MMOL/L (-2.5-2.5); ABG HCO3 24.9 MMOL/L (20-26); ABG Oxygen Saturation 97.9 % (95-100); ABG PCO2 35.2 MM HG (35-48); ABG PH 7.467 (7.35-7.45); Allen Test Positive; Pt O2 Delivery Device Ventilator
[2016-10-11 05:29] LABS: Basophils % 0.2 % (0.0-0.8); Eosinophils # 0.2 10*3/uL (0.0-0.87); Eosinophils % 1.3 % (0.00-10.9); Hematocrit 28.6 VOL% (42.0-52.0); Hemoglobin 9.5 GM/DL (14.0-18.0); Immature Granulocytes % 1.2 %; Immature Granulocytes Absolute 0.14 #; Lymphocytes % 8.6 % (21.2-54.2); Mean Corpuscular HGB Conc 33.2 GM/DL (32-36); Mean Corpuscular Hemoglobin 23 PG (27-34); Mean Corpuscular Volume 68.6 FL (87-102); Monocytes # 1.5 10*3/uL (0.11-0.8); Monocytes % 12.9 % (1.7-12.7); NRBC # 0.02 10*3/uL; Neutrophils # 8.7 10*3/uL (1.4-7.4); Neutrophils % 75.8 % (38.7-73.9); Platelet Count 143 T/CUMM (130-400); Red Blood Count 4.17 MC/CUMM (3.8-5.5); Red Cell Distribution Width 24.5 % (9.3-17.3); White Blood Count 11.4 T/CUMM (4-12)
[2016-10-11 06:03] LABS: Band Neutrophils 1 % (0-10); Calcium 8.4 MG/DL (8.5-10.1); Eosinophils 4 % (0-10); Hypochromasia Slight; Lymphocytes 7 % (20-55); Magnesium 1.9 MG/DL (1.8-2.4); Microcytosis Slight; Osmolality,Calculated 297.3 MOS/KG (273-304); Platelet Estimate Normal; Segmented Neutrophils 77 % (50-85); Target Cells 1+; Total Cells Counted 100
[2016-10-11] MEDS: INSULIN REGULAR 100 UNIT/ML SUBCUT SCH ×3 (06:09→18:09)
[2016-10-11] MEDS: FAMOTIDINE 20 MG/2 ML VIAL IV SCH (06:09)
--- NOTE | 2016-10-11 06:57 | XRay Report ---
History is ventilator management Comparison 10/10/2016 The heart is enlarged. Tracheostomy is present. NG tube traverse the chest There remains mild diffuse hazy bilateral pulmonary opacities with continued more focal consolidation in the retrocardiac left base partially obscuring the left diaphragm. There is slight improved visualization of the left diaphragm. 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 Alfreda Spear
--- NOTE | 2016-10-11 07:24 | Pulmonology Progress Note ---
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 Also has a severe cardiomyopathy. He was intubated for respiratory distress. May have some hypoxic brain injury. He opens his eyes and apparently closes his eyes to answer questions. Difficult to tell about that. He is not moving either arm or leg. Has been doing okay with weaning trials. Not clear if he can defend his airway as yet. He does have a tracheostomy. Tolerating prolonged CPAP. 10/11/2016 congestive heart failure cardiomyopathy severe anemia. He has been transfused. He has a tracheostomy. He is tolerating prolonged CPAP. Will start up with trach collars today. Exam (Progress Note) - Constitutional Vitals: Period Temp Pulse Resp BP Sys/Ramirez Pulse Ox Last 24 Hr 97.6 F-98.8 F 60-94 10- 91-116/58-77 97-100 Exam: Patient will open eyes and follow with his eyes. Closes his eyes and answer to questions. Not moving any of his 4 limbs. Vital signs normal. Pupils reactive. Throat clear. Neck supple tracheostomy in place. Chest reveals a few rhonchi bilaterally. Heart normal rate rhythm no murmurs. Abdomen soft nontender no masses. Extremities no clubbing cyanosis. He does have some edema. Little change from yesterday. Results - Labs CBC & BMP: 10/11/16 05:15 10/11/16 05:15 Lab Results: I have reviewed the past 24 hour labs - Diagnostic Findings Procedure: Chest x-ray: image reviewed by me (Cardiomegaly. Small pleural effusion. Tracheostomy in good position.) Assessment and Plan (1) Cardiomyopathy Status: Acute Assessment and plan: Has ejection fraction 15%. Congestive heart failure appears to be fairly well controlled at least by chest x-ray. May be a little wet. 10/11/2016 congestive heart failure fairly well controlled. Current Visit: Yes (2) Respiratory failure Status: Acute Assessment and plan: Tolerating CPAP. Progress as tolerated. He has a tracheostomy. 10/11/2016 tolerating CPAP. Proceed to trach collar. Current Visit: Yes Qualifiers: Chronicity: acute (3) Hemoglobin SC disease Status: Chronic Assessment and plan: Requiring transfusions from time to time. Hematocrit 28 today after transfusion yesterday 10/11/16 hematocrit is 28 today. Current Visit: Yes (4) Congestive heart failure Status: Acute Assessment and plan: This is fairly well controlled with current medications. Current Visit: Yes (5) Anoxic encephalopathy Status: Acute Assessment and plan: Patient will follow with eyes and close eyes on command. Has functional quadriplegia. 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 10/11/2016 patient opening eyes and nodding to questions. Still not moving his arms and legs much. 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 Current Visit: Yes
[2016-10-11] MEDS: ISOSORBIDE MONONITRATE 30 MG TABLET PO SCH (09:06)
[2016-10-11] MEDS: FOLIC ACID INJ 1 MG in SYRINGE 1 EACH IV SCH (09:06)
[2016-10-11] MEDS: THIAMINE 200 MG/2 ML VIAL IV SCH (09:06)
[2016-10-11] MEDS: CARVEDILOL 3.125 MG TABLET PO SCH ×2 (09:06→20:04)
--- NOTE | 2016-10-11 09:13 | Cardiology Progress Note ---
Assessment and Plan (1) Cardiac arrest Status: Acute Assessment and plan: 45-year-old black male, status post aborted sudden cardiac , severe nonischemic cardiomyopathy, prolonged respiratory insufficiency, and anoxic encephalopathy. Today, he opens eyes on command but does not squeeze hands. Sinus rhythm, with occasional short and SVTs on telemetry, IVR. MS improving. -Continue beta-shekhar. Once blood pressure, renal function allows, will start vasodilators with hydralazine or ACEI. -If makes meaningful neurological recovery, he will be a candidate for ICD implant for secondary prevention. The drug abuse will need to be addressed before this is pursued. We can use a LifeVest in the meantime. Current Visit: Yes (2) Respiratory failure Status: Acute Current Visit: Yes Qualifiers: Chronicity: acute (3) Hemoglobin SC disease Status: Chronic Current Visit: Yes (4) History of congestive heart failure Status: Acute Current Visit: Yes (5) Acute combined systolic and diastolic congestive heart failure Status: Acute Current Visit: Yes (6) Hypertension Status: Chronic Current Visit: No (7) Drug abuse Status: Chronic Current Visit: Yes Cardiology - PN: Subj Interval history: He opens eyes on request and today, he squeezed my fingers. Blood pressure remains borderline low. Sinus rhythm, with occasional IVR on telemetry Exam (Progress Note) - Constitutional Vitals: Period Temp Pulse Resp BP Sys/Ramirez Pulse Ox Last 24 Hr 97.6 F-98.8 F 60-94 11-26 92-116/58-90 97-100 General appearance: normal weight, no acute distress - Head Head exam: Present: normal inspection, normocephalic - Eye Eye exam: Absent: conjunctival injection, scleral icterus Pupils: Absent: dilated - ENT ENT exam: Present: normal external ear exam - Neck Neck exam: Present: normal inspection - Respiratory Respiratory exam: Present: clear to auscultation bilaterally. Absent: accessory muscle use - Cardiovascular Cardiovascular exam: Present: regular rate and rhythm. Absent: systolic murmur - GI/Abdominal GI/Abdominal exam: Present: hypoactive bowel sounds. Absent: distended - Extremities Exam Extremities exam: Present: normal inspection, normal capillary refill. Absent: edema - Back Exam Back exam: Present: normal inspection - Neurological Exam Neurological exam: Present: alert, oriented X3 - Psychiatric Psychiatric exam: Present: normal affect, normal mood - Skin Skin exam: Present: normal color, warm. Absent: cyanosis Result/EKG - Labs CBC & BMP: 10/11/16 05:15 10/11/16 05:15 Lab Results: I have reviewed the past 24 hour labs Labs: Laboratory Results - last 24 hr 10/10/16 10/10/16 10/10/16 12:06 18:02 23:26 WBC RBC Hgb Hct MCV MCH MCHC RDW Plt Count Neut % (Auto) Lymph % (Auto) Bennett % (Auto) Eos % (Auto) Baso % (Auto) Neut # (Auto) Lymph # (Auto) Bennett # (Auto) Eos # (Auto) Baso # (Auto) Total Counted Immature Gran % Nucleated RBC % Immature Gran # Segmented Neutrophils Band Neutrophils Lymphocytes Monocytes Eosinophils Nucleated RBCs # Platelet Estimate Hypochromasia Microcytosis Target Cells Morphology Comment ABG pH ABG pCO2 ABG pO2 ABG HCO3 ABG Total CO2 ABG O2 Saturation ABG Base Excess FiO2 Sodium Potassium Chloride Carbon Dioxide Anion Gap BUN Creatinine GFR Calculation BUN/Creatinine Ratio Glucose POC Glucose 75 170 H 270 H Calculated Osmolality Calcium Magnesium 10/11/16 10/11/16 10/11/16 03:10 05:15 05:15 WBC 11.4 RBC 4.17 Hgb 9.5 L Hct 28.6 L MCV 68.6 L MCH 23 L MCHC 33.2 RDW 24.5 H Plt Count 143 Neut % (Auto) 75.8 H Lymph % (Auto) 8.6 L Bennett % (Auto) 12.9 H Eos % (Auto) 1.3 Baso % (Auto) 0.2 Neut # (Auto) 8.7 H Lymph # (Auto) 1.0 L Bennett # (Auto) 1.5 H Eos # (Auto) 0.2 Baso # (Auto) 0.0 Total Counted 100 Immature Gran % 1.2 Nucleated RBC % 0.2 Immature Gran # 0.14 Segmented Neutrophils 77 Band Neutrophils 1 Lymphocytes 7 L Monocytes 11 Eosinophils 4 Nucleated RBCs # 0.02 Platelet Estimate Normal Hypochromasia Slight Microcytosis Slight Target Cells 1+ Morphology Comment ABG pH 7.467 H ABG pCO2 35.2 ABG pO2 150.0 H ABG HCO3 24.9 ABG Total CO2 26.0 ABG O2 Saturation 97.9 ABG Base Excess 1.3 FiO2 40.00 Sodium 141 Potassium 4.0 Chloride 106 Carbon Dioxide 26 Anion Gap 13.0 BUN 44 H Creatinine 1.80 H GFR Calculation 55 BUN/Creatinine Ratio 24.00 H Glucose 210 H POC Glucose Calculated Osmolality 297.3 Calcium 8.4 L Magnesium 1.9 10/11/16 05:38 WBC RBC Hgb Hct MCV MCH MCHC RDW Plt Count Neut % (Auto) Lymph % (Auto) Bennett % (Auto) Eos % (Auto) Baso % (Auto) Neut # (Auto) Lymph # (Auto) Bennett # (Auto) Eos # (Auto) Baso # (Auto) Total Counted Immature Gran % Nucleated RBC % Immature Gran # Segmented Neutrophils Band Neutrophils Lymphocytes Monocytes Eosinophils Nucleated RBCs # Platelet Estimate Hypochromasia Microcytosis Target Cells Morphology Comment ABG pH ABG pCO2 ABG pO2 ABG HCO3 ABG Total CO2 ABG O2 Saturation ABG Base Excess FiO2 Sodium Potassium Chloride Carbon Dioxide Anion Gap BUN Creatinine GFR Calculation BUN/Creatinine Ratio Glucose POC Glucose 212 H Calculated Osmolality Calcium Magnesium - EKG EKG results: interpreted by me
[2016-10-11] MEDS: DEXTROSE 5% 1,000 ML IV SCH (09:17)
[2016-10-11] MEDS: INSULIN GLARGINE 100 UNIT/ML SUBCUT SCH ×2 (10:54→20:14)
[2016-10-11] MEDS: MORPHINE 2 MG/1 ML SYRINGE IV PRN (12:16)
--- NOTE | 2016-10-11 13:26 | Hospitalist Progress Note ---
Assessment and Plan (1) Hypernatremia Status: Acute Assessment and plan: 1)hypernatremia- resolved. D5W stopped this morning, continue with 200/hr free water in tube feeds today but likely decrease tomorrow. 2)reps failure- trach in place. 3)nutrition- tube feeds 4)pneumonia- resolved. BCx from earlier in course was contaminant. Dr Obed started Merrem a couple of days ago. 5)acute systolic CHF- EF 15%- nonischemic probably from alcohol 6)JORDAN on CKD- creatinine down to 1.8, in recovery phase. Baseline is 1.3. 7)sickle cell disease, anemia, thrombocytopenia resolved. H&H 9.5/28.6 8)anoxic encephalopathy- this is result of his code and cause of his difficulty extubating. His mental status has made a big improvement over the last couple of days. 9)shock liver- resolved 10)DM- on glucerna, SSI 11)Full code. Current Visit: Yes (2) Respiratory failure Status: Acute Current Visit: Yes Qualifiers: Chronicity: acute (3) Pneumonia Status: Acute Current Visit: Yes (4) Hemoglobin SC disease Status: Chronic Current Visit: Yes (5) Severe sepsis Status: Acute Current Visit: Yes (6) Community acquired pneumonia Status: Acute Current Visit: Yes (7) Acute combined systolic and diastolic congestive heart failure Status: Acute Current Visit: Yes (8) Acute on chronic renal failure Status: Acute Current Visit: Yes (9) Anoxic encephalopathy Status: Acute Current Visit: Yes (10) Elevated liver enzymes Status: Acute Current Visit: Yes (11) Diabetes Status: Acute Current Visit: Yes Hospitalist: Subjective Interval history: Mr Rodriguez has been stable on vent overnight. He will try trach collar today. He grinned at me when I wished him happy October. Exam - Constitutional Vitals: Period Temp Pulse Resp BP Sys/Ramirez Pulse Ox Last 24 Hr 97.4 F-98.8 F 60-111 11-26 92-116/58-90 95-100 General appearance: normal weight, no acute distress - Head Head exam: Present: normocephalic, atraumatic - Eye Eye exam: Present: EOMI. Absent: scleral icterus - Respiratory Respiratory exam: Present: clear to auscultation bilaterally - Cardiovascular Cardiovascular exam: Present: regular rate and rhythm - GI/Abdominal GI/Abdominal exam: Present: normal bowel sounds, soft. Absent: tenderness - Extremities Exam Extremities exam: Absent: edema Results - Labs CBC & BMP: 10/11/16 05:15 10/11/16 05:15 Lab Results: I have reviewed the past 24 hour labs
[2016-10-11] MEDS ORDERED: SIMETHICONE CHEW 125 MG TABLET PO PRN (17:26)
[2016-10-12] MEDS: INSULIN REGULAR 100 UNIT/ML SUBCUT SCH ×4 (00:09→17:57)
[2016-10-12] MEDS: MEROPENEM 500 MG in SODIUM CHLORIDE 0.9% 100 ML IV SCH ×3 (01:18→17:58)
[2016-10-12] MEDS: CLINDAMYCIN INJ 300 MG in PREMIX 1 EACH IV SCH ×4 (02:05→21:34)
[2016-10-12] MEDS: MORPHINE 2 MG/1 ML SYRINGE IV PRN (02:25)
[2016-10-12 03:55] LABS: ABG Base Excess 0.9 MMOL/L (-2.5-2.5); ABG HCO3 25.3 MMOL/L (20-26); ABG Oxygen Saturation 97.6 % (95-100); ABG PCO2 39.2 MM HG (35-48); ABG PH 7.427 (7.35-7.45); ABG TCO2 26.5 MMOL/L (23-27); Allen Test Positive; Pt O2 Delivery Device Ventilator
[2016-10-12 04:53] LABS: Basophils % 0.1 % (0.0-0.8); Eosinophils # 0.1 10*3/uL (0.0-0.87); Hematocrit 27.1 VOL% (42.0-52.0); Hemoglobin 9.2 GM/DL (14.0-18.0); Immature Granulocytes % 1.8 %; Immature Granulocytes Absolute 0.21 #; Lymphocytes # 1.4 10*3/uL (1.4-4.0); Lymphocytes % 11.5 % (21.2-54.2); Mean Corpuscular HGB Conc 33.9 GM/DL (32-36); Mean Corpuscular Hemoglobin 23 PG (27-34); Mean Corpuscular Volume 68.3 FL (87-102); Monocytes % 17.3 % (1.7-12.7); Neutrophils # 8.1 10*3/uL (1.4-7.4); Neutrophils % 68.3 % (38.7-73.9); Platelet Count 157 T/CUMM (130-400); Red Blood Count 3.97 MC/CUMM (3.8-5.5); Red Cell Distribution Width 24.6 % (9.3-17.3); White Blood Count 11.8 T/CUMM (4-12)
[2016-10-12 05:17] LABS: Band Neutrophils 2 % (0-10); Lymphocytes 12 % (20-55); Segmented Neutrophils 72 % (50-85); Total Cells Counted 100
[2016-10-12 05:18] LABS: Hypochromasia 1+; Microcytosis 1+; Ovalocytes Slight; Target Cells 1+
[2016-10-12 05:19] LABS: Platelet Estimate Adequate
[2016-10-12 05:22] LABS: Calcium 8.8 MG/DL (8.5-10.1); Magnesium 1.6 MG/DL (1.8-2.4); Osmolality,Calculated 298.7 MOS/KG (273-304); Potassium 4.3 MMOL/L (3.5-5.1)
[2016-10-12] MEDS: FAMOTIDINE 20 MG/2 ML VIAL IV SCH (05:35)
[2016-10-12] MEDS: ALBUTEROL/IPRATROPIUM 3 ML NEB RESP TX SCH ×3 (07:15→23:10)
--- NOTE | 2016-10-12 08:02 | Cardiology Progress Note ---
Assessment and Plan - Time spent with patient Time spent with patient: Less than 30 minutes (1) Acute combined systolic and diastolic congestive heart failure Status: Acute Current Visit: Yes (2) Cardiac arrest Status: Acute Assessment and plan: See plan of care listed below. Current Visit: Yes (3) Nonischemic dilated cardiomyopathy Status: Acute Assessment and plan: See plan of care listed below. Current Visit: Yes (4) Hypertension Status: Acute Assessment and plan: See plan of care listed below. Current Visit: Yes (5) Hemoglobin SC disease Status: Chronic Assessment and plan: See plan of care listed below. Current Visit: Yes (6) Acute on chronic renal failure Status: Acute Assessment and plan: See plan of care listed below. Current Visit: Yes (7) Drug abuse Status: Chronic Assessment and plan: See plan of care listed below. Current Visit: Yes (8) Respiratory failure Status: Acute Assessment and plan: See plan of care listed below. Current Visit: Yes Qualifiers: Chronicity: acute (9) History of congestive heart failure Status: Acute Assessment and plan: See plan of care listed below. Current Visit: Yes Cardiology - PN: Subj Interval history: Doula: New to cardiology, has been seen at [facility] in the past. PCP: Dr. Ector Figueroa SUMMARY - Mr. Rodriguez is a 45 year old male -[place] male patient who has not been seen by local cardiology in the past. Patient has a past medical history of congestive heart failure (most recent ejection fraction noted to be 15%), sickle cell anemia, anxiety and hypertension. Patient is status post aborted sudden cardiac on September 27. EKG revealed deep flat ST depression in the lateral leads and subsequently, patient underwent cardiac catheterization in order to definitively define his coronary anatomy and to rule out underlying obstructive coronary artery disease. This was performed per Dr. Juanito Baig with the following impressions noted: normal coronary arteries, dilated nonischemic cardiomyopathy, elevated LVEDP and pulmonary capillary wedge pressure, transient PSVT which resolved after IV diltiazem. OCTOBER 12, 2016 UPDATE: Mr. Rodriguez is resting comfortably in the bed upon exam this morning. He will follow some commands but is very weak. He will open his eyes when I talk to him. If he can make a meaningful neurological recovery, he will be a candidate for ICD implant for secondary prevention although his drug use will need to be addressed before this is pursued. ASSESSMENT/PLAN: 1. ACUTE CONGESTIVE HEART FAILURE, COMBINED SYSTOLIC AND DIASTOLIC DYSFUNCTION - Improving. Currently under well control with current medication regimen. Echocardiogram this admission revealed ejection fraction of 15% and grade 3 diastolic dysfunction. After negative heart catheterization this was deemed drug-induced cardiomyopathy. Continue beta-shekhar. Once his blood pressure and renal function allows, would start vasodilators with hydralazine or ANGEL inhibitor. Creatinine is today 1.6. Daily weights and strict I's and O's. Will further discuss with Dr. Bell and await his additional recommendations. 2. CARDIAC ARREST - He has had no occasions of PSVTs on telemetry in the past 24 hours. Will continue to monitor. 3. NONISCHEMIC DILATED CARDIOMYOPATHY - Ejection fraction 15%. Continue beta- shekhar. Avoiding ANGEL inhibitor and ARB due to fear of worsening renal function. As above. Will need ICD in the future; however, his drug use will need to be addressed before this is pursued. 4. HYPERTENSION - Continue current plan of care. Avoiding ANGEL inhibitor and ARB due to fear of worsening renal function. 5. SICKLE CELL ANEMIA - Defer management of this to attending. 6. ACUTE ON CHRONIC RENAL FAILURE - Monitor with daily BMP. Creatinine improved today to 1.6. Management per attending. 7. DRUG ABUSE - Patient's drug screen was positive for marijuana upon admission. This is most likely contributing to patient's severe cardiomyopathy. 8. TOBACCO ABUSE - Continue current plan of care. Will discuss the merits of smoking cessation when able. 9. ALCOHOLISM - Continue current plan of care. No signs of withdrawal noted. 10. RESPIRATORY FAILURE - Management per pulmonary. Status post tracheostomy. Exam (Progress Note) - Constitutional Vitals: Period Temp Pulse Resp BP Sys/Ramirez Pulse Ox Last 24 Hr 97.4 F-98.5 F 70-99 12-27 90-114/65-80 94-100 Exam: General: Critically ill, ventilator per tracheostomy. HEENT: Pupils reactive to light. Tracheostomy in place. Mucous membranes moist. No jaundice noted. Neck: No JVD/HJR, no thyromegaly or lymphadenopathy noted. Cardiac: Regular rate and rhythm. No murmur rub or gallop. Lungs: Rhonchi bilaterally. Ventilated. Abdomen: Soft, bowel sounds active. Back: Unable to examine due to habitus on ventilator. Extremities: No clubbing or cyanosis noted. Trace edema. Upper extremity pulses 2+. Lower extremity pulses 2+. Capillary refill less than 3 seconds. Neuro: Patient is awake, will open eyes and follow with his eyes. We will close his eyes to command. Does not move lower extremities. Will move upper extremities but is very weak. Result/EKG - Labs CBC & BMP: 10/12/16 04:43 10/12/16 04:43 Lab Results: I have reviewed the past 24 hour labs Labs: Laboratory Results - last 24 hr 10/11/16 10/11/16 10/11/16 11:50 18:00 23:18 WBC RBC Hgb Hct MCV MCH MCHC RDW Plt Count Neut % (Auto) Lymph % (Auto) [place] % (Auto) Eos % (Auto) Baso % (Auto) Neut # (Auto) Lymph # (Auto) [place] # (Auto) Eos # (Auto) Baso # (Auto) Total Counted Immature Gran % Nucleated RBC % Immature Gran # Segmented Neutrophils Band Neutrophils Lymphocytes Monocytes Basophils Nucleated RBCs # Platelet Estimate Hypochromasia Microcytosis Target Cells Ovalocytes Morphology Comment ABG pH ABG pCO2 ABG pO2 ABG HCO3 ABG Total CO2 ABG O2 Saturation ABG Base Excess FiO2 Sodium Potassium Chloride Carbon Dioxide Anion Gap BUN Creatinine GFR Calculation BUN/Creatinine Ratio Glucose POC Glucose 139 H 140 H 133 H Calculated Osmolality Calcium Magnesium 10/12/16 10/12/16 10/12/16 03:45 04:43 04:43 WBC 11.8 RBC 3.97 Hgb 9.2 L Hct 27.1 L MCV 68.3 L MCH 23 L MCHC 33.9 RDW 24.6 H Plt Count 157 Neut % (Auto) 68.3 Lymph % (Auto) 11.5 L [place] % (Auto) 17.3 H Eos % (Auto) 1.0 Baso % (Auto) 0.1 Neut # (Auto) 8.1 H Lymph # (Auto) 1.4 [place] # (Auto) 2.0 H Eos # (Auto) 0.1 Baso # (Auto) 0.0 Total Counted 100 Immature Gran % 1.8 Nucleated RBC % 0.0 Immature Gran # 0.21 Segmented Neutrophils 72 Band Neutrophils 2 Lymphocytes 12 L Monocytes 13 Basophils 1.0 H Nucleated RBCs # 0.00 Platelet Estimate Adequate Hypochromasia 1+ Microcytosis 1+ Target Cells 1+ Ovalocytes Slight Morphology Comment ABG pH 7.427 ABG pCO2 39.2 ABG pO2 121.0 H ABG HCO3 25.3 ABG Total CO2 26.5 ABG O2 Saturation 97.6 ABG Base Excess 0.9 FiO2 40.00 Sodium 145 Potassium 4.3 Chloride 110 H Carbon Dioxide 28 Anion Gap 11.3 BUN 39 H Creatinine 1.60 H GFR Calculation 64 BUN/Creatinine Ratio 24.00 H Glucose 138 H POC Glucose Calculated Osmolality 298.7 Calcium 8.8 Magnesium 1.6 L 10/12/16 05:16 WBC RBC Hgb Hct MCV MCH MCHC RDW Plt Count Neut % (Auto) Lymph % (Auto) [place] % (Auto) Eos % (Auto) Baso % (Auto) Neut # (Auto) Lymph # (Auto) [place] # (Auto) Eos # (Auto) Baso # (Auto) Total Counted Immature Gran % Nucleated RBC % Immature Gran # Segmented Neutrophils Band Neutrophils Lymphocytes Monocytes Basophils Nucleated RBCs # Platelet Estimate Hypochromasia Microcytosis Target Cells Ovalocytes Morphology Comment ABG pH ABG pCO2 ABG pO2 ABG HCO3 ABG Total CO2 ABG O2 Saturation ABG Base Excess FiO2 Sodium Potassium Chloride Carbon Dioxide Anion Gap BUN Creatinine GFR Calculation BUN/Creatinine Ratio Glucose POC Glucose 155 H Calculated Osmolality Calcium Magnesium - EKG EKG results: interpreted by me, sinus rhythm (with occasional PVC)
--- NOTE | 2016-10-12 08:23 | Pulmonology Progress Note ---
Pulmonary - PN: Subj Interval history: The patient is a 45-year-old black man that has SC disease. He came in with respiratory distress and acute pulmonary edema. He had to be intubated and has been on the ventilator. 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 His ejection fraction of 15% but normal coronaries. Last week he was stable on the ventilator but was not waking up very well. He went for tracheostomy tube without any problems. He has been doing better over the weekend. He is doing CPAP well and now is on trach collar trials. He is much more alert and responsive now. However he is extremely weak and can barely move his extremities. His chest x-ray is stable now. He is going for a PEG tube today. Exam (Progress Note) - Constitutional Vitals: Period Temp Pulse Resp BP Sys/Ramirez Pulse Ox Last 24 Hr 97.7 F-98.5 F 70-99 12-27 90-114/65-80 94-100 Exam: General appearance: normal weight, no acute distress (Patient is much more alert and comfortable and his breathing has been better.) - Head Head exam: Present: normal inspection, normocephalic - Eye Eye exam: Present: EOMI. Absent: scleral icterus Pupils: Present: AUGIE - ENT ENT exam: Present: Unremarkable - Neck Neck exam: Present: normal inspection. He has a tracheostomy tube in place. Absent: lymphadenopathy, thyromegaly - Respiratory Respiratory exam: Present: He has good breath sounds bilaterally and his lungs still sound reasonably clear. He is moving air well without any wheezing. Overall his lungs sound reasonably clear now. - Cardiovascular Cardiovascular exam: Present: regular rate and rhythm, systolic murmur (He does have a soft systolic murmur), tachycardia. Absent: gallop - GI/Abdominal GI/Abdominal exam: Present: normal bowel sounds, soft. He does not have any hiccups now. Absent: distended, organomegaly, tenderness - Extremities Exam Extremities exam: Absent: calf tenderness, edema, there are no signs of phlebitis. - Neurological Exam Neurological exam: Present: other (Patient is much more alert and does respond to commands. His extremities are extremely weak.) - Skin Skin exam: Present: warm, dry Results - Labs CBC & BMP: 10/12/16 04:43 10/12/16 04:43 Labs: His PO2 is 121 with a PCO2 of 39 and a pH of 7.42 - Diagnostic Findings Procedure: Chest x-ray: image reviewed by me, report reviewed by me (Chest x- ray shows cardiomegaly but no CHF.) Assessment and Plan (1) Congestive heart failure Status: Acute Assessment and plan: The patient presents with acute shortness of breath and his x-ray is consistent with heart failure. He has a severe cardiomyopathy with ejection fraction of 15 %. His CHF has cleared nicely and his oxygenation is improved. Current Visit: Yes (2) Hemoglobin SC disease Status: Chronic Assessment and plan: Patient has a history of sickle cell disease and his hematocrit is 27.1 today. Current Visit: Yes (3) Pneumonia Status: Acute Assessment and plan: The patient has been treated for pneumonia and his lungs are better now. Current Visit: Yes (4) Respiratory failure Status: Acute Assessment and plan: The patient is doing much better with his tracheostomy tube. He has done CPAP for hours and is now on trach collar trials. Current Visit: Yes Qualifiers: Chronicity: acute (5) Acute on chronic renal failure Status: Acute Assessment and plan: The patient's creatinine is now down to 1.6 and much improved. Current Visit: Yes (6) Encephalopathy Status: Acute Assessment and plan: The patient has finally improved minimally but now has a critical illness myopathy. He is extremely weak. Current Visit: Yes
[2016-10-12] MEDS: THIAMINE 200 MG/2 ML VIAL IV SCH (08:45)
[2016-10-12] MEDS: INSULIN GLARGINE 100 UNIT/ML SUBCUT SCH ×2 (08:58→21:34)
[2016-10-12] MEDS: ISOSORBIDE MONONITRATE 30 MG TABLET PO SCH (08:59)
[2016-10-12] MEDS: FUROSEMIDE 20 MG/2 ML VIAL IV SCH (09:48)
--- NOTE | 2016-10-12 11:03 | Hospitalist Progress Note ---
Assessment and Plan (1) Hypernatremia Status: Acute Assessment and plan: 1)hypernatremia- resolved. stop the high free water in tube feeds today and reassess in the morning. 2)reps failure- trach in place. trach collar trials. 3)nutrition- tube feeds- restart when ok with GI. PEG placed today. 4)pneumonia- resolved. BCx from earlier in course was contaminant. Dr Obed started Merrem a couple of days ago. 5)acute systolic CHF- EF 15%- nonischemic probably from alcohol 6)JORDAN on CKD- creatinine down to 1.6, in recovery phase. Baseline is 1.3. 7)sickle cell disease, anemia, thrombocytopenia resolved. H&H 9.06/06 8)anoxic encephalopathy- this is result of his code and cause of his difficulty extubating. His mental status has made a big improvement over the last couple of days. 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 PT and OT are seeing him. 10)DM- on glucerna, SSI 11)Full code. Current Visit: Yes (2) Respiratory failure Status: Acute Current Visit: Yes Qualifiers: Chronicity: acute (3) Pneumonia Status: Acute Current Visit: Yes (4) Hemoglobin SC disease Status: Chronic Current Visit: Yes (5) Severe sepsis Status: Acute Current Visit: Yes (6) Community acquired pneumonia Status: Acute Current Visit: Yes (7) Acute combined systolic and diastolic congestive heart failure Status: Acute Current Visit: Yes (8) Acute on chronic renal failure Status: Acute Current Visit: Yes (9) Anoxic encephalopathy Status: Acute Current Visit: Yes (10) Elevated liver enzymes Status: Acute Current Visit: Yes (11) Diabetes Status: Acute Current Visit: Yes Hospitalist: Subjective Interval history: Mr Rodriguez remains responsive and weak. For PEG tube today. He has done trach collar trials. Exam - Constitutional Vitals: Period Temp Pulse Resp BP Sys/Ramirez Pulse Ox Last 24 Hr 97.7 F-99.4 F 70-98 9-27 90-114/65-80 94-100 General appearance: normal weight, no acute distress - Eye Eye exam: Present: EOMI. Absent: scleral icterus - Respiratory Respiratory exam: Present: clear to auscultation bilaterally - Cardiovascular Cardiovascular exam: Present: regular rate and rhythm - GI/Abdominal GI/Abdominal exam: Present: normal bowel sounds, soft. Absent: tenderness - Extremities Exam Extremities exam: Absent: edema - Neurological Exam Neurological exam: Present: motor sensory deficit (general weakness) Results - Labs CBC & BMP: 10/12/16 04:43 10/12/16 04:43 Lab Results: I have reviewed the past 24 hour labs
[2016-10-12] MEDS: FOLIC ACID INJ 1 MG in SYRINGE 1 EACH IV SCH (11:15)
--- NOTE | 2016-10-12 11:42 | History and Physical Update ---
History and Physical Update - History and Physical H&P was reviewed, the patient examined and there: are no changes in the patients condition since last H&P was completed. - Physical Exam Mental Status: other (More alert) Heart: regular rate and rhythm Lung: clear to auscultation Abdomen: within normal limits Vitals: within normal limits
[2016-10-12] MEDS ORDERED: PROPOFOL 200 MG/20 ML VIAL IV ONE (11:50)
[2016-10-12] MEDS ORDERED: LIDOCAINE 1% 5 ML VIAL ONE (11:50)
--- NOTE | 2016-10-12 12:05 | Operative Note ---
Date of procedure: 10/12/16 Pre-op diagnosis: Oropharyngeal dysphagia Procedure: Procedure: Esophagogastroduodenoscopy with percutaneous endoscopic gastrostomy tube placement Brief clinical abstract: 45-year-old male is admitted with recent respiratory failure and hypoxic encephalopathy. He has been unable to eat and we are asked to place gastrostomy tube for nutritional support. Indication for procedure: Oropharyngeal dysphagia Endoscopic findings:[After informed consent was obtained, the patient was placed in the left lateral decubitus position. The gastroscope was inserted in the upper esophagus under direct vision with no resistance encountered. Esophageal mucosa appeared normal with squamocolumnar junction sharply demarcated at the diaphragmatic indentation. The endoscope was advanced in the stomach which was carefully examined including retroflexed view of the cardia and fundus with no abnormality seen. The pyloric channel, duodenal bulb, second and third portion of the duodenum appeared normal. The endoscope was withdrawn and site for gastrostomy tube placement was selected using external indentation and endoscopic transillumination. Sterile field was created over the anterior abdomen at the site. 5 cc of 1% lidocaine was injected subcutaneously down the level of the gastric wall. An approximately 5 mm superficial transverse incision was made with scalpel. Then, Cook 20 [place] gastrostomy tube was placed with pull technique without difficulty. The tube was secured at the 2 cm markus on the skin surface with external bumper applied at that level. A dressing was applied to the site afterwards. He appeared to tolerate the procedure well. Impression: #1 normal EGD #2 status post successful PEG tube placement Recommendations: May give medications through PEG tube today and would plan to start tube feedings tomorrow. Follow dietary recommendations for tube feeding requirements. Keep abdominal binder over PEG tube for at least 10 days. Anesthesia: MAC Surgeon / Physician: Jon Francis Estimated blood loss: minimal Specimens: none sent Condition: stable Disposition: post procedure unit Results - Labs CBC & BMP: 10/12/16 04:43 10/12/16 04:43 Discharge Plan - Discharge Medications No Action amLODIPine [Norvasc] 10 mg PO DAILY FLUoxetine [PROzac] 40 mg PO DAILY OLANZapine [Olanzapine] 20 mg PO DAILY - Follow Up or Referral - Forms/Instructions
--- NOTE | 2016-10-12 12:06 | Anesthesia Post-Op ---
Anesthesia Post OP - Post Ansesthetic Evaluation Patient seen in post op: Yes Resp: within normal limits CV: within normal limits Mental: within normal limits Temp: within normal limits [id number]: within normal limits Nausea and Vomiting: within normal limits Pain: within normal limits
[2016-10-12] MEDS: CARVEDILOL 3.125 MG TABLET PO SCH ×2 (16:05→21:34)
[2016-10-12] MEDS: LISINOPRIL 2.5 MG TABLET PO SCH (16:25)
[2016-10-12] MEDS: LORazepam 2 MG/1 ML VIAL IV PRN (17:48)
[2016-10-12] MEDS ORDERED: WARFARIN 5 MG TABLET PO SCH (18:00)
[2016-10-12] MEDS ORDERED: ENOXAPARIN 120 MG/0.8 ML SYRINGE SUBCUT SCH (21:00)
[2016-10-13] MEDS: INSULIN REGULAR 100 UNIT/ML SUBCUT SCH ×4 (01:31→18:04)
[2016-10-13] MEDS: CLINDAMYCIN INJ 300 MG in PREMIX 1 EACH IV SCH ×4 (02:50→22:10)
[2016-10-13] MEDS: MEROPENEM 500 MG in SODIUM CHLORIDE 0.9% 100 ML IV SCH ×3 (02:50→18:12)
[2016-10-13 04:32] LABS: Basophils % 0.3 % (0.0-0.8); Eosinophils # 0.1 10*3/uL (0.0-0.87); Hematocrit 27.6 VOL% (42.0-52.0); Hemoglobin 9.1 GM/DL (14.0-18.0); Immature Granulocytes % 1.7 %; Immature Granulocytes Absolute 0.17 #; Lymphocytes # 1.1 10*3/uL (1.4-4.0); Mean Corpuscular Hemoglobin 23 PG (27-34); Mean Corpuscular Volume 69.3 FL (87-102); Monocytes # 1.7 10*3/uL (0.11-0.8); Monocytes % 16.3 % (1.7-12.7); Neutrophils # 7.2 10*3/uL (1.4-7.4); Neutrophils % 69.7 % (38.7-73.9); Platelet Count 166 T/CUMM (130-400); Red Blood Count 3.98 MC/CUMM (3.8-5.5); Red Cell Distribution Width 24.4 % (9.3-17.3); White Blood Count 10.3 T/CUMM (4-12)
[2016-10-13 05:11] LABS: Calcium 9.9 MG/DL (8.5-10.1); Magnesium 1.6 MG/DL (1.8-2.4); Osmolality,Calculated 302.3 MOS/KG (273-304); Phosphorous 4.5 MG/DL (2.5-4.9); Prealbumin 4.6 MG/DL (20-40)
[2016-10-13 05:12] LABS: Band Neutrophils 3 % (0-10); Eosinophils 2 % (0-10); Lymphocytes 9 % (20-55); Segmented Neutrophils 77 % (50-85); Total Cells Counted 100
[2016-10-13 05:13] LABS: Giant Platelets Few; Hypochromasia 1+; Microcytosis 1+; Platelet Estimate Normal; Target Cells 1+
[2016-10-13] MEDS: FAMOTIDINE 20 MG/2 ML VIAL IV SCH (06:11)
[2016-10-13] MEDS ORDERED: MIDAZOLAM 2 MG/2 ML VIAL ONE (06:54)
[2016-10-13] MEDS: ALBUTEROL/IPRATROPIUM 3 ML NEB RESP TX SCH ×3 (07:28→23:35)
--- NOTE | 2016-10-13 07:34 | Pulmonology Progress Note ---
Pulmonary - PN: Subj Interval history: The patient is a 45-year-old black man that has SC disease. He came in with respiratory distress and acute pulmonary edema. He had to be intubated and has been on the ventilator. He was taken to the heart labor delivery rn had a cardiac catheterization. His ejection fraction of 15% but normal coronaries. Last week he was stable on the ventilator but was not waking up very well. He went for tracheostomy tube without any problems. He has been doing better over the weekend. He is doing CPAP well and now is on trach collar trials. He is much more alert and responsive now. Yesterday he did get his PEG tube placed without any problems. He is on trach collar and is more alert. He still is extremely weak but is moving his extremities some. Exam (Progress Note) - Constitutional Vitals: Period Temp Pulse Resp BP Sys/Ramirez Pulse Ox Last 24 Hr 97.9 F-99.4 F 57-93 9-29 105-130/61-92 90-100 Exam: General appearance: normal weight, no acute distress (Patient is much more alert and comfortable and his breathing has been better. He is comfortable on trach collar at present.) - Head Head exam: Present: normal inspection, normocephalic - Eye Eye exam: Present: EOMI. Absent: scleral icterus Pupils: Present: AUGIE - ENT ENT exam: Present: Unremarkable - Neck Neck exam: Present: normal inspection. He has a tracheostomy tube in place. Absent: lymphadenopathy, thyromegaly - Respiratory Respiratory exam: Present: He has good breath sounds bilaterally and his lungs still sound reasonably clear. He is moving air well without any wheezing. Overall his lungs sound reasonably clear now. - Cardiovascular Cardiovascular exam: Present: regular rate and rhythm, systolic murmur (He does have a soft systolic murmur), his heart rate is better. Absent: gallop - GI/Abdominal GI/Abdominal exam: Present: normal bowel sounds, soft. He does not have any hiccups now. Absent: distended, organomegaly, tenderness - Extremities Exam Extremities exam: Absent: calf tenderness, edema, there are no signs of phlebitis. - Neurological Exam Neurological exam: Present: other (Patient is much more alert and does respond to commands. His extremities are extremely weak.) - Skin Skin exam: Present: warm, dry Results - Labs CBC & BMP: 10/13/16 03:41 10/13/16 03:41 Assessment and Plan (1) Congestive heart failure Status: Acute Assessment and plan: The patient presents with acute shortness of breath and his x-ray is consistent with heart failure. He has a severe cardiomyopathy with ejection fraction of 15 %. His CHF has cleared nicely and his oxygenation is improved. He is breathing much more comfortably now. Current Visit: Yes (2) Hemoglobin SC disease Status: Chronic Assessment and plan: Patient has a history of sickle cell disease and his hematocrit is 27.6 today. Current Visit: Yes (3) Pneumonia Status: Acute Assessment and plan: The patient has been treated for pneumonia and his lungs are better now. He does not have any signs of pneumonia now. Current Visit: Yes (4) Respiratory failure Status: Acute Assessment and plan: The patient is doing much better with his tracheostomy tube. He has done CPAP for hours and is now on trach collar trials. He is breathing comfortably and he is maintaining his O2 saturation without problems. Current Visit: Yes Qualifiers: Chronicity: acute (5) Acute on chronic renal failure Status: Acute Assessment and plan: The patient's creatinine is now down to 1.3 and much improved. Current Visit: Yes (6) Encephalopathy Status: Acute Assessment and plan: The patient has finally improved minimally and is responding better and more alert. Current Visit: Yes (7) Critical illness myopathy Status: Acute Assessment and plan: The patient is extremely weak and can move his extremities but cannot do much at all. Current Visit: Yes
--- NOTE | 2016-10-13 07:56 | Cardiology Progress Note ---
Assessment and Plan - Time spent with patient Time spent with patient: Less than 30 minutes (1) Acute combined systolic and diastolic congestive heart failure Status: Acute Current Visit: Yes (2) Cardiac arrest Status: Acute Assessment and plan: See plan of care listed below. Current Visit: Yes (3) Nonischemic dilated cardiomyopathy Status: Acute Assessment and plan: See plan of care listed below. Current Visit: Yes (4) Hypertension Status: Acute Assessment and plan: See plan of care listed below. Current Visit: Yes (5) Hemoglobin SC disease Status: Chronic Assessment and plan: See plan of care listed below. Current Visit: Yes (6) Acute on chronic renal failure Status: Acute Assessment and plan: See plan of care listed below. Current Visit: Yes (7) Drug abuse Status: Chronic Assessment and plan: See plan of care listed below. Current Visit: Yes (8) Respiratory failure Status: Acute Assessment and plan: See plan of care listed below. Current Visit: Yes Qualifiers: Chronicity: acute (9) History of congestive heart failure Status: Acute Assessment and plan: See plan of care listed below. 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 PCP: Dr. Ector Figueroa SUMMARY - Mr. Rodriguez is a 45 year old male -Indian male patient who has not been seen by local cardiology in the past. Patient has a past medical history of congestive heart failure (most recent ejection fraction noted to be 15%), sickle cell anemia, anxiety and hypertension. Patient is status post aborted sudden cardiac on September 27. EKG revealed deep flat ST depression in the lateral leads and subsequently, patient underwent cardiac catheterization in order to definitively define his coronary anatomy and to rule out underlying obstructive coronary artery disease. This was performed per Dr. Juanito Baig with the following impressions noted: normal coronary arteries, dilated nonischemic cardiomyopathy, elevated LVEDP and pulmonary capillary wedge pressure, transient PSVT which resolved after IV diltiazem. OCTOBER 13, 2016 UPDATE: Mr. Rodriguez is resting comfortably in bed upon exam today. He will open his eyes and turn his head when you speak to him, but he did not follow commands for me today. He did squeeze his nurses hands this morning but is still not moving his lower extremities. If he can make a meaningful neurological recovery, he will be a candidate for ICD implant for secondary prevention although his drug use will need to be addressed before this is pursued. In the meantime, he can be protected with a lifevest upon discharge. He had PEG tube placed yesterday. Site looks good. Tube feedings will be resumed today. ASSESSMENT/PLAN: 1. ACUTE CONGESTIVE HEART FAILURE, COMBINED SYSTOLIC AND DIASTOLIC DYSFUNCTION - Improving. Currently under well control with current medication regimen. Echocardiogram this admission revealed ejection fraction of 15% and grade 3 diastolic dysfunction. After negative heart catheterization this was deemed drug-induced cardiomyopathy. Continue beta-shekhar. Creatinine is today 1.3. He was started on low dose ANGEL inhibitor. Daily weights and strict I's and O's. Will further discuss with Dr. Bell and await his additional recommendations. 2. CARDIAC ARREST - He has had no occasions of PSVTs on telemetry in the past 24 hours. Will continue to monitor. 3. NONISCHEMIC DILATED CARDIOMYOPATHY - Ejection fraction 15%. Continue beta- shekhar. Renal function improved with creatinine 1.3 today. He was started on a low dose ANGEL inhibitor. As above. Will need ICD in the future; however, his drug use will need to be addressed before this is pursued. He is receiving large volumes of fluids and has been started on Lasix IV daily. 4. HYPERTENSION - Continue current plan of care. He was started on low dose ANGEL inhibitor. We will continue to monitor renal function. 5. SICKLE CELL ANEMIA - Defer management of this to attending. H&H stable. 6. ACUTE ON CHRONIC RENAL FAILURE - Monitor with daily BMP. Creatinine improved today to 1.3. Management per attending. 7. DRUG ABUSE - Patient's drug screen was positive for marijuana upon admission. This is most likely contributing to patient's severe cardiomyopathy. 8. TOBACCO ABUSE - Continue current plan of care. Will discuss the merits of smoking cessation when able. 9. ALCOHOLISM - Continue current plan of care. No signs of withdrawal noted. 10. RESPIRATORY FAILURE - Management per pulmonary. Status post tracheostomy. Exam (Progress Note) - Constitutional Vitals: Period Temp Pulse Resp BP Sys/Ramirez Pulse Ox Last 24 Hr 97.9 F-99.4 F 57-93 9-29 105-130/61-92 90-100 Exam: General: Appears chronically ill. Tracheostomy in place with O2 via trach collar. HEENT: Pupils reactive to light. Tracheostomy in place. Mucous membranes moist. No jaundice noted. Neck: No JVD/HJR, no thyromegaly or lymphadenopathy noted. Cardiac: Regular rate and rhythm. No murmur rub or gallop. Lungs: Scattered Rhonchi bilaterally, otherwise clear to auscultation. O2 via trach collar. Abdomen: Soft, bowel sounds active. PEG tube in place. Back: Unable to examine due to habitus. Extremities: No clubbing or cyanosis noted. Trace edema. Upper extremity pulses 2+. Lower extremity pulses 2+. Capillary refill less than 3 seconds. Neuro: Patient is awake, will open eyes and follow with his eyes. We will close his eyes to command. Does not move lower extremities. Will move upper extremities but is very weak. Result/EKG - Labs CBC & BMP: 10/13/16 03:41 10/13/16 03:41 Lab Results: I have reviewed the past 24 hour labs Labs: Laboratory Results - last 24 hr 10/12/16 10/12/16 10/12/16 11:32 17:33 21:16 WBC RBC Hgb Hct MCV MCH MCHC RDW Plt Count Neut % (Auto) Lymph % (Auto) [place] % (Auto) Eos % (Auto) Baso % (Auto) Neut # (Auto) Lymph # (Auto) [place] # (Auto) Eos # (Auto) Baso # (Auto) Total Counted Immature Gran % Nucleated RBC % Immature Gran # Segmented Neutrophils Band Neutrophils Lymphocytes Monocytes Eosinophils Nucleated RBCs # Platelet Estimate Giant Platelets Hypochromasia Microcytosis Target Cells Sodium Potassium Chloride Carbon Dioxide Anion Gap BUN Creatinine GFR Calculation BUN/Creatinine Ratio Glucose POC Glucose 168 H 183 H 152 H Calculated Osmolality Calcium Phosphorus Magnesium Prealbumin 10/13/16 10/13/16 10/13/16 01:18 03:41 03:41 WBC 10.3 RBC 3.98 Hgb 9.1 L Hct 27.6 L MCV 69.3 L MCH 23 L MCHC 33.0 RDW 24.4 H Plt Count 166 Neut % (Auto) 69.7 Lymph % (Auto) 11.0 L [place] % (Auto) 16.3 H Eos % (Auto) 1.0 Baso % (Auto) 0.3 Neut # (Auto) 7.2 Lymph # (Auto) 1.1 L [place] # (Auto) 1.7 H Eos # (Auto) 0.1 Baso # (Auto) 0.0 Total Counted 100 Immature Gran % 1.7 Nucleated RBC % 0.0 Immature Gran # 0.17 Segmented Neutrophils 77 Band Neutrophils 3 Lymphocytes 9 L Monocytes 9 Eosinophils 2 Nucleated RBCs # 0.00 Platelet Estimate Normal Giant Platelets Few Hypochromasia 1+ Microcytosis 1+ Target Cells 1+ Sodium 148 H Potassium 4.0 Chloride 113 H Carbon Dioxide 27 Anion Gap 12.0 BUN 32 H Creatinine 1.30 GFR Calculation 82 BUN/Creatinine Ratio 24.00 H Glucose 138 H POC Glucose 154 H Calculated Osmolality 302.3 Calcium 9.9 Phosphorus 4.5 Magnesium 1.6 L Prealbumin 4.6 L 10/13/16 05:55 WBC RBC Hgb Hct MCV MCH MCHC RDW Plt Count Neut % (Auto) Lymph % (Auto) [place] % (Auto) Eos % (Auto) Baso % (Auto) Neut # (Auto) Lymph # (Auto) [place] # (Auto) Eos # (Auto) Baso # (Auto) Total Counted Immature Gran % Nucleated RBC % Immature Gran # Segmented Neutrophils Band Neutrophils Lymphocytes Monocytes Eosinophils Nucleated RBCs # Platelet Estimate Giant Platelets Hypochromasia Microcytosis Target Cells Sodium Potassium Chloride Carbon Dioxide Anion Gap BUN Creatinine GFR Calculation BUN/Creatinine Ratio Glucose POC Glucose 152 H Calculated Osmolality Calcium Phosphorus Magnesium Prealbumin - EKG EKG results: interpreted by me, sinus rhythm
[2016-10-13] MEDS: THIAMINE 200 MG/2 ML VIAL IV SCH (08:18)
[2016-10-13] MEDS: FUROSEMIDE 20 MG/2 ML VIAL IV SCH (08:21)
[2016-10-13] MEDS: LISINOPRIL 2.5 MG TABLET PO SCH (08:33)
[2016-10-13] MEDS: CARVEDILOL 3.125 MG TABLET PO SCH ×2 (08:33→22:10)
[2016-10-13] MEDS: INSULIN GLARGINE 100 UNIT/ML SUBCUT SCH ×2 (08:44→22:10)
[2016-10-13] MEDS: FOLIC ACID INJ 1 MG in SYRINGE 1 EACH IV SCH (08:46)
--- NOTE | 2016-10-13 09:26 | Gastrointestinal Progress Note ---
Assessment and Plan (1) Anoxic encephalopathy Status: Acute Assessment and plan: 7/6-Post PEG placement without complication, tolerating flushes. Okay to resume tube feedings today. Plan and addendum to follow by Dr Francis. Current Visit: Yes Gastroenterology - PN: Subj Interval history: CC: Inability to eat Pt is seen, eyes open but doesnt follow commands. He is post PEG placement on yesterday. Abdominal binder is intact and no signs of redness or drainage around site. He has tolerated flushes and meds well through the tube and is to have feedings resumed today. Abdomen is soft, nontender. ROS: No acute distress Exam (Progress Note) - Constitutional Vitals: Period Temp Pulse Resp BP Sys/Ramirez Pulse Ox Last 24 Hr 97.9 F-98.3 F 57-93 11-29 105-130/61-92 90-100 General appearance: normal weight, no acute distress - Head Head exam: Present: normal inspection, normocephalic - Eye Eye exam: Present: other (lids and conjunctiva unremarkable). Absent: scleral icterus - ENT ENT exam: Present: normal exam, normal oropharynx - Neck Neck exam: Present: normal inspection - Respiratory Respiratory exam: Present: clear to auscultation bilaterally. Absent: rales, rhonchi, wheezes - Cardiovascular Cardiovascular exam: Present: regular rate and rhythm. Absent: diastolic murmur , JVD, systolic murmur - GI/Abdominal GI/Abdominal exam: Present: normal bowel sounds, soft. Absent: ascites, distended, mass, organomegaly, tenderness - Extremities Exam Extremities exam: Present: normal inspection, full ROM - Back Exam Back exam: Present: normal inspection - Neurological Exam Neurological exam: Present: alert, altered - Psychiatric Psychiatric exam: Present: normal affect, normal mood - Skin Skin exam: Present: normal color, warm, dry Results - Labs CBC & BMP: 10/13/16 03:41 10/13/16 03:41 Lab Results: I have reviewed the past 24 hour labs
[2016-10-13] MEDS: MAGNESIUM SULF RIDER 2 GM in PREMIX 1 EACH IV PRN (16:29)
--- NOTE | 2016-10-13 17:53 | Hospitalist Progress Note ---
Assessment and Plan - Time spent with patient Time spent with patient: Greater than 30 minutes (1) Anoxic encephalopathy Problem details: Status post cardiac arrest and resuscitation 09/27/2016. Status: Acute Current Visit: Yes (2) Sickle cell disease, type S Problem details: SC disease Status: Chronic Current Visit: Yes (3) Acute combined systolic and diastolic congestive heart failure Status: Acute Current Visit: Yes (4) Cardiomyopathy Problem details: LVEF 15% with grade 3 diastolic dysfunction on echocardiogram . Four-chamber enlargement reported on echo consistent with dilated cardiomyopathy. LifeVest recommended by consulting textile clothing and footwear mechanic. If patient's mental status and functional status improve but cardiomyopathy does not improve patient should be reevaluated for AICD placement Status: Chronic Current Visit: Yes (5) Acute kidney injury superimposed on chronic kidney disease Status: Acute Current Visit: Yes (6) Respiratory failure Status: Acute Current Visit: Yes (7) Essential hypertension Status: Acute Current Visit: Yes (8) Alcoholism Status: Acute Current Visit: Yes (9) Tobacco abuse Status: Acute Current Visit: Yes (10) Pneumonia Status: Acute Current Visit: Yes (11) Dysphasia Problem details: PEG placed by telephone repairer yesterday; No complications noted. Receiving enteral feeding and Water supplements. Status: Acute Current Visit: Yes (12) Burns catheter in place Problem details: Garza colored urine collecting in bedside urine bag; clear without sediment. Status: Acute Current Visit: Yes (13) Bacteremia Problem details: 09/27/2016 blood cultures grew staph hemolyticus 1 of 2 bottles considered contamination). 09/27/2016 sputum grew Tisha albicans 10/07/2016 blood culture grew staph capitis Status: Acute Current Visit: Yes (14) Anemia of chronic disease Status: Acute Current Visit: Yes Hospitalist: Subjective Interval history: Patient is a 45-year-old black male with multiple chronic medical problems. He was admitted for evaluation of acute on chronic shortness of breath. Exam - Constitutional Vitals: Period Temp Pulse Resp BP Sys/Ramirez Pulse Ox Last 24 Hr 97.7 F-99.5 F 58-96 14-29 94-134/64-92 73-100 Results - Labs CBC & BMP: 10/13/16 03:41 10/13/16 03:41
[2016-10-14] MEDS: INSULIN REGULAR 100 UNIT/ML SUBCUT SCH ×4 (00:29→18:19)
[2016-10-14] MEDS: MEROPENEM 500 MG in SODIUM CHLORIDE 0.9% 100 ML IV SCH ×3 (02:38→18:31)
[2016-10-14] MEDS: CLINDAMYCIN INJ 300 MG in PREMIX 1 EACH IV SCH ×4 (02:38→21:20)
[2016-10-14] MEDS: MORPHINE 2 MG/1 ML SYRINGE IV PRN ×3 (03:43→09:36)
[2016-10-14 05:18] LABS: Basophils % 0.2 % (0.0-0.8); Eosinophils # 0.1 10*3/uL (0.0-0.87); Eosinophils % 1.2 % (0.00-10.9); Hematocrit 27.2 VOL% (42.0-52.0); Hemoglobin 9.1 GM/DL (14.0-18.0); Immature Granulocytes % 1.7 %; Immature Granulocytes Absolute 0.18 #; Lymphocytes # 1.6 10*3/uL (1.4-4.0); Lymphocytes % 15.5 % (21.2-54.2); Mean Corpuscular HGB Conc 33.5 GM/DL (32-36); Mean Corpuscular Hemoglobin 23 PG (27-34); Mean Corpuscular Volume 68.2 FL (87-102); Monocytes # 1.6 10*3/uL (0.11-0.8); Monocytes % 15.1 % (1.7-12.7); Neutrophils # 6.9 10*3/uL (1.4-7.4); Neutrophils % 66.3 % (38.7-73.9); Platelet Count 196 T/CUMM (130-400); Red Blood Count 3.99 MC/CUMM (3.8-5.5); Red Cell Distribution Width 24.8 % (9.3-17.3); White Blood Count 10.4 T/CUMM (4-12)
[2016-10-14] MEDS: FAMOTIDINE 20 MG/2 ML VIAL IV SCH (05:44)
[2016-10-14 05:48] LABS: Anisocytosis 1+; Band Neutrophils 3 % (0-10); Eosinophils 1 % (0-10); Lymphocytes 17 % (20-55); Platelet Estimate Adequate; Polychromasia Slight; Segmented Neutrophils 66 % (50-85); Total Cells Counted 100
[2016-10-14 05:59] LABS: Calcium 9.2 MG/DL (8.5-10.1); Magnesium 1.9 MG/DL (1.8-2.4); Potassium 3.9 MMOL/L (3.5-5.1)
--- NOTE | 2016-10-14 06:45 | XRay Report ---
XR chest 1V portable Indication: Shortness of breath Comparison: Chest x-ray 10/11/2016. Technique: Portable AP chest was performed. Findings: Cardiomegaly is present. The appearance of the cardiac silhouette suggests pericardial effusion. Airspace disease right cardiophrenic angle has increased. Scattered airspace opacities left lung base are suggested. There is improved visualization of the more central left hemidiaphragm. Upper lungs are clear. Tracheostomy tube is present. NG tube has been removed. Bones and soft tissues are stable. Gallbladder is surgically absent. Impression: 1. Some improvement in visualization of the central left hemidiaphragm is noted. 2. Airspace opacities right cardiophrenic angle have differential considerations including atelectasis, edema, and infection. 3. Pericardial effusion is suggested. Echocardiogram is recommended. 10/14/2016 6:41 AM PROCEDURE INTERPRETED AT [facility] DEPARTMENT OF RADIOLOGY Final Report Signed by: Dr. Soy Graf
[2016-10-14] MEDS: ALBUTEROL/IPRATROPIUM 3 ML NEB RESP TX SCH ×3 (06:48→23:04)
--- NOTE | 2016-10-14 07:49 | Pulmonology Progress Note ---
Pulmonary - PN: Subj Interval history: The patient is a 45-year-old black man that has SC disease. He came in with respiratory distress and acute pulmonary edema. He had to be intubated and has been on the ventilator. He was taken to the [facility] had a cardiac catheterization. His ejection fraction of 15% but normal coronaries. Last week he was stable on the ventilator but was not waking up very well. He went for tracheostomy tube without any problems. He has been doing better over the weekend. Now he is on trach collar and looks quite comfortable. He is a little more alert but has a critical illness myopathy. He is extremely weak and not moving very well. His chest x-ray shows cardiomegaly but no CHF now. His PCO2 is 57 with a normal pH. Overall he looks reasonably stable. Exam (Progress Note) - Constitutional Vitals: Period Temp Pulse Resp BP Sys/Ramirez Pulse Ox Last 24 Hr 97.7 F-98.6 F 54-99 14-27 94-127/62-92 73-100 Exam: General appearance: normal weight, no acute distress (Patient is much more alert and comfortable and is breathing comfortably on trach collar. ) - Head Head exam: Present: normal inspection, normocephalic - Eye Eye exam: Present: EOMI. Absent: scleral icterus Pupils: Present: AUGIE - ENT ENT exam: Present: Unremarkable - Neck Neck exam: Present: normal inspection. He has a tracheostomy tube in place. Absent: lymphadenopathy, thyromegaly - Respiratory Respiratory exam: Present: He has good breath sounds bilaterally and his lungs still sound reasonably clear. He is moving air well without any wheezing. Overall his lungs sound reasonably clear now. - Cardiovascular Cardiovascular exam: Present: regular rate and rhythm, systolic murmur (He does have a soft systolic murmur), his heart rate is better. His PMI is laterally displaced. Absent: gallop - GI/Abdominal GI/Abdominal exam: Present: normal bowel sounds, soft. Absent: distended, organomegaly, tenderness - Extremities Exam Extremities exam: Absent: calf tenderness, edema, there are no signs of phlebitis. - Neurological Exam Neurological exam: Present: other (Patient is much more alert and does respond to commands. His extremities are extremely weak.) - Skin Skin exam: Present: warm, dry Results - Labs CBC & BMP: 10/14/16 04:41 10/14/16 04:41 Labs: PO2 is 81 with a PCO2 of 57 and pH is 7.4. - Diagnostic Findings Procedure: Chest x-ray: image reviewed by me, report reviewed by me (Chest x- ray shows cardiomegaly but no CHF) Assessment and Plan (1) Congestive heart failure Status: Acute Assessment and plan: The patient presents with acute shortness of breath and his x-ray is consistent with heart failure. He has a severe cardiomyopathy with ejection fraction of 15 %. His CHF has cleared nicely and his oxygenation is improved. He is breathing much more comfortably now. He certainly looks comfortable on trach collar. Current Visit: Yes (2) Hemoglobin SC disease Status: Chronic Assessment and plan: Patient has a history of sickle cell disease and his hematocrit is 35.1 today. Current Visit: Yes (3) Pneumonia Status: Resolved Assessment and plan: The patient has been treated for pneumonia and his lungs are better now. He does not have any signs of pneumonia now. Current Visit: No (4) Respiratory failure Status: Acute Assessment and plan: The patient is doing much better with his tracheostomy tube. He has done CPAP for hours and is now on trach collar trials. He is breathing comfortably and he is maintaining his O2 saturation without problems. His PCO2 is 57 with a pH of 7.4. Current Visit: Yes Qualifiers: Chronicity: acute (5) Acute on chronic renal failure Status: Resolved Assessment and plan: The patient's creatinine is now down to 0.3 and much improved. Current Visit: Yes (6) Encephalopathy Status: Acute Assessment and plan: The patient has finally improved minimally and is responding better and more alert. Current Visit: Yes (7) Critical illness myopathy Status: Acute Assessment and plan: The patient is extremely weak and can move his extremities but cannot do much at all. He looks like he will need a long-term facility. Current Visit: Yes
--- NOTE | 2016-10-14 09:09 | Post Interventional Procedure ---
Pre-op diagnosis: Intubated, Pneumonia, limited PIV access Post-op diagnosis: same Procedure: PICC LUE Flouroscopy: 0.1 min Radiologist: Filippo Juan Anesthesia: local Specimens: none sent Estimated blood loss: none Complications: none Condition: critical Assessment and Plan - Time spent with patient Time spent with patient: Less than 30 minutes
[2016-10-14] MEDS: INSULIN GLARGINE 100 UNIT/ML SUBCUT SCH ×2 (09:32→21:21)
[2016-10-14] MEDS: CARVEDILOL 3.125 MG TABLET PO SCH (09:34)
[2016-10-14] MEDS: FUROSEMIDE 20 MG/2 ML VIAL IV SCH (09:34)
[2016-10-14] MEDS: THIAMINE 200 MG/2 ML VIAL IV SCH (09:34)
[2016-10-14] MEDS: LISINOPRIL 2.5 MG TABLET PO SCH (09:35)
--- NOTE | 2016-10-14 09:47 | Cardiology Progress Note ---
Assessment and Plan (1) Cardiac arrest Status: Acute Assessment and plan: 45-year-old black male, status post aborted sudden cardiac , severe nonischemic cardiomyopathy, prolonged respiratory insufficiency, and anoxic encephalopathy. Today, he opens eyes on command but does not squeeze hands. Sinus rhythm, with occasional short and SVTs on telemetry, IVR. MS improving. -Increase Coreg to 6.25 mg twice daily. Continue lisinopril 2.5 mg daily. -Continue IV Lasix 20 mg daily. I's and O's were positive yesterday. Hopefully we can decrease daily fluid intake, once he is able to eat regular food -NICM LVEF 15%, s/p SCD, SVT. Depending on neurological recovery, he will be a candidate for DDD ICD implant for secondary prevention. If the recovery is uncertain and he goes to a non-telemetry location, we can use a LifeVest in the meantime. He also has a history of drug abuse. Still has a tracheostomy. Current Visit: Yes (2) Respiratory failure Status: Acute Current Visit: Yes Qualifiers: Chronicity: acute (3) Hemoglobin SC disease Status: Chronic Current Visit: Yes (4) History of congestive heart failure Status: Acute Current Visit: Yes (5) Acute combined systolic and diastolic congestive heart failure Status: Acute Current Visit: Yes (6) Hypertension Status: Chronic Current Visit: No (7) Drug abuse Status: Chronic Current Visit: Yes Cardiology - PN: Subj Interval history: PICC line was placed today. Blood pressure stable. No recurrence of sustained arrhythmia on telemetry. He is still getting more than 3 L of volume a day, I/ O were positiver yesterday. Still poor mental status Exam (Progress Note) - Constitutional Vitals: Period Temp Pulse Resp BP Sys/Ramirez Pulse Ox Last 24 Hr 97.7 F-98.6 F 54-99 14-27 99-127/62-94 73-100 General appearance: normal weight, no acute distress - Head Head exam: Present: normal inspection, normocephalic - Eye Eye exam: Absent: conjunctival injection, periorbital swelling Pupils: Absent: constricted - ENT ENT exam: Present: normal external ear exam - Neck Neck exam: Present: normal inspection - Respiratory Respiratory exam: Present: clear to auscultation bilaterally. Absent: accessory muscle use, wheezes - Cardiovascular Cardiovascular exam: Present: regular rate and rhythm. Absent: JVD - GI/Abdominal GI/Abdominal exam: Present: normal bowel sounds. Absent: distended - Extremities Exam Extremities exam: Present: normal inspection, normal capillary refill. Absent: edema - Back Exam Back exam: Present: normal inspection - Neurological Exam Neurological exam: Present: altered - Skin Skin exam: Present: normal color, warm. Absent: cyanosis Result/EKG - Labs CBC & BMP: 10/14/16 04:41 10/14/16 04:41 Lab Results: I have reviewed the past 24 hour labs Labs: Laboratory Results - last 24 hr 10/13/16 10/13/16 10/13/16 11:46 17:47 21:35 WBC RBC Hgb Hct MCV MCH MCHC RDW Plt Count Neut % (Auto) Lymph % (Auto) [place] % (Auto) Eos % (Auto) Baso % (Auto) Neut # (Auto) Lymph # (Auto) [place] # (Auto) Eos # (Auto) Baso # (Auto) Total Counted Immature Gran % Nucleated RBC % Immature Gran # Segmented Neutrophils Band Neutrophils Lymphocytes Monocytes Eosinophils Nucleated RBCs # Platelet Estimate Polychromasia Anisocytosis Sodium Potassium Chloride Carbon Dioxide Anion Gap BUN Creatinine GFR Calculation BUN/Creatinine Ratio Glucose POC Glucose 120 H 201 H 101 Calculated Osmolality Calcium Magnesium 10/14/16 10/14/16 10/14/16 00:19 04:41 04:41 WBC 10.4 RBC 3.99 Hgb 9.1 L Hct 27.2 L MCV 68.2 L MCH 23 L MCHC 33.5 RDW 24.8 H Plt Count 196 Neut % (Auto) 66.3 Lymph % (Auto) 15.5 L [place] % (Auto) 15.1 H Eos % (Auto) 1.2 Baso % (Auto) 0.2 Neut # (Auto) 6.9 Lymph # (Auto) 1.6 [place] # (Auto) 1.6 H Eos # (Auto) 0.1 Baso # (Auto) 0.0 Total Counted 100 Immature Gran % 1.7 Nucleated RBC % 0.0 Immature Gran # 0.18 Segmented Neutrophils 66 Band Neutrophils 3 Lymphocytes 17 L Monocytes 13 Eosinophils 1 Nucleated RBCs # 0.00 Platelet Estimate Adequate Polychromasia Slight Anisocytosis 1+ Sodium 143 Potassium 3.9 Chloride 106 Carbon Dioxide 30 Anion Gap 10.9 BUN 36 H Creatinine 1.20 GFR Calculation 89 BUN/Creatinine Ratio 30.00 H Glucose 142 H POC Glucose 176 H Calculated Osmolality 294.0 Calcium 9.2 Magnesium 1.9 10/14/16 05:23 WBC RBC Hgb Hct MCV MCH MCHC RDW Plt Count Neut % (Auto) Lymph % (Auto) [place] % (Auto) Eos % (Auto) Baso % (Auto) Neut # (Auto) Lymph # (Auto) [place] # (Auto) Eos # (Auto) Baso # (Auto) Total Counted Immature Gran % Nucleated RBC % Immature Gran # Segmented Neutrophils Band Neutrophils Lymphocytes Monocytes Eosinophils Nucleated RBCs # Platelet Estimate Polychromasia Anisocytosis Sodium Potassium Chloride Carbon Dioxide Anion Gap BUN Creatinine GFR Calculation BUN/Creatinine Ratio Glucose POC Glucose 163 H Calculated Osmolality Calcium Magnesium - EKG EKG results: interpreted by me
--- NOTE | 2016-10-14 09:52 | Interventional Radiology Rpt ---
IR PICC line insertion, US guide vascular access Indication: Pneumonia. Altered mental status. IV antibiotics necessary. No peripheral IVs. PICC LINE Description: A formal timeout was performed. Maximum sterile barrier technique was used. Sonographic evaluation of the left upper extremity demonstrates patent and compressible brachial vein. The upper arm was prepped and draped in sterile fashion. 3 cc 1% lidocaine was administered subcutaneously. Under sonographic guidance, a micropuncture needle was advanced into the vein. A captured sonographic image documents the position of the needle. Needle was exchanged over a wire for a peel-away sheath. A dual lumen power PICC, cut to 44 cm, was advanced over the wire until the tip was at the RA-SVC junction. The position of the catheter was confirmed with fluoroscopic guidance and an image stored in PACS. The wire and sheath were removed. Both ports of the PICC were aspirated and flushed with heparinized saline. The device was secured with a StatLock. Fluoroscopy: 0.1 minute. Impression: PICC line ready for immediate use. Routine catheter care. PROCEDURE INTERPRETED AT [facility] DEPARTMENT OF RADIOLOGY Final Report Signed by: Filippo Juan M.D.
[2016-10-14] MEDS: FOLIC ACID INJ 1 MG in SYRINGE 1 EACH IV SCH (10:56)
--- NOTE | 2016-10-14 13:02 | Hospitalist Progress Note ---
Assessment and Plan (1) Anoxic encephalopathy Problem details: Status post cardiac arrest and resuscitation 09/27/2016. Status: Acute Current Visit: Yes (2) Sickle cell disease, type S Problem details: SC disease Status: Chronic Current Visit: Yes (3) Acute combined systolic and diastolic congestive heart failure Problem details: PICC line is to be placed today. Left femoral vein catheter is to be removed after PICC line is in place. Status: Acute Current Visit: Yes (4) Cardiomyopathy Problem details: LVEF 15% with grade 3 diastolic dysfunction on echocardiogram . Four-chamber enlargement reported on echo consistent with dilated cardiomyopathy. LifeVest recommended by consulting vegetable scullion. If patient's mental status and functional status improve but cardiomyopathy does not improve patient should be reevaluated for AICD placement Status: Chronic Current Visit: Yes (5) Acute kidney injury superimposed on chronic kidney disease Status: Acute Current Visit: Yes (6) Respiratory failure Status: Acute Current Visit: Yes (7) Essential hypertension Status: Acute Current Visit: Yes (8) Alcoholism Status: Acute Current Visit: Yes (9) Tobacco abuse Status: Acute Current Visit: Yes (10) Pneumonia Status: Acute Current Visit: Yes (11) Dysphasia Problem details: PEG placed by armature balancer yesterday; No complications noted. Receiving enteral feeding and Water supplements. Status: Acute Current Visit: Yes (12) Burns catheter in place Problem details: Garza colored urine collecting in bedside urine bag; clear without sediment. Status: Acute Current Visit: Yes (13) Bacteremia Problem details: 09/27/2016 blood cultures grew staph hemolyticus 1 of 2 bottles considered contamination). 09/27/2016 sputum grew Tisha albicans 10/07/2016 blood culture grew staph capitis Status: Acute Current Visit: Yes (14) Anemia of chronic disease Status: Acute Current Visit: Yes Hospitalist: Subjective Interval history: Patient is alert. He does not speak and does not follow simple commands. He does not appear to be agitated or in any acute distress. Exam - Constitutional Vitals: Period Temp Pulse Resp BP Sys/Ramirez Pulse Ox Last 24 Hr 97.7 F-98.6 F 54-99 13-27 99-127/62-94 73-100 General appearance: normal weight - Head Head exam: Present: normal inspection - Eye Eye exam: Present: EOMI Pupils: Present: AUGEI - ENT ENT exam: Present: normal exam - Neck Neck exam: Present: normal inspection. Absent: meningismus - Respiratory Respiratory exam: Present: clear to auscultation bilaterally. Absent: accessory muscle use, chest wall tenderness, rales, wheezes - Cardiovascular Cardiovascular exam: Present: regular rate and rhythm - GI/Abdominal GI/Abdominal exam: Present: normal bowel sounds, soft. Absent: tenderness, rebound - Extremities Exam Extremities exam: Present: normal inspection. Absent: edema - Neurological Exam Neurological exam: Present: alert, altered - Skin Skin exam: Present: normal color, other (No sacral, gluteal, or foot pressure ulcers) Results - Labs CBC & BMP: 10/14/16 04:41 10/14/16 04:41
[2016-10-14] MEDS: CARVEDILOL 6.25 MG TABLET PO SCH (21:22)
[2016-10-14] MEDS: chlorproMAZINE 25 MG/1 ML AMP IM PRN (22:38)
[2016-10-15] MEDS: INSULIN REGULAR 100 UNIT/ML SUBCUT SCH ×4 (00:11→18:28)
[2016-10-15] MEDS: MEROPENEM 500 MG in SODIUM CHLORIDE 0.9% 100 ML IV SCH ×2 (01:16→10:50)
[2016-10-15] MEDS: CLINDAMYCIN INJ 300 MG in PREMIX 1 EACH IV SCH ×2 (02:17→08:57)
[2016-10-15 03:00] LABS: Basophils % 0.1 % (0.0-0.8); Eosinophils # 0.1 10*3/uL (0.0-0.87); Eosinophils % 1.5 % (0.00-10.9); Hematocrit 25.1 VOL% (42.0-52.0); Hemoglobin 8.3 GM/DL (14.0-18.0); Immature Granulocytes % 2.2 %; Immature Granulocytes Absolute 0.18 #; Lymphocytes # 1.7 10*3/uL (1.4-4.0); Lymphocytes % 20.9 % (21.2-54.2); Mean Corpuscular HGB Conc 33.1 GM/DL (32-36); Mean Corpuscular Hemoglobin 23 PG (27-34); Mean Corpuscular Volume 68.4 FL (87-102); Monocytes # 0.9 10*3/uL (0.11-0.8); Monocytes % 11.6 % (1.7-12.7); Neutrophils # 5.2 10*3/uL (1.4-7.4); Neutrophils % 63.7 % (38.7-73.9); Platelet Count 168 T/CUMM (130-400); Red Blood Count 3.67 MC/CUMM (3.8-5.5); Red Cell Distribution Width 24.4 % (9.3-17.3); White Blood Count 8.1 T/CUMM (4-12)
[2016-10-15 03:15] LABS: Magnesium 1.5 MG/DL (1.8-2.4); Osmolality,Calculated 285.1 MOS/KG (273-304); Potassium 4.1 MMOL/L (3.5-5.1)
[2016-10-15] MEDS: MAGNESIUM SULF RIDER 2 GM in PREMIX 1 EACH IV PRN (03:25)
[2016-10-15 04:41] LABS: Anisocytosis 1+
[2016-10-15 04:42] LABS: Hypochromasia 1+; Ovalocytes Few; Platelet Estimate Normal; Target Cells 2+
[2016-10-15] MEDS: FAMOTIDINE 20 MG/2 ML VIAL IV SCH (05:44)
[2016-10-15] MEDS: ALBUTEROL/IPRATROPIUM 3 ML NEB RESP TX SCH ×3 (07:07→23:29)
--- NOTE | 2016-10-15 07:36 | Pulmonology Progress Note ---
Pulmonary - PN: Subj Interval history: Patient sleeping this morning, no acute events overnight per nursing. Trach is in place and on trach collar. Exam (Progress Note) - Constitutional Vitals: Period Temp Pulse Resp BP Sys/Ramirez Pulse Ox Last 24 Hr 97.3 F-98.8 F 59-96 13-23 101-134/61-89 93-100 General appearance: no acute distress - Head Head exam: Present: normal inspection - Respiratory Respiratory exam: Absent: accessory muscle use, stridor, wheezes - Cardiovascular Cardiovascular exam: Present: regular rate and rhythm Results - Labs CBC & BMP: 10/15/16 02:30 10/15/16 02:30 Lab Results: I have reviewed the past 24 hour labs Assessment and Plan (1) Tracheostomy in place Status: Acute Assessment and plan: Patient with good O2 sats on trach collar, can try capping later today Current Visit: Yes (2) Encephalopathy Status: Acute Assessment and plan: Patient does not folow commands, but does not appear in any distress Current Visit: Yes (3) Nonischemic dilated cardiomyopathy Status: Acute Assessment and plan: Followed by cardiology Current Visit: Yes
--- NOTE | 2016-10-15 08:15 | Cardiology Progress Note ---
Assessment and Plan (1) Cardiac arrest Status: Acute Assessment and plan: 45-year-old black male, status post aborted sudden cardiac , severe nonischemic cardiomyopathy, prolonged respiratory insufficiency, and anoxic encephalopathy. Today, he opens eyes on command but does not squeeze hands. Sinus rhythm, with occasional short and SVTs on telemetry, IVR. MS still quite poor. -CMP. Cont Coreg to 6.25 mg twice daily, lisinopril 2.5 mg daily. Will increase dose as, as tolerated by blood pressure. -Continue IV Lasix 20 mg daily. Still large volume of ins with tube feeds, flushes, meds. -NICM LVEF 15%, s/p SCD, SVT. Depending on neurological recovery, he will be a candidate for DDD ICD implant for secondary prevention. If the recovery is uncertain and he goes to a non-telemetry location, we can use a LifeVest in the meantime. He also has a history of drug abuse. Still has a tracheostomy. Current Visit: Yes (2) Respiratory failure Status: Acute Current Visit: Yes Qualifiers: Chronicity: acute (3) Hemoglobin SC disease Status: Chronic Current Visit: Yes (4) History of congestive heart failure Status: Acute Current Visit: Yes (5) Acute combined systolic and diastolic congestive heart failure Problem details: PICC line is to be placed today. Left femoral vein catheter is to be removed after PICC line is in place. Status: Acute Current Visit: Yes (6) Hypertension Status: Chronic Current Visit: No (7) Drug abuse Status: Chronic Current Visit: Yes Cardiology - PN: Subj Interval history: He opens his eyes on request, but barely squeezes any fingers. Asymptomatic nonsustained ventricular tachycardia last night. Exam (Progress Note) - Constitutional Vitals: Period Temp Pulse Resp BP Sys/Ramirez Pulse Ox Last 24 Hr 97.3 F-98.8 F 62-96 13-23 101-134/61-89 93-100 General appearance: normal weight, no acute distress - Head Head exam: Present: normal inspection, normocephalic - Eye Eye exam: Absent: conjunctival injection, scleral icterus Pupils: Absent: dilated - ENT ENT exam: Present: normal external ear exam - Neck Neck exam: Present: normal inspection, other (Tracheostomy) - Respiratory Respiratory exam: Present: clear to auscultation bilaterally. Absent: accessory muscle use - Cardiovascular Cardiovascular exam: Present: regular rate and rhythm. Absent: JVD, systolic murmur - GI/Abdominal GI/Abdominal exam: Present: normal bowel sounds. Absent: distended - Extremities Exam Extremities exam: Present: normal inspection, normal capillary refill. Absent: edema - Neurological Exam Neurological exam: Present: altered - Skin Skin exam: Present: normal color, warm. Absent: cyanosis Result/EKG - Labs CBC & BMP: 10/15/16 02:30 10/15/16 02:30 Lab Results: I have reviewed the past 24 hour labs Labs: Laboratory Results - last 24 hr 10/14/16 10/14/16 10/14/16 11:50 17:38 21:12 WBC RBC Hgb Hct MCV MCH MCHC RDW Plt Count Neut % (Auto) Lymph % (Auto) [place] % (Auto) Eos % (Auto) Baso % (Auto) Neut # (Auto) Lymph # (Auto) [place] # (Auto) Eos # (Auto) Baso # (Auto) Immature Gran % Nucleated RBC % Immature Gran # Nucleated RBCs # Platelet Estimate Hypochromasia Anisocytosis Target Cells Ovalocytes Sodium Potassium Chloride Carbon Dioxide Anion Gap BUN Creatinine GFR Calculation BUN/Creatinine Ratio Glucose POC Glucose 155 H 117 H 158 H Calculated Osmolality Calcium Magnesium 10/14/16 10/15/16 10/15/16 23:37 02:30 02:30 WBC 8.1 RBC 3.67 L Hgb 8.3 L Hct 25.1 L MCV 68.4 L MCH 23 L MCHC 33.1 RDW 24.4 H Plt Count 168 Neut % (Auto) 63.7 Lymph % (Auto) 20.9 L [place] % (Auto) 11.6 Eos % (Auto) 1.5 Baso % (Auto) 0.1 Neut # (Auto) 5.2 Lymph # (Auto) 1.7 [place] # (Auto) 0.9 H Eos # (Auto) 0.1 Baso # (Auto) 0.0 Immature Gran % 2.2 Nucleated RBC % 0.0 Immature Gran # 0.18 Nucleated RBCs # 0.00 Platelet Estimate Normal Hypochromasia 1+ Anisocytosis 1+ Target Cells 2+ Ovalocytes Few Sodium 135 L Potassium 4.1 Chloride 95 L Carbon Dioxide 32 Anion Gap 12.1 BUN 33 H Creatinine 1.10 GFR Calculation 99 BUN/Creatinine Ratio 30.00 H Glucose 256 H POC Glucose 145 H Calculated Osmolality 285.1 Calcium 9.0 Magnesium 1.5 L 10/15/16 05:30 WBC RBC Hgb Hct MCV MCH MCHC RDW Plt Count Neut % (Auto) Lymph % (Auto) [place] % (Auto) Eos % (Auto) Baso % (Auto) Neut # (Auto) Lymph # (Auto) [place] # (Auto) Eos # (Auto) Baso # (Auto) Immature Gran % Nucleated RBC % Immature Gran # Nucleated RBCs # Platelet Estimate Hypochromasia Anisocytosis Target Cells Ovalocytes Sodium Potassium Chloride Carbon Dioxide Anion Gap BUN Creatinine GFR Calculation BUN/Creatinine Ratio Glucose POC Glucose 158 H Calculated Osmolality Calcium Magnesium - EKG EKG results: interpreted by me
[2016-10-15] MEDS: INSULIN GLARGINE 100 UNIT/ML SUBCUT SCH ×2 (08:55→20:02)
[2016-10-15] MEDS: FUROSEMIDE 20 MG/2 ML VIAL IV SCH (08:56)
[2016-10-15] MEDS: THIAMINE 200 MG/2 ML VIAL IV SCH (08:56)
[2016-10-15] MEDS: LISINOPRIL 2.5 MG TABLET PO SCH (08:57)
[2016-10-15] MEDS: CARVEDILOL 6.25 MG TABLET PO SCH ×2 (09:00→20:02)
[2016-10-15] MEDS: FOLIC ACID INJ 1 MG in SYRINGE 1 EACH IV SCH (09:25)
--- NOTE | 2016-10-15 12:19 | Hospitalist Progress Note ---
Assessment and Plan (1) Anoxic encephalopathy Problem details: Status post cardiac arrest and resuscitation 09/27/2016. Status: Acute Current Visit: Yes (2) Sickle cell disease, type S Problem details: SC disease Status: Chronic Assessment and plan: Patient's mother reports that he had frequent pain crises until his early 20s. Vaso-occlusive sickle cell pain crises have been infrequent since patient's mid 20s. If patient tolerates capping of tracheostomy can likely be removed which would improve or increase options to receive rehab post hospital discharge. Current Visit: Yes (3) Acute combined systolic and diastolic congestive heart failure Problem details: PICC line placed 10/14/16. Left femoral vein catheter be removed after PICC line placed. Carted process control operator recommends that patient wear a LifeVest when not in a facility that offers telemetry monitoring. Status: Acute Current Visit: Yes (4) Cardiomyopathy Problem details: LVEF 15% with grade 3 diastolic dysfunction on echocardiogram . Four-chamber enlargement reported on echo consistent with dilated cardiomyopathy. LifeVest recommended by consulting process control operator when patient is discharged or transferred to a facility that does not offer telemetry monitoring. If patient's mental status and functional status improve but cardiomyopathy does not improve patient should be reevaluated for AICD placement Status: Chronic Current Visit: Yes (5) Acute kidney injury superimposed on chronic kidney disease Problem details: Resolved. Today's BUN creatinine 33 and 1.1 respectively. GFR calculates to 99 mL/min Status: Acute Current Visit: Yes (6) Respiratory failure Status: Acute Current Visit: Yes (7) Essential hypertension Status: Acute Current Visit: Yes (8) Alcoholism Status: Acute Current Visit: Yes (9) Tobacco abuse Status: Acute Current Visit: Yes (10) Pneumonia Problem details: Discontinue empiric Merrem and clindamycin. Status: Acute Current Visit: Yes (11) Dysphasia Problem details: PEG placed by business management manager yesterday; No complications noted. Receiving enteral feeding and Water supplements. Status: Acute Current Visit: Yes (12) Burns catheter in place Problem details: Garza colored urine collecting in bedside urine bag; clear without sediment. Status: Acute Current Visit: Yes (13) Bacteremia Problem details: 09/27/2016 blood cultures grew staph hemolyticus 1 of 2 bottles considered contamination). 09/27/2016 sputum grew Tisha albicans 10/07/2016 blood culture grew staph capitis 10/07/2016 urine culture final report negative 10/09/16 nasal swab MRSA negative Today represents day 7 empiric Merrem and clindamycin therapy. Discontinue Merrem and clindamycin. Status: Acute Current Visit: Yes (14) Anemia of chronic disease Status: Acute Current Visit: Yes (15) Hypomagnesemia Problem details: Supplements ordered. Recheck serum magnesium level in a.m. Status: Acute Current Visit: Yes Hospitalist: Subjective Interval history: Patient seems to be more animated this morning. He continuously sits up in bed. Both of his wrists and ankles are restrained. Patient's mother is at bedside at the time of my interview and exam today. Tracheostomy capping trial per pulmonary clinical program consultant. Exam - Constitutional Vitals: Period Temp Pulse Resp BP Sys/Ramirez Pulse Ox Last 24 Hr 97.3 F-98.8 F 62-96 14-25 98-134/61-89 96-100 General appearance: normal weight, no no acute distress - Head Head exam: Present: normal inspection, other (Nonscarring male pattern balding) - Eye Eye exam: Present: EOMI Pupils: Present: AUGIE - Neck Neck exam: Present: normal inspection, other (Tracheostomy remains in place). Absent: meningismus - Respiratory Respiratory exam: Present: clear to auscultation bilaterally. Absent: accessory muscle use, chest wall tenderness, rales - Cardiovascular Cardiovascular exam: Present: regular rate and rhythm. Absent: carotid bruit - GI/Abdominal GI/Abdominal exam: Present: hypoactive bowel sounds, soft. Absent: mass, tenderness, rebound - Extremities Exam Extremities exam: Present: other (Left arm PICC line placed yesterday). Absent : calf tenderness, edema - Neurological Exam Neurological exam: Present: alert. Absent: oriented X3 - Psychiatric Psychiatric exam: Present: other (Poor safety awareness). Absent: agitated - Skin Skin exam: Present: warm, dry, intact. Absent: rash Results - Labs CBC & BMP: 10/15/16 02:30 10/15/16 02:30 - Diagnostic Findings Procedure: Chest x-ray: other (Left upper arm PICC line placed yesterday)
[2016-10-15] MEDS: chlorproMAZINE 25 MG/1 ML AMP IM PRN (15:28)
[2016-10-16] MEDS: INSULIN REGULAR 100 UNIT/ML SUBCUT SCH ×5 (00:07→23:41)
[2016-10-16] MEDS: chlorproMAZINE 25 MG/1 ML AMP IM PRN ×2 (03:40→11:40)
[2016-10-16] MEDS: FAMOTIDINE 20 MG/2 ML VIAL IV SCH (06:12)
[2016-10-16 06:26] LABS: Basophils % 0.3 % (0.0-0.8); Eosinophils # 0.1 10*3/uL (0.0-0.87); Eosinophils % 1.1 % (0.00-10.9); Hematocrit 27.5 VOL% (42.0-52.0); Hemoglobin 9.4 GM/DL (14.0-18.0); Immature Granulocytes % 1.8 %; Immature Granulocytes Absolute 0.19 #; Lymphocytes # 1.5 10*3/uL (1.4-4.0); Lymphocytes % 14.4 % (21.2-54.2); Mean Corpuscular HGB Conc 34.2 GM/DL (32-36); Mean Corpuscular Hemoglobin 23 PG (27-34); Mean Corpuscular Volume 67.6 FL (87-102); Monocytes # 1.2 10*3/uL (0.11-0.8); Monocytes % 10.9 % (1.7-12.7); Neutrophils # 7.7 10*3/uL (1.4-7.4); Neutrophils % 71.5 % (38.7-73.9); Platelet Count 148 T/CUMM (130-400); Red Blood Count 4.07 MC/CUMM (3.8-5.5); Red Cell Distribution Width 23.9 % (9.3-17.3); White Blood Count 10.7 T/CUMM (4-12)
[2016-10-16 06:38] LABS: Calcium 9.9 MG/DL (8.5-10.1); Magnesium 1.9 MG/DL (1.8-2.4)
[2016-10-16] MEDS: ALBUTEROL/IPRATROPIUM 3 ML NEB RESP TX SCH ×3 (07:33→23:28)
[2016-10-16 08:02] LABS: Band Neutrophils 2 % (0-10); Hypochromasia 2+; Lymphocytes 8 % (20-55); Macrocytosis 1+; Platelet Estimate Adequate; Segmented Neutrophils 79 % (50-85); Target Cells Slight; Total Cells Counted 100
--- NOTE | 2016-10-16 09:03 | Cardiology Progress Note ---
Assessment and Plan (1) Cardiac arrest Status: Acute Assessment and plan: 45-year-old black male, status post aborted sudden cardiac , severe nonischemic cardiomyopathy, prolonged respiratory insufficiency, and anoxic encephalopathy. Today, he opens eyes on command but does not squeeze hands. Sinus rhythm, with occasional short and SVTs on telemetry, IVR. MS still quite poor. -CMP. Cont Coreg to 6.25 mg twice daily, lisinopril 2.5 mg daily. Will increase dose, as tolerated by blood pressure. -Continue IV Lasix 20 mg daily. Still large volume of ins with tube feeds, flushes, meds. I/O close to even. -NICM LVEF 15%, s/p SCD, SVT. Depending on neurological recovery, he will be a candidate for DDD ICD implant for secondary prevention. If the recovery is uncertain and he goes to a non-telemetry location, we can use a LifeVest in the meantime. He also has a history of drug abuse. Still has a tracheostomy and PEG tube. Current Visit: Yes (2) Respiratory failure Status: Acute Current Visit: Yes (3) Hemoglobin SC disease Status: Chronic Current Visit: Yes (4) History of congestive heart failure Status: Acute Current Visit: Yes (5) Acute combined systolic and diastolic congestive heart failure Problem details: PICC line placed 10/14/16. Left femoral vein catheter be removed after PICC line placed. Carted ham stripper recommends that patient wear a LifeVest when not in a facility that offers telemetry monitoring. Status: Acute Current Visit: Yes (6) Hypertension Status: Chronic Current Visit: No (7) Drug abuse Status: Chronic Current Visit: Yes Cardiology - PN: Subj Interval history: He remained stable, I's and O's close to event. No significant arrhythmia on telemetry. Mental status showed no significant change, he opens his eyes, but is otherwise not really responding. Exam (Progress Note) - Constitutional Vitals: Period Temp Pulse Resp BP Sys/Ramirez Pulse Ox Last 24 Hr 97.1 F-98.6 F 72-101 15-26 89-113/59-82 93-100 General appearance: normal weight, no acute distress - Head Head exam: Present: normal inspection, normocephalic - Eye Eye exam: Absent: conjunctival injection, scleral icterus Pupils: Absent: dilated - ENT ENT exam: Present: normal external ear exam - Neck Neck exam: Present: normal inspection - Respiratory Respiratory exam: Present: clear to auscultation bilaterally - Cardiovascular Cardiovascular exam: Present: regular rate and rhythm. Absent: JVD - GI/Abdominal GI/Abdominal exam: Present: hypoactive bowel sounds. Absent: distended - Extremities Exam Extremities exam: Present: normal inspection, normal capillary refill. Absent: edema - Back Exam Back exam: Present: normal inspection - Neurological Exam Neurological exam: Present: altered - Skin Skin exam: Present: normal color, warm. Absent: cyanosis Result/EKG - Labs CBC & BMP: 10/16/16 04:00 10/16/16 06:10 Lab Results: I have reviewed the past 24 hour labs Labs: Laboratory Results - last 24 hr 10/15/16 10/15/16 10/15/16 11:48 18:08 19:56 WBC RBC Hgb Hct MCV MCH MCHC RDW Plt Count Neut % (Auto) Lymph % (Auto) [place] % (Auto) Eos % (Auto) Baso % (Auto) Neut # (Auto) Lymph # (Auto) [place] # (Auto) Eos # (Auto) Baso # (Auto) Total Counted Immature Gran % Nucleated RBC % Immature Gran # Segmented Neutrophils Band Neutrophils Lymphocytes Monocytes Nucleated RBCs # Platelet Estimate Hypochromasia Macrocytosis Target Cells Sodium Potassium Chloride Carbon Dioxide Anion Gap BUN Creatinine GFR Calculation BUN/Creatinine Ratio Glucose POC Glucose 140 H 162 H 134 H Calculated Osmolality Calcium Magnesium 10/15/16 10/16/16 10/16/16 23:57 04:00 06:04 WBC 10.7 D RBC 4.07 Hgb 9.4 L Hct 27.5 L MCV 67.6 L MCH 23 L MCHC 34.2 RDW 23.9 H Plt Count 148 Neut % (Auto) 71.5 Lymph % (Auto) 14.4 L [place] % (Auto) 10.9 Eos % (Auto) 1.1 Baso % (Auto) 0.3 Neut # (Auto) 7.7 H Lymph # (Auto) 1.5 [place] # (Auto) 1.2 H Eos # (Auto) 0.1 Baso # (Auto) 0.0 Total Counted 100 Immature Gran % 1.8 Nucleated RBC % 0.0 Immature Gran # 0.19 Segmented Neutrophils 79 Band Neutrophils 2 Lymphocytes 8 L Monocytes 11 Nucleated RBCs # 0.00 Platelet Estimate Adequate Hypochromasia 2+ Macrocytosis 1+ Target Cells Slight Sodium Potassium Chloride Carbon Dioxide Anion Gap BUN Creatinine GFR Calculation BUN/Creatinine Ratio Glucose POC Glucose 121 H 93 Calculated Osmolality Calcium Magnesium 10/16/16 06:10 WBC RBC Hgb Hct MCV MCH MCHC RDW Plt Count Neut % (Auto) Lymph % (Auto) [place] % (Auto) Eos % (Auto) Baso % (Auto) Neut # (Auto) Lymph # (Auto) [place] # (Auto) Eos # (Auto) Baso # (Auto) Total Counted Immature Gran % Nucleated RBC % Immature Gran # Segmented Neutrophils Band Neutrophils Lymphocytes Monocytes Nucleated RBCs # Platelet Estimate Hypochromasia Macrocytosis Target Cells Sodium 136 Potassium 4.0 Chloride 94 L Carbon Dioxide 34 H Anion Gap 12.0 BUN 33 H Creatinine 1.20 GFR Calculation 88 BUN/Creatinine Ratio 27.00 H Glucose 93 POC Glucose Calculated Osmolality 278.0 Calcium 9.9 Magnesium 1.9 - EKG EKG results: interpreted by me
--- NOTE | 2016-10-16 09:04 | Hospitalist Progress Note ---
Assessment and Plan - Time spent with patient Time spent with patient: Greater than 30 minutes (1) Anoxic encephalopathy Problem details: Status post cardiac arrest and resuscitation 09/27/2016. Status: Acute Assessment and plan: Continue current care. Current Visit: Yes (2) Respiratory failure Status: Acute Assessment and plan: Continue Resp care including oxygen, trach care. Current Visit: Yes (3) Bacteremia Problem details: 09/27/2016 blood cultures grew staph hemolyticus 1 of 2 bottles considered contamination). 09/27/2016 sputum grew Tisha albicans 10/07/2016 blood culture grew staph capitis 10/07/2016 urine culture final report negative 10/09/16 nasal swab MRSA negative Today represents day 7 empiric Merrem and clindamycin therapy. Discontinue Merrem and clindamycin. Status: Acute Current Visit: Yes (4) Pneumonia Problem details: Completed antibiotics. Status: Acute Current Visit: Yes (5) Cardiomyopathy Problem details: LVEF 15% with grade 3 diastolic dysfunction on echocardiogram . Four-chamber enlargement reported on echo consistent with dilated cardiomyopathy. LifeVest recommended by consulting investigator welfare when patient is discharged or transferred to a facility that does not offer telemetry monitoring. If patient's mental status and functional status improve but cardiomyopathy does not improve patient should be reevaluated for AICD placement Status: Chronic Current Visit: Yes (6) Sickle cell disease, type S Problem details: SC disease Status: Chronic Current Visit: Yes (7) Acute kidney injury superimposed on chronic kidney disease Problem details: Resolved. Status: Acute Current Visit: Yes (8) Essential hypertension Status: Acute Current Visit: Yes (9) Dysphasia Problem details: S/p PEG. Continue PEG feeding. Status: Acute Current Visit : Yes (10) Anemia of chronic disease Status: Acute Current Visit: Yes (11) Burns catheter in place Problem details: Garza colored urine collecting in bedside urine bag; clear without sediment. Status: Acute Current Visit: Yes (12) Tracheostomy in place Status: Acute Current Visit: Yes Hospitalist: Subjective Interval history: No overnight acute event. S/p trach on 10/07/16. Can open eyes. Can not use his hands to squeeze my hands today. Burns in place. No fever or diarrhea. Exam - Constitutional Vitals: Period Temp Pulse Resp BP Sys/Raimrez Pulse Ox Last 24 Hr 97.1 F-98.6 F 72-101 15-26 89-113/59-82 93-100 Exam: GENERAL: Lying in bed supine. Can open eyes spontaneously. HEENT: Pupils equally round and reactive to light, conjunctivae clear. TMs mccord and translucent. NECK: Trach in place. HEART: RRR, no murmur. CHEST: Normal shape, fair air movement, no retractions. CV: RRR, no murmurs, 2+ peripheral pulses LUNGS: B/L CTA. ABDOMEN: Soft, nontender, and no hepatosplenomegaly. SKIN: No rash or edema. NEURO: Can not follow command. Can open eyes spontaneously. Results - Labs CBC & BMP: 10/16/16 04:00 10/16/16 06:10
[2016-10-16] MEDS: CARVEDILOL 6.25 MG TABLET PO SCH ×2 (09:35→20:56)
[2016-10-16] MEDS: INSULIN GLARGINE 100 UNIT/ML SUBCUT SCH ×2 (09:35→20:55)
[2016-10-16] MEDS: FOLIC ACID INJ 1 MG in SYRINGE 1 EACH IV SCH (09:36)
[2016-10-16] MEDS: FUROSEMIDE 20 MG/2 ML VIAL IV SCH (09:36)
[2016-10-16] MEDS: LISINOPRIL 2.5 MG TABLET PO SCH (09:37)
[2016-10-16] MEDS: THIAMINE 200 MG/2 ML VIAL IV SCH (10:06)
[2016-10-16] MEDS: MORPHINE 2 MG/1 ML SYRINGE IV PRN (12:50)
[2016-10-16] MEDS ORDERED: LORazepam 2 MG/1 ML VIAL IV ONE (13:36)
[2016-10-17] MEDS: chlorproMAZINE 25 MG/1 ML AMP IM PRN (00:58)
[2016-10-17 05:19] LABS: Basophils % 0.3 % (0.0-0.8); Eosinophils # 0.1 10*3/uL (0.0-0.87); Hematocrit 26.6 VOL% (42.0-52.0); Hemoglobin 8.9 GM/DL (14.0-18.0); Immature Granulocytes % 1.9 %; Immature Granulocytes Absolute 0.26 #; Lymphocytes # 1.8 10*3/uL (1.4-4.0); Lymphocytes % 12.8 % (21.2-54.2); Mean Corpuscular HGB Conc 33.5 GM/DL (32-36); Mean Corpuscular Hemoglobin 23 PG (27-34); Mean Corpuscular Volume 67.9 FL (87-102); Monocytes # 1.7 10*3/uL (0.11-0.8); Monocytes % 12.4 % (1.7-12.7); Neutrophils # 9.8 10*3/uL (1.4-7.4); Neutrophils % 71.6 % (38.7-73.9); Platelet Count 184 T/CUMM (130-400); Red Blood Count 3.92 MC/CUMM (3.8-5.5); White Blood Count 13.6 T/CUMM (4-12)
[2016-10-17] MEDS: INSULIN REGULAR 100 UNIT/ML SUBCUT SCH ×3 (05:30→18:31)
[2016-10-17] MEDS: FAMOTIDINE 20 MG/2 ML VIAL IV SCH (05:35)
[2016-10-17 05:53] LABS: Magnesium 1.9 MG/DL (1.8-2.4); Osmolality,Calculated 278.8 MOS/KG (273-304)
[2016-10-17 05:58] LABS: Hypochromasia 2+; Microcytosis 2+; Target Cells 1+
[2016-10-17 05:59] LABS: Platelet Estimate Adequate
[2016-10-17 06:04] LABS: Magnesium 1.7 MG/DL (1.8-2.4); Phosphorous 5.6 MG/DL (2.5-4.9); Prealbumin 8.4 MG/DL (20-40)
[2016-10-17] MEDS: ALBUTEROL/IPRATROPIUM 3 ML NEB RESP TX SCH ×2 (07:19→15:45)
--- NOTE | 2016-10-17 07:57 | Pulmonology Progress Note ---
Pulmonary - PN: Subj Interval history: The patient is a 45-year-old black man that has SC disease. He came in with respiratory distress and acute pulmonary edema. He had to be intubated and has been on the ventilator. He was taken to the heart labor mediator had a cardiac catheterization. His ejection fraction of 15% but normal coronaries. Last week he was stable on the ventilator but was not waking up very well. He went for tracheostomy tube without any problems. He has been doing better over the weekend. Now he is on trach collar and looks quite comfortable. He is a little more alert but has a critical illness myopathy. Over the weekend he did fairly well. He is starting to move around a little more and actually sat up in a chair. He has been very comfortable on trach collar. He still is not that alert yet. Exam (Progress Note) - Constitutional Vitals: Period Temp Pulse Resp BP Sys/Ramirez Pulse Ox Last 24 Hr 97.2 F-99.5 F 78-111 14-25 88-128/50-79 93-100 Exam: General appearance: normal weight, no acute distress (Patient is comfortable and not having any respiratory distress.) - Head Head exam: Present: normal inspection, normocephalic - Eye Eye exam: Present: EOMI. Absent: scleral icterus Pupils: Present: AUGIE - ENT ENT exam: Present: Unremarkable - Neck Neck exam: Present: normal inspection. He has a tracheostomy tube in place. Absent: lymphadenopathy, thyromegaly - Respiratory Respiratory exam: Present: He has good breath sounds bilaterally and his lungs sound clear without any wheezing or rales. - Cardiovascular Cardiovascular exam: Present: regular rate and rhythm, systolic murmur (He does have a soft systolic murmur), his heart rate is better. His PMI is laterally displaced. Absent: gallop - GI/Abdominal GI/Abdominal exam: Present: normal bowel sounds, soft. Absent: distended, organomegaly, tenderness - Extremities Exam Extremities exam: Absent: calf tenderness, edema, there are no signs of phlebitis. - Neurological Exam Neurological exam: Present: other (Patient is apparently moving around a lot more but still does not always follow commands very well.) - Skin Skin exam: Present: warm, dry Results - Labs CBC & BMP: 10/17/16 04:20 10/17/16 04:20 Assessment and Plan (1) Congestive heart failure Status: Acute Assessment and plan: The patient presents with acute shortness of breath and his x-ray is consistent with heart failure. He has a severe cardiomyopathy with ejection fraction of 15 %. His CHF has cleared nicely and his oxygenation is improved. He is breathing much more comfortably now. Overall he continues to be stable with no signs of heart failure now. Current Visit: Yes (2) Hemoglobin SC disease Status: Chronic Assessment and plan: Patient has a history of sickle cell disease and his hematocrit is 26.6 today. Current Visit: Yes (3) Respiratory failure Status: Acute Assessment and plan: The patient is doing much better with his tracheostomy tube. He has been quite stable on trach collar. He is not having any respiratory distress now. Current Visit: Yes Qualifiers: Chronicity: acute (4) Acute on chronic renal failure Status: Resolved Assessment and plan: The patient's creatinine is now 1.4 Current Visit: Yes (5) Encephalopathy Status: Acute Assessment and plan: The patient has finally improved minimally and is responding better and more alert. He still does not always follow commands very well. Current Visit: Yes (6) Critical illness myopathy Status: Acute Assessment and plan: The patient is extremely weak but is moving his extremities better now. He will continue with physical therapy. Current Visit: Yes
--- NOTE | 2016-10-17 08:45 | Cardiology Progress Note ---
Assessment and Plan - Time spent with patient Time spent with patient: Less than 30 minutes (1) Acute combined systolic and diastolic congestive heart failure Problem details: PICC line placed 10/14/16. Left femoral vein catheter be removed after PICC line placed. Carted sensitized paper tester recommends that patient wear a LifeVest when not in a facility that offers telemetry monitoring. Status: Acute Current Visit: Yes (2) Cardiac arrest Status: Acute Assessment and plan: See plan of care listed below. Current Visit: Yes (3) Nonischemic dilated cardiomyopathy Status: Acute Assessment and plan: See plan of care listed below. Current Visit: Yes (4) Hypertension Status: Acute Assessment and plan: See plan of care listed below. Current Visit: Yes (5) Hemoglobin SC disease Status: Chronic Assessment and plan: See plan of care listed below. Current Visit: Yes (6) Acute on chronic renal failure Status: Resolved Assessment and plan: See plan of care listed below. Current Visit: Yes (7) Drug abuse Status: Chronic Assessment and plan: See plan of care listed below. Current Visit: Yes (8) Respiratory failure Status: Acute Assessment and plan: See plan of care listed below. Current Visit: Yes Qualifiers: Chronicity: acute (9) History of congestive heart failure Status: Acute Assessment and plan: See plan of care listed below. Current Visit: Yes Cardiology - PN: Subj Interval history: Ceo & Founder: New to cardiology, has been seen at Nursery in the past. PCP: Dr. Ector Figueroa SUMMARY - Mr. Rodriguez is a 45 year old male -[place] male patient who has not been seen by local cardiology in the past. Patient has a past medical history of congestive heart failure (most recent ejection fraction noted to be 15%), sickle cell anemia, anxiety and hypertension. Patient is status post aborted sudden cardiac on September 27. EKG revealed deep flat ST depression in the lateral leads and subsequently, patient underwent cardiac catheterization in order to definitively define his coronary anatomy and to rule out underlying obstructive coronary artery disease. This was performed per Dr. Juanito Baig with the following impressions noted: normal coronary arteries, dilated nonischemic cardiomyopathy, elevated LVEDP and pulmonary capillary wedge pressure, transient PSVT which resolved after IV diltiazem. OCTOBER 17, 2016 UPDATE: Mr. Rodriguez is resting comfortably in bed upon exam today. He will open his eyes and turn his head when you speak to him, but he did not follow commands for me today. He is able to move all of his extremities but is still not very alert. If he can make a meaningful neurological recovery, he will be a candidate for ICD implant for secondary prevention although his drug use will need to be addressed before this is pursued. In the meantime, he can be protected with a lifevest upon discharge if he is neurologically intact enough to use the device. ASSESSMENT/PLAN: 1. ACUTE CONGESTIVE HEART FAILURE, COMBINED SYSTOLIC AND DIASTOLIC DYSFUNCTION - Improving. Currently under well control with current medication regimen. Echocardiogram this admission revealed ejection fraction of 15% and grade 3 diastolic dysfunction. After negative heart catheterization this was deemed drug-induced cardiomyopathy. Continue beta-shekhar and ANGEL inhibitor. Monitor BMP. Daily weights and strict I's and O's. Will further discuss with Dr. Duke and await his additional recommendations. 2. CARDIAC ARREST - Now NSR with occasional short SVTs on telemetry. Will continue to monitor. 3. NONISCHEMIC DILATED CARDIOMYOPATHY - Ejection fraction 15%. Continue beta shekhar and ANGEL inhibitor. As above. Will need ICD in the future; however, his drug use will need to be addressed before this is pursued. He is receiving large volumes of fluids and is on Lasix IV daily. 4. HYPERTENSION - Continue current plan of care. He was started on low dose ANGEL inhibitor. We will continue to monitor renal function. He has been borderline hypotensive at times. 5. SICKLE CELL ANEMIA - Defer management of this to attending. 6. ACUTE ON CHRONIC RENAL FAILURE - Monitor with daily BMP. Creatinine today 1.4. Management per attending. 7. DRUG ABUSE - Patient's drug screen was positive for marijuana upon admission. This is most likely contributing to patient's severe cardiomyopathy. 8. TOBACCO ABUSE - Continue current plan of care. Will discuss the merits of smoking cessation when able. 9. ALCOHOLISM - Continue current plan of care. No signs of withdrawal noted. 10. RESPIRATORY FAILURE - Management per pulmonary. Status post tracheostomy. Exam (Progress Note) - Constitutional Vitals: Period Temp Pulse Resp BP Sys/Ramirez Pulse Ox Last 24 Hr 97.2 F-98.8 F 78-111 14-25 88-128/50-79 93-100 Exam: General: Appears chronically ill. Tracheostomy in place with O2 via trach collar. HEENT: Pupils reactive to light. Tracheostomy in place. Mucous membranes moist. No jaundice noted. Neck: No JVD/HJR, no thyromegaly or lymphadenopathy noted. Cardiac: Regular rate and rhythm. No murmur rub or gallop. Lungs: clear to auscultation. O2 via trach collar. Abdomen: Soft, bowel sounds active. PEG tube in place. Back: Unable to examine due to habitus. Extremities: No clubbing or cyanosis noted. Trace edema. Upper extremity pulses 2+. Lower extremity pulses 2+. Capillary refill less than 3 seconds. Neuro: Patient is awake, will open eyes and follow with his eyes. We will close his eyes to command. Does not move lower extremities. Will move upper extremities but is very weak. Result/EKG - Labs CBC & BMP: 10/17/16 04:20 10/17/16 04:20 Lab Results: I have reviewed the past 24 hour labs Labs: Laboratory Results - last 24 hr 10/16/16 10/16/16 10/16/16 11:54 18:34 19:42 WBC RBC Hgb Hct MCV MCH MCHC RDW Plt Count Neut % (Auto) Lymph % (Auto) [place] % (Auto) Eos % (Auto) Baso % (Auto) Neut # (Auto) Lymph # (Auto) [place] # (Auto) Eos # (Auto) Baso # (Auto) Immature Gran % Nucleated RBC % Immature Gran # Nucleated RBCs # Platelet Estimate Hypochromasia Microcytosis Target Cells Morphology Comment Sodium Potassium Chloride Carbon Dioxide Anion Gap BUN Creatinine GFR Calculation BUN/Creatinine Ratio Glucose POC Glucose 181 H 137 H 181 H Calculated Osmolality Calcium Phosphorus Magnesium Prealbumin 10/16/16 10/17/16 10/17/16 23:41 04:20 04:20 WBC 13.6 H RBC 3.92 Hgb 8.9 L Hct 26.6 L MCV 67.9 L MCH 23 L MCHC 33.5 RDW 24.0 H Plt Count 184 D Neut % (Auto) 71.6 Lymph % (Auto) 12.8 L [place] % (Auto) 12.4 Eos % (Auto) 1.0 Baso % (Auto) 0.3 Neut # (Auto) 9.8 H Lymph # (Auto) 1.8 [place] # (Auto) 1.7 H Eos # (Auto) 0.1 Baso # (Auto) 0.0 Immature Gran % 1.9 Nucleated RBC % 0.0 Immature Gran # 0.26 Nucleated RBCs # 0.00 Platelet Estimate Adequate Hypochromasia 2+ Microcytosis 2+ Target Cells 1+ Morphology Comment Sodium Potassium Chloride Carbon Dioxide Anion Gap BUN Creatinine GFR Calculation BUN/Creatinine Ratio Glucose POC Glucose 110 H Calculated Osmolality Calcium Phosphorus 5.6 H Magnesium 1.7 L Prealbumin 8.4 L 10/17/16 10/17/16 10/17/16 04:20 05:31 06:40 WBC RBC Hgb Hct MCV MCH MCHC RDW Plt Count Neut % (Auto) Lymph % (Auto) [place] % (Auto) Eos % (Auto) Baso % (Auto) Neut # (Auto) Lymph # (Auto) [place] # (Auto) Eos # (Auto) Baso # (Auto) Immature Gran % Nucleated RBC % Immature Gran # Nucleated RBCs # Platelet Estimate Hypochromasia Microcytosis Target Cells Morphology Comment Sodium 137 Potassium 4.0 Chloride 94 L Carbon Dioxide 35 H Anion Gap 12.0 BUN 34 H Creatinine 1.40 H GFR Calculation 73 BUN/Creatinine Ratio 24.00 H Glucose 59 L POC Glucose 66 L 75 Calculated Osmolality 278.8 Calcium 10.0 Phosphorus Magnesium 1.9 Prealbumin - EKG EKG results: interpreted by me, sinus rhythm
[2016-10-17] MEDS: INSULIN GLARGINE 100 UNIT/ML SUBCUT SCH (09:28)
[2016-10-17] MEDS ORDERED: FAMOTIDINE 8 MG/ML 50 ML/BOTTLE PO SCH (09:30)
--- NOTE | 2016-10-17 09:33 | Hospitalist Progress Note ---
Assessment and Plan - Time spent with patient Time spent with patient: Greater than 30 minutes (1) Anoxic encephalopathy Problem details: Status post cardiac arrest and resuscitation 09/27/2016. Status: Acute Assessment and plan: Assessment and Plan - Time spent with patient Time spent with patient: Greater than 30 minutes (1) Anoxic encephalopathy Problem details: Status post cardiac arrest and resuscitation 09/27/2016. Status: Acute Assessment and plan: Continue current care. Awaiting placement Current Visit: Yes (2) Respiratory failure Status: Acute Assessment and plan: Continue Resp care including oxygen, trach care. Tolerating trach collar Current Visit: Yes (3) Bacteremia Problem details: 09/27/2016 blood cultures grew staph hemolyticus 1 of 2 bottles considered contamination). 09/27/2016 sputum grew Tisha albicans 10/07/2016 blood culture grew staph capitis 10/07/2016 urine culture final report negative 10/09/16 nasal swab MRSA negative He has completed 7 days of empiric Merrem and clindamycin therapy. Discontinue Merrem and clindamycin. Status: Acute Current Visit: Yes (4) Pneumonia Problem details: Completed antibiotics. Status: Acute Current Visit: Yes (5) Cardiomyopathy Problem details: LVEF 15% with grade 3 diastolic dysfunction on echocardiogram . Four-chamber enlargement reported on echo consistent with dilated cardiomyopathy. LifeVest recommended by consulting mechanical test technician when patient is discharged or transferred to a facility that does not offer telemetry monitoring. If patient's mental status and functional status improve but cardiomyopathy does not improve patient should be reevaluated for AICD placement Chest x-ray shows abnormally shaped heart with evidence/suggestion of pericardial effusion. Repeat chest x-ray has been ordered for tomorrow. Status: Chronic Current Visit: Yes (6) Sickle cell disease, type S Problem details: SC disease Status: Chronic Current Visit: Yes (7) Acute kidney injury superimposed on chronic kidney disease Problem details: Resolved. Status: Acute Current Visit: Yes (8) Essential hypertension Status: Acute Current Visit: Yes (9) Dysphasia Problem details: S/p PEG. Continue PEG feeding. Status: Acute Current Visit : Yes (10) Anemia of chronic disease Status: Acute Current Visit: Yes (11) Burns catheter in place Problem details: Garza colored urine collecting in bedside urine bag; clear without sediment. Status: Acute Current Visit: Yes (12) Tracheostomy in place Status: Acute Current Visit: Yes Current Visit: Yes Hospitalist: Subjective Interval history: Patient seen and examined. No acute events overnight. Case discussed with nursing staff. Labs reviewed. Medications will be converted to oral route via PEG tube today. Case discussed with the pharmacist in the ICU. The patient is awaiting placement. She is awake and followed my commands. Tolerating trach collar well. Exam - Constitutional Vitals: Period Temp Pulse Resp BP Sys/Ramirez Pulse Ox Last 24 Hr 97.2 F-98.8 F 78-111 14-25 88-128/50-79 93-100 Exam: Constitutional System: No distress. No tremulousness. Moves around spontaneously. Follow simple commands. Head: Normocephalic, atraumatic. Ears, Nose and Throat System: No pain or tenderness. No epistaxis or discharge Eyes System: Pupils equal, round, and reactive. Extraocular muscles intact. Neck: Supple, without adenopathy, No jugular venous distention. No thyromegaly, neck mass, or prior surgery apparent. Respiratory System: Chest clear to auscultation. Cardiovascular System: Heart with regular rate and rhythm. No murmur. GI System: Abdomen soft, nontender. Normo active bowel sounds present. Musculoskeletal System: limbs with no pedal edema. Full distal pulses. Neurological System: No discernable sensory deficit. Moves upper and lower extremities Results - Labs CBC & BMP: 10/17/16 04:20 10/17/16 04:20 Lab Results: I have reviewed the past 24 hour labs - Diagnostic Findings Procedure: Chest x-ray: image reviewed by me, report reviewed by me
[2016-10-17] MEDS: FUROSEMIDE 20 MG TABLET PO SCH (09:35)
[2016-10-17] MEDS: FOLIC ACID INJ 1 MG in SYRINGE 1 EACH IV SCH (09:49)
[2016-10-17] MEDS: CARVEDILOL 6.25 MG TABLET PO SCH ×3 (09:53→22:10)
[2016-10-17] MEDS: LISINOPRIL 2.5 MG TABLET PO SCH (09:53)
[2016-10-17] MEDS: FOLIC ACID 1 MG TABLET PER TUBE SCH (09:55)
[2016-10-17] MEDS: THIAMINE 100 MG TABLET PER TUBE SCH (10:00)
[2016-10-17] MEDS: levETIRAcetam LIQUID 100 MG/ML 30 ML/BOTTLE PER TUBE SCH ×2 (15:47→20:26)
[2016-10-17] MEDS ORDERED: diphenhydrAMINE 50 MG/1 ML VIAL IV ONE (17:17)
[2016-10-17] MEDS ORDERED: LORazepam 2 MG/1 ML VIAL IV ONE (17:17)
[2016-10-17] MEDS ORDERED: LORazepam 2 MG/1 ML VIAL ONE (17:23)
[2016-10-17] MEDS ORDERED: FAMOTIDINE 20 MG/2 ML VIAL IV SCH (18:00)
[2016-10-17] MEDS ORDERED: LORazepam 2 MG/1 ML VIAL IV PRN ×2 (20:14)
[2016-10-17] MEDS: FAMOTIDINE 20 MG TABLET PO SCH (20:26)
[2016-10-17] MEDS ORDERED: INSULIN GLARGINE 100 UNIT/ML SUBCUT SCH (21:00)
[2016-10-17] MEDS ORDERED: ZIPRASIDONE 20 MG/1 ML VIAL IM PRN ×2 (22:10)
[2016-10-18] MEDS: INSULIN REGULAR 100 UNIT/ML SUBCUT SCH ×3 (00:11→14:49)
[2016-10-18] MEDS: ALBUTEROL/IPRATROPIUM 3 ML NEB RESP TX SCH ×3 (01:26→14:09)
[2016-10-18 05:39] LABS: Basophils # 0.1 10*3/uL (0.0-0.2); Basophils % 0.4 % (0.0-0.8); Eosinophils # 0.2 10*3/uL (0.0-0.87); Eosinophils % 1.4 % (0.00-10.9); Hematocrit 26.2 VOL% (42.0-52.0); Hemoglobin 8.8 GM/DL (14.0-18.0); Immature Granulocytes % 1.5 %; Immature Granulocytes Absolute 0.21 #; Lymphocytes # 1.6 10*3/uL (1.4-4.0); Lymphocytes % 11.7 % (21.2-54.2); Mean Corpuscular HGB Conc 33.6 GM/DL (32-36); Mean Corpuscular Hemoglobin 23 PG (27-34); Mean Corpuscular Volume 68.2 FL (87-102); Monocytes # 1.6 10*3/uL (0.11-0.8); Monocytes % 11.7 % (1.7-12.7); Neutrophils # 9.9 10*3/uL (1.4-7.4); Neutrophils % 73.3 % (38.7-73.9); Platelet Count 173 T/CUMM (130-400); Red Blood Count 3.84 MC/CUMM (3.8-5.5); Red Cell Distribution Width 23.9 % (9.3-17.3); White Blood Count 13.6 T/CUMM (4-12)
[2016-10-18 06:11] LABS: Eosinophils 1 % (0-10); Hypochromasia 2+; Lymphocytes 5 % (20-55); Microcytosis 1+; Platelet Estimate Decreased; Segmented Neutrophils 84 % (50-85); Target Cells Slight; Total Cells Counted 100
[2016-10-18 06:23] LABS: Calcium 10.3 MG/DL (8.5-10.1); Magnesium 1.9 MG/DL (1.8-2.4); Osmolality,Calculated 282.8 MOS/KG (273-304); Potassium 4.2 MMOL/L (3.5-5.1)
--- NOTE | 2016-10-18 07:21 | XRay Report ---
Exam: XR chest 1V portable Indication: Cardiomegaly, tracheostomy, ventilator Comparison study: 10/14/2016 Findings: Tracheostomy tube is in similar position. Left-sided PICC line is now noted in place with the tip terminating near the cavoatrial junction. Cardiac silhouette is enlarged, similar to prior. Improved aeration within the lung bases. There is no focal consolidation, pneumothorax or pleural effusion identified. Impression: Cardiomegaly with low lung volumes. Slight improved aeration within the lung bases. Otherwise, no significant change. PROCEDURE INTERPRETED AT [facility] DEPARTMENT OF RADIOLOGY Final Report Signed by: Drew Singh
--- NOTE | 2016-10-18 08:06 | Pulmonology Progress Note ---
Pulmonary - PN: Subj Interval history: The patient is a 45-year-old black man that has SC disease. He came in with respiratory distress and acute pulmonary edema. He had to be intubated and has been on the ventilator. He was taken to the heart mill laborer had a cardiac catheterization. His ejection fraction of 15% but normal coronaries. Last week he was stable on the ventilator but was not waking up very well. He went for tracheostomy tube without any problems. He has been doing better over the weekend. Now he is on trach collar and looks quite comfortable. He is a little more alert but has a critical illness myopathy. At present he continues to do quite well on trach collar. He is moving around more and a little more alert. He still does not always follow commands. He is not having any trouble with his breathing. We can probably downsize his trach. Exam (Progress Note) - Constitutional Vitals: Period Temp Pulse Resp BP Sys/Ramirez Pulse Ox Last 24 Hr 97.1 F-98.8 F 78-114 16-26 88-124/54-79 95-100 Exam: General appearance: normal weight, no acute distress (Patient is comfortable and not having any respiratory distress.) - Head Head exam: Present: normal inspection, normocephalic - Eye Eye exam: Present: EOMI. Absent: scleral icterus Pupils: Present: AUGIE - ENT ENT exam: Present: Unremarkable - Neck Neck exam: Present: normal inspection. He has a tracheostomy tube in place. Absent: lymphadenopathy, thyromegaly - Respiratory Respiratory exam: Present: He has good breath sounds bilaterally and his lungs sound clear without any wheezing or rales. - Cardiovascular Cardiovascular exam: Present: regular rate and rhythm, systolic murmur (He does have a soft systolic murmur), his heart rate is better. His PMI is laterally displaced. Absent: gallop - GI/Abdominal GI/Abdominal exam: Present: normal bowel sounds, soft. Absent: distended, organomegaly, tenderness - Extremities Exam Extremities exam: Absent: calf tenderness, edema, there are no signs of phlebitis. - Neurological Exam Neurological exam: Present: other (Patient is moving around fairly well and is more alert.) - Skin Skin exam: Present: warm, dry Results - Labs CBC & BMP: 10/18/16 04:18 10/18/16 04:18 - Diagnostic Findings Procedure: Chest x-ray: image reviewed by me, report reviewed by me (Chest x- ray shows cardiomegaly but clear lung singh.) Assessment and Plan (1) Congestive heart failure Status: Resolved Assessment and plan: The patient presents with acute shortness of breath and his x-ray is consistent with heart failure. He has a severe cardiomyopathy with ejection fraction of 15 %. His chest x-ray is clear now his heart failure is resolved. He is breathing comfortably. Current Visit: Yes (2) Hemoglobin SC disease Status: Chronic Assessment and plan: Patient has a history of sickle cell disease and his hematocrit is 26.2 today. His hematocrit has been stable. Current Visit: Yes (3) Respiratory failure Status: Acute Assessment and plan: The patient is doing much better with his tracheostomy tube. He has been quite stable on trach collar. He is not having any respiratory distress now. Current Visit: Yes Qualifiers: Chronicity: acute (4) Acute on chronic renal failure Status: Resolved Assessment and plan: The patient's creatinine is now 1.4 Current Visit: Yes (5) Encephalopathy Status: Acute Assessment and plan: The patient has finally improved minimally and is responding better and more alert. He still does not always follow commands very well. Overall he looks a little more alert. Current Visit: Yes (6) Critical illness myopathy Status: Acute Assessment and plan: The patient is extremely weak but is moving his extremities better now. He will continue with physical therapy. He will probably go to a swing bed. Current Visit: Yes
--- NOTE | 2016-10-18 08:13 | Cardiology Progress Note ---
<Alecia Rebollar E - Last Filed: 10/18/16 08:53> Assessment and Plan - Time spent with patient Time spent with patient: Less than 30 minutes (1) Acute combined systolic and diastolic congestive heart failure Problem details: PICC line placed 10/14/16. Status: Acute Assessment and plan: See plan of care listed below. Current Visit: Yes (2) Cardiac arrest Status: Acute Assessment and plan: See plan of care listed below. Current Visit: Yes (3) Nonischemic dilated cardiomyopathy Status: Acute Assessment and plan: See plan of care listed below. Current Visit: Yes (4) Hypertension Status: Acute Assessment and plan: See plan of care listed below. Current Visit: Yes (5) Hemoglobin SC disease Status: Chronic Assessment and plan: See plan of care listed below. Current Visit: Yes (6) Acute on chronic renal failure Status: Resolved Assessment and plan: See plan of care listed below. Current Visit: Yes (7) Drug abuse Status: Chronic Assessment and plan: See plan of care listed below. Current Visit: Yes (8) Respiratory failure Status: Acute Assessment and plan: See plan of care listed below. Current Visit: Yes Qualifiers: Chronicity: acute (9) History of congestive heart failure Status: Acute Assessment and plan: See plan of care listed below. Current Visit: Yes Cardiology - PN: Subj Interval history: [facility] Director: New to cardiology, has been seen at [facility] in the past. PCP: Dr. Ector Figueroa SUMMARY - Mr. Rodriguez is a 45 year old male -[place] male patient who has not been seen by local cardiology in the past. Patient has a past medical history of congestive heart failure (most recent ejection fraction noted to be 15%), sickle cell anemia, anxiety and hypertension. Patient is status post aborted sudden cardiac on September 27. EKG revealed deep flat ST depression in the lateral leads and subsequently, patient underwent cardiac catheterization in order to definitively define his coronary anatomy and to rule out underlying obstructive coronary artery disease. This was performed per Dr. Juanito Baig with the following impressions noted: normal coronary arteries, dilated nonischemic cardiomyopathy, elevated LVEDP and pulmonary capillary wedge pressure, transient PSVT which resolved after IV diltiazem. OCTOBER 18, 2016 UPDATE: Mr. Rodriguez is resting comfortably in bed upon exam today, he is currently getting a bath. He is much more alert today. He will open his eyes and turn his head towards me when I call his name. He is able to mouth his first name. If he can make a meaningful neurological recovery, he will be a candidate for ICD implant for secondary prevention although his drug use will need to be addressed before this is pursued. In the meantime, he can be protected with a lifevest upon discharge if he is neurologically intact enough to use the device. Nursing staff tells me that he is to be transferred to an LTAC or rehabilitation facility today. We have seen in the order for his LifeVest. ASSESSMENT/PLAN: 1. ACUTE CONGESTIVE HEART FAILURE, COMBINED SYSTOLIC AND DIASTOLIC DYSFUNCTION - Improving. Currently under well control with current medication regimen. Echocardiogram this admission revealed ejection fraction of 15% and grade 3 diastolic dysfunction. After negative heart catheterization this was deemed drug-induced cardiomyopathy. Continue beta-shekhar and ANGEL inhibitor. Monitor BMP. Daily weights and strict I's and O's. Will further discuss with Dr. Duke and await his additional recommendations. 2. CARDIAC ARREST - Now NSR with occasional short SVTs on telemetry. Will continue to monitor. 3. NONISCHEMIC DILATED CARDIOMYOPATHY - Ejection fraction 15%. Continue beta shekhar and ANGEL inhibitor. As above. Will need ICD in the future; however, his drug use will need to be addressed before this is pursued. He is receiving large volumes of fluids and is on Lasix IV daily. 4. HYPERTENSION - Continue current plan of care. He was started on low dose ANGEL inhibitor but this has been held several times due to hypotension. We will continue to monitor renal function. So far, his creatinine remained stable at 1.4 5. SICKLE CELL ANEMIA - Defer management of this to attending. 6. ACUTE ON CHRONIC RENAL FAILURE - Monitor with daily BMP. Creatinine today 1.4. Management per attending. 7. DRUG ABUSE - Patient's drug screen was positive for marijuana upon admission. This is most likely contributing to patient's severe cardiomyopathy. 8. TOBACCO ABUSE - Continue current plan of care. Will discuss the merits of smoking cessation when able. 9. ALCOHOLISM - Continue current plan of care. No signs of withdrawal noted. 10. RESPIRATORY FAILURE - Management per pulmonary. Status post tracheostomy. Exam (Progress Note) - Constitutional Vitals: Period Temp Pulse Resp BP Sys/Ramirez Pulse Ox Last 24 Hr 97.1 F-98.8 F 78-114 16-26 88-124/54-79 95-100 Exam: General: Appears chronically ill. Tracheostomy in place with O2 via trach collar. HEENT: Pupils reactive to light. Tracheostomy in place. Mucous membranes moist. No jaundice noted. Neck: No JVD/HJR, no thyromegaly or lymphadenopathy noted. Cardiac: Regular rate and rhythm. No rub or gallop. Lungs: clear to auscultation. O2 via trach collar. Abdomen: Soft, bowel sounds active. PEG tube in place. Back: Normal inspection, no vertebral tenderness. Extremities: No clubbing or cyanosis noted. No edema. Upper extremity pulses 2 +. Lower extremity pulses 2+. Capillary refill less than 3 seconds. Neuro: Patient is awake, will open eyes and follow with his eyes. We will close his eyes to command. He is now able to mouth his first name when you ask him to. Is able to move his extremities but is still very weak. Result/EKG - Labs CBC & BMP: 10/18/16 04:18 10/18/16 04:18 Lab Results: I have reviewed the past 24 hour labs Labs: Laboratory Results - last 24 hr 10/17/16 10/17/16 10/17/16 11:56 17:59 23:57 WBC RBC Hgb Hct MCV MCH MCHC RDW Plt Count Neut % (Auto) Lymph % (Auto) [place] % (Auto) Eos % (Auto) Baso % (Auto) Neut # (Auto) Lymph # (Auto) [place] # (Auto) Eos # (Auto) Baso # (Auto) Total Counted Immature Gran % Nucleated RBC % Immature Gran # Segmented Neutrophils Lymphocytes Monocytes Eosinophils Nucleated RBCs # Platelet Estimate Hypochromasia Microcytosis Target Cells Sodium Potassium Chloride Carbon Dioxide Anion Gap BUN Creatinine GFR Calculation BUN/Creatinine Ratio Glucose POC Glucose 135 H 152 H 136 H Calculated Osmolality Calcium Magnesium 10/18/16 10/18/16 10/18/16 04:18 04:18 05:51 WBC 13.6 H RBC 3.84 Hgb 8.8 L Hct 26.2 L MCV 68.2 L MCH 23 L MCHC 33.6 RDW 23.9 H Plt Count 173 Neut % (Auto) 73.3 Lymph % (Auto) 11.7 L [place] % (Auto) 11.7 Eos % (Auto) 1.4 Baso % (Auto) 0.4 Neut # (Auto) 9.9 H Lymph # (Auto) 1.6 [place] # (Auto) 1.6 H Eos # (Auto) 0.2 Baso # (Auto) 0.1 Total Counted 100 Immature Gran % 1.5 Nucleated RBC % 0.0 Immature Gran # 0.21 Segmented Neutrophils 84 Lymphocytes 5 L Monocytes 10 Eosinophils 1 Nucleated RBCs # 0.00 Platelet Estimate Decreased Hypochromasia 2+ Microcytosis 1+ Target Cells Slight Sodium 137 Potassium 4.2 Chloride 96 L Carbon Dioxide 35 H Anion Gap 10.2 BUN 32 H Creatinine 1.40 H GFR Calculation 73 BUN/Creatinine Ratio 22.00 H Glucose 144 H POC Glucose 158 H Calculated Osmolality 282.8 Calcium 10.3 H Magnesium 1.9 - EKG EKG results: interpreted by me, sinus rhythm <Rj Duke - Last Filed: 10/18/16 14:17> Cardiology - PN: Subj Interval history: This patient is going to be transferred for chronic care down to the long-term acute care hospital for further management. He is currently unchanged from a neurologic standpoint he at this point is not a optimal candidate for ICD placement related to his neurologic status. We are considering LifeVest placement. I have discussed in detail the particulars of this case and I have examined the patient and reviewed the patient's chart both current and old. I was directly involved in the patient's evaluation and management and I completely agree with Alecia Rebollar NP regarding this patient's evaluation and treatment plan. Exam (Progress Note) - Constitutional Vitals: Period Temp Pulse Resp BP Sys/Ramirez Pulse Ox Last 24 Hr 97.7 F-98.8 F 78-114 16-32 95-124/59-79 95-100 Result/EKG - Labs CBC & BMP: 10/18/16 04:18 10/18/16 04:18 Labs: Laboratory Results - last 24 hr 10/17/16 10/17/16 10/18/16 17:59 23:57 04:18 WBC 13.6 H RBC 3.84 Hgb 8.8 L Hct 26.2 L MCV 68.2 L MCH 23 L MCHC 33.6 RDW 23.9 H Plt Count 173 Neut % (Auto) 73.3 Lymph % (Auto) 11.7 L [place] % (Auto) 11.7 Eos % (Auto) 1.4 Baso % (Auto) 0.4 Neut # (Auto) 9.9 H Lymph # (Auto) 1.6 [place] # (Auto) 1.6 H Eos # (Auto) 0.2 Baso # (Auto) 0.1 Total Counted 100 Immature Gran % 1.5 Nucleated RBC % 0.0 Immature Gran # 0.21 Segmented Neutrophils 84 Lymphocytes 5 L Monocytes 10 Eosinophils 1 Nucleated RBCs # 0.00 Platelet Estimate Decreased Hypochromasia 2+ Microcytosis 1+ Target Cells Slight Sodium Potassium Chloride Carbon Dioxide Anion Gap BUN Creatinine GFR Calculation BUN/Creatinine Ratio Glucose POC Glucose 152 H 136 H Calculated Osmolality Calcium Magnesium 10/18/16 10/18/16 10/18/16 04:18 05:51 11:57 WBC RBC Hgb Hct MCV MCH MCHC RDW Plt Count Neut % (Auto) Lymph % (Auto) [place] % (Auto) Eos % (Auto) Baso % (Auto) Neut # (Auto) Lymph # (Auto) [place] # (Auto) Eos # (Auto) Baso # (Auto) Total Counted Immature Gran % Nucleated RBC % Immature Gran # Segmented Neutrophils Lymphocytes Monocytes Eosinophils Nucleated RBCs # Platelet Estimate Hypochromasia Microcytosis Target Cells Sodium 137 Potassium 4.2 Chloride 96 L Carbon Dioxide 35 H Anion Gap 10.2 BUN 32 H Creatinine 1.40 H GFR Calculation 73 BUN/Creatinine Ratio 22.00 H Glucose 144 H POC Glucose 158 H 127 H Calculated Osmolality 282.8 Calcium 10.3 H Magnesium 1.9
[2016-10-18] MEDS ORDERED: INSULIN GLARGINE 100 UNIT/ML SUBCUT SCH (09:00)
[2016-10-18] MEDS: THIAMINE 100 MG TABLET PER TUBE SCH (09:29)
[2016-10-18] MEDS: levETIRAcetam LIQUID 100 MG/ML 30 ML/BOTTLE PER TUBE SCH (09:30)
[2016-10-18] MEDS: FUROSEMIDE 20 MG TABLET PO SCH (09:30)
[2016-10-18] MEDS: FAMOTIDINE 20 MG TABLET PO SCH (09:30)
[2016-10-18] MEDS: FOLIC ACID 1 MG TABLET PER TUBE SCH (09:30)
[2016-10-18] MEDS: CARVEDILOL 6.25 MG TABLET PO SCH (09:42)
[2016-10-18] MEDS: LISINOPRIL 2.5 MG TABLET PO SCH (09:42)
--- NOTE | 2016-10-18 10:13 | Hospitalist Progress Note ---
Assessment and Plan (1) Anoxic encephalopathy Problem details: Status post cardiac arrest and resuscitation 09/27/2016. Status: Acute Assessment and plan: Assessment and Plan - Time spent with patient Time spent with patient: Greater than 30 minutes (1) Anoxic encephalopathy Problem details: Status post cardiac arrest and resuscitation 09/27/2016. Status: Acute Assessment and plan: Continue current care. Awaiting placement Current Visit: Yes (2) Respiratory failure Status: Acute Assessment and plan: Continue Resp care including oxygen, trach care. Tolerating trach collar. Pulmonary following Current Visit: Yes (3) Bacteremia Problem details: 09/27/2016 blood cultures grew staph hemolyticus 1 of 2 bottles considered contamination). 09/27/2016 sputum grew Tisha albicans 10/07/2016 blood culture grew staph capitis 10/07/2016 urine culture final report negative 10/09/16 nasal swab MRSA negative He has completed 7 days of empiric Merrem and clindamycin therapy. Discontinue Merrem and clindamycin. Status: Acute Current Visit: Yes (4) Pneumonia Problem details: Completed antibiotics. Status: Acute Current Visit: Yes (5) Cardiomyopathy Problem details: LVEF 15% with grade 3 diastolic dysfunction on echocardiogram . Four-chamber enlargement reported on echo consistent with dilated cardiomyopathy. LifeVest recommended by consulting patrol mother when patient is discharged or transferred to a facility that does not offer telemetry monitoring. If patient's mental status and functional status improve but cardiomyopathy does not improve patient should be reevaluated for AICD placement Chest x-ray shows abnormally shaped heart with evidence/suggestion of pericardial effusion. Repeat chest x-ray has been ordered for tomorrow. Status: Chronic Current Visit: Yes (6) Sickle cell disease, type S Problem details: SC disease Status: Chronic Current Visit: Yes (7) Acute kidney injury superimposed on chronic kidney disease Problem details: Resolved. Status: Acute Current Visit: Yes (8) Essential hypertension Status: Acute Current Visit: Yes (9) Dysphasia Problem details: S/p PEG. Continue PEG feeding. Status: Acute Current Visit : Yes (10) Anemia of chronic disease Status: Acute Current Visit: Yes (11) Burns catheter in place Problem details: Garza colored urine collecting in bedside urine bag; clear without sediment. Status: Acute Current Visit: Yes (12) Tracheostomy in place Status: Acute Current Visit: Yes Current Visit: Yes Hospitalist: Subjective Interval history: Patient seen and examined. No acute events overnight. Case discussed with nursing staff. Labs reviewed. Blood sugars improved. Tolerating tube feeds. Exam - Constitutional Vitals: Period Temp Pulse Resp BP Sys/Ramirez Pulse Ox Last 24 Hr 97.1 F-98.8 F 78-114 16-26 92-124/54-79 95-100 Exam: Constitutional System: No distress. No tremulousness. Moves around spontaneously. Follow simple commands. Head: Normocephalic, atraumatic. Ears, Nose and Throat System: No pain or tenderness. No epistaxis or discharge Eyes System: Pupils equal, round, and reactive. Extraocular muscles intact. Neck: Supple, without adenopathy, No jugular venous distention. Tracheostomy in place. Respiratory System: Chest clear to auscultation. Cardiovascular System: Heart with regular rate and rhythm. No murmur. GI System: Abdomen soft, nontender. Normo active bowel sounds present. Musculoskeletal System: limbs with no pedal edema. Full distal pulses. Neurological System: No discernable sensory deficit. Moves upper and lower extremities Results - Labs CBC & BMP: 10/18/16 04:18 10/18/16 04:18 Lab Results: I have reviewed the past 24 hour labs - Diagnostic Findings Procedure: Chest x-ray: image reviewed by me, report reviewed by me
--- NOTE | 2016-10-18 12:19 | Discharge Summary ---
<Moe Navarro - Last Filed: 10/18/16 14:24> Hospital Course - Hospital Course Hospital Course: This is a chronically ill 45-year-old male that presented to the ED at [facility] on September 27, 2016 for the evaluation of shortness of breath. Patient has a medical history significant for hemoglobin sickle cell disease, congestive heart failure, anxiety, depression, and questionable schizophrenia and bipolar disorder. There is was no surgical history available at the time of admission. The patient reported the onset of symptoms 3 weeks prior to presentation. He reported that he had been seen by a physician in [place] and was given Lasix and Ultram. He reported that these medications made him feel worse. At the time of ED presentation, the patient was noted to be in severe respiratory distress. The patient was emergently intubated and placed on mechanical ventilation. The patient was subsequently admitted to the hospitalist services and sent to the critical care unit for continuation of care. At the time of critical care admission, pulmonary, hematology, and cardiology consultations were requested. Upon review of the chest x-ray, the patient was noted to be experiencing severe pulmonary edema. Shortly after the critical care admission, the patient was noted to be grossly hypertensive. The patient became asystole and CPR was initiated. Cardiopulmonary resuscitation and advanced cardiac life support measures were initiated and the patient heart rate returned. A cardiology consult patient was requested and invasive intravenous lines were placed. The patient was immediately taken to the cardiac catheterization laboratory for emergent heart catheterization; which reported normal coronary arteries, dilated nonischemic cardiomyopathy, elevated left ventricular end-diastolic pressure and pulmonary capillary pressure and transient paroxysmal supraventricular tachycardia which was resolved after IV diltiazem was given. The patient was essentially unresponsive with no sedative agents in use and a neurology consultation was requested. Multiple attempts were made to wean the patient from mechanical ventilation which were essentially unsuccessful. On October 08, 2016, the underwent tracheostomy placement under the direction of Dr. Garcia and remained on mechanical ventilation. A gastroenterology consultation was requested and the patient was evaluated. On October 12, 2016 the patient underwent esophagogastroduodenoscopy with percutaneous endoscopic gastrostomy tube placement under the direction of Dr. Francis and enteral feedings were initiated. The patient's neurological status gradually improved. The patient was eventually placed on tracheostomy collar. During the clinical encounter schwab cultures were obtained; blood cultures grew staph hemolyticus 1 of 2 bottles which was considered contamination, sputum culture grew out Tisha albicans, blood cultures on 10/07/2016 grew out staph capitis, urine culture final report on 10/07/2016 was negative, and nasal swab was negative for methicillin- resistant Staphylococcus. The patient had been started on empiric meropenem and clindamycin which were both completed. The patient's status has improved tremendously since admission. The patient's condition is stable. The patient has not experienced any significant overnight events. Today, the patient is indeed appropriate for transfer to [facility] 's ventilator unit for continuation of care. Discharge Plan - Discharge Data Disposition: Disch/Xfer to Snf - Discharge Medications New Albuterol/Ipratropium Neb [Duoneb] 3 ml RESP TX RT Q8H Carvedilol [Coreg] 6.25 mg PO BID tablet chlorproMAZINE INJ [Thorazine Inj] 25 mg IM Q6H PRN PRN Reason: Agitation Folic Acid Tab 1 mg PER TUBE DAILY tablet Furosemide Tab [Lasix Tab] 20 mg PO DAILY tablet Insulin Glargine [Lantus] 20 unit SUBCUT DAILY unit levETIRAcetam LIQUID [Keppra Liquid] 500 mg PER TUBE TID ml Lisinopril [Prinivil] 2.5 mg PO DAILY tablet Ziprasidone Inj [Geodon Inj] 10 mg IM Q6H PRN vial PRN Reason: Agitation Famotidine Tab [Pepcid Tab] 20 mg PO BID tablet Insulin Regular [HumuLIN R] See Protocol SUBCUT Q6HR unit Thiamine Tab [Vitamin B1 Tab] 100 mg PER TUBE DAILY tablet Continue FLUoxetine [PROzac] 40 mg PO DAILY OLANZapine [Olanzapine] 20 mg PO DAILY Discontinued amLODIPine [Norvasc] 10 mg PO DAILY - Follow Up or Referral - Forms/Instructions Exam - Constitutional Vitals: Period Temp Pulse Resp BP Sys/Ramirez Pulse Ox Last 24 Hr 97.7 F-98.8 F 78-114 16-32 95-124/54-79 95-100 Discharge Results Procedures and tests throughout hospitalization: Pending Orders 10/20/16 04:00 Magnesium MOTH Phosphorous MOTH Prealbumin MOTH Labs on day of discharge: Labs from last 24 hours 10/18/16 10/18/16 10/18/16 11:57 05:51 04:18 WBC RBC Hgb Hct MCV MCH MCHC RDW Plt Count Neut % (Auto) Lymph % (Auto) [place] % (Auto) Eos % (Auto) Baso % (Auto) Neut # (Auto) Lymph # (Auto) [place] # (Auto) Eos # (Auto) Baso # (Auto) Total Counted Immature Gran % Nucleated RBC % Immature Gran # Segmented Neutrophils Lymphocytes Monocytes Eosinophils Nucleated RBCs # Platelet Estimate Hypochromasia Microcytosis Target Cells Sodium 137 Potassium 4.2 Chloride 96 L Carbon Dioxide 35 H Anion Gap 10.2 BUN 32 H Creatinine 1.40 H GFR Calculation 73 BUN/Creatinine Ratio 22.00 H Glucose 144 H POC Glucose 127 H 158 H Calculated Osmolality 282.8 Calcium 10.3 H Magnesium 1.9 10/18/16 10/17/16 10/17/16 04:18 23:57 17:59 WBC 13.6 H RBC 3.84 Hgb 8.8 L Hct 26.2 L MCV 68.2 L MCH 23 L MCHC 33.6 RDW 23.9 H Plt Count 173 Neut % (Auto) 73.3 Lymph % (Auto) 11.7 L [place] % (Auto) 11.7 Eos % (Auto) 1.4 Baso % (Auto) 0.4 Neut # (Auto) 9.9 H Lymph # (Auto) 1.6 [place] # (Auto) 1.6 H Eos # (Auto) 0.2 Baso # (Auto) 0.1 Total Counted 100 Immature Gran % 1.5 Nucleated RBC % 0.0 Immature Gran # 0.21 Segmented Neutrophils 84 Lymphocytes 5 L Monocytes 10 Eosinophils 1 Nucleated RBCs # 0.00 Platelet Estimate Decreased Hypochromasia 2+ Microcytosis 1+ Target Cells Slight Sodium Potassium Chloride Carbon Dioxide Anion Gap BUN Creatinine GFR Calculation BUN/Creatinine Ratio Glucose POC Glucose 136 H 152 H Calculated Osmolality Calcium Magnesium DS: Provider Date of admission: 09/27/16 02:50 Primary care physician: . No PCP Attending physician on admission: Filippo Vivas MD Consults: 09/27/16 02:54 Consult to Physician [CONS] Routine Comment: vent Consulting Provider: Garret Yost Consulting Provider Notified: Yes Consult to Specialist Group: Pulmonology When should Consulting Provider be notified: In am Person Notified: Dr. Yost Date Notified: 09/27/16 Time Notified: 07:51 Consult Notification Comment: left message @ clinic ! [id number]-- saw pt on rounds earlier 09/27/16 04:06 Consult to Dietitian [CONS] Routine Reason for Dietitian: Dietary Consult 09/27/16 12:33 Consult to Dietitian [CONS] Routine Reason for Dietitian: TF-Initiate/Manage 09/27/16 13:55 Consult to Physician [CONS] Routine Comment: EF 15 % Consulting Provider: Cardiology - [facility] Person Notified: [facility] Date Notified: 09/27/16 Time Notified: 13:55 09/29/16 11:48 Consult to Physician [CONS] Routine Comment: not responding well post code Consulting Provider: Jc Turner When should Consulting Provider be notified: Now Person Notified: left message @ office Date Notified: 09/29/16 Time Notified: 12:14 10/02/16 08:40 Consult to Physician [CONS] Routine Comment: ttp or dic or sepsis Consulting Provider: Filippo Aceves Consulting Provider Notified: Yes When should Consulting Provider be notified: Now Person Notified: Dr. Aceves Date Notified: 10/02/16 Time Notified: 08:39 10/02/16 09:59 Consult to Dietitian [CONS] Routine Reason for Dietitian: TF-Initiate/Manage Consult Comment: change to glucerna 10/06/16 07:55 Consult to Physician [CONS] Routine Comment: Consulting Provider: Anupam Garcia Consulting Provider Notified: Yes Consult to Specialist Group: ENT When should Consulting Provider be notified: Now Person Notified: PADMAJA Date Notified: 10/06/16 Time Notified: 09:00 10/07/16 10:18 Consult to Physician [CONS] Routine Comment: PEG tube Consulting Provider: Jon Francis Consult to Specialist Group: Gastroenterology When should Consulting Provider be notified: Now Person Notified: Dr Francis Date Notified: 10/07/16 Time Notified: 15:28 10/08/16 12:08 Consult to Case Mgmt/Social Srvs [CONS] Routine Reason for Case Mgmt/Social Srvs: Other Consult Comment: refer to chronic vent unit at [facility] 10/10/16 14:15 Consult to Occupational Therapy [CONS] Routine Reason for Occupational Therapy: Evaluate and Treat Consult to Physical Therapy [CONS] Routine Reason for Physical Therapy: Evaluate and Treat 10/17/16 12:48 Consult to Case Mgmt/Social Srvs [CONS] Routine Reason for Case Mgmt/Social Srvs: Other Consult Comment: [facility] Discharging clinician: Moe Navarro CNP <Daryl Ferguson - Last Filed: 10/18/16 17:15> Hospital Course - Time spent with patient Time with patient DS: Greater than 30 minutes (Total discharge time for this patient, including [id number] time, clinical documentation, medication reconciliation, and discharge planning was 44 minutes.) Diagnosis - Discharge Diagnosis (1) Anoxic encephalopathy Status: Acute (2) Diabetes Status: Chronic (3) Cardiac arrest Status: Resolved (4) Nonischemic dilated cardiomyopathy Status: Chronic (5) Critical illness myopathy Status: Acute (6) Sickle cell disease, type S Status: Chronic (7) Respiratory failure Status: Acute (8) Essential hypertension Status: Chronic (9) Pneumonia Status: Acute (10) Anemia of chronic disease Status: Chronic (11) Tracheostomy in place Status: Chronic Discharge Plan - Discharge Data Condition at Discharge: Stable Discharge Diet: other (Tube feed diet per dietary recommendations) Activity: as per physical therapy Hygiene: no restrictions Contact your physician if you experience:: fever over 101, Nausea/Vomiting, Shortness of breath Exam - Constitutional General appearance: no acute distress DS: Provider Expected date of discharge: 10/18/16
--- NOTE | 2016-10-18 13:46 | Progress Note ---
Assessment and Plan (1) Ventilator dependent Status: Acute Assessment and plan: I recommend tracheostomy tube placement to be performed tomorrow in the OR will place this on the schedule we will hold his anticoagulant and tube feeds. Thank you very much for this consultation I will follow this patient intermittently throughout his stay. 10/18/2016 overall ventilator dependence has resolved he is still tracheostomy dependent but improving initial trach change performed at bedside from in 8cuff to a 6 cuff with Shiley tolerated well. He will be discharged to rehab today. Current Visit: Yes (2) Respiratory failure Status: Acute Current Visit: Yes (3) Congestive heart failure Status: Resolved Current Visit: Yes (4) Sickle cell crisis Status: Acute Current Visit: Yes (5) Thrombocytopenia Status: Acute Current Visit: Yes Family Medicine PN Sub Interval history: Status post tracheostomy in need of initial trach change prior to discharge. He has been tolerating his #8 Shiley cuffed trach well but no longer requires pressurized oxygen support has been on a trach collar with no difficulty. ENT is asked to perform the initial trach change to a 6 cuff less. Exam (Progress Note) - Constitutional Vitals: Period Temp Pulse Resp BP Sys/Ramirez Pulse Ox Last 24 Hr 97.7 F-98.8 F 78-114 16-32 95-124/54-79 95-100 General appearance: normal weight, no acute distress - Head Head exam: Present: normal inspection, normocephalic - ENT ENT exam: Present: normal exam, normal external ear exam, normal oropharynx - Neck Neck exam: Present: normal inspection, other (Midline [address] and patent exchanged at bedside initial trach change to a #6 Shiley cuff less trach tolerated well) - Respiratory Respiratory exam: Present: other (No shortness of breath or difficulty breathing ) - GI/Abdominal GI/Abdominal exam: Present: soft - Neurological Exam Neurological exam: Present: alert, CN II-XII intact (Grossly intact) - Psychiatric Psychiatric exam: Present: agitated (This may be his baseline), flat affect ( Not overly talkative appears quite agitated) - Skin Skin exam: Present: normal color, warm Results - Labs CBC & BMP: 10/18/16 04:18 10/18/16 04:18 Lab Results: I have reviewed the past 24 hour labs
[2016-10-18 16:19] VITALS: BP 117/83
== END 2016-10-18 16:00 | DRG 4 ==
LOC: N.ED 01:00 → SUATTDRO 02:50 → N.EDINP 02:50 → N.CC 03:52 → N.ICU 10-05 17:48 → N.CC 10-12 14:39
PROVIDERS: ADMIT Internal Medicine; ATTEND Family Medicine
PROC: EGDWPEG (ICD-10-PCS; 2016-10-12 11:05)

== ENCOUNTER 2016-12-14 06:04 | Inpatient (IN) ==
--- NOTE | 2016-12-14 06:31 | EKG Report ---
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
[2016-12-14 06:55] LABS: Basophils % 0.5 % (0.0-0.8); Eosinophils # 0.5 10*3/uL (0.0-0.87); Eosinophils % 6.4 % (0.00-10.9); Hematocrit 32.7 VOL% (42.0-52.0); Hemoglobin 11.4 GM/DL (14.0-18.0); Immature Granulocytes % 0.4 %; Immature Granulocytes Absolute 0.03 #; Lymphocytes # 2.2 10*3/uL (1.4-4.0); Lymphocytes % 28.5 % (21.2-54.2); Mean Corpuscular HGB Conc 34.9 GM/DL (32-36); Mean Corpuscular Hemoglobin 22 PG (27-34); Mean Corpuscular Volume 63.4 FL (87-102); Monocytes # 0.6 10*3/uL (0.11-0.8); Monocytes % 8.4 % (1.7-12.7); Neutrophils # 4.2 10*3/uL (1.4-7.4); Neutrophils % 55.8 % (38.7-73.9); Platelet Count 112 T/CUMM (130-400); Red Blood Count 5.16 MC/CUMM (3.8-5.5); Red Cell Distribution Width 14.1 % (9.3-17.3); White Blood Count 7.6 T/CUMM (4-12)
[2016-12-14] MEDS ORDERED: ceFAZolin 1,000 MG VIAL IRRIG ONE (07:00)
[2016-12-14] MEDS ORDERED: ceFAZolin 1,000 MG VIAL ONE ×2 (07:06→07:39)
[2016-12-14 07:19] LABS: Giant Platelets Few; Hypochromasia 1+; Platelet Estimate Decreased; Target Cells Few
[2016-12-14 07:20] LABS: Microcytosis 1+; Ovalocytes Slight
[2016-12-14 07:30] LABS: Magnesium 1.9 MG/DL (1.8-2.4); Osmolality,Calculated 282.4 MOS/KG (273-304); Potassium 3.9 MMOL/L (3.5-5.1)
--- NOTE | 2016-12-14 07:36 | History and Physical Update ---
Sedation H&P Update - History and Physical H&P was reviewed, the patient examined and there: are no changes in the patients condition since last H&P was completed. - Dictation Physical: refer to H&P completed by admitting physician - Physical Exam Mental Status: alert and oriented Heart: regular rate and rhythm Lung: clear to auscultation Abdomen: within normal limits Vitals: within normal limits - Sedation Plan for Sedation: MAC Patient Consent: Procedure disscussed with patient and patinet has consented., Risks and benefits were discussed with patient,including infection,, bleeding, injury to surrounding structures, seizure, temporary nerve, Patient understands and accepts potential risks/benefits and agrees to ASA Class: IV Airway Assessment: Class II: Soft palate, uvula, fauces visible
[2016-12-14] MEDS ORDERED: HEPARIN/NACL 0.9% 2 UNITS/ML 500 ML IV ONE (07:39)
[2016-12-14] MEDS ORDERED: LIDOCAINE 1% 20 ML VIAL ONE (07:39)
[2016-12-14] MEDS ORDERED: PHENYLEPHRINE 1 MG/10 ML SYRINGE IV ONE (09:00)
[2016-12-14] MEDS ORDERED: PROPOFOL 200 MG/20 ML VIAL IV ONE (09:00)
[2016-12-14] MEDS ORDERED: TISSUE ADHESIVE 1 EACH APPLICATOR TOP ONE (09:45)
[2016-12-14] MEDS ORDERED: CARVEDILOL 6.25 MG TABLET PO SCH (10:00)
[2016-12-14] MEDS ORDERED: FUROSEMIDE 40 MG TABLET PO SCH (10:00)
--- NOTE | 2016-12-14 10:12 | Cardiac Defibrillator ---
- Preoperative diagnosis Date of Procedure:: 12/14/16 Preop Diagnosis: cardiac arrest due to ventricular fibrillation, not due to transient reversible cause Pre-op Diagnosis: asystolic cardiac arrest, severe CMP Post-op diagnosis: same Procedure: PROCEDURE SUMMARY DDD ICD implant from left axillary vein access. Defibrillator testing - failed internal defibrillation at 35J energy, with single and dual coil leads, in RVOT, RVS and RVA positions, with and without SVC coil in the shock circuit. Successful rescue external defibrillation. PLAN Bed rest for 4 hours. Routine post ICD implant site care and activity restrictions. Do not remove pressure dressing until AM. Portable CXR, EKG stat. CXR PA/Lat, device interrogation in AM. Ancef 1g iv. q8h x2. Sotalol load 120 mg bid, d/c carvedilol PROCEDURE Informed consent was obtained and a timeout was performed prior to the procedure. The patient was continuously monitored by ECG, pulse oxymetry and NIBP. 1g iv. Ancef was administered prior to the procedure for antibiotic prophylaxis. Monitored anesthesia care was provided by the anesthesia team. The left pectoral area was meticulously prepared with ChloroPrep surgical scrub. Sterile draping was applied and Ioban was used to cover the operation site. The image intensifier was draped with a sterile bag and positioned over the patient's chest. After infiltration with 1% lidocaine, an incision was made in the left infraclavicular area, parallel to the deltopectoral groove. The incision was carried down to the level of the pectoral fascia. A subcutaneous pocket was then created with electrocautery and blunt dissection. Hemostasis was then achieved with electrocautery. A micropuncture needle was used to access the left axillary vein under fluoroscopic guidance. The microfilament was used to introduce the micropuncture sheath, which then was used to introduce and advance a long hydrophylic guidewire into the inferior vena cava. A 10.5 Fr sheath was introduced over the guidewire. The dilator was removed. The right ventricular defibrillator lead was introduced through the sheath. The sheath was then peeled away. The curved stylet was used to move the lead into the right ventricular outflow tract. The stylet was then replaced with a straight stylet and the lead was moved into a stable position in the RVOT (lead : Medtronic [id number] single coil, [id number]). Adequate sensing and pacing threshold was confirmed. The active fixation mechanism was then deployed. Stable signal and pacing threshold was noted, with decrease in pacing impedance. No extracardiac stimulation was noted with high output pacing. The lead was then anchored to the subcutaneous tissue with 2-0 nonabsorbable suture , using the anchoring sleeve near the point of entry to the vein. Another 9 Fr sheath was introduced over the retained guidewire. The dilator was removed. The right atrial pacemaker lead was introduced through the sheath. The sheath was then peeled away. A straight stylet was used to move the lead into the right atrium. The stylet was then replaced with a curved J stylet and the lead was moved into a stable position in the right atrial appendage. Adequate sensing and pacing threshold was confirmed. The active fixation mechanism was then deployed. Stable signal and pacing threshold was noted, with decrease in pacing impedance. No extracardiac stimulation was noted with high output pacing. The lead was then anchored to the subcutaneous tissue with 2-0 nonabsorbable suture, using the anchoring sleeve near the point of entry to the vein. The retained guidewire was removed. The ICD generator was attached to the leads and sealed in the prescribed manner. The wound was flushed with Ancef . The generator was placed into the pocket and tied to the pectoral fascia using 2-0 nonabsorbable suture. Stable lead positions were confirmed with fluoroscopy. Ventricular fibrillation was induced with a T wave shock. The device promptly detected the arrhythmia, however, internal defibrillation with 25J energy failed , in A->B, then B->A configuration. Successful external rescue defibrillation was performed with 200 J energy. The defibrillator lead was repositioned onto the RV septum, adequate sensing and pacing threshold was confirmed, and was anchored again. Ventricular fibrillation was induced with a T wave shock. The device promptly detected the arrhythmia, however, internal defibrillation with 25J energy failed , in A->B, then B->A configuration. Successful external rescue defibrillation was performed with 200 J energy. The defibrillator lead was repositioned in the RV apex, adequate sensing and pacing threshold was confirmed, and was anchored again. Ventricular fibrillation was induced with a T wave shock. The device promptly detected the arrhythmia, however, internal defibrillation with 25J energy failed , in A->B, then B->A configuration. Successful external rescue defibrillation was performed with 200 J energy. The defibrillator lead was removed, another axillary access was obtained with a micropuncture kit. A dual coil defibrillator lead was advanced into the RV apex , adequate sensing and pacing threshold was confirmed, and was anchored again. Ventricular fibrillation was induced with a T wave shock. The device promptly detected the arrhythmia, however, internal defibrillation with 30J energy failed , in A->B, then B->A configuration, with the dual coil in the circuit. Successful external rescue defibrillation was performed with 200 J energy. After hemodynamic recovery, ventricular fibrillation was induced again with a T wave shock. The device promptly detected the arrhythmia, however, internal defibrillation with 35J energy failed, in A->B configuration, with the dual coil out of the circuit. Successful external rescue defibrillation was performed with 200 J energy. The decision was made to terminate the unsuccessful defibrillator testing at this time, plan for inpatient sotalol load, and performed device testing thereafter. If internal defibrillation remains unsuccessful, we may plan to add a subcutaneous array. The wound was closed using a double layer of 2-0 absorbable Vicryl sutures, followed by a subcuticular running suture with 4-0 Monocryl, then Exofin. A sterile, then a pressure dressing was applied. The device was then interrogated and programmed as detailed below. The implanted system is MRI conditional. Device Type SN Location Medtronic Evera DR DDD ICD [id number] Left infraclavicular Lead Position Type SN P/R Threshold Impedance RA RA appendage Medtronic 5076-52 [id number] 4.9 mV 2.1 V @ 0.5 ms 951 Ohm RV RV apex Medtronic 6135Z58 [id number] 8.8 mV 0.4 V @ 0.5 ms 711 Ohm Bradycardia settings MVPR 50/130 Tachycardia settings VF@320 ms, VT@360ms Anesthesia: MAC Surgeon / Physician: Parker Bell Mechanic/Welder: other (Khloe) Estimated blood loss: minimal Specimens: none sent Condition: stable Disposition: floor - Medications / Follow-up
[2016-12-14] MEDS ORDERED: MIDAZOLAM 2 MG/2 ML VIAL ONE (10:20)
[2016-12-14] MEDS ORDERED: fentaNYL 100 MCG/2 ML VIAL ONE (10:20)
--- NOTE | 2016-12-14 10:58 | XRay Report ---
Exam: XR chest 1V portable Date: 12/14/2016 9:59 AM Indication: Lead placement Comparison: 12/06/2016 Technical: AP Findings: Mild cardiac enlargement with a interval placement of a cardiac implantable defibrillator pacing device with atrial ventricular leads. Oxygen tubing and external cardiac leads are present. Mild interstitial edema alveolar edema present. Impression: 1. Interval placement of cardiac implantable defibrillator pacing device from a left-sided approach 2. Cardiomegaly 3. No pneumothorax PROCEDURE INTERPRETED AT [facility] DEPARTMENT OF RADIOLOGY Final Report Signed by: Dr. Jon Narayan
[2016-12-14] MEDS: oxyCODONE/ACETAMINOPHEN 5-325 MG TABLET PO PRN ×3 (11:26→21:04)
[2016-12-14] MEDS: SOTALOL 80 MG TABLET PO SCH ×2 (11:28→21:04)
--- NOTE | 2016-12-14 13:47 | EKG Report ---
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
[2016-12-15] MEDS: oxyCODONE/ACETAMINOPHEN 5-325 MG TABLET PO PRN ×3 (02:08→19:30)
[2016-12-15 05:20] LABS: Basophils % 0.4 % (0.0-0.8); Eosinophils # 0.6 10*3/uL (0.0-0.87); Eosinophils % 6.6 % (0.00-10.9); Hematocrit 32.5 VOL% (42.0-52.0); Hemoglobin 11.3 GM/DL (14.0-18.0); Immature Granulocytes % 0.4 %; Immature Granulocytes Absolute 0.04 #; Lymphocytes # 2.3 10*3/uL (1.4-4.0); Lymphocytes % 25.3 % (21.2-54.2); Mean Corpuscular HGB Conc 34.8 GM/DL (32-36); Mean Corpuscular Hemoglobin 22 PG (27-34); Mean Corpuscular Volume 62.4 FL (87-102); Monocytes # 0.8 10*3/uL (0.11-0.8); Monocytes % 8.9 % (1.7-12.7); Neutrophils # 5.3 10*3/uL (1.4-7.4); Neutrophils % 58.4 % (38.7-73.9); Platelet Count 107 T/CUMM (130-400); Red Blood Count 5.21 MC/CUMM (3.8-5.5); Red Cell Distribution Width 14.1 % (9.3-17.3); White Blood Count 9.1 T/CUMM (4-12)
[2016-12-15 05:41] LABS: Hypochromasia 1+; Platelet Estimate Decreased; Target Cells Few
[2016-12-15 05:42] LABS: Giant Platelets Few; Microcytosis 1+
[2016-12-15 05:49] LABS: Calcium 8.5 MG/DL (8.5-10.1); Magnesium 1.7 MG/DL (1.8-2.4); Osmolality,Calculated 278.7 MOS/KG (273-304); Potassium 4.1 MMOL/L (3.5-5.1)
--- NOTE | 2016-12-15 07:02 | EKG Report ---
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
[2016-12-15] MEDS ORDERED: MAGNESIUM SULF RIDER 4 GM in PREMIX 1 EACH IV PRN (07:42)
--- NOTE | 2016-12-15 07:44 | Electrophysiology Progress Not ---
Assessment and Plan (1) Hemoglobin SC disease Status: Chronic Current Visit: No (2) Congestive heart failure Status: Resolved Assessment and plan: 45-year-old black male, prior cardiac arrest/asystole, prolonged recovery, was admitted for ICD implantation for secondary prevention. During defibrillator testing, device was unable to rescue him, despite trying multiple electrode and shock configurations. Sickle cell, history of EtOH and drugs. Severe NICM. -Continue sotalol load. Plan for repeat defibrillator testing, under MAC on Monday. If still unable to defibrillate, we will proceed with subcutaneous array placement. -Keep on telemetry. -Check BMP, magnesium, EKG daily. -Monitor and replete electrolytes closely. -Tranxene prn for DT -Increased Lasix to 40 mg twice daily. CHF, high filling pressure may contribute to high DFTs. Will need to monitor carefully for sickle cell complications while on higher dose diuretics. -Removed pressure dressing. Keep the implant site dry, do not remove the dressing until Monday. -I will be away until Monday, please call with any questions Current Visit: No (3) Hypertension Status: Chronic Current Visit: No (4) Alcoholism Status: Chronic Current Visit: No (5) Dilated cardiomyopathy Status: Acute Current Visit: No (6) Diabetes Status: Chronic Current Visit: No (7) Cardiac arrest Status: Resolved Current Visit: No (8) Nonischemic dilated cardiomyopathy Status: Chronic Current Visit: No Electrophysiology Subjective Interval history: He is feeling fine. Several NSVTs last night. Device interrogation confirmed normal lead parameters. Exam - Constitutional Vitals: Period Temp Pulse Resp BP Sys/Ramirez Pulse Ox Last 24 Hr 96.3 F-97.8 F 64-85 16-20 98-169/59-78 92-99 General appearance: normal weight, no acute distress - Head Head exam: Present: normal inspection, atraumatic. Absent: contusion - Eye Eye exam: Absent: conjunctival injection, scleral icterus Pupils: Absent: dilated - ENT ENT exam: Present: normal external ear exam - Neck Neck exam: Present: normal inspection - Respiratory Respiratory exam: Present: clear to auscultation bilaterally. Absent: chest wall tenderness - Cardiovascular Cardiovascular exam: Present: regular rate and rhythm. Absent: JVD, systolic murmur, tachycardia - GI/Abdominal GI/Abdominal exam: Present: normal bowel sounds. Absent: distended - Extremities Exam Extremities exam: Present: normal inspection, normal capillary refill. Absent: edema - Back Exam Back exam: Present: normal inspection - Neurological Exam Neurological exam: Present: alert, oriented X3 - Psychiatric Psychiatric exam: Present: normal affect, normal mood - Skin Skin exam: Present: normal color, warm. Absent: cyanosis Results - Labs CBC & BMP: 12/15/16 04:52 12/15/16 04:52 Lab Results: I have reviewed the past 24 hour labs Quality Measures - VTE Contraindication to Pharmacological VTE Prophylaxis: High Risk of Bleeding
[2016-12-15] MEDS ORDERED: CLORAZEPATE 3.75 MG TABLET PO PRN (07:45)
[2016-12-15] MEDS: LOSARTAN 25 MG TABLET PO SCH (08:41)
[2016-12-15] MEDS: metFORMIN 500 MG TABLET PO SCH (08:41)
[2016-12-15] MEDS: FUROSEMIDE 40 MG TABLET PO SCH ×2 (08:41→21:14)
[2016-12-15] MEDS: POTASSIUM CHLORIDE 20 MEQ TABLET PO SCH (08:41)
[2016-12-15] MEDS: ENOXAPARIN 40 MG/0.4 ML SYRINGE SUBCUT SCH (08:41)
[2016-12-15] MEDS: MAGNESIUM OXIDE 400 MG TABLET PO SCH ×2 (08:41→21:14)
[2016-12-15] MEDS: SOTALOL 80 MG TABLET PO SCH ×2 (08:41→21:14)
[2016-12-15] MEDS: FLUoxetine 20 MG CAPSULE PO SCH (08:42)
[2016-12-15] MEDS: MAGNESIUM SULF RIDER 2 GM in PREMIX 1 EACH IV PRN (08:42)
--- NOTE | 2016-12-15 08:51 | XRay Report ---
Exam: XR chest 2V Date: 12/15/2016 8:00 AM Indication: Lead placement follow-up pacemaker Comparison: 12/14/2016 Technical: AP Findings: Cardiomegaly is present. A pacing device is present with a left-sided approach with atrial ventricular leads with defibrillator leads present. No obvious pneumothorax. Improving aeration with decreasing interstitial alveolar densities present bilaterally. Mediastinum is intact. No pneumothorax. Previous cholecystectomy clips are present. The bony structures are unremarkable. No obvious effusions Impression: 1. Cardiomegaly with stable appearance the cardiac pacing device 2. Improving aeration decreasing interstitial alveolar edema bilaterally PROCEDURE INTERPRETED AT [facility] DEPARTMENT OF RADIOLOGY Final Report Signed by: Dr. Jon Narayan
--- NOTE | 2016-12-16 08:40 | EKG Report ---
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
[2016-12-16] MEDS: ENOXAPARIN 40 MG/0.4 ML SYRINGE SUBCUT SCH (08:46)
[2016-12-16] MEDS: metFORMIN 500 MG TABLET PO SCH (08:46)
[2016-12-16] MEDS: FUROSEMIDE 40 MG TABLET PO SCH ×2 (08:46→20:48)
[2016-12-16] MEDS: SOTALOL 80 MG TABLET PO SCH ×2 (08:47→20:48)
[2016-12-16] MEDS: LOSARTAN 25 MG TABLET PO SCH (08:47)
[2016-12-16] MEDS: MAGNESIUM OXIDE 400 MG TABLET PO SCH ×2 (08:47→20:48)
[2016-12-16] MEDS: FLUoxetine 20 MG CAPSULE PO SCH (08:47)
[2016-12-16] MEDS: POTASSIUM CHLORIDE 20 MEQ TABLET PO SCH (08:47)
[2016-12-16 09:41] LABS: Basophils # 0.1 10*3/uL (0.0-0.2); Basophils % 0.7 % (0.0-0.8); Eosinophils # 0.6 10*3/uL (0.0-0.87); Eosinophils % 8.5 % (0.00-10.9); Immature Granulocytes % 0.7 %; Immature Granulocytes Absolute 0.05 #; Lymphocytes # 1.5 10*3/uL (1.4-4.0); Lymphocytes % 19.8 % (21.2-54.2); Mean Corpuscular HGB Conc 35.3 GM/DL (32-36); Mean Corpuscular Hemoglobin 22 PG (27-34); Mean Corpuscular Volume 61.5 FL (87-102); Monocytes # 0.7 10*3/uL (0.11-0.8); Monocytes % 9.5 % (1.7-12.7); NRBC # 0.02 10*3/uL; Neutrophils # 4.6 10*3/uL (1.4-7.4); Neutrophils % 60.8 % (38.7-73.9); Platelet Count 113 T/CUMM (130-400); Red Blood Count 5.53 MC/CUMM (3.8-5.5); White Blood Count 7.5 T/CUMM (4-12)
--- NOTE | 2016-12-16 09:47 | Cardiology Progress Note ---
<Alecia Rebollar E - Last Filed: 12/16/16 10:00> Assessment and Plan - Time spent with patient Time spent with patient: Less than 30 minutes (1) Congestive heart failure Status: Acute Assessment and plan: See plan of care listed below. 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 Current Visit: No (3) Hypertension Status: Chronic Assessment and plan: See plan of care listed below. Current Visit: No (4) Alcoholism Status: Chronic Assessment and plan: See plan of care listed below. Current Visit: No (5) Nonischemic dilated cardiomyopathy Status: Chronic Assessment and plan: See plan of care listed below. Current Visit: No (6) Diabetes Status: Chronic Assessment and plan: See plan of care listed below. Current Visit: No Qualifiers: Diabetes mellitus type: type 2 (7) Cardiac arrest Status: Resolved Assessment and plan: See plan of care listed below. 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 Bell SUMMARY: Mr. Zacarias is a 45-year-old black male with prior cardiac arrest/ asystole with prolonged recovery. He is admitted for ICD implantation for secondary prevention. During defibrillator testing, his device was unable to rescue him despite trying multiple electrode and shock configurations. He has a history of sickle cell, EtOH and drug abuse. He was admitted to the hospital from the [employer] [facility] [facility] for sotalol load. He is planned for repeat defibrillator testing under MAC on Monday. If still unable to defibrillate, may proceed with subcutaneous array placement. Device was interrogated postoperatively and confirmed normal lead parameters. 2016: Mr. Rodriguez reports he is feeling fine and has mild pain at his left chest wall incision site. His pressure dressing is been removed but small dressing covering incision remains intact. We will continue monitoring him throughout the weekend. Dr. Bell is away until Monday and will resume his care at that time. He is planned for repeat defibrillator testing under MAC on Monday. Dr. Braxton to follow with further plan and addendum. IMPRESSION/PLAN: 1. CONGESTIVE HEART FAILURE: BNP 440 this morning. His Lasix was increased to 40 mg p.o. twice daily yesterday. Echocardiogram September 27, 2016 revealed EF 15% , grade 3 diastolic dysfunction. Will continue to monitor. 2. HEMOGLOBIN SC DISEASE: Will need to monitor carefully for sickle cell complications while on higher dose diuretics. 3. HYPERTENSION: Currently well controlled and occasionally hypotensive. We will continue to monitor and adjust accordingly. 4. ALCOHOLISM: He is receiving Tranxene as needed for DTs. 5. NONISCHEMIC DILATED CARDIOMYOPATHY: Status post ICD placement with unsuccessful defibrillation. He was admitted to the hospital loaded with sotalol. We are monitoring daily EKGs. He was noted to have several NSVTs since admission. We are continuing to monitor electrolytes with daily BMP w/ Mg. 6. DIABETES: Continue metformin. Accu-Cheks before meals and at bedtime with sliding scale as needed. 7. CARDIAC ARREST: Admitted for ICD implantation for secondary prevention. Exam (Progress Note) - Constitutional Vitals: Period Temp Pulse Resp BP Sys/Ramirez Pulse Ox Last 24 Hr 96.5 F-98.0 F 59-73 18-20 96-111/62-72 93-100 Exam: General appearance: Appears well. Pleasant and cooperative. No acute distress. Head exam: Present: normal inspection, normocephalic, atraumatic. Absent: hematoma, laceration Eye exam: Present: EOMI. Absent: conjunctival injection, periorbital swelling, scleral icterus, laceration to eyelids, jaundice Pupils: Present: PERRL. Absent: constricted, dilated, fixed, irregular, unequal ENT exam: Present: normal exam, normal external ear exam, mucous membranes moist. Neck exam: Present: normal inspection, midline trachea. Absent: masses, lymphadenopathy, tenderness Respiratory exam: Present: clear to auscultation bilaterally. Absent: accessory muscle use, chest wall tenderness, rhonchi, wheezing. Cardiovascular exam: Present: regular rate and rhythm. Absent: gallop, JVD, rubs, murmur GI/Abdominal exam: Present: normal bowel sounds, soft. Absent: distended, firm , hernia, mass, tenderness. Extremities exam: Present: Normal Gait, No Clubbing, No Cyanosis, Upper Extr. Pulses 2+, Lower Extr. Pulses 2+, No edema. Capillary refill less than 3 seconds. Musculoskeletal: Present: No Fluid Collection, No Pain, Normal Range of Motion Back exam: Present: normal inspection. Absent: muscle spasm, vertebral tenderness Neurological exam: Present: awake, alert, oriented X3, Moves all extremities well without hemiparesis or paralysis. Grossly intact without resting or essential tremor Psychiatric exam: Present: Flat affect Skin exam: Present: normal color, warm, dry, intact. Absent: cyanosis, diaphoretic, rash, urticaria Result/EKG - Labs CBC & BMP: 12/16/16 09:31 12/15/16 04:52 Lab Results: I have reviewed the past 24 hour labs Labs: Laboratory Results - last 24 hr 12/15/16 12/15/16 12/16/16 15:29 18:46 04:15 WBC RBC Hgb Hct MCV MCH MCHC RDW Plt Count Neut % (Auto) Lymph % (Auto) [place] % (Auto) Eos % (Auto) Baso % (Auto) Neut # (Auto) Lymph # (Auto) [place] # (Auto) Eos # (Auto) Baso # (Auto) Immature Gran % Nucleated RBC % Immature Gran # Nucleated RBCs # Immature Plt Fraction POC Glucose 148 H 151 H B-Natriuretic Peptide 440 H 12/16/16 12/16/16 08:06 09:31 WBC 7.5 RBC 5.53 H Hgb 12.0 L Hct 34.0 L MCV 61.5 L MCH 22 L MCHC 35.3 RDW 14.0 Plt Count 113 L Neut % (Auto) 60.8 Lymph % (Auto) 19.8 L [place] % (Auto) 9.5 Eos % (Auto) 8.5 Baso % (Auto) 0.7 Neut # (Auto) 4.6 Lymph # (Auto) 1.5 [place] # (Auto) 0.7 Eos # (Auto) 0.6 Baso # (Auto) 0.1 Immature Gran % 0.7 Nucleated RBC % 0.3 Immature Gran # 0.05 Nucleated RBCs # 0.02 Immature Plt Fraction 9.0 H POC Glucose 129 H B-Natriuretic Peptide - EKG EKG results: interpreted by me, sinus rhythm Quality Measures - VTE Contraindication to Pharmacological VTE Prophylaxis: High Risk of Bleeding <Bette Braxton - Last Filed: 12/16/16 17:13> Cardiology - PN: Subj Interval history: I have personally interviewed and evaluated the patient, reviewed the chart and discussed medical decision-making with practitioner Smooth. I have read this note and agree with her documentation here in. ECG reviewed, QTC still less than 500. The patient has Funions at his bedside, I recommended he abstain from high salty foods. Exam (Progress Note) - Constitutional Vitals: Period Temp Pulse Resp BP Sys/Ramirez Pulse Ox Last 24 Hr 96.5 F-98.9 F 59-70 16-20 95-111/62-70 93-99 Exam: The device implantation site is with a surgical dressing intact, and no surrounding calor, erythema, edema, ecchymosis. Result/EKG - Labs CBC & BMP: 12/16/16 09:31 12/16/16 09:31 Labs: Laboratory Results - last 24 hr 12/15/16 12/16/16 12/16/16 18:46 04:15 08:06 WBC RBC Hgb Hct MCV MCH MCHC RDW Plt Count Neut % (Auto) Lymph % (Auto) [place] % (Auto) Eos % (Auto) Baso % (Auto) Neut # (Auto) Lymph # (Auto) [place] # (Auto) Eos # (Auto) Baso # (Auto) Immature Gran % Nucleated RBC % Immature Gran # Nucleated RBCs # Immature Plt Fraction Polychromasia Hypochromasia Target Cells Sodium Potassium Chloride Carbon Dioxide Anion Gap BUN Creatinine GFR Calculation BUN/Creatinine Ratio Glucose POC Glucose 151 H 129 H Calculated Osmolality Calcium Magnesium B-Natriuretic Peptide 440 H 12/16/16 12/16/16 12/16/16 09:31 09:31 16:15 WBC 7.5 RBC 5.53 H Hgb 12.0 L Hct 34.0 L MCV 61.5 L MCH 22 L MCHC 35.3 RDW 14.0 Plt Count 113 L Neut % (Auto) 60.8 Lymph % (Auto) 19.8 L [place] % (Auto) 9.5 Eos % (Auto) 8.5 Baso % (Auto) 0.7 Neut # (Auto) 4.6 Lymph # (Auto) 1.5 [place] # (Auto) 0.7 Eos # (Auto) 0.6 Baso # (Auto) 0.1 Immature Gran % 0.7 Nucleated RBC % 0.3 Immature Gran # 0.05 Nucleated RBCs # 0.02 Immature Plt Fraction 9.0 H Polychromasia Slight Hypochromasia 1+ Target Cells 2+ Sodium 137 Potassium 4.1 Chloride 101 Carbon Dioxide 29 Anion Gap 11.1 BUN 18 Creatinine 1.20 GFR Calculation 84 BUN/Creatinine Ratio 15.00 Glucose 214 H POC Glucose 123 H Calculated Osmolality 280.8 Calcium 9.0 Magnesium 1.8 B-Natriuretic Peptide - EKG EKG results: sinus rhythm (QTC <500)
[2016-12-16] MEDS ORDERED: DEXTROSE 50% 25 GM/50 ML SYRINGE IV PRN (10:03)
[2016-12-16] MEDS ORDERED: GLUCAGON 1 MG VIAL IM PRN (10:03)
[2016-12-16 10:06] LABS: Magnesium 1.8 MG/DL (1.8-2.4); Osmolality,Calculated 280.8 MOS/KG (273-304); Potassium 4.1 MMOL/L (3.5-5.1)
[2016-12-16 10:34] LABS: Hypochromasia 1+; Polychromasia Slight; Target Cells 2+
[2016-12-16] MEDS: oxyCODONE/ACETAMINOPHEN 5-325 MG TABLET PO PRN ×3 (11:13→21:40)
[2016-12-16] MEDS: INSULIN LISPRO 100 UNIT/ML SUBCUT SCH ×3 (12:44→20:46)
[2016-12-17 05:13] LABS: Basophils % 0.5 % (0.0-0.8); Eosinophils # 0.7 10*3/uL (0.0-0.87); Eosinophils % 8.7 % (0.00-10.9); Hematocrit 33.1 VOL% (42.0-52.0); Hemoglobin 11.7 GM/DL (14.0-18.0); Immature Granulocytes % 0.5 %; Immature Granulocytes Absolute 0.04 #; Lymphocytes # 2.8 10*3/uL (1.4-4.0); Mean Corpuscular HGB Conc 35.3 GM/DL (32-36); Mean Corpuscular Hemoglobin 22 PG (27-34); Mean Corpuscular Volume 61.4 FL (87-102); Monocytes # 0.8 10*3/uL (0.11-0.8); Monocytes % 9.9 % (1.7-12.7); Neutrophils # 3.4 10*3/uL (1.4-7.4); Neutrophils % 44.4 % (38.7-73.9); Platelet Count 106 T/CUMM (130-400); Red Blood Count 5.39 MC/CUMM (3.8-5.5); White Blood Count 7.7 T/CUMM (4-12)
[2016-12-17 05:46] LABS: Osmolality,Calculated 275.8 MOS/KG (273-304)
[2016-12-17 05:58] LABS: Hypochromasia 1+; Microcytosis 1+
[2016-12-17 05:59] LABS: Ovalocytes Slight; Platelet Estimate Decreased; Target Cells 1+
--- NOTE | 2016-12-17 08:14 | EKG Report ---
Stationary ECG Study [facility] Test Date: 12/17/2016 8:15:32 AM Pat Name: BRENDA TORRES Department: Room: 272 Gender: M Service Person: PAOLO : 1970 Requested by: Sofie Rebollar Order Number: [id number] Reading MD: JAVIER SAENZ Intervals [place] Rate: 66 P: 61 [place]: 173 QRS: 61 QRSD: 101 T: 87 QT: 462 QTc: 475 Interpretive Statements SINUS RHYTHM POSSIBLE LEFT ATRIAL ENLARGEMENT POSSIBLE LEFT VENTRICULAR HYPERTROPHY MODERATE T-WAVE ABNORMALITY, CONSIDER ANTEROLATERAL ISCHEMIA Electronically Signed On 12-17-16 12:31:22 CDT by JAVIER SAENZ [email or web address]
[2016-12-17] MEDS: INSULIN LISPRO 100 UNIT/ML SUBCUT SCH ×4 (08:15→21:20)
[2016-12-17] MEDS: FUROSEMIDE 40 MG TABLET PO SCH ×2 (09:00→21:10)
[2016-12-17] MEDS: POTASSIUM CHLORIDE 20 MEQ TABLET PO SCH (09:03)
[2016-12-17] MEDS: MAGNESIUM OXIDE 400 MG TABLET PO SCH ×2 (09:04→21:17)
[2016-12-17] MEDS: metFORMIN 500 MG TABLET PO SCH (09:04)
[2016-12-17] MEDS: FLUoxetine 20 MG CAPSULE PO SCH (09:05)
[2016-12-17] MEDS: ENOXAPARIN 40 MG/0.4 ML SYRINGE SUBCUT SCH (09:06)
[2016-12-17] MEDS: SOTALOL 80 MG TABLET PO SCH ×2 (09:36→21:17)
[2016-12-17] MEDS: LOSARTAN 25 MG TABLET PO SCH (09:37)
--- NOTE | 2016-12-17 12:45 | Cardiology Progress Note ---
Assessment and Plan (1) Status post implantation of automatic cardioverter/defibrillator (AICD) Status: Acute Current Visit: Yes (2) High risk medication use Status: Acute Current Visit: Yes (3) Nonischemic dilated cardiomyopathy Status: Chronic Current Visit: No (4) Cardiac arrest Status: Resolved Current Visit: No (5) Hemoglobin SC disease Status: Chronic Current Visit: No (6) Hypertension Status: Chronic Current Visit: No (7) Diabetes Status: Chronic Current Visit: No Qualifiers: Diabetes mellitus type: type 2 Cardiology - PN: Subj Interval history: Surveillance Sensor Operator: Dr. Bell SUMMARY: Mr. Zacarias is a 45-year-old black male with prior cardiac arrest/ asystole with prolonged recovery. He is admitted for ICD implantation for secondary prevention. During defibrillator testing, his device was unable to rescue him despite trying multiple electrode and shock configurations. He has a history of sickle cell, EtOH and drug abuse. He was admitted to the hospital from the [facility] for sotalol load. He is planned for repeat defibrillator testing under MAC on Monday. If still unable to defibrillate, may proceed with subcutaneous array placement. Device was interrogated postoperatively and confirmed normal lead parameters. 2016: Evening was uneventful. He denies chest pain, shortness of breath, presyncope. QTC is 475 ms today. IMPRESSION/PLAN: 1. CONGESTIVE HEART FAILURE: He appears to be compensated today. 2. HEMOGLOBIN SC DISEASE: Will need to monitor carefully for sickle cell complications while on higher dose diuretics. 3. HYPERTENSION: Currently well controlled and occasionally hypotensive. We will continue to monitor and adjust accordingly. 4. ALCOHOLISM: He is receiving Tranxene as needed for DTs. 5. NONISCHEMIC DILATED CARDIOMYOPATHY: Status post ICD placement with unsuccessful defibrillation. He was admitted to the hospital loaded with sotalol. We are monitoring daily EKGs. 6. DIABETES: Continue metformin. Accu-Cheks before meals and at bedtime with sliding scale as needed. 7. CARDIAC ARREST: Admitted for ICD implantation for secondary prevention. 8. Status post ICD implantation-unsuccessful defibrillation testing so we are going to reevaluate Monday after sotalol load. 9. High risk medication-we are monitoring daily electrolytes and ECG with sotalol load. Exam (Progress Note) - Constitutional Vitals: Period Temp Pulse Resp BP Sys/Ramirez Pulse Ox Last 24 Hr 97.1 F-98.9 F 59-67 18-20 91-101/61-70 94-99 Exam: General appearance: normal weight, no acute distress - Head Head exam: Present: normal inspection, normocephalic, atraumatic. Absent: hematoma, laceration - Eye Eye exam: Present: EOMI. Absent: conjunctival injection, nystagmus, periorbital swelling, scleral icterus, laceration to eyelids Pupils: Present: PERRL. Absent: constricted, dilated, fixed, irregular, unequal - ENT ENT exam: Present: normal exam, normal external ear exam - Neck Neck exam: Present: normal inspection. Absent: lymphadenopathy, meningismus, tenderness, thyromegaly - Respiratory Respiratory exam: Present: clear to auscultation bilaterally. Absent: accessory muscle use, chest wall tenderness - Cardiovascular Cardiovascular exam: Present: regular rate and rhythm. Absent: carotid bruit, gallop, JVD, rubs - GI/Abdominal GI/Abdominal exam: Present: normal bowel sounds, soft. Absent: distended, firm , guarding, hernia, mass, tenderness, rebound. - Extremities Exam Extremities exam: Present: normal inspection, normal capillary refill. Absent: calf tenderness, edema - Back Exam Back exam: Present: normal inspection. Absent: muscle spasm, vertebral tenderness - Neurological Exam Neurological exam: Present: alert, oriented X3, grossly intact without resting or intention tremor - Psychiatric Psychiatric exam: Present: normal affect, normal mood - Skin Skin exam: Present: normal color, warm, dry, intact. Absent: cyanosis, diaphoretic, rash, urticaria The device implantation site is with a surgical dressing intact, and no surrounding calor, erythema, edema, ecchymosis. Result/EKG - Labs CBC & BMP: 12/17/16 04:37 12/17/16 04:37 Lab Results: I have reviewed the past 24 hour labs Labs: Laboratory Results - last 24 hr 12/16/16 12/16/16 12/17/16 16:15 19:21 04:37 WBC 7.7 RBC 5.39 Hgb 11.7 L Hct 33.1 L MCV 61.4 L MCH 22 L MCHC 35.3 RDW 14.0 Plt Count 106 L Neut % (Auto) 44.4 Lymph % (Auto) 36.0 [place] % (Auto) 9.9 Eos % (Auto) 8.7 Baso % (Auto) 0.5 Neut # (Auto) 3.4 Lymph # (Auto) 2.8 [place] # (Auto) 0.8 Eos # (Auto) 0.7 Baso # (Auto) 0.0 Immature Gran % 0.5 Nucleated RBC % 0.0 Immature Gran # 0.04 Nucleated RBCs # 0.00 Platelet Estimate Decreased Immature Plt Fraction 0.0 Hypochromasia 1+ Microcytosis 1+ Target Cells 1+ Ovalocytes Slight Morphology Comment Sodium Potassium Chloride Carbon Dioxide Anion Gap BUN Creatinine GFR Calculation BUN/Creatinine Ratio Glucose POC Glucose 123 H 143 H Calculated Osmolality Calcium Magnesium 12/17/16 12/17/16 12/17/16 04:37 07:33 11:42 WBC RBC Hgb Hct MCV MCH MCHC RDW Plt Count Neut % (Auto) Lymph % (Auto) [place] % (Auto) Eos % (Auto) Baso % (Auto) Neut # (Auto) Lymph # (Auto) [place] # (Auto) Eos # (Auto) Baso # (Auto) Immature Gran % Nucleated RBC % Immature Gran # Nucleated RBCs # Platelet Estimate Immature Plt Fraction Hypochromasia Microcytosis Target Cells Ovalocytes Morphology Comment Sodium 137 Potassium 4.0 Chloride 101 Carbon Dioxide 30 Anion Gap 10.0 BUN 20 H Creatinine 1.10 GFR Calculation 93 BUN/Creatinine Ratio 18.00 Glucose 97 POC Glucose 112 H 111 H Calculated Osmolality 275.8 Calcium 9.0 Magnesium 2.0 - EKG EKG results: interpreted by me, sinus rhythm (QTc 475 ms) Quality Measures - VTE Contraindication to Pharmacological VTE Prophylaxis: High Risk of Bleeding
[2016-12-17] MEDS: oxyCODONE/ACETAMINOPHEN 5-325 MG TABLET PO PRN (21:17)
[2016-12-18 04:37] LABS: Basophils # 0.1 10*3/uL (0.0-0.2); Basophils % 0.6 % (0.0-0.8); Eosinophils # 0.5 10*3/uL (0.0-0.87); Eosinophils % 6.6 % (0.00-10.9); Hematocrit 31.2 VOL% (42.0-52.0); Hemoglobin 11.1 GM/DL (14.0-18.0); Immature Granulocytes % 0.6 %; Immature Granulocytes Absolute 0.05 #; Lymphocytes # 2.7 10*3/uL (1.4-4.0); Lymphocytes % 33.1 % (21.2-54.2); Mean Corpuscular HGB Conc 35.6 GM/DL (32-36); Mean Corpuscular Hemoglobin 22 PG (27-34); Mean Corpuscular Volume 61.4 FL (87-102); Monocytes # 0.7 10*3/uL (0.11-0.8); Monocytes % 8.6 % (1.7-12.7); Neutrophils # 4.1 10*3/uL (1.4-7.4); Neutrophils % 50.5 % (38.7-73.9); Red Blood Count 5.08 MC/CUMM (3.8-5.5); Red Cell Distribution Width 13.9 % (9.3-17.3); White Blood Count 8.2 T/CUMM (4-12)
[2016-12-18 04:48] LABS: Platelet Count 97 T/CUMM (130-400)
[2016-12-18 05:19] LABS: Calcium 9.2 MG/DL (8.5-10.1); Magnesium 2.1 MG/DL (1.8-2.4); Osmolality,Calculated 276.7 MOS/KG (273-304); Potassium 4.1 MMOL/L (3.5-5.1)
[2016-12-18] MEDS: ENOXAPARIN 40 MG/0.4 ML SYRINGE SUBCUT SCH (08:36)
[2016-12-18] MEDS: FLUoxetine 20 MG CAPSULE PO SCH (08:36)
[2016-12-18] MEDS: INSULIN LISPRO 100 UNIT/ML SUBCUT SCH ×4 (08:36→20:52)
[2016-12-18] MEDS: MAGNESIUM OXIDE 400 MG TABLET PO SCH ×2 (08:36→20:50)
[2016-12-18] MEDS: POTASSIUM CHLORIDE 20 MEQ TABLET PO SCH (08:36)
[2016-12-18] MEDS: metFORMIN 500 MG TABLET PO SCH (08:36)
[2016-12-18] MEDS: LOSARTAN 25 MG TABLET PO SCH (08:37)
[2016-12-18] MEDS: SOTALOL 80 MG TABLET PO SCH ×2 (08:37→20:50)
[2016-12-18] MEDS: FUROSEMIDE 40 MG TABLET PO SCH ×2 (08:37→20:53)
--- NOTE | 2016-12-18 09:24 | EKG Report ---
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
--- NOTE | 2016-12-18 10:32 | Electrophysiology Progress Not ---
Assessment and Plan (1) Congestive heart failure Status: Acute Assessment and plan: 45-year-old black male, prior cardiac arrest/asystole, prolonged recovery, was admitted for ICD implantation for secondary prevention. During defibrillator testing, device was unable to rescue him, despite trying multiple electrode and shock configurations. Sickle cell, history of EtOH and drugs. Severe NICM. -Continue sotalol 120 mg bid. Plan for repeat defibrillator testing, under MAC tomorrow. If still unable to defibrillate, we will add a subcutaneous defibrillator lead. 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 GFR 90, QTC 470. Few NSVTs. No ICD hematoma. Exam - Constitutional Vitals: Period Temp Pulse Resp BP Sys/Ramirez Pulse Ox Last 24 Hr 97.1 F-98.8 F 59-76 18-18 94-104/65-74 95-100 General appearance: normal weight, no acute distress - Head Head exam: Present: normal inspection, normocephalic. Absent: contusion - Eye Eye exam: Absent: conjunctival injection, scleral icterus Pupils: Absent: dilated - ENT ENT exam: Present: normal external ear exam - Neck Neck exam: Present: normal inspection - Respiratory Respiratory exam: Present: clear to auscultation bilaterally. Absent: chest wall tenderness - Cardiovascular Cardiovascular exam: Present: regular rate and rhythm, systolic murmur. Absent : JVD - GI/Abdominal GI/Abdominal exam: Present: normal bowel sounds. Absent: distended - Extremities Exam Extremities exam: Present: normal inspection, normal capillary refill. Absent: edema - Back Exam Back exam: Present: normal inspection - Neurological Exam Neurological exam: Present: alert, oriented X3 - Psychiatric Psychiatric exam: Present: normal affect, normal mood - Skin Skin exam: Present: normal color, warm. Absent: cyanosis Results - Labs CBC & BMP: 12/18/16 04:14 12/18/16 04:14 Lab Results: I have reviewed the past 24 hour labs Quality Measures - VTE Contraindication to Pharmacological VTE Prophylaxis: High Risk of Bleeding
[2016-12-18] MEDS: oxyCODONE/ACETAMINOPHEN 5-325 MG TABLET PO PRN (20:50)
[2016-12-19 04:57] LABS: Basophils # 0.1 10*3/uL (0.0-0.2); Basophils % 0.8 % (0.0-0.8); Eosinophils # 0.6 10*3/uL (0.0-0.87); Eosinophils % 7.7 % (0.00-10.9); Hematocrit 32.3 VOL% (42.0-52.0); Hemoglobin 11.4 GM/DL (14.0-18.0); Immature Granulocytes % 0.5 %; Immature Granulocytes Absolute 0.04 #; Lymphocytes # 2.5 10*3/uL (1.4-4.0); Lymphocytes % 29.7 % (21.2-54.2); Mean Corpuscular HGB Conc 35.3 GM/DL (32-36); Mean Corpuscular Hemoglobin 22 PG (27-34); Mean Corpuscular Volume 61.3 FL (87-102); Monocytes # 0.7 10*3/uL (0.11-0.8); Monocytes % 8.9 % (1.7-12.7); Neutrophils # 4.4 10*3/uL (1.4-7.4); Neutrophils % 52.4 % (38.7-73.9); Platelet Count 102 T/CUMM (130-400); Red Blood Count 5.27 MC/CUMM (3.8-5.5); Red Cell Distribution Width 13.7 % (9.3-17.3); White Blood Count 8.3 T/CUMM (4-12)
[2016-12-19 05:16] LABS: Elliptocytes Few; Giant Platelets Few; Hypochromasia 1+; Microcytosis Slight; Platelet Estimate Decreased; Target Cells Few
[2016-12-19 05:21] LABS: Osmolality,Calculated 275.7 MOS/KG (273-304)
[2016-12-19] MEDS ORDERED: ceFAZolin 1,000 MG VIAL IRRIG ONE (07:00)
--- NOTE | 2016-12-19 07:35 | EKG Report ---
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
[2016-12-19] MEDS: SOTALOL 80 MG TABLET PO SCH ×2 (08:05→20:52)
[2016-12-19] MEDS: LOSARTAN 25 MG TABLET PO SCH (08:05)
[2016-12-19] MEDS: POTASSIUM CHLORIDE 20 MEQ TABLET PO SCH (08:06)
[2016-12-19] MEDS: MAGNESIUM OXIDE 400 MG TABLET PO SCH ×2 (08:06→20:52)
[2016-12-19] MEDS: FLUoxetine 20 MG CAPSULE PO SCH (08:06)
[2016-12-19] MEDS ORDERED: ceFAZolin 1,000 MG VIAL ONE (08:56)
[2016-12-19] MEDS ORDERED: HEPARIN/NACL 0.9% 2 UNITS/ML 500 ML IV ONE (08:56)
[2016-12-19] MEDS ORDERED: LIDOCAINE 1% 20 ML VIAL ONE ×2 (08:57→09:25)
[2016-12-19] MEDS: INSULIN LISPRO 100 UNIT/ML SUBCUT SCH ×4 (09:08→20:55)
[2016-12-19] MEDS ORDERED: TISSUE ADHESIVE 1 EACH APPLICATOR TOP ONE (10:13)
--- NOTE | 2016-12-19 10:38 | Cardiac Defibrillator ---
- Preoperative diagnosis Date of Procedure:: 12/19/16 Preop Diagnosis: cardiac arrest due to ventricular fibrillation, not due to transient reversible cause Pre-op Diagnosis: asystolic cardiac arrest, failed DFT Post-op diagnosis: same Procedure: PROCEDURE SUMMARY Subcutaneous defibrillator coil implant. ICD pocket revision. Defibrillator testing. PLAN Bed rest for 4 hours. Routine post ICD implant site care and activity restrictions. Do not remove pressure dressing until AM. Portable CXR, EKG stat. CXR PA/Lat, device interrogation in AM. Ancef 1g iv. q8h x2. PROCEDURE Informed consent was obtained and a timeout was performed prior to the procedure. The patient was continuously monitored by ECG, pulse oxymetry and NIBP. 1g iv. Ancef was administered prior to the procedure for antibiotic prophylaxis. Monitored anesthesia care was provided by the anesthesia team. The patient was previously loaded with sotalol. Ventricular fibrillation was induced with 50Hz stim. The device promptly detected the arrhythmia, however, internal defibrillation with 30J energy failed , in B-Ax configuration, with SVC coil in the circuit.Successful external rescue defibrillation was performed with 200 J energy. Ventricular fibrillation was induced with T wave shock. The device promptly detected the arrhythmia, however, internal defibrillation with 30J energy failed , in B-Ax configuration, with SVC coil out of the circuit.Successful external rescue defibrillation was performed with 200 J energy. As the ICD was still unable to successfully defibrillate, with adequate safety margin, we proceeded with subcutaneous defibrillator wire implant. The left pectoral area was meticulously prepared with ChloroPrep surgical scrub. Sterile draping was applied and Ioban was used to cover the operation site. The image intensifier was draped with a sterile bag and positioned over the patient's chest. After infiltration with 1% lidocaine, the incision was reopened. The ICD pocket generator was revfised and expanded in the inferomedial direction, to allow placement of the new hardware. Hemostasis was then achieved with electrocautery. A curved trocar with a long sheath was threaded subcutaneously along the left chest, posteromedially, under fluoroscopic guidance. The trocar was then removed and the subcutaneous defibrillator lead was inserted into the sheath and advanced. The sheath was then peeled away and the stylet from the lead was removed.. Adequate position was confirmed with fluoroscopy. The leads were disconnected from the device, and an adaptor was used to connect the existing RV defibrillator lead and the new subcutaneous defibrillator related to the ICD. The ICD generator was attached to the leads and sealed in the prescribed manner. The wound was flushed with Ancef . The generator was placed into the pocket and tied to the pectoral fascia using 2-0 nonabsorbable suture. Stable lead positions were confirmed with fluoroscopy. Ventricular fibrillation was induced with a T wave shock. The device promptly detected the arrhythmia, and successful defibrillation was performed with a 25 J shock. The wound was closed using a double layer of 2-0 absorbable Vicryl sutures, followed by a subcuticular running suture with 4-0 Monocryl, then Exofin. A sterile, then a pressure dressing was applied. The device was then interrogated and programmed as detailed below. I will add an addendum, after we get response from [employer], whether the hardware is still MRI conditional. Device Type SN Location Medtronic Evera DR DDD ICD [id number] Left infraclavicular Lead Position Type SN P/R Threshold Impedance RA RA appendage Medtronic 5076-52 [id number] 3.4 mV 2.1 V @ 0.5 ms 456 Ohm RV RV apex Medtronic 9633F32 [id number] 9.6 mV 0.4 V @ 0.5 ms 399 Ohm Sq defibrillator lead Left chest wall sq Medtronic [id number] - - HVB 45, HVX 55 Adaptor ICD pocket Medtronic [id number] Bradycardia settings MVPR 50/130 Tachycardia settings VF@320 ms, VT@360ms Anesthesia: MAC Surgeon / Physician: Parker Bell Laboratory Sample Carrier: other (Khloe) Estimated blood loss: minimal Specimens: none sent Condition: stable Disposition: floor - Medications / Follow-up
[2016-12-19] MEDS: oxyCODONE/ACETAMINOPHEN 5-325 MG TABLET PO PRN ×3 (11:45→20:52)
[2016-12-19] MEDS ORDERED: SODIUM CHLORIDE 0.9% 250 ML IV ONE (11:54)
[2016-12-19] MEDS ORDERED: MIDAZOLAM 2 MG/2 ML VIAL ONE (11:54)
[2016-12-19] MEDS ORDERED: PROPOFOL 200 MG/20 ML VIAL IV ONE (11:54)
[2016-12-19] MEDS ORDERED: GLUCAGON 1 MG VIAL IM PRN (12:00)
--- NOTE | 2016-12-19 12:01 | EKG Report ---
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
--- NOTE | 2016-12-19 12:42 | XRay Report ---
History: Lead placement Date: 12/19/2016 Study: Chest x-ray AP portable Comparison exam: December 15, 2016 There is continued cardiomegaly. The mediastinal contours are unchanged. The pulmonary vasculature is not engorged. The left subclavian multilead transvenous pacemaker/defibrillator device is again noted. A third lead has been placed in the interval since the previous study. There is no pneumothorax. There is no increasing pleural effusion. The lungs remain generally clear and well expanded. Osseous structures are similar. There is some increased sclerosis of either humeral head compatible with underlying avascular necrosis as before. Impression: No evidence of a pneumothorax following pacemaker modification. A new lead has been placed since the previous study. Stable cardiomegaly. Otherwise unchanged PROCEDURE INTERPRETED AT [facility] DEPARTMENT OF RADIOLOGY Final Report Signed by: Dr. Daylin Francis
[2016-12-19] MEDS: metFORMIN 500 MG TABLET PO SCH (13:31)
[2016-12-19] MEDS: FUROSEMIDE 40 MG TABLET PO SCH ×2 (13:32→20:52)
[2016-12-19] MEDS: MORPHINE 2 MG/1 ML SYRINGE IV PRN (22:23)
[2016-12-20] MEDS: MORPHINE 2 MG/1 ML SYRINGE IV PRN (01:48)
[2016-12-20 05:21] LABS: Basophils % 0.5 % (0.0-0.8); Eosinophils # 0.5 10*3/uL (0.0-0.87); Hematocrit 34.6 VOL% (42.0-52.0); Immature Granulocytes % 0.6 %; Immature Granulocytes Absolute 0.05 #; Lymphocytes % 25.4 % (21.2-54.2); Mean Corpuscular HGB Conc 34.7 GM/DL (32-36); Mean Corpuscular Hemoglobin 22 PG (27-34); Monocytes # 0.7 10*3/uL (0.11-0.8); Monocytes % 9.5 % (1.7-12.7); Neutrophils # 4.5 10*3/uL (1.4-7.4); Platelet Count 97 T/CUMM (130-400); Red Blood Count 5.49 MC/CUMM (3.8-5.5); White Blood Count 7.8 T/CUMM (4-12)
[2016-12-20 05:24] LABS: Calcium 8.7 MG/DL (8.5-10.1); Magnesium 1.7 MG/DL (1.8-2.4); Osmolality,Calculated 271.1 MOS/KG (273-304)
[2016-12-20 05:31] LABS: Hypochromasia 1+
[2016-12-20 05:32] LABS: Microcytosis 1+; Platelet Estimate Decreased; Target Cells 1+
--- NOTE | 2016-12-20 08:08 | XRay Report ---
2 view chest 12/20/2016 4:00 AM Indication: Lead placement Comparison: Previous day at 1028 hours Findings: Slight decrease in size of the heart since interval study. Resolved central interstitial prominence. Defibrillator is unchanged in position. No acute osseous abnormalities. Visualized upper abdomen demonstrates no acute pathology. Impression: Resolved pulmonary venous congestion and central interstitial edema pattern PROCEDURE INTERPRETED AT [facility] DEPARTMENT OF RADIOLOGY Final Report Signed by: Soy Lambert
[2016-12-20] MEDS: INSULIN LISPRO 100 UNIT/ML SUBCUT SCH ×4 (08:25→20:22)
[2016-12-20] MEDS: MAGNESIUM SULF RIDER 2 GM in PREMIX 1 EACH IV PRN (08:26)
[2016-12-20] MEDS: metFORMIN 500 MG TABLET PO SCH (08:27)
[2016-12-20] MEDS: POTASSIUM CHLORIDE 20 MEQ TABLET PO SCH (08:27)
[2016-12-20] MEDS: FLUoxetine 20 MG CAPSULE PO SCH (08:27)
[2016-12-20] MEDS: MAGNESIUM OXIDE 400 MG TABLET PO SCH ×2 (08:27→20:20)
[2016-12-20] MEDS: LOSARTAN 25 MG TABLET PO SCH (08:27)
[2016-12-20] MEDS: SOTALOL 80 MG TABLET PO SCH ×2 (08:27→20:20)
[2016-12-20] MEDS: FUROSEMIDE 40 MG TABLET PO SCH (08:28)
--- NOTE | 2016-12-20 09:49 | Anesthesia Post-Op ---
Anesthesia Post OP - Post Ansesthetic Evaluation Patient seen in post op: Yes Resp: within normal limits CV: within normal limits Mental: within normal limits Temp: within normal limits [id number]: within normal limits Nausea and Vomiting: within normal limits Pain: within normal limits
--- NOTE | 2016-12-20 12:01 | Event Note ---
Patient has now changed his mind. Family is present and they prefer that he go to swing bed for a couple days/week as Dr. Bell had encouraged. Hopefully, patient will be discharged this afternoon to a swing bed facility. I have initiated Keflex 500 mg orally twice daily 5 days. He will need a one-week follow-up with Dr. Bell for a device interrogation and clinic follow-up. I will arrange for all of this at official discharge.
[2016-12-20] MEDS: oxyCODONE/ACETAMINOPHEN 5-325 MG TABLET PO PRN ×2 (15:33→20:20)
--- NOTE | 2016-12-20 16:51 | Cardiology Progress Note ---
Assessment and Plan - Time spent with patient Time spent with patient: Greater than 30 minutes (1) NICM (nonischemic cardiomyopathy) Status: Acute Assessment and plan: SEE PLAN OF CARE LISTED BELOW Current Visit: Yes (2) Cardiac arrest Status: Resolved Assessment and plan: SEE PLAN OF CARE LISTED BELOW Current Visit: Yes (3) High risk medication use Status: Chronic Assessment and plan: SEE PLAN OF CARE LISTED BELOW Current Visit: Yes (4) Status post implantation of automatic cardioverter/defibrillator (AICD) Status: Chronic Assessment and plan: SEE PLAN OF CARE LISTED BELOW Current Visit: Yes (5) Acute combined systolic and diastolic congestive heart failure Problem details: PICC line placed 10/14/16. Status: Resolved Assessment and plan: SEE PLAN OF CARE LISTED BELOW Current Visit: No (6) Alcoholism Status: Chronic Assessment and plan: SEE PLAN OF CARE LISTED BELOW Current Visit: No (7) Diabetes Status: Chronic Assessment and plan: SEE PLAN OF CARE LISTED BELOW Current Visit: No Qualifiers: Diabetes mellitus type: type 2 (8) Hemoglobin SC disease Status: Chronic Assessment and plan: SEE PLAN OF CARE LISTED BELOW Current Visit: No (9) Hypertension Status: Chronic Assessment and plan: SEE PLAN OF CARE LISTED BELOW Current Visit: No Cardiology - PN: Subj Interval history: Transcriber: Dr. Bell SUMMARY: Mr. Zacarias is a 45-year-old black male with prior cardiac arrest/ asystole with prolonged recovery. He was admitted for ICD implantation for secondary prevention. During defibrillator testing, his device was unable to rescue him despite trying multiple electrode and shock configurations. He has a history of sickle cell, EtOH and drug abuse. He was admitted to the hospital from the [facility] for Sotalol load. December 19, 2016 patient underwent elective repeat defibrillator testing under [facility] but was still unable to defibrillate. For this reason he underwent the following procedure: PROCEDURE SUMMARY Subcutaneous defibrillator coil implant. ICD pocket revision. Defibrillator testing. 2016: Patient tolerated the procedure well overnight. This morning he is doing well. Labs are stable. His device has been interrogated and found to be working appropriately. Chest x-ray stable. Patient is being recommended to undergo swing bed placement for several days as he has been hospitalized for quite some time status post cardiac arrest with asystole and prolonged recovery. Vital signs are stable. Will add low-dose Aspirin daily. Avoiding lipid-lowering agent due to his history of alcoholism and noncompliance. IMPRESSION/PLAN: 1. CHF, ACUTE ON CHRONIC - secondary to combined systolic dysfunction (EF 15 % ) and diastolic dysfunction. NYHA Class IV originally, now class II-III. 2. HEMOGLOBIN SC DISEASE - seems to be stable. 3. HYPERTENSION - Currently well controlled on beta shekhar, ARB. 4. ALCOHOLISM - He is receiving Tranxene as needed prevention of delirium tremens. 5. NONISCHEMIC DILATED CARDIOMYOPATHY - Status post ICD placement with subcutaneous defibrillator coil implant. 6. DIABETES - Continue Metformin. Blood glucose levels adequately controlled. 7. CARDIAC ARREST - now with ICD for prevention of sudden cardiac arrest. 8. STATUS POST ICD IMPLANTATION - now status post subcu defibrillator coil implant. 9. HIGH RISK MEDICATION - EKG being evaluated daily. Stable on Sotalol load. Plan for discharge tomorrow. Exam (Progress Note) - Constitutional Vitals: Period Temp Pulse Resp BP Sys/Ramirez Pulse Ox Last 24 Hr 97.9 F-98.5 F 60-62 18-18 102-118/65-79 95-99 Exam: General: [Appears well with no apparent distress.] [Pleasant and cooperative. ] [Appears comfortable.] HEENT: [Bilateral arcus, normocephalic, atraumatic. Mucous membranes moist. No jaundice noted. Conjunctiva moist and clear, sclerae anicteric] Neck: No JVD/HJR, no thyromegaly or lymphadenopathy noted. No carotid bruit appreciated Cardiac: [Regular rate and rhythm.] [No murmur rub or gallop.] Left precordial area without hematoma. ICD insertion site healing well without drainage. Lungs: [Clear to auscultation without accessory muscle use to assist the respiratory pattern.] Not requiring oxygen Abdomen: Soft, bowel sounds normoactive. Nontender and nondistended. No abdominal bruit or thrill noted. No masses noted. Musculoskeletal: No fluid collection. Decreased range of motion is noted. Extremities: Left arm in sling. No clubbing, cyanosis noted. [ No edema noted. ] Upper extremity pulses 2+. Lower extremity pulses 2+. Capillary refill less than 3 seconds. Skin: No unusual lesions or rashes. No skin breakdown appreciated. Neuro: Awake, alert and oriented 3. Moves all extremities well without hemiparesis or paralysis. No essential tremor is appreciated. Result/EKG - Labs CBC & BMP: 12/20/16 04:02 12/20/16 03:59 Lab Results: I have reviewed the past 24 hour labs Labs: Laboratory Results - last 24 hr 12/19/16 12/20/16 12/20/16 19:50 03:59 04:02 WBC 7.8 RBC 5.49 Hgb 12.0 L Hct 34.6 L MCV 63.0 L MCH 22 L MCHC 34.7 RDW 14.0 Plt Count 97 L Neut % (Auto) 58.0 Lymph % (Auto) 25.4 Piute % (Auto) 9.5 Eos % (Auto) 6.0 Baso % (Auto) 0.5 Neut # (Auto) 4.5 Lymph # (Auto) 2.0 Piute # (Auto) 0.7 Eos # (Auto) 0.5 Baso # (Auto) 0.0 Immature Gran % 0.6 Nucleated RBC % 0.0 Immature Gran # 0.05 Nucleated RBCs # 0.00 Platelet Estimate Decreased Hypochromasia 1+ Microcytosis 1+ Target Cells 1+ Sodium 135 L Potassium 4.0 Chloride 100 Carbon Dioxide 26 Anion Gap 13.0 BUN 18 Creatinine 1.10 GFR Calculation 92 BUN/Creatinine Ratio 16.00 Glucose 107 H POC Glucose 196 H Calculated Osmolality 271.1 L Calcium 8.7 Magnesium 1.7 L 12/20/16 12/20/16 12/20/16 07:24 11:23 15:22 WBC RBC Hgb Hct MCV MCH MCHC RDW Plt Count Neut % (Auto) Lymph % (Auto) Piute % (Auto) Eos % (Auto) Baso % (Auto) Neut # (Auto) Lymph # (Auto) Piute # (Auto) Eos # (Auto) Baso # (Auto) Immature Gran % Nucleated RBC % Immature Gran # Nucleated RBCs # Platelet Estimate Hypochromasia Microcytosis Target Cells Sodium Potassium Chloride Carbon Dioxide Anion Gap BUN Creatinine GFR Calculation BUN/Creatinine Ratio Glucose POC Glucose 123 H 131 H 155 H Calculated Osmolality Calcium Magnesium - Diagnostic Findings Procedure: Chest x-ray: report reviewed by me - EKG EKG results: interpreted by me EKG shows: sinus rhythm Quality Measures - VTE Contraindication to Pharmacological VTE Prophylaxis: High Risk of Bleeding
[2016-12-20] MEDS: cephALEXin 500 MG CAPSULE PO SCH (20:20)
[2016-12-21] MEDS: INSULIN LISPRO 100 UNIT/ML SUBCUT SCH ×2 (08:23→12:48)
[2016-12-21] MEDS ORDERED: ASPIRIN EC 81 MG TABLET PO SCH (09:00)
[2016-12-21] MEDS ORDERED: FUROSEMIDE 40 MG TABLET PO SCH (09:00)
[2016-12-21] MEDS: POTASSIUM CHLORIDE 20 MEQ TABLET PO SCH (09:54)
[2016-12-21] MEDS: metFORMIN 500 MG TABLET PO SCH (09:54)
[2016-12-21] MEDS: LOSARTAN 25 MG TABLET PO SCH (09:54)
[2016-12-21] MEDS: SOTALOL 80 MG TABLET PO SCH (09:54)
[2016-12-21] MEDS: MAGNESIUM OXIDE 400 MG TABLET PO SCH (09:55)
[2016-12-21] MEDS: FLUoxetine 20 MG CAPSULE PO SCH (09:55)
[2016-12-21] MEDS: cephALEXin 500 MG CAPSULE PO SCH (09:55)
--- NOTE | 2016-12-21 10:31 | Discharge Summary ---
Hospital Course - Hospital Course Hospital Course: Engine Monitor: Dr. Bell SUMMARY: Mr. Zacarias is a 45-year-old black male with prior cardiac arrest/ asystole with prolonged recovery. He was admitted for ICD implantation for secondary prevention. During defibrillator testing, his device was unable to rescue him despite trying multiple electrode and shock configurations. He has a history of sickle cell, EtOH and drug abuse. He was admitted to the hospital from the [facility] for Sotalol load. December 19, 2016 patient underwent elective repeat defibrillator testing under [facility] but was still unable to defibrillate. For this reason he underwent the following procedure: PROCEDURE SUMMARY Subcutaneous defibrillator coil implant. ICD pocket revision. Defibrillator testing. 2016: Patient tolerated the procedure well overnight. This morning he is doing well. Labs are stable. His device has been interrogated and found to be working appropriately. Chest x-ray stable. Patient is being recommended to undergo swing bed placement for several days as he has been hospitalized for quite some time status post cardiac arrest with asystole and prolonged recovery. Vital signs are stable. Will add low-dose Aspirin daily. Avoiding lipid-lowering agent due to his history of alcoholism and noncompliance. 2016: Patient has done well overnight. He has been ambulating without difficulty. He will be discharged home today with a follow-up appointment to see Dr. Bell in 1 week for device interrogation, EKG BMP, magnesium. We will have home health with physical therapy assess and treat patient accordingly. Labs are stable as are vital signs. Having felt is met maximal medical therapy, patient is being discharged home in stable condition. Cardiac discharge medications include the following: Aspirin 81 mg orally daily Keflex 500 mg orally twice daily 5 days Lasix 40 mg orally daily Losartan 25 mg orally daily Sotalol 120 mill grams orally twice daily Magnesium oxide 40 mg orally twice daily Potassium chloride 20 mEq orally daily Avoiding lipid-lowering agent due to history of alcoholism and noncompliance Patient is being given a handwritten prescription for oxycodone/acetaminophen 5 mg/325 1 p.o. every 4 hours moderate pain. Dispense 30 with 0 refills. He will resume his other noncardiac preadmission medications - Time spent with patient Time with patient DS: Greater than 30 minutes Time spent discussing smoking cessation with patient: 3 to 10 minutes Diagnosis - Discharge Diagnosis (1) NICM (nonischemic cardiomyopathy) Status: Chronic (2) Cardiac arrest Status: Resolved (3) High risk medication use Status: Chronic (4) Status post implantation of automatic cardioverter/defibrillator (AICD) Status: Chronic (5) Alcoholism Status: Chronic (6) Diabetes Status: Chronic (7) Hemoglobin SC disease Status: Chronic (8) Hypertension Status: Chronic Specialty Discharge - Follow Up or Referrals Follow up with: Parker Bell MD [Physician] - (1 week. Device interrogation, EKG, BMP, Mg) Discharge Plan - Discharge Data Disposition: Disch To Home/Self Care Condition at Discharge: Stable Discharge Diet: heart healthy Activity: other (Post ICD expectations) Hygiene: other (Post ICD expectations) Weight Bearing at Discharge: other (Post ICD expectations) Driving: other (Post ICD expectations) Contact your physician if you experience:: fever over 101, Difficulty voiding, Redness or swelling, Nausea/Vomiting, Shortness of breath, Bleeding, pain uncontrolled by pain medications - Discharge Medications New Magnesium Oxide 400 mg PO BID #60 tablet Potassium Chloride Cap/Tab [K Dur] 20 meq PO DAILY #30 tablet Aspirin EC Tab 81 mg PO DAILY #30 tablet cephALEXin [Keflex] 500 mg PO Q12HR #10 capsule Sotalol [Betapace] 120 mg PO BID #60 tablet Continue Furosemide 40 mg PO DAILY metFORMIN [Glucophage] 500 mg PO DAILY FLUoxetine [PROzac] 20 mg PO DAILY Discontinued Carvedilol [Coreg] 6.25 mg PO BID tablet Losartan [Cozaar] 25 mg PO DAILY - Follow Up or Referral Follow Up: Parker Bell MD [Physician] - (1 week. Device interrogation, EKG.) - Forms/Instructions Additional Discharge Instructions: Please arrange home health with physical therapy at discharge. Exam - Constitutional Vitals: Period Temp Pulse Resp BP Sys/Ramirez Pulse Ox Last 24 Hr 97.9 F-99.4 F 60-62 18-18 90-108/52-71 96-100 Exam: General: [Appears well with no apparent distress.] [Pleasant and cooperative. ] [Appears comfortable.] HEENT: [Bilateral arcus, normocephalic, atraumatic. Mucous membranes moist. No jaundice noted. Conjunctiva moist and clear, sclerae anicteric] Neck: No JVD/HJR, no thyromegaly or lymphadenopathy noted. No carotid bruit appreciated Cardiac: [Regular rate and rhythm.] [No murmur rub or gallop.] Left precordial area without hematoma. ICD insertion site healing well without drainage. Lungs: [Clear to auscultation without accessory muscle use to assist the respiratory pattern.] Not requiring oxygen Abdomen: Soft, bowel sounds normoactive. Nontender and nondistended. No abdominal bruit or thrill noted. No masses noted. Musculoskeletal: No fluid collection. Decreased range of motion is noted. Extremities: Left arm in sling. No clubbing, cyanosis noted. [ No edema noted. ] Upper extremity pulses 2+. Lower extremity pulses 2+. Capillary refill less than 3 seconds. Skin: No unusual lesions or rashes. No skin breakdown appreciated. Neuro: Awake, alert and oriented 3. Moves all extremities well without hemiparesis or paralysis. No essential tremor is appreciated. Discharge Results Labs on day of discharge: Labs from last 24 hours 12/21/16 12/20/16 12/20/16 07:13 19:16 15:22 POC Glucose 129 H 133 H 155 H 12/20/16 11:23 POC Glucose 131 H - Imaging and Cardiology Cardiology Procedure: report reviewed by ri Procedure: Chest x-ray: report reviewed by ri DS: Provider Date of admission: 12/15/16 08:00 Primary care physician: Nile Lindsay MD Attending physician on admission: Parker Bell MD Consults: 12/19/16 14:20 Consult to Case Mgmt/Social Srvs [CONS] Routine Reason for Case Mgmt/Social Srvs: Swingbed/SNF/Snf Consult Comment: probable discharge 12/2012/20/16 13:22 Consult to Physical Therapy [CONS] Routine Reason for Physical Therapy: Evaluate and Treat 12/20/16 13:23 Consult to Occupational Therapy [CONS] Routine Reason for Occupational Therapy: Evaluate and Treat Discharging clinician: Clara Mcadams NP Expected date of discharge: 12/21/16
[2016-12-21 11:48] VITALS: BP 102/69
== END 2016-12-21 13:19 | disposition home or self-care (01) | DRG 161 ==
LOC: N.CL 06:04 → N.TELES 10:55
PROVIDERS: ADMIT Internal Medicine Clinical Cardiac Electrophysiology; ATTEND Internal Medicine Clinical Cardiac Electrophysiology
PROC: CLDCICD (2016-12-14 08:15)